=== PATIENT | female | born 1940 | race American Indian/Alaskan Native ===

== ENCOUNTER 2019-04-23 14:15 | Inpatient (IN) | payer MEDICARE, OTHER ==
[~2019-04-23] VITALS: Ht 160 cm; Wt 40.1 kg
--- OUTSIDE RECORDS SUMMARY | ~2019-04-23 | XMS | Clinical Summary ---
Demographics + + + | Address | [address] | | | [place] [address] | + + + | Home Phone | | + + + | Preferred Language | Unknown | + + + | Marital Status | | + + + | Muslim Affiliation | Unknown | + + + | Race | Unknown | + + + | Ethnic Group | Unknown | + + + Author + + + | Author | [facility] | | | and [place] | + + + | Organization | [facility] | | | and [place] | + + + | Address | Unknown | + + + | Phone | Unavailable | + + + Support + + +---------+ + | Name | Relationship | Address | Phone | + + +---------+ + | JoaquínDelmera | ECON | Unknown | | + + +---------+ + Care Team Providers + +------+ + | Care Deicer Inspector Pneumatic Name | Role | Phone | + +------+ + | Pcp, Prov Inactive | PP | | + +------+ + Allergies + + + + + + | Active Allergy | Reactions | Severity | Noted | Comments | | | | | Date | | + + + + + + | Bee Venom | | | | | + + + + + + | Codeine | | | 10/07/20 | | | | | | 13 | | + + + + + + | Morphine | | | 11/14/20 | | | | | | 13 | | + + + + + + | Penicillins | | | 11/14/20 | | | | | | 13 | | + + + + + + | Promethazine | | | 11/14/20 | | | | | | 13 | | + + + + + + | Hydrocodone | | | 111420 | | | | | | 13 | | + + + + + + Medications + + + +---------+------+------+-------+ | Medication | Sig | Dispensed | Refills | Star | End | Statu | | | | | | t | Date | s | | | | | | Date | | | + + + +---------+------+------+-------+ | simvastatin | Take 20 mg by mouth | | 0 | 02/1 | | Activ | | (ZOCOR) 20 mg tablet | nightly. | | | 06/12 | | e | | | | | | 12 | | | + + + +---------+------+------+-------+ | CALCIUM CARBONATE | TABS one by mouth | | 0 | 02/1 | | Activ | | | daily | | | 06/12 | | e | | | | | | 12 | | | + + + +---------+------+------+-------+ | multiple vitamins | one by mouth daily | | 0 | 02/1 | | Activ | | w/minerals (OCUVITE) | | | | 06/12 | | e | | TABS | | | | 12 | | | + + + +---------+------+------+-------+ | ferrous sulfate | One tablet by mouth | | 0 | 02/1 | | Activ | | 325 mg tablet | once daily | | | 720 | | e | | | | | | 12 | | | + + + +---------+------+------+-------+ | | Take 25 mg by mouth | | 0 | 02/1 | | Activ | | hydrochlorothiazide | Daily. | | | 06/12 | | e | | 25 mg tablet | | | | 12 | | | + + + +---------+------+------+-------+ | ibuprofen | Take 600 mg by mouth | | 0 | 02/1 | | Activ | | (ADVIL,MOTRIN) 600 | 3 times daily. | | | 720 | | e | | MG tablet | | | | 12 | | | + + + +---------+------+------+-------+ | levothyroxine | Take 125 mcg by | | 0 | 02/1 | | Activ | | (SYNTHROID, | mouth Daily. | | | 20 | | e | | LEVOTHROID) 125 mcg | | | | 12 | | | | tablet | | | | | | | + + + +---------+------+------+-------+ | metoprolol | Take 100 mg by mouth | | 0 | 02/1 | | Activ | | (TOPROL-XL) 100 MG | 2 times daily. | | | 7/20 | | e | | 24 hr tablet | | | | 12 | | | + + + +---------+------+------+-------+ | multivitamin | One tablet by mouth | | 0 | 02/1 | | Activ | | (THERAGRAN) per | once daily | | | 20 | | e | | tablet | | | | 12 | | | + + + +---------+------+------+-------+ | clopidogrel | Take 75 mg by mouth | | 0 | | | Activ | | (PLAVIX) 75 mg | Daily. | | | | | e | | tablet | | | | | | | + + + +---------+------+------+-------+ | Cholecalciferol | Take 50,000 Units by | | 0 | | | Activ | | (VITAMIN D3) 01613 | mouth Daily. | | | | | e | | UNITS CAPS | | | | | | | + + + +---------+------+------+-------+ | insulin glargine | Inject 15 Units | | 0 | | | Activ | | (LANTUS) 100 | under the skin | | | | | e | | units/mL injection | nightly. | | | | | | + + + +---------+------+------+-------+ | isosorbide | Take 30 mg by mouth | | 0 | | | Activ | | dinitrate (ISORDIL) | 2 times daily. | | | | | e | | 30 MG tablet | | | | | | | + + + +---------+------+------+-------+ | sitagliptan | Take 50 mg by mouth | | 0 | | | Activ | | (JANUVIA) 50 MG | Daily. | | | | | e | | tablet | | | | | | | + + + +---------+------+------+-------+ | nitroglycerin | Place 0.4 mg under | | 0 | | | Activ | | (NITROSTAT) 0.4 mg | the tongue every 5 | | | | | e | | SL tablet | minutes as needed. | | | | | | + + + +---------+------+------+-------+ | telmisartan | Take 40 mg by mouth | | 0 | 02/1 | | Activ | | (MICARDIS) 20 MG | Daily. | | | 7/20 | | e | | tablet | | | | 12 | | | + + + +---------+------+------+-------+ | aspirin 81 MG | Take 81 mg by mouth | | 0 | | | Activ | | tablet | Daily. Take 2 | | | | | e | | | tablets 2 times | | | | | | | | daily | | | | | | + + + +---------+------+------+-------+ | traMADol (ULTRAM) | Take 1-2 tablets by | 90 | 0 | 10/3 | | Activ | | 50 mg | mouth up to three | tablet | | 0/20 | | e | | tabletIndications: | times daily as | | | 14 | | | | Chronic back pain | needed. | | | | | | + + + +---------+------+------+-------+ Active Problems + + + | Problem | Noted Date | + + + | Thoracic back pain | 08/31/2014 | + + + | History of compression fracture of spine | 08/31/2014 | + + + | Carotid artery stenosis, symptomatic | 10/12/2013 | + + + | HEARING LOSS | 01/10/2012 | + + + | OSTEOPOROSIS | 01/10/2012 | + + + | FATIGUE | 01/10/2012 | + + + | DYSPNEA | 01/10/2012 | + + + | HYPOTHYROIDISM | 01/10/2012 | + + + | DIABETES MELLITUS, TYPE II | 01/10/2012 | + + + | HYPERTENSION | 01/10/2012 | + + + | CAD | 01/10/2012 | + + + | HYPERLIPIDEMIA | 01/10/2012 | + + + | CARDIAC MURMUR | 01/10/2012 | + + + Family History + + +------+ + | Medical History | Relation | Name | Comments | + + +------+ + | Colon cancer | Brother | | | + + +------+ + | Alcohol abuse | Father | | | + + +------+ + | Arthritis | Father | | | + + +------+ + | Cancer | Father | | | + + +------+ + | Clotting disorder | Father | | | + + +------+ + | Diabetes | Father | | | + + +------+ + | Heart disease | Father | | | + + +------+ + | Kidney disease | Father | | | + + +------+ + | Lung cancer | Father | | | + + +------+ + | Stroke | Father | | | + + +------+ + | Alcohol abuse | Mother | | | + + +------+ + | Arthritis | Mother | | | + + +------+ + | Cancer | Mother | | | + + +------+ + | Clotting disorder | Mother | | | + + +------+ + | Diabetes | Mother | | | + + +------+ + | Heart disease | Mother | | | + + +------+ + | Kidney disease | Mother | | | + + +------+ + | Lung cancer | Mother | | | + + +------+ + | Other (see comment) | Mother | | CVA | + + +------+ + | Stroke | Mother | | | + + +------+ + | Cervical cancer | Sister | | | + + +------+ + + +------+--------+ + | Relation | Name | Status | Comments | + +------+--------+ + | Brother | | | | + +------+--------+ + | Father | | | | + +------+--------+ + | Mother | | | | + +------+--------+ + | Sister | | | | + +------+--------+ + Social History + +-------+ +--------+------+ | Tobacco Use | Types | Packs/Day | Years | Date | | | | | Used | | + +-------+ +--------+------+ | Never Smoker | | | | | + +-------+ +--------+------+ + + +---------+ + | Alcohol Use | Drinks/We | oz/Week | Comments | | | ek | | | + + +---------+ + | Yes [...] recent travel history available. | + + Last Filed Vital Signs + + + + | Vital Sign | Reading | Time Taken | + + + + | Blood Pressure | 149/95 | 08/31/20141116 PDT | + + + + | Pulse | 97 | 08/31/20141116 PDT | + + + + | Temperature | 36.2 C (97.1 F) | 10/12/2013 1443 PST | + + + + | Respiratory Rate | 16 | 10/12/20131442 PST | + + + + | Oxygen Saturation | 94% | 10/12/20131442 PST | + + + + | Inhaled Oxygen | - | - | | Concentration | | | + + + + | Weight | 47.6 kg (105 lb) | 08/31/20141116 PDT | + + + + | Height | 154.9 cm (5' 1") | 08/31/20141116 PDT | + + + + | Body Mass Index | 19.84 | 08/31/20141116 PDT | + + + + Plan of Treatment + + + + + | Health Maintenance | Due Date | Last Done | Comments | + + + + + | Vaccine: | | | | | Dtap/Tdap/Td (1 - | 0 | | | | Tdap) | | | | + + + + + | Vaccine: Zoster (1 | | | | | of 2) | 1 | | | + + + + + | Vaccine: | | | | | Pneumococcal 65+ | 6 | | | | Low/Medium Risk (1 | | | | | of 2 - PCV13) | | | | + + + + + | Vaccine: Influenza | | | | | (Season Ended) | 9 | | | + + + + + Results Not on filefrom Last 3 Months Insurance + +--------+ +--------+ +---------+--------+ | Payer | Benefi | Subscriber | Effect | Phone | Address | Type | | | t Plan | ID | kt | | | | | | / | | Dates | | | | | | Group | | | | | | + +--------+ +--------+ +---------+--------+ | MEDICARE | [place] | [id number] | 03/24/20 | [phone] | | Medica | | | AD | | 06-Pre | 5 | | re | | | MEDICA | | sent | | | | | | RE | | | | | | + +--------+ +--------+ +---------+--------+ | [facility] | IHS | [id number] | | | | Indemn | | SERVICE | YELLOW | | 014-Pr | | | ity | | | [place] | | esent | | | | + +--------+ +--------+ +---------+--------+ + +--------+ +--------+ + + | Guarantor Name | Accoun | Relation to | Date | Phone | Billing Address | | | t Type | Patient | of | | | | | | | | | | + +--------+ +--------+ + + | Tammie Kearney | Person | Self [birth year] | [address] | | | al/Fam | | 1940 | [phone] | [place] | | | [place] | | | [address] (Home) | [address] | + +--------+ +--------+ + + Advance Directives Patient has advance care planning documents on file. For more information, please contact:[facility] [place] [address]
--- OUTSIDE RECORDS SUMMARY | ~2019-04-23 | XMS | Clinical Summary ---
Demographics + + + | Address | [address] | | | [place] [address] | + + + | Home Phone | | + + + | Preferred Language | Unknown | + + + | Marital Status | | + + + | Samaritan Affiliation | 1041 | + + + | Race | Unknown | + + + | Ethnic Group | Unknown | + + + Author + + + | Author | [facility] | + + + | Organization | [facility] | + + + | Address | Unknown | + + + | Phone | Unavailable | + + + Support + + +---------+ + | Name | Relationship | Address | Phone | + + +---------+ + | Sharif Courtney | Unknown | | + + +---------+ + | Tram Ruiz | ECON | Unknown | | + + +---------+ + Care Team Providers + +------+ + | Care Customer Security Clerk Name | Role | Phone | + +------+ + | Ani Yanes MD | PP | | + +------+ + Allergies + + + + + + | Active Allergy | Reactions | Severity | Noted | Comments | | | | | Date | | + + + + + + | Codeine | Nausea and Vomiting | Low | 10/15/20 | | | | | | 13 | | + + + + + + | Diazepam | Other (See Comments) | Medium | 05/27/20 | Unknown per pt | | | | | 14 | chart | + + + + + + | Lidocaine | Other (See Comments) | Medium | 05/27/20 | Unknown | | | | | 14 | | + + + + + + | Morphine | Itching | Medium | 09/07/20 | | | | | | 13 | | + + + + + + | Penicillins | Itching | Medium | 09/07/20 | | | | | | 13 | | + + + + + + | Promethazine | Hallucinations | Medium | 09/07/20 | | | | | | 13 | | + + + + + + | Propoxyphene | Other (See Comments) | Medium | 05/27/20 | Unknown per pt | | | | | 14 | history | + + + + + + | Hydrocodone-Acetamin | Nausea and Vomiting | Low | 09/07/20 | | | ophen | | | 13 | | + + + + + + Current Medications + + +---------+---------+------+------+-------+ | Prescription | Sig. | Disp. | Refills | Star | End | Statu | | | | | | t | Date | s | | | | | | Date | | | + + +---------+---------+------+------+-------+ | insulin glargine | Inject 10 Units into | 10 mL | 3 | 10/1 | | Activ | | (LANTUS) 100 UNIT/ML | the skin nightly. | | | 7/20 | | e | | injection | | | | 13 | | | + + +---------+---------+------+------+-------+ | | Take 25 mg by mouth | | | | | Activ | | hydrochlorothiazide | daily. | | | | | e | | (HYDRODIURIL) 25 MG | | | | | | | | tablet | | | | | | | + + +---------+---------+------+------+-------+ | metoprolol | Take 100 mg by mouth | | | | | Activ | | (LOPRESSOR) 100 MG | daily. | | | | | e | | tablet | | | | | | | + + +---------+---------+------+------+-------+ | levothyroxine | Take 125 mcg by | | | | | Activ | | (SYNTHROID, | mouth every morning | | | | | e | | LEVOTHROID) 125 MCG | before breakfast. | | | | | | | tablet | | | | | | | + + +---------+---------+------+------+-------+ | simvastatin | Take 20 mg by mouth | | | | | Activ | | (ZOCOR) 20 MG tablet | nightly. | | | | | e | + + +---------+---------+------+------+-------+ | sitaGLIPtin | Take 1 tablet by | 30 | 0 | 10/2 | | Activ | | (JANUVIA) 50 MG | mouth daily. | tablet | | 4/20 | | e | | tablet | | | | 13 | | | + + +---------+---------+------+------+-------+ | Cholecalciferol | Take 5,000 Units by | | | | | Activ | | 5000 UNITS TABS | mouth daily. | | | | | e | + + +---------+---------+------+------+-------+ | calcium carbonate | Take 600 mg by mouth | | | | | Activ | | (OS-SANTA) 600 MG TABS | daily. | | | | | e | + + +---------+---------+------+------+-------+ | aspirin 81 MG EC | Take 81 mg by mouth | | | | | Activ | | tablet | daily with | | | | | e | | | breakfast. | | | | | | + + +---------+---------+------+------+-------+ | amLODIPine | Take 10 mg by mouth | | | 10/2 | | Activ | | (NORVASC) 2.5 MG | daily. | | | 4/20 | | e | | tablet | | | | 13 | | | + + +---------+---------+------+------+-------+ | irbesartan | Take 1 tablet by | 30 | 0 | 07/0 | | Activ | | (AVAPRO) 300 MG | mouth nightly. | tablet | | 8/20 | | e | | tablet | | | | 14 | | | + + +---------+---------+------+------+-------+ | isosorbide | Take 1 tablet by | 30 | 0 | 07/0 | | Activ | | mononitrate (IMDUR) | mouth daily. | tablet | | 8/20 | | e | | 60 MG 24 hr tablet | | | | 14 | | | + + +---------+---------+------+------+-------+ Active Problems + + + | Problem | Noted Date | + + + | NSTEMI (non-ST elevated myocardial infarction) | 05/27/2014 | + + + | Chest pain at rest | 05/27/2014 | + + + | Accelerated hypertension | 05/27/2014 | + + + | Elevated d-dimer | 05/27/2014 | + + + | Chronic low back pain | 05/27/2014 | + + + | Head ache | 05/27/2014 | + + + | Nausea with vomiting | 05/27/2014 | + + + | At high risk for falls | 05/27/2014 | + + + | Gait disturbance, post-stroke | 09/09/2013 | + + + | Lacunar stroke, acute | 09/08/2013 | + + + | HTN (hypertension) | 09/08/2013 | + + + | DM type 2 (diabetes mellitus, type 2) | 09/08/2013 | + + + | Dehydration | 09/08/2013 | + + + | Other chest pain | 09/08/2013 | + + + Family History + + +------+ + | Medical History | Relation | Name | Comments | + + +------+ + | Alcoholism | Father | | | + + +------+ + | Diabetes | Mother | | | + + +------+ + | Heart failure | Mother | | | + + +------+ + + +------+ + + | Relation | Name | Status | Comments | + +------+ + + | Father | | | | + +------+ + + | Mother | | | | + +------+ + + Social History + +-------+ +--------+ + | Tobacco Use | Types | Packs/Day | Years | Date | | | | | Used | | + +-------+ +--------+ + | Former Smoker | | 0.25 | 4 | Quit: 09/07/1993 | + +-------+ +--------+ + + + +---------+ + | Alcohol Use | Drinks/We | oz/Week | Comments | | | ek | | | + + +---------+ + | No | | | | + + +---------+ + + + + | Sex Assigned at | Date Recorded | | | | + + + | Not on file | | + + + Last Filed Vital Signs + + + + | Vital Sign | Reading | Time Taken | + + + + | Blood Pressure | 131/60 | 05/31/2014 3:34 PM PDT | + + + + | Pulse | 68 | 05/31/2014 3:34 PM PDT | + + + + | Temperature | 37 C (98.6 F) | 05/31/2014 3:34 PM PDT | + + + + | Respiratory Rate | 16 | 05/31/2014 3:34 PM PDT | + + + + | Oxygen Saturation | 93% | 05/31/2014 3:34 PM PDT | + + + + | Inhaled Oxygen | - | - | | Concentration | | | + + + + | Weight | 51.3 kg (113 lb) | 05/31/2014 3:46 AM PDT | + + + + | Height | 160 cm (5' 3") | 05/27/2014 5:19 AM PDT | + + + + | Body Mass Index | 20.02 | 05/31/2014 3:46 AM PDT | + + + + Plan of Treatment Not on file Results Not on filefrom Last 3 Months Insurance + +--------+ +------+-------+ + | Payer | Benefi | Subscriber | Type | Phone | Address | | | t Plan | ID | | | | | | / | | | | | | | Group | | | | | + +--------+ +------+-------+ + | MEDICARE | MEDICA | [id number] | | | [address] | | | RE | | | | [place] [address] | | | [place] | | | | | | | AD | | | | | + +--------+ +------+-------+ + | /[facility] | YELLOW | [id number] | | | | | PLANS | [place] | | | | | + +--------+ +------+-------+ + + +--------+ +--------+ + + | Guarantor Name | Accoun | Relation to | Date | Phone | Billing Address | | | t Type | Patient | of | | | | | | | | | | + +--------+ +--------+ + + | HELEN COURTNEY | Person | Self | [birth year] | Home: | [address] | | | [place] | | 1940 | [phone] | [address] | | | [place] | | | [phone] | [phone] | + +--------+ +--------+ + +
--- OUTSIDE RECORDS SUMMARY | ~2019-04-23 | XMS | Clinical Summary ---
Demographics + + + | Address | [address] | | | [place] [address] | + + + | Home Phone | | + + + | Preferred Language | Unknown | + + + | Marital Status | | + + + | Adventism Affiliation | 1041 | + + + | Race | Unknown | + + + | Ethnic Group | Unknown | + + + Author + + + | Author | [facility] | + + + | Organization | [facility] | + + + | Address [...] Team Providers + +------+ + | Care Behavioral Health Assistant Name | Role | Phone | + [...] +------+-------+ + | MEDICARE | MEDICA | [id number] | | | [address] | | | RE | | | | [place] [address] | | | [place] | | | | | | | AD | | | | | + +--------+ +------+-------+ + | /[facility] | YELLOW | [id number] | | | | | PLANS | [...] | Self | [birth year] | Home: | [address] | | | [place] | | 1940 | [phone] | [address] | | | [place] | | | [phone] | [phone] | + +--------+ +--------+ + +
--- OUTSIDE RECORDS SUMMARY | ~2019-04-23 | XMS | Clinical Summary ---
Demographics + + + | Address | [address] | | | [place] [address] | + + + | Home Phone | | + + + | Preferred Language | Unknown | + + + | Marital Status | | + + + | Confucianism Affiliation | 1041 | + + + | Race | Unknown | + + + | Ethnic Group | Unknown | + + + Author + + + | Author | [facility] | + + + | Organization | [facility] | + + + | Address [...] Team Providers + +------+ + | Care Dye House Worker Name | Role | Phone | [...] +------+-------+ + | MEDICARE | MEDICA | [id number] | | | [address] | | | RE | | | | [place] [address] | | | [place] | | | | | | | AD | | | | | + +--------+ +------+-------+ + | /[facility] | YELLOW | [id number] | | | | | PLANS | [...] | Self | [birth year] | Home: | [address] | | | [place] | | 1940 | [phone] | [address] | | | [place] | | | [phone] | [phone] | + +--------+ +--------+ + +
--- OUTSIDE RECORDS SUMMARY | ~2019-04-23 | XMS | Clinical Summary ---
Demographics + + + | Address | [address] | | | [place] [address] | + + + | Home Phone | | + + + | Preferred Language | Unknown | + + + | Marital Status | | + + + | Catholic Affiliation | Unknown | + + + | Race | Unknown | + + + | Ethnic Group | Unknown | + + + Author + + + | Author | [facility] | | | and [place] | + + + | Organization | [facility] | | [...] Team Providers + +------+ + | Care Special Education Associate Name | Role | Phone | + [...] | | Activ | | (VITAMIN D3) 21449 | mouth Daily. | | | | [...] +--------+ +---------+--------+ | MEDICARE | [place] | [id number] | 03/24/20 | [phone] | | Medica | | | AD | | 06-Pre | 5 | | re | | | MEDICA | | sent | | | | | | RE | | | | | | + +--------+ +--------+ +---------+--------+ | [facility] | IHS | [id number] | | | | Indemn | | [...] Person | Self | [birth year] | | [address] | | | al/Fam | | 1940 | [phone] | [address] | | | [place] | | | [address] (Home) | [phone] | + +--------+ +--------+ + + Advance Directives Patient has advance care planning documents on file. For more information, please contact:[facility] [place] [address]
--- OUTSIDE RECORDS SUMMARY | ~2019-04-23 | XMS | Clinical Summary ---
Demographics + + + | Address | [address] | | | [place] [address] | + + + | Home Phone | | + + + | Preferred Language | Unknown | + + + | Marital Status | | + + + | Mosque Affiliation | Unknown | + + + | Race | Unknown | + + + | Ethnic Group | Unknown | + + + Author + + + | Author | [facility] | | | and [place] | + + + | Organization | [facility] | | | [...] Team Providers + +------+ + | Care Director Supply Name | Role | Phone | + [...] | | Activ | | (VITAMIN D3) 37816 | mouth Daily. | | | | [...] +--------+ +---------+--------+ | MEDICARE | [place] | [id number] | 03/24/20 | [phone] | | Medica | | | AD | | 06-Pre | 5 | | re | | | MEDICA | | sent | | | | | | RE | | | | | | + +--------+ +--------+ +---------+--------+ | [facility] | IHS | [id number] | | | | Indemn | | [...] Person | Self | [birth year] | | [address] | | | al/Fam | | 1940 | [phone] | [address] | | | [place] | | | [address] (Home) | [phone] | + +--------+ +--------+ + + Advance Directives Patient has advance care planning documents on file. For more information, please contact:[facility] [place] [address]
[~2019-04-23 14:15] MED LIST: AMLODIPINE BESY10 MG PO; ASPIRIN EC81 MG PO; ASPIRIN325 MG PO; AVAPRO300 MG PO; DIALYVITE V5000 UNIT PO; FAMOTIDINE20 MG PO; FOSAMAX70 MG PO; FUROSEMIDE20 MG PO; HYDROCHLOROTHIA25 MG PO; IRBESARTAN150 MG PO; ISOSORBIDE MONO30 MG PO; JANUVIA50 MG PO; LANTUS100 UNITS/ SUB-Q; LEVOTHYROXINE125 MCG PO; METOPROLOL TAR100 MG PO; METOPROLOL TART50 MG PO; NORVASC5 MG PO; OCUVITE TABLET1 EAC1; PLAVIX75 MG PO; RA CALCIUM PO; SIMVASTATIN20 MG; SIMVASTATIN20 MG PO; SUCRALFATE1 GM/10 ML PO; TELMISARTAN20 MG PO; ULTRA-LIGHT RO1 EACH MISC
[2019-04-23] MEDS ORDERED: ROSUVASTATIN CA10 MG PO (14:49)
[2019-04-23] MEDS ORDERED: CARVEDILOL3.125 MG PO (14:50)
--- NOTE | 2019-04-23 18:53 | NUR ---
pt ARRIVED ON FLOOR. KALEIGH MOSS IN ROOM. pt's DAUGHTER VINCENT AT BEDSIDE.
--- NOTE | 2019-04-23 20:07 | NUR ---
CHARGE NURSE ROUNDING NOTE:. PT ADMITTED TO ROOM 109 AT 1856. COOPERATIVE. FAMILY IN ROOM. CALL LIGHT AT BEDSIDE, PT ORIENTED TO ROOM 1920: DR THURMAN IN ROOM ASSESSING PT 1999: DR SPENCER IN ROOM ASSESSING PT. BOBBY RN IN ROOM
--- NOTE | 2019-04-23 20:18 | NUR ---
REPORT RECEIVED FROM KALEIGH MOSS. DAUGHTER VINCENT AT BEDSIDE, GRANDDAUGHTER RAMANA AT BEDSIDE. 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 pt UP TO TOILET, SOME INCONT AT BASELINE, PAD IN PLACE. SOME REDNESS NOTED ALONG SPINE AND BUTTOCKS, BLANCHABLE. SKIN INTACT. DR SPENCER IN TO DO ASSESSMENT. DIET ADVANCED TO ADA, SOUP PROVIDED. pt SITTING ON SIDE OF BED TO EAT. CALL LIGHT WITHIN REACH.
--- NOTE | 2019-04-23 22:16 | NUR ---
BLOOD PRESSURE TAKEN, MEDICATIONS GIVEN (SEE MAR). SCDS ON. pt RESTING. WARM BLANKETS AND WATER PROVIDED. CALL LIGHT WITHIN REACH.
--- NOTE | 2019-04-24 00:14 | NUR ---
CALL LIGHT ON pt UP TO TOILET AND BACK TO BED. VERY SMALL BM NOTED. SCDS ON. pt RESTING. CALL LIGHT WITHIN REACH.
--- NOTE | 2019-04-24 02:25 | NUR ---
CALL LIGHT ON. SBA, FWW TO TOILET. BM NOTED. pt SITTING IN CHAIR. VSS, I&O RECORDED. ASSESSMENT DONE. DENIES PAIN. BOWEL SOUNDS ACTIVE. REQUESTED SANDWICH, SENIOR PRODUCT DEVELOPMENT SCIENTIST NOTIFIED. CALL LIGHT WITHIN REACH.
--- NOTE | 2019-04-24 03:28 | NUR ---
CALL LIGHT ON. ASSISTED TO TOILET AND BACK TO BED. pt REPORTED "I'M HUNGRY BUT MY STOMACH IS UPSET". CARLTON GIVEN (SEE MAR). PROVIDED HALF A SANDWICH AND CRACKERS. CALL LIGHT WITHIN REACH.
--- NOTE | 2019-04-24 05:45 | NUR ---
CALL LIGHT ON. UP TO TOILET. BACK TO BED. pt DENIED PAIN AT THIS TIME. VSS. I&O RECORDED. CALL LIGHT WITHIN REACH.
--- NOTE | 2019-04-24 05:54 | NUR ---
pt RESTED ON AN OFF DURING NIGHT. UP TO TOILET MULTIPLE TIMES. VOIDING QS. BM LIQUID. SBA, FOUR WHEEL WALKER. pt DENIED PAIN DURING SHIFT. REPORTED STOMACH UPSET, PRN ZOFRAN X2. ACCU CHECKS. IVF INFUSING. TOLERATING ADA DIET. ATE SOUP AND A FEW BITES OF SANDWICH. VERY HARD OF HEARING, HEARING AIDS AT BEDSIDE. HYPERTENSIVE WHEN ADMITTED, MEDICATIONS GIVEN. SCDS. USES CALL LIGHT APPROPRIATELY.
--- NOTE | 2019-04-24 06:52 | NUR ---
UP TO TOILET. BRUSHED TEETH, COMBED HAIR. BACK TO BED. WARM BLANKET PROVIDED. DAUGHTER AT BEDSIDE. CALL LIGHT WITHIN REACH.
--- NOTE | 2019-04-24 07:10 | NUR ---
REPORT RECEIVED FROM KALEIGH ELENA. PT RESTING IN BED. PT COMPLAINS OF 6/10 PAIN IN HER ABDOMEN. PT POINTS TO BOTH LEFT AND RIGHT SIDE. KASSY STATES SHE IS PLANNING ON CALLING DR. SPENCER. PT DENIES ADDITIONAL REQUESTS OR COMPLAINTS AT THIS TIME. PT AND DAUGHTER ASSISTED WITH ORDERING BREAKFAST. NO ADDITIONAL REQUESTS OR COMPLAINTS AT THIS TIME. CALL LIGHT WITHIN REACH. BED RAILS UP.
--- NOTE | 2019-04-24 07:15 | NUR ---
PATIENT RESTING IN BED. DAUGHTER IN ROOM. CALL LIGHT WITHIN REACH. NO OTHER NEEDS AT THIS TIME
--- NOTE | 2019-04-24 07:24 | NUR ---
CALLED. OKAY TO GIVE TYLENOL FOR PAIN. ORDER UPDATED.
--- NOTE | 2019-04-24 08:12 | NUR ---
MORNING ASSESSMENT AND MEDICATIONS DUE. THIS RN TO BEDSIDE. FAMILY CONCERNED ABOUT PT STATING "WE JUST WANT THE PROBLEM FIXED." PT REPORTS 6/10 PAIN AT BEGING OF SHIFT AND BY THE END OF ASSESSMENT REPORTS PAIN IS NOT AT 1/10 AND SAYS "THE TYLENOL HELPS." WARM PACK IN PLACE. ASSESSMENT DONE. ABDOMEN MILDLY DISTENTED AND TENDER TO TOUCH. CBG = 124. PTS FAMILY STATS THEY "DO NOT KNOW WHY SHE IS GETTING CARVADIOL AND IRBASARTAN" AND WANT THIS MEDICATION HELD UNTIL MD CONFIRMS. MEDICATION HELD AT THIS TIME. MD CONSULTED. PT RESTING WITH EYES CLOSED. FAMILY AT BEDSIDE. BED RAILS UP. CALL LIGHT WITHIN REACH.
--- NOTE | 2019-04-24 08:22 | CONS ---
[facility] [address], [place] [address] Signed DATE OF CONSULTATION: 04/23/2019 CHIEF COMPLAINT: Right lower quadrant abdominal pain and nausea for two weeks. HISTORY OF PRESENT ILLNESS: Helen is a 79-year-old, debilitated, cachectic female, who happens to live with her granddaughter. She gets around with her four wheeled walker. On a good day, she eats very little. There is a young great grandson in the house as well. The last 2 weeks apparently she has had some abdominal pain and apparently now it seems to be more right lower quadrant. She has had nausea with food and therefore has not been eating well. Although, she did eat some this morning. Apparently, she had some diarrhea and it is now resolved. She had been to the [facility] earlier today. It was unclear the etiology of her symptoms. Consequently, she was asked to come to our local emergency room for evaluation. In emergency room, she does not appear systemically ill or toxic. Vital signs are fine except her blood pressure is running a little high consistent with her history of hypertension. Physical exam was not particularly concerning other than possibly some pain in the right lower quadrant. White count was normal. She is a little anemic and her other laboratory work seems to be fine. She ended up with a CT scan of abdomen and pelvis and there appears to be appendicolith and maybe some enhancement to the appendiceal wall. There seems to be some fluid in the small bowel as well as the right colon. Although, there is some question about hysterectomy, it appears the uterus is in place with quite a bit of calcification. She also has quite a bit of calcification in her arteries. Consequently, I was asked to admit her as a general surgeon on-call. In the meantime, she seems to be doing fine and our Internal Medicine Service has seen her as well. PAST MEDICAL HISTORY: Breast cancer, hypertension, diabetes, TIA, hypothyroidism, colonic volvulus, colon polyps, osteopenia, multiple chronic vertebral compression fractures, atherosclerotic disease, and she is hard of hearing. 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 SOCIAL HISTORY: Does not smoke or drink. She lives with her granddaughter at [phone]. She uses a four wheeled walker to get around. They prefer the [facility]. Her primary care provider is [facility]. FAMILY HISTORY: None. Electronically Signed By: TITA HERNANDEZ MD 04/24/19 0822 PATIENT NAME: HELEN COURTNEY [facility] CONSULTATION DATE OF : 42 REPORT #: [id number] PHYSICIAN: TITA HERNANDEZ MD PCP: RAMONA HAWKINS MD REPORT IS CONFIDENTIAL AND NOT TO BE RELEASED WITHOUT AUTHORIZATION [address] [address] Signed REVIEW OF SYSTEMS: We did our best to review 10 systems with Helen and her granddaughter and her other granddaughter with nothing new to add. ALLERGIES: Penicillin, lidocaine, diazepam, morphine, codeine, hydrocodone, promethazine, and propoxyphene. MEDICATIONS: 1. Levothyroxine. 2. Januvia. 3. Irbesartan. 4. Aspirin. 5. Rosuvastatin. 6. Carvedilol. PHYSICAL EXAMINATION: VITAL SIGNS: Blood pressure is 189/99, heart rate 79, respiratory rate 16, temperature 98.3, she is 99% on room air. She is 5 feet 3 inches, at 40 kg. GENERAL: Helen is a 79-year-old female, lying supine in her hospital bed. Her granddaughter is with her along with our nurse, Wilma. Helen is clearly hard of hearing. She answers usually correctly, but quite slowly. Her vision does not seem the best although her glasses are on the table. She is cachectic, but does not appear systemically ill or toxic. LUNGS: Clear to auscultation bilaterally. HEART: Regular rate and rhythm without murmurs. ABDOMEN: Soft, flat, and nontender. Although she points to the right side as her pain. Of course, the uterus is on that side right next to her appendix and this is also the area of the fluid in the small bowel and the right colon. LABORATORY DATA: Her white blood cell count 6.2, hemoglobin 11.6 with a mean cell volume 94, neutrophils are 68. BUN 21, creatinine 0.63, and glucose 192. Urinalysis unremarkable. Liver function tests are negative. Lipase is negative. Albumin is 3.8. RADIOGRAPHIC STUDIES: A CT scan of the abdomen and pelvis is reviewed myself along with the report. There is some fluid in the small bowel and the right colon and her uterus is slightly enlarged with some calcifications more in the right side and the appendix is just above that with a small stone in it, it is not particularly enhancing and not particularly concerning. ASSESSMENT AND PLAN: Helen is a 79-year-old female, who is quite elderly and debilitated. It is unclear the Electronically Signed By: TITA HERNANDEZ MD 04/24/19 0822 PATIENT NAME: HELEN COURTNEY MICHAEL CONSULTATION DATE OF : 42 REPORT #: [id number] PHYSICIAN: TITA HERNANDEZ MD PCP: RAMONA HAWKNIS MD REPORT IS CONFIDENTIAL AND NOT TO BE RELEASED WITHOUT AUTHORIZATION [facility] [address] [facility] [place], [place] [address] Signed source of her abdominal pain, although she seems to point to the right lower quadrant. It could be the appendix or that could be an incidental finding. She certainly has an enlarged uterus with some calcifications. There is some fluid in that small bowel and right colon. She has been sick for at least two weeks with nausea and now her diarrhea resolved. This could represent a viral illness considering the fact that she has a young great grandson in the house. She tells me she had a colectomy for the volvulus and she does have a long periumbilical midline incision and I suspect she had a sigmoid volvulus based on what we know. At this point, we are going to admit her and she says she is hungry and she would like to try to eat and I think we will just let her have some ADA diet and see how she does. We are going to withhold any antibiotics and we will repeat the labs in the morning. I have reviewed this with Helen and her daughter. They have expressed understanding and agreed to above plan. We did specifically ask about her DNR status and she and her granddaughter was not sure, so she is going to check with Helen and the family and will go from there. Tita Hernandez MD ALB/MODL /[id number] cc: Tita Hernandez MD [facility] Copies: TITA HERNANDEZ MD ~ Electronically Signed By: TITA HERNANDEZ MD 04/24/19 0822 PATIENT NAME: HELEN COURTNEY MICHAEL CONSULTATION DATE OF : 42 REPORT #: [id number] PHYSICIAN: TITA HERNANDEZ MD PCP: RAMONA HAWKINS MD REPORT IS CONFIDENTIAL AND NOT TO BE RELEASED WITHOUT AUTHORIZATION
--- NOTE | 2019-04-24 08:55 | NUR ---
THIS RN TO ROOM FOR ROUNDS WITH MD. MD AWARE OF HELD BLOOD PRESSURE MEDICATIONS. MEDICATIONS GIVEN PER MD ORDER AND FAMILY CONCENT. PT RESTING WITH EYES CLOSED. RR = 16BPM, EVEN AND UNLABORED. PT REMAINS NPO. FAMILY AND PT EXPECTING SURGERY. BED RAILS UP. CALL LIGHT WITHIN REACH.
--- NOTE | 2019-04-24 09:13 | NUR ---
PATIENT RESTING IN BED. DAUGHTER IN ROOM. VITAL SIGNS AND I&O DONE. CALL LIGHT WITHIN REACH. NO OTHER NEEDS AT THIS TIME
--- NOTE | 2019-04-24 12:10 | NUR ---
PT INTO SHOWER, SURGICAL WIPES USED, DAUGHTER IN ROOM, LINENS CHANGED.
--- NOTE | 2019-04-24 12:40 | NUR ---
PT SENT TO OR. DAUGHTER WALKING WITH PT.
--- NOTE | 2019-04-24 13:18 | NUR ---
04/24/19 1318 Annel Morrison 1309-PATIENT ARRIVED TO PACU ON 6L MASK SR. RR EVEN. PATIENT REACTIVE TO VOICE ONLY OPENING EYES AND CLOSES THEM NOT RESPONDING TO QUESTIONS. HEARING AID ONLY IN RIGHT EAR. PATIENT ORIENTED TO PACU. RLQ DRESSING CDI ICE APPLIED. GLUCOSE CHECKED 138 PATIENT TO BE COVERED ON THE FLOOR.
--- NOTE | 2019-04-24 13:45 | NUR ---
PT ARRIVED FROM PACU. 3P, SLIDE ASSIST TO BED. PT REPORTS NAUSEA, SEE MAR FOR MEDICATION GIVEN. PT REPORTS PAIN BUT IS UNABLE TO RATE PAIN AT THIS TIME. FLACC SCALE SHOWS 5/10 PAIN. ASSESSMENT DONE. DRESSING C/D/I AT THIS TIME. FAMILY AT BEDSIDE. CALL LIGHT WITHIN REACH.
--- NOTE | 2019-04-24 14:42 | NUR ---
VITALS AND ASSESSMENT DUE. PT RESTING WITH EYES CLOSED. PT CONTINUES TO APPEAR NASUEATED. FAMILY REQUESTS PAIN MEDICATION BE HELD UNTIL NAUSEA RESOLVES. PT DRIFTS QUICKLY OFF TO SLEEP AFTER OPENING EYES DURING ASSESSMENT. DRESSING CONTINUES TO BE C/D/I. NO ADDITIONAL REQUESTS OR COMPLAINTS AT THIS TIME. CALL LIGHT WITHIN REACH. BED ALARM ON.
--- NOTE | 2019-04-24 14:59 | EKG ---
[facility] [address] [facility] [place], [place] [address] Signed Normal sinus rhythm Voltage criteria for left ventricular hypertrophy ST \T\ T wave abnormality, consider lateral ischemia Abnormal ECG No previous ECGs available Confirmed by ROXANNE THURMAN DO ([id number]) on 04/24/2019 2:59:31 PM Electronically Signed By: ROXANNE THURMAN DO 04/24/19 1459 PATIENT NAME: EDEN COURTNEYGIORGI RODRIGUEZ Electrocardiogram DATE OF : 42 PHYSICIAN: ROXANNE THURMAN DO REPORT #: [id number] REPORT IS CONFIDENTIAL AND NOT TO BE RELEASED WITHOUT AUTHORIZATION
--- NOTE | 2019-04-24 15:45 | NUR ---
VITALS AND ASSESSMENT DUE. THIS RN TO BEDSIDE. PT RESTING WITH EYES CLOSED. RR = 14, EVEN AND UNLABORED. PT AWAKENS TO TOUCH AND VOICE. PT REPORTS 2/10 PAIN AND STATES SHE DOES NOT WANT PAIN MEDICATION AT THIS TIME. PT DENIES NASUEA. FAMILY STATES PT APPEARS COMFORTABLE AND IS "DOING SO WELL THIS TIME." NO ADDITIONAL REQUESTS OR COMPLAINTS. CALL LIGHT WITHIN REACH.
--- NOTE | 2019-04-24 16:29 | OR ---
[facility] [address] [place], [place] [address] Signed DATE OF OPERATION: 04/24/2019 SURGEON: Tita Spencer MD PREOPERATIVE DIAGNOSES: 1. Right lower quadrant abdominal pain. 2. Appendicolith. 3. Possible early appendicitis. POSTOPERATIVE DIAGNOSIS: Slightly inflamed and slightly thickened distal appendix. PROCEDURE PERFORMED: Open appendectomy. ESTIMATED BLOOD LOSS: None. FINDINGS: The distal 2 cm of the appendix was slightly thickened and inflamed. Otherwise, no inflammatory changes. She had adhesions to her previous periumbilical midline incision from a sigmoid colectomy for volvulus and later repair of her incisional hernia with Prolene mesh. Consequently, we really could not see across the midportion of the abdomen. I could feel the Mayes catheter balloon anteriorly. I made my way down in the pelvis and felt what was a small indurated uterus. Otherwise, no inflammatory changes. INDICATIONS: Helen is a 79-year-old female who happens to live with one of her daughters. They have a young grandson in a house who has been very helpful and stimulating for Helen. In the last couple weeks, she has had quite a bit of abdominal pain, seemingly in the right lower quadrant. She has had some nausea with food. It sounds like she was having diarrhea and it is slowly starting to improve. However, today in the operating room, when she was pharmacologically paralyzed, she had quite a bit of liquid brown stool. No recent antibiotics to her knowledge. She came to emergency room for evaluation. Still a little unclear about her pain, but she seems to point to the right lower quadrant. White count was normal along with a repeat white count the following morning. CT scan was not overly concerning other than possibly some enhancement to the appendix with an appendicolith present. Consequently, I have been asked to admit her as a general surgeon on-call. We gave her some IV fluids and withheld antibiotics. We gave her a little Tylenol and that seemed to actually help her pain. She was able to eat a little Electronically Signed By: TITA SPENCER MD 04/24/19 1629 PATIENT NAME: HELEN COURTNEY OPERATIVE REPORT DATE OF : 42 REPORT #: [id number] PHYSICIAN: TITA SPENCER MD PCP: RAMONA HAWKINS MD REPORT IS CONFIDENTIAL AND NOT TO BE RELEASED WITHOUT AUTHORIZATION [facility] [address] [place], [place] [address] Signed bit, but her family tells me she really does not eat much at all, not surprising with a body weight of 40 kg. I had been in to see Helen last night and I believe was a granddaughter who was present. This morning, I just missed her son and then her daughter was there along with her . We had a long discussion with them along with Helen. In the end, they had two family members apparently that presented with atypical appendicitis, who benefitted from their appendectomies. I explained to Helen the location of function of the appendix. We talked about the differential diagnosis including possible viral enteritis. We also reviewed the expected intraop and postop course. Because of her previous periumbilical midline incision, followed by an incisional hernia repair with Prolene mesh, and the fact that she is quite small, really pediatric in size, we decided to abandon the laparoscopic approach and to proceed with a standard right lower quadrant incision. We also reviewed the expected intraop and postop course. She understands there is risk of surgery including, but not limited to bleeding, infection, scarring, change in contour of the skin, damage to bowel, appendiceal stump leak, postoperative intraabdominal abscess, incisional hernias and other unforeseen comorbidities including the inability to relieve her pain. She and her family had expressed understanding and wished to proceed. We also had a very long discussion about her POLST form and her DNR status. Apparently, they discussed this quite a bit with the family, but no formal documentation. Initially, she wanted to remain completely DNR throughout the surgery and after the surgery. Later, she changed her mind and would accept CPR during surgery and/or up to 48 hours. Everyone had reviewed the form and signed it and were all quite clear on that headed into surgery. Given that, Helen and her family had expressed understanding and wished to proceed with her appendectomy. DESCRIPTION OF PROCEDURE: Helen was taken in the operating room and placed in a supine position under general endotracheal tube anesthesia. We gave her preoperative Levaquin and Flagyl. She was already on preoperative heparin with SCDs. When she was pharmacologically paralyzed, she did have quite a bit of liquid brown stool. That was all cleaned and discarded. A Mayes catheter was then inserted under sterile conditions with return of clear yellow urine. She actually had about 500 mL urine out during the procedure. She was then prepped and draped in the usual sterile fashion. We made a standard McBurney's incision in the right lower quadrant, used a muscle-splitting technique to enter the abdomen. We found no evidence of any inflammation. No inflammatory fluid whatsoever. The cecum was right in front of us and was easy matter to elevate the cecum along with the appendix. Again, the distal 2 cm of her appendix was a little bit thickened and a little bit dilated. The mesoappendix was taken down between Pean clamps and 0 Vicryl ties. Appendiceal stump was also secured with 0 Vicryl tie. The appendiceal stump was lightly cauterized. She had adhesions across the midline and we could not see over the left side of her pelvis or the abdomen. We felt down into the pelvis and I could feel the Mayes catheter balloon anteriorly. I could feel what was probably her small uterus down Electronically Signed By: TITA SPENCER MD 04/24/19 1629 PATIENT NAME: HELEN COURTNEY OPERATIVE REPORT DATE OF : 42 REPORT #: [id number] PHYSICIAN: TITA SPENCER MD PCP: RAMNOA HAWKINS MD REPORT IS CONFIDENTIAL AND NOT TO BE RELEASED WITHOUT AUTHORIZATION [facility] [address] [place], [place] [address] Signed in the pelvis. Otherwise, no evidence of any pathology or inflammatory changes that we could see. We could not really run the small bowel due to the adhesions. After this, then we closed her abdominal wall in layers with a running 2-0 PDS suture. She told us her allergy to lidocaine was hives. We had injected a small with lidocaine into her skin early in the procedure and it seemed to be fine. We went ahead and used bupivacaine in her abdominal wall and subcutaneous tissues to help with postoperative pain control. The wound was irrigated and suctioned out until clear. We closed the Galdino's fascia with a running 3-0 Monocryl suture. The dermis was reapproximated with interrupted 3-0 subcuticular Monocryl sutures. The skin edges were reapproximated with a running 6-0 fast absorbing plain gut suture. Dry gauze and tape were then applied. We then removed her Mayes catheter without difficulty. She was transferred to her hospital bed and taken into recovery room in stable condition. Tita Spencer MD ALB/MODL /[id number] cc: [facility] Tita Spencer MD Copies: TITA SPENCER MD ~ Electronically Signed By: TITA SPENCER MD 04/24/19 1629 PATIENT NAME: HELEN COURTNEY MICHAEL OPERATIVE REPORT DATE OF : 42 REPORT #: [id number] PHYSICIAN: TITA SPENCER MD PCP: RAMONA HAWKINS MD REPORT IS CONFIDENTIAL AND NOT TO BE RELEASED WITHOUT AUTHORIZATION
--- NOTE | 2019-04-24 17:15 | NUR ---
VITALS AND ASSESSMENT DUE. 1PA UP TO COMODE. PT VOIDS 50ML URINE BUT NO STOOL AT THIS TIME. HUMA CARE DONE. FRESH DEPENDS IN PLACE. ASSESSMENT DONE. DRESSING C/D/I. PT DEMONESTRATES USE OF I.S. RECHING 500ML. PT ENCORUAGED TO CONTINUE USING I.S. CBG TAKEN = 162. PT IS NOT YET TAKING PO FOOD OR FLUIDS. DR. THURMAN CONSULTED. INSULIN HELD AT THIS TIME. TO BE REASSESSED AT 2100. PT RESTING WITH EYES CLOSED. NO ADDITIONAL REQUESTS OR COMPLAINTS AT THIS TIME. CALL LIGHT WITHIN REACH. FAMILY AT BEDSIDE.
--- NOTE | 2019-04-24 18:09 | NUR ---
THIS RN TO ROOM TO CHECK ON PT. PT STATES SHE IS HAVING 1/10 PAIN AND DENIES NEED FOR PAIN MEDICATION. PT STATES SHE IS READY TO EAT SOMETHING. TOAST AND JELLO ORDERED PER PT REQUEST. NO ADDITIONAL REQUESTS OR COMPLAINTS AT THIS TIME. CALL LIGHT WITHIN REACH. BED RAILS UP.
--- NOTE | 2019-04-24 18:11 | NUR ---
PT HERE FOR RLQ PAIN. PT POST OP DAY ZERO AFTER APPENDECTOMY. 1-2PA. FREQUENT LOOSE BMS NOTED TODAY. STOOL SAMPLE DUE. PT TOLERATING 60G CARB DIET WITH CBG CHECKS. INSULIN HELD THIS EVENING UNTIL PT IS TOLERATING PO FOOD. PRN PAIN MEDICATION AVALIABLE, NONE GIVEN BY THIS RN SINCE RETURN FROM PACU. PT REPORTS 1-2/10 PAIN. DRESSING C/D/I THIS SHIFT. VS STABLE. UO QUANTITY SUFFICIENT THIS SHIFT. FAMILY CONSISTANTLY AT BEDSIDE. PT HAS YET TO USE CALL LIGHT.
--- NOTE | 2019-04-24 19:26 | NUR ---
REPORT RECEIVED, PT RESTING IN BED WATCHING TV, PT FINISHED WITH TOAST AND JAM, ATE 50%, IV FLUIDS INFUSING PER EMAR WNL, PT DENIES ANY NEEDS AT THIS TIME. FAMILY AT BEDSIDE. CALL LIGHT WITHIN REACH.
--- NOTE | 2019-04-24 21:45 | NUR ---
IN ROOM FOR ASSESSMENT, EVENING MEDS ADMINISTERED, PT AOX4, APPROPRIATE, PT DROWSY, STATES THAT SHE FEELS TIRED, PT'S LS DIMINISHED, IS USED, PT ABLE TO REACH 300 ON IS, CDB ENCOURAGED, PT'S LEFT LOWER QUADRANT ABD DRESSING C/D/I, NO DRG NOTED, PT'S CBG 287, INSULIN COVERAGE PROVIDED PER EMAR. PT UP TO BSC WITH 1 PERSON ASSIST. PT INCONTINENT OF SMALL LOOSE STOOL IN ATTENDS AND SMALL VOID. GUIAC TEST WAS NEGATIVE, 2 RN VERIFICATION. PT BACK TO BED, C/O NAUSEA AND SLIGHT PAIN OF 2/10 RELATED TO ABD, PT REQUESTING PRN TYLENOL, PRN TYLENOL GIVEN PER EMAR, WELL PRN ZOFRAN PER EMAR. NO FURTHER REQUESTS AT THIS TIME. IV FLUIDS INFUSING PER EMAR WNL. CALL LIGHT WITHIN REACH. FALL PRECAUTIONS IN PLACE.
--- NOTE | 2019-04-24 21:55 | NUR ---
WITH THE HELP OF KALEIGH FINNEGAN WE HELPED HER TO THE BED FROM THE BSC. NEW ATTENDS PUT ON. VITALS AND I&OS DONE AND CHARTED. PT NEEDS NOTHING MORE AT THIS TIME.
--- NOTE | 2019-04-24 22:26 | NUR ---
PT'S EYES CLOSED, BREATHS EVEN, UNLABORED, NO REQUESTS AT THIS TIME, CALL LIGHT WITHIN REACH. IV FLUIDS INFUSING PER EMAR WNL.
--- NOTE | 2019-04-24 23:46 | NUR ---
PER PT REQUEST I GAVE HER TWO WARM BLANKETS. PT NEEDS NOTHING MORE AT THIS TIME.
--- NOTE | 2019-04-24 23:58 | NUR ---
PT RESTING IN BED, EYES CLOSED, BREATHS EVEN, UNLABORED, NO REQUESTS AT THIS TIME, CALL LIGHT WITHIN REACH. FALL PRECAUTIONS IN PLACE. IV FLUIDS INFUSING PER EMAR WNL.
--- NOTE | 2019-04-25 00:25 | NUR ---
PT UP TO BSC, PT VOIDED 100 MLS OF CLEAR YELLOW URINE, PT BACK TO BED, NO FURTHER NEEDS AT THIS TIME, PT DENIES PAIN, CALL LIGHT WITHIN REACH. IV FLUIDS INFUSING PER EMAR WNL.
--- NOTE | 2019-04-25 02:13 | NUR ---
VITALS AND I&OS DONE AND CHARTED. HELPED PT GET REPOSITIONED ON HER BACK PER HER REQUEST. PT NEEDS NOTHING MORE AT THIS TIME. BED ALARM SET.
--- NOTE | 2019-04-25 04:18 | NUR ---
PT RESTING IN BED, EYES CLOSED, BREATHS EVEN, UNLABORED, IV FLUIDS INFUSING PER EMAR WNL. CALL LIGHT WITHIN REACH.
--- NOTE | 2019-04-25 05:08 | NUR ---
PT AOX4, APPROPRIATE, SLIGHTLY DROWSY BUT EASY TO AROUSE, PT LAC COURTE OREILLES, IV FLUIDS INFUSING PER EMAR WNL, 1 PERSON ASSIST/FWW, PIVOT TO BSC, PT DID HAVE ONE SMALL SMEAR AND WAS GUIAC NEGATIVE, STOOL WAS NOT BIG ENOUGH FOR STOOL SAMPLE AND SAMPLE IS STILL NEEDED. PT'S VSS, AFEBRILE, PT RECIEVED PRN TYLENOL X1 THIS SHIFT RELATED TO 2/10 PAIN, NO OTHER C/O PAIN THIS SHIFT, PT ALSO RECEIVED PRN NAUSEA MED X1 THIS SHIFT RELATED TO NAUSEA, NO EMESIS, PT'S INCISION/DRESSING C/D/I. PT INCONTINENT AT TIMES, ATTENDS IN PLACE.
--- NOTE | 2019-04-25 05:38 | NUR ---
PT UP TO BSC WITH 1 PERSON ASSIST, PT C/O LEFT SIDED PAIN WITH AMBULATION, PT GIVEN PRN PAIN MEDICATION PER EMAR, PT TOLERATED WELL. PT VOIDED 200 MLS OF CLEAR YELLOW URINE, PT BACK TO BED, NO FURTHER NEEDS AT THIS TIME, CALL LIGHT WITHIN REACH. IV FLUIDS INFUSING PER EMAR.
--- NOTE | 2019-04-25 06:50 | NUR ---
PT GIVEN SCHEDULED MEDS, PT DENIES ANY NEEDS AT THIS TIME. IV FLUIDS INFUSING PER EMAR WNL. CALL LIGHT WITHIN REACH.
--- NOTE | 2019-04-25 07:20 | NUR ---
PT RESTING SUPINE IN BED EYES CLOSED AND RESPIRATIONS EVEN AND UNLABORED AT 16. PT APPEARS TO BE SLEEPING COMFORTABLY. CALL LIGHT AND H2O IN REACH.
--- NOTE | 2019-04-25 08:44 | NUR ---
PT SITTING UP IN HIGH FOWLERS POSITION IN BED, ALERT AND ORIENTED AND EATING BREAKFAST. VSS, AM MEDS ADMINISTERED -SEE EMAR. CALL LIGHT AND H20 IN REACH. ASSESSMENT COMPLETED. PT STATES SHE FEELS COMFORTABLE. DR SPENCER IN TO SEE PATIENT.
--- NOTE | 2019-04-25 10:21 | NUR ---
PT UP TO RESTROOM WITH ASSSITANCE FROM FELICE DELCID. PT REPORTS NASUEA SO PRN IV ZOFRAN ADMINSTERED, SEE EMAR. PT AGREES TO USE CALL STRING WHEN FINISHED IN RESTROOM AND DENIES FURTHER NEEDS/CONCERNS.
--- NOTE | 2019-04-25 12:06 | NUR ---
PATIENTS GLUCOSE TEST WAS DONE AND REPORTED TO NURSE
--- NOTE | 2019-04-25 14:15 | NUR ---
PT RESTING SUPINE IN BED, ALERT TO VOICE. ASSESSMENT COMPLETED. PT ASSISTED UP TO BATHROOM WITH SBA AND FWW AND AGREES TO USE CALL STRING WHEN FINISHED.
--- NOTE | 2019-04-25 14:45 | NUR ---
PT HAD LARGE LOOSE MUCOUSY STOOL THAT WAS GREENISH/CLEARISH/BROWNISH. GUAIAC TEST COMPLETED AND WAS NEGATIVE. SAMPLE SENT TO LAB.
--- NOTE | 2019-04-25 19:30 | NUR ---
BEDSIDE REPORT RECEIVED FROM KALEIGH SEALS. PT RESTING IN BED AWAKE. PO FLUIDS IN REACH. IVF INFUSING WNL ORDERED. PT REQUESTING TO GO TO RESTROOM. BED SETTER FEBRUARY IN ROOM FOR SBA.
--- NOTE | 2019-04-25 22:10 | NUR ---
ROUNDED CHARGE. PATIENT ASSISTED TO THE RESTROOM. PATIENT DENIES ANY COMMENTS, QUESTIONS, OR CONCERNS. PATIENT EDUCATED TO CALL STAFF WHEN SHE WAS DONE USING THE RESTROOM. PATIENT VERBALIZED UNDERSTANDING.
--- NOTE | 2019-04-25 22:20 | NUR ---
PT ASSESSMENT COMPLETE. SBA FROM RESTROOM BACK TO BED W HOME WALKER. LUNGS CLEAR, DIMINISHED THROUGHOUT. ABDOMEN SOFT, BOWEL TONES ACTIVE, DRESSING CDI. PT DENIES PAIN. LIGHTS OFF IN ROOM. CALL LIGHT IN REACH.
--- NOTE | 2019-04-25 23:14 | NUR ---
BLOOD PRESSURE DONE AGAIN PER REQUEST OF KALEIGH BEVERLY. HELPED PT INTO THE BATHROOM WITH HER FWW. PT WILL CALL WHEN SHE IS READY TO GO BACK TO BED.
--- NOTE | 2019-04-26 00:03 | NUR ---
CHECKED ON PT. HOB ELEVATED, EYES CLOSED, RR 20. BREATHING EQUAL AND NON-LABORED. LIGHTS OFF IN ROOM.
--- NOTE | 2019-04-26 00:36 | NUR ---
HELPED PT TO THE BATHROOM WITH HER FWW. SHE WILL CALL WHEN SHE IS DONE.
--- NOTE | 2019-04-26 01:20 | NUR ---
CALL LIGHT ANSWERED, SBA FROM RESTROOM WITH FWW BACK TO BED. PT HAD LIQUID BM AND VOID. THIRD OCCULT STOOL SAMPLE NEGATIVE. SAMPLE SENT TO LAB. PT RESTING IN BED WITH EYES CLOSED. CALL LIGHT IN REACH. IVF INFUSING WNL.
--- NOTE | 2019-04-26 02:11 | NUR ---
HELPED PT TO THE BATHROOM WITH HER FWW. SHE WILL CALL WHEN SHE IS DONE.
--- NOTE | 2019-04-26 02:59 | NUR ---
CALL LIGHT ANSWERED, SBA WITH FWW BACK TO BED FROM RESTROOM AFTER VOID AND SMALL LOOSE BM. MORNING ASSESSMENT COMPLETE. DRESSING CDI. PT RATES PAIN 2/10 IN ABDOMEN, PRN TYLENOL ADMINISTERED. BOWEL TONES HYPOACTIVE. NEW BAG IVF INFUSING WNL. CALL LIGHT IN REACH. PERSONAL SUPPLIES IN REACH. NO ADDITIONAL REQUESTS AT THIS TIME.
--- NOTE | 2019-04-26 05:22 | NUR ---
PT CONTINUES TO HAVE LIQUID BMS THROUGHOUT SHIFT. INCONTINENT OF URINE IN ATTENDS. HARD OF HEARING, ALERT AND ORIENTED X 4. THIRD OCCULT STOOL SAMPLE NEGATIVE. STOOL SAMPLE SENT TO LAB. SBA FWW. VOIDING QS. BOWEL TONES ACTIVE. DRESSING CDI. PAIN CONTROLLED WITH PO TYLENOL. USING CALL LIGHT APPROPRIATELY.
--- NOTE | 2019-04-26 07:31 | NUR ---
HELPED PT TO THE BATHROOM AND BACK TO BED WITH HER FWW. BEDSIDE TABLE AND CALL LIGHT IN REACH.
--- NOTE | 2019-04-26 08:07 | NUR ---
PT AWAKE, ALERT AND ORIENTED TO ALL. SITTING UP IN BED. DENIES PAIN, NAUSEA, OR OTHER CONCERNS. RIGHT LOWER QUADRANT INCISION OPEN TO AIR, WELL APPROXIMATED, NO DRAINAGE, REDNESS OR INFLAMMATION. IV INFUSING WNL, RATE TURNED DOWN TO 50ML/HR PER DR. SPENCER. DAUGHTER VINCENT AT BEDSIDE. CALL LIGHT WITHIN REACH.
--- NOTE | 2019-04-26 08:33 | NUR ---
PATIENT UP TO CHAIR. 1PA FWW. CALL LIGHT IN REACH. NO FURTHER NEEDS AT THIS TIME.
--- NOTE | 2019-04-26 10:05 | NUR ---
PATIENT SITTING IN CHAIR WATCHING TV. FRESH WATER GIVEN. CALL LIGHT IN REACH. NO FURTHER NEEDS AT THIS TIME.
--- NOTE | 2019-04-26 10:45 | NUR ---
PT SBA WITH WALKER BACK TO BED. CALL LIGHT WITHIN REACH. DAUGHTER AT BEDSIDE. PT DENIES NEEDS OR CONCERNS AT THIS TIME.
--- NOTE | 2019-04-26 12:50 | NUR ---
PT RESTING IN BED, EYES CLOSED, RESP EVEN AND UNLABORED.
--- NOTE | 2019-04-26 14:05 | NUR ---
PT SITTING UP IN RECLINER. ATE MOST OF LUNCH, REHAN WELL. DENIES NEEDS OR CONCERNS AT THIS TIME. CALL LIGHT WITHIN REACH.
--- NOTE | 2019-04-26 14:26 | NUR ---
PT SITTING UP IN CHAIR. PT HAS NO NEEDS AT THIS TIME.
--- NOTE | 2019-04-26 17:04 | NUR ---
PT SITTING UP EATING DINNER. DENIES PAIN OR OTHER NEEDS OR CONCERNS AT THIS TIME. CALL LIGHT WITHIN REACH.
--- NOTE | 2019-04-26 17:39 | NUR ---
PATIENT IN BED WATCHING TV. CALL LIGHT IN REACH. NO FURTHER NEEDS AT THIS TIME.
--- NOTE | 2019-04-26 19:30 | NUR ---
BEDSIDE REPORT RECEIVED FROM KALEIGH ELMORE. PT RESTING IN BED WITH EYES CLOSED. BREATHING EQUAL AND NON-LABORED. VISIBLE CHEST RISE. IVF INFUSING ORDERED.
--- NOTE | 2019-04-26 20:12 | NUR ---
PHONE CALL TO MD TO VERIFY STATUS OF PT NOTE STATES "I'M SIGNED OFF". MD ORDER TO KEEP PATIENT OVER NIGHT, PT NOT DISCHARGED FROM HOSPITAL STAY.
--- NOTE | 2019-04-26 20:45 | NUR ---
NEW BAG IVF INFUSING WNL. SBA WITH HOME WALKER TO RESTROOM. PT INSTRUCTED TO USE CALL LIGHT WHEN FINISHED, VERBALIZES UNDERSTANDING.
--- NOTE | 2019-04-26 21:26 | NUR ---
PT RESTING IN BED AWAKE, ASSESSMENT COMPLETE. FINE CRACKLES NOTED BILATERALLY BASES. PT INSTRUCTED TO USE IS X 10, 500 ML BEST EFFORT. INCISION OPEN TO AIR, WELL APPROXIMATED, NO REDNESS AND DRAINAGE NOTED. BOWEL TONES ACTIVE X 4, ABD SOFT, DISTENDED. PT DENIES ANY PAIN. CALL LIGHT IN REACH. IVF INFUSING WNL ORDERED, FLUSHED WNL.
--- NOTE | 2019-04-27 00:30 | NUR ---
CHECKED ON PT. RESTING IN BED WITH EYES CLOSED. BREATHING EQUAL AND NON-LABORED. LIGHTS OFF IN ROOM. HOB ELEVATED. IVF INFUSING ORDERED.
--- NOTE | 2019-04-27 02:09 | NUR ---
CHECKED ON PT. RESTING IN BED WITH EYES CLOSED. RR 18, VISIBLE CHEST RISE NON-LABORED BREATHING. LIGHTS OFF IN ROOM. IVF INFUSING.
--- NOTE | 2019-04-27 03:00 | NUR ---
1PA USING WALKER TO THE BATHROOM AND BACK TO BED. PRIMARY RN WAS WITH PATIENT IN THE ROOM.
--- NOTE | 2019-04-27 03:04 | NUR ---
PT SBA BACK TO BED FROM RESTROOM WITH FWW AFTER VOID. ASSESSMENT COMPLETE. PT DENIES PAIN. INCISION OPEN TO AIR CDI, WELL APPROXIMATED WITH SUTURES. NO REDNESS OR DRAINAGE NOTED. ABD SOFT, DISTENDED. NON-TENDER W PALPATION. BOWEL TONES ACTIVE X 4. IVF INFUSING WNL ORDERED. PT GIVEN DRINK OF WATER. CALL LIGHT IN REACH. NO ADDITIONAL REQUESTS AT THIS TIME.
--- NOTE | 2019-04-27 05:10 | NUR ---
ASSISTED TO THE BATHROOM USING OWN WALKER. CHANGED ATTENDS. PATIENT IS BACK IN BED.
--- NOTE | 2019-04-27 05:23 | NUR ---
BHAVIN QUINTANA IN ROOM ASSISTING PT BACK TO BED AFTER VOID AND BM. VSS. IVF INFUSING WNL. PT DENIES PAIN. SCHEDULED MEDICATION ADMINISTERED. BREAKFAST ORDER OBTAINED. CALL LIGHT AND ICE WATER IN REACH. NO ADDITIONAL REQUESTS.
--- NOTE | 2019-04-27 05:27 | NUR ---
PT RESTED WELL THROUGHOUT SHIFT. IVF INFUSING WNL ORDERED. QS URINE OUTPUT, SOME INCONTINENCE IN ATTENDS. INCISION CDI, WELL APPROXIMATED WITH SUTURES. BOWEL TONES ACTIVE, NON-TENDER. PT HAS NO C/O PAIN THIS SHIFT, NO PRN MEDICATIONS ADMINISTERED. VSS. 1PA WITH HOME WALKER. HARD OF HEARING.
--- NOTE | 2019-04-27 07:36 | NUR ---
PATIENT AMBULATED TO BATHROOM, VOIDED, AND AMBULATED TO BEDSIDE RECLINER. PATIENT PERFORMED PERICARE, ORAL CARE, AND AM CARE IN BATHROOM. PATIENT CALL LIGHT IN REACH, NO OTHER NEEDS AT THIS TIME.
--- NOTE | 2019-04-27 09:20 | NUR ---
PT SITTING UP IN RECLINER. ATE MOST OF BREAKFAST, REHAN WELL. DENIES NAUSEA OR PAIN. [place] BUT ALERT AND ORIENTED. IV INFUSING WNL. DENIES NEEDS OR CONCERNS AT THIS TIME. CALL LIGHT WITHIN REACH.
--- NOTE | 2019-04-27 12:15 | NUR ---
PT SITTING UP IN RECLINER, ATE 100% OF LUNCH, REHAN WELL. DENIES NEEDS OR CONCERNS AT THIS TIME. CALL LIGHT WITHIN REACH.
== END 2019-04-27 13:00 | disposition home or self-care (01) | DRG 342 ==
LOC: ED 14:15 → MS 14:16
PROVIDERS: ADMIT Colon & Rectal Surgery
PROC: 0DTJ0ZZ Resection of Appendix, Open Approach (ICD-10-PCS; principal; 2019-04-24 12:00)
DX: K37 Unspecified appendicitis (principal); R64 Cachexia; Z68.1 Body mass index [BMI] 19.9 or less, adult; K38.1 Appendicular concretions; E11.9 Type 2 diabetes mellitus without complications; E03.9 Hypothyroidism, unspecified; D64.9 Anemia, unspecified; H91.90 Unspecified hearing loss, unspecified ear; I10 Essential (primary) hypertension; I25.10 Atherosclerotic heart disease of native coronary artery without angina pectoris; E78.5 Hyperlipidemia, unspecified; M48.50XS Collapsed vertebra, not elsewhere classified, site unspecified, sequela of fracture; Z86.73 Personal history of transient ischemic attack (TIA), and cerebral infarction without residual deficits; Z85.3 Personal history of malignant neoplasm of breast; Z79.84 Long term (current) use of oral hypoglycemic drugs; Z79.82 Long term (current) use of aspirin; Z79.899 Other long term (current) drug therapy; Z88.5 Allergy status to narcotic agent; Z88.0 Allergy status to penicillin; Z88.8 Allergy status to other drugs, medicaments and biological substances
CPT/HCPCS: 00840; 36415; 51798; 74177; 80048; 80053; 81001; 83690; 83735; 83880; 84100; 84134; 85025; 87046; 87177; 87205; 87209; 87329; 87493; 93005; 93010; 94762; 96372; 96374; 96376; 99285-25; G0378; J1100; J1644; J1815; J1956; J2405; J2704; J3475; J7040; J7120; Q9967

== ENCOUNTER 2020-02-24 20:27 | Inpatient (IN) | payer MEDICARE, OTHER ==
[~2020-02-24] VITALS: Ht 152.4 cm; Wt 41.3 kg
--- OUTSIDE RECORDS SUMMARY | ~2020-02-24 | XMS | Encounter Summary ---
Demographics + + + | Address | [address] | | | [place] [address] | + + + | Home Phone | | + + + | Preferred Language | Unknown | + + + | Marital Status | | + + + | Lutheran Affiliation | Unknown | + + + | Race | Unknown | + + + | Ethnic Group | Unknown | + + + Author + + + | Author | [facility] | | | and [place] | + + + | Organization | [facility] | | | and [place] | + + + | Address | Unknown | + + + | Phone | Unavailable | + + + Support + + +---------+ + | Name | Relationship | Address | Phone | + + +---------+ + | Tram Yanes | ECON | Unknown | | + + +---------+ + Care Team Providers + +------+ + | Care Dowel Inspector Name | Role | Phone | + +------+ + PCP | Unavailable | + +------+ + Encounter Details +--------+ + + + + | Date | Type | Department | Care Team | Description | +--------+ + + + + | 02/01/ | Hospital | [facility] | | | | 2008 - | Encounter | [facility] | | | | | | [place] [facility] | | | | 02/21/ | | [place] | | | | 2008 | | [id number] | | | | | | [phone] | | | +--------+ + + + + Social History + +-------+ +--------+------+ | Tobacco Use | Types | Packs/Day | Years | Date | | | | | Used | | + +-------+ +--------+------+ | Never Assessed | | | | | + +-------+ +--------+------+ + + + | Sex Assigned at | Date Recorded | | | | + + + | Not on file | | + + + + + + + | Job Start Date | Occupation | Industry | + + + + | Not on file | Not on file | Not on file | + + + + + + + + | Travel History | Travel Start | Travel End | + + + + + + | No recent travel history available. | + + documented as of this encounter Plan of Treatment Not on filedocumented as of this encounter Visit Diagnoses Not on filedocumented in this encounter"
--- OUTSIDE RECORDS SUMMARY | ~2020-02-24 | XMS | Encounter Summary ---
Demographics + + + | Address | [address] | | | [place] [address] | + + + | Home Phone | | + + + | Preferred Language | Unknown | + + + | Marital Status | | + + + | Scientologist Affiliation | Unknown | + + + | Race | Unknown | + + + | Ethnic Group | Unknown | + + + Author + + + | Author | [facility] | | | and [place] | + + + | Organization | [facility] | | | and [...] Team Providers + +------+ + | Care Hearing Dog Trainer Name | Role | Phone | + +------+ + | Caron Junior | PCP | | + +------+ + Reason for Visit + + + | Reason | Comments | + + + | Fall | Per report pt fell backwards in a parking lot and struck her | | | head. Takes coumadin and ASA. | + + + | Head Injury | | + + + Encounter Details +--------+ + + + + | Date | Type | Department | Care Team | Description | +--------+ + + + + | 10/16/ | Emergency | [facility] | Kumar Flores MD | Closed head injury, | | 2019 | | MEDICAL CENTER | [address] | initial encounter | | | | EMERGENCY CENTER | [place] [address] | (Primary Dx); | | | | [address] | [phone] | Compression fracture | | | | [place], [place] | | of T3 vertebra, | | | | [id number] | | initial encounter | | | | [phone] | | ([facility]); Fall, initial | | | | | | encounter | +--------+ + + + + Social History + +-------+ +--------+------+ | Tobacco Use | Types | Packs/Day | Years | Date | | | | | Used | | + +-------+ +--------+------+ | Never Smoker | | | | | + +-------+ +--------+------+ + + +---------+ + | Alcohol Use | Drinks/Week | oz/Week | Comments | + + +---------+ + | Yes | | | Rare | + + +---------+ + + + + | Sex Assigned at [...] + + documented as of this encounter Last Filed Vital Signs + + + + + | Vital Sign | Reading | Time Taken | Comments | + + + + + | Blood Pressure | 190/88 | 10/16/2019 2:37 PM | | | | | PST | | + + + + + | Pulse | 82 | 10/16/2019 2:37 PM | | | | | PST | | + + + + + | Temperature | 36.5 C (97.7 F) | 10/16/2019 2:37 PM | | | | | PST | | + + + + + | Respiratory Rate | 18 | 10/16/2019 2:37 PM | | | | | PST | | + + + + + | Oxygen Saturation | 97% | 10/16/2019 2:37 PM | | | | | PST | | + + + + + | Inhaled Oxygen | - | - | | | Concentration | | | | + + + + + | Weight | - | - | | + + + + + | Height | - | - | | + + + + + | Body Mass Index | - | - | | + + + + + documented in this encounter Discharge Instructions Instructions Kumar Flores MD - 10/16/2019-Please follow-up with your doctor. Return to ED sooner if worsening symptoms, persistent vomiting, weakness in arms/legs or other concern -It is recommended that your doctor repeat x-rays of your back in about 4 to 6 weeks to ens ure no change. AttachmentsThe following attachments cannot be sent through Care Everywhere.Back Fracture ( Compression Fracture) (Ukrainian)documented in this encounter Medications at Time of Discharge + + + +---------+ + + | Medication | Sig | Dispensed | Refills | Start | End Date | | | | | | Date | | + + + +---------+ + + | aspirin 81 MG | Take 81 mg by mouth | | 0 | | | | tablet | Daily. Take 2 | | | | | | | tablets 2 times | | | | | | | daily | | | | | + + + +---------+ + + | CALCIUM CARBONATE | TABS one by mouth | | 0 | 01/10/20 | | | | daily | | | 12 | | + + + +---------+ + + | Cholecalciferol | Take 50,000 Units by | | 0 | | | | (VITAMIN D3) [address]452 | mouth Daily. | | | | | | UNITS CAPS | | | | | | + + + +---------+ + + | clopidogrel | Take 75 mg by mouth | | 0 | | | | (PLAVIX) 75 mg | Daily. | | | | | | tablet | | | | | | + + + +---------+ + + | ferrous sulfate | One tablet by mouth | | 0 | 01/10/20 | | | 325 mg tablet | once daily | | | 12 | | + + + +---------+ + + | | Take 25 mg by mouth | | 0 | 01/10/20 | | | hydrochlorothiazide | Daily. | | | 12 | | | 25 mg tablet | | | | | | + + + +---------+ + + | ibuprofen | Take 600 mg by mouth | | 0 | 01/10/20 | | | (ADVIL,MOTRIN) 600 | 3 times daily. | | | 12 | | | MG tablet | | | | | | + + + +---------+ + + | insulin glargine | Inject 15 Units | | 0 | | | | (LANTUS) 100 | under the skin | | | | | | units/mL injection | nightly. | | | | | + + + +---------+ + + | isosorbide | Take 30 mg by mouth | | 0 | | | | dinitrate (ISORDIL) | 2 times daily. | | | | | | 30 MG tablet | | | | | | + + + +---------+ + + | levothyroxine | Take 125 mcg by | | 0 | 01/10/20 | | | (SYNTHROID, | mouth Daily. | | | 12 | | | LEVOTHROID) 125 mcg | | | | | | | tablet | | | | | | + + + +---------+ + + | metoprolol | Take 100 mg by mouth | | 0 | 01/10/20 | | | (TOPROL-XL) 100 MG | 2 times daily. | | | 12 | | | 24 hr tablet | | | | | | + + + +---------+ + + | multiple vitamins | one by mouth daily | | 0 | 01/10/20 | | | w/minerals (OCUVITE) | | | | 12 | | | TABS | | | | | | + + + +---------+ + + | multivitamin | One tablet by mouth | | 0 | 01/10/20 | | | (THERAGRAN) per | once daily | | | 12 | | | tablet | | | | | | + + + +---------+ + + | nitroglycerin | Place 0.4 mg under | | 0 | | | | (NITROSTAT) 0.4 mg | the tongue every 5 | | | | | | SL tablet | minutes as needed. | | | | | + + + +---------+ + + | simvastatin | Take 20 mg by mouth | | 0 | 01/10/20 | | | (ZOCOR) 20 mg tablet | nightly. | | | 12 | | + + + +---------+ + + | sitagliptan | Take 50 mg by mouth | | 0 | | | | (JANUVIA) 50 MG | Daily. | | | | | | tablet | | | | | | + + + +---------+ + + | telmisartan | Take 40 mg by mouth | | 0 | 01/10/20 | | | (MICARDIS) 20 MG | Daily. | | | 12 | | | tablet | | | | | | + + + +---------+ + + | traMADol (ULTRAM) | Take 1-2 tablets by | 90 | 0 | 10/30/20 | | | 50 mg | mouth up to three | tablet | | 14 | | | tabletIndications: | times daily as | | | | | | Chronic back pain | needed. | | | | | + + + +---------+ + + documented as of this encounter Plan of Treatment Not on filedocumented as of this encounter Procedures + +--------+ + + + | Procedure Name | Priori | Date/Time | Associated Diagnosis | Comments | | | ty | | | | + +--------+ + + + | XR CHEST PA AND | STAT | 10/16/2019 | | Results for this | | LATERAL | | 3:17 PM | | procedure are in the | | | | PST | | results section. | + +--------+ + + + | CT HEAD CERVICAL | STAT | 10/16/2019 | | Results for this | | SPINE WO CONTRAST | | 3:16 PM | | procedure are in the | | | | PST | | results section. | + +--------+ + + + | CT THORACIC SPINE WO | STAT | 10/16/2019 | | Results for this | | CONTRAST | | 3:14 PM | | procedure are in the | | | | PST | | results section. | + +--------+ + + + | PROTIME INR | STAT | 10/16/2019 | | Results for this | | | | 2:39 PM | | procedure are in the | | | | PST | | results section. | + +--------+ + + + | CBC WITH | STAT | 10/16/2019 | | Results for this | | DIFFERENTIAL | | 2:39 PM | | procedure are in the | | | | PST | | results section. | + +--------+ + + + | COMPREHENSIVE | STAT | 10/16/2019 | | Results for this | | METABOLIC PANEL | | 2:39 PM | | procedure are in the | | | | PST | | results section. | + +--------+ + + + documented in this encounter Results XR Chest PA and Lateral (10/16/2019 3:17 PM PST) + + | Specimen | + + | | + + + + + | Impressions | Performed At | + + + | Negative chest. Signed by: Ge Aj, Gerhard Almanza | [facility] | | Date/Time: 10/16/2019 3:18 PM | | + + + + + + | Narrative | Performed At | + + + | CHEST PA AND LATERAL CLINICAL INFORMATION: chest pain, | [facility] | | shortness of breath COMPARISON: XR CHEST 1 VIEW (05/29/2014); XR | | | ABDOMEN ACUTE SERIES (05/28/2014); XR CHEST 2 VIEWS (09/08/2013); | | | FINDINGS: Heart, lungs and vessels normal. No pneumothorax, pleural | | | effusion or adenopathy. No significant bone abnormality. | | + + + + + | Procedure Note | + + | Lon, Rad Results In - 10/16/2019 3:22 PM PST | | CHEST PA AND LATERAL | | | | CLINICAL INFORMATION: | | chest pain, shortness of breath | | | | COMPARISON: | | XR CHEST 1 VIEW (05/29/2014); XR ABDOMEN ACUTE SERIES (05/28/2014); XR | | CHEST 2 VIEWS (09/08/2013); | | | | FINDINGS: | | Heart, lungs and vessels normal. No pneumothorax, pleural effusion or | | adenopathy. No significant bone abnormality. | | | | IMPRESSION: | | Negative chest. | | | | | | | | | | Signed by: Ge Aj Jeffrey | | Sign Date/Time: 10/16/2019 3:18 PM | + + + +---------+ + + | Performing | Address | City/State/Zipcode | Phone Number | | Organization | | | | + +---------+ + + | [facility] | | | | + +---------+ + + CT Head Cervical Spine wo Contrast (10/16/2019 3:16 PM PST) + + | Specimen | + + | | + + + + + | Impressions | Performed At | + + + | Head CT: 1. No evidence of acute intracranial abnormality. 2. 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 3. Moderate chronic small vessel | | | ischemic disease changes with moderate diffuse cerebral volume loss. | | | 4. Small parietal scalp hematoma. Cervical spine CT: 1. No acute | | | cervical spine fracture. 2. See concurrent thoracic spine CT for | | | findings related to T3 and T5 vertebral body fractures. 3. | | | Accentuated thoracic kyphosis and cervical lordosis with mild | | | multilevel cervical spine degenerative changes. Signed | | | by: Ge Aj, Carlito Sign Date/Time: 10/16/2019 3:38 PM | | + + + + + + | Narrative | Performed At | + + + | CT HEAD WITHOUT CONTRAST; CT CERVICAL SPINE WITHOUT CONTRAST | [facility] | | CLINICAL INFORMATION: Trauma. Headache and dizziness. | | | COMPARISON: CT HEAD FACIAL BONES CERVICAL SPINE WO CONTRAST | | | (05/27/2014); MRI BRAIN WO AND MRA HEAD (09/07/2013); CT HEAD WO | | | CONTRAST (09/07/2013); MRI THORACIC SPINE WO CONTRAST (09/16/2014); | | | CT THORACIC SPINE WO CONTRAST (10/16/2019); PROCEDURE: CT Head: | | | Axial non-contrast images were obtained through the head. CT | | | Cervical Spine: Thin section noncontrast axial images were obtained | | | through the cervical spine. Multiplanar reformations were obtained | | | from the acquisition data. At least one of the following CT dose | | | optimization techniques were used: Automated exposure control; | | | Adjustment of mA and/or kV according to patient size; Use of | | | iterative reconstruction technique. FINDINGS: CT Head: No | | | evidence of acute infarction, intracranial hemorrhage, mass, mass | | | effect, extra-axial fluid collection, hydrocephalus, or midline shift. | | | Small area of encephalomalacia redemonstrated in the left basal | | | ganglia, compatible with remote infarction. Moderate periventricular | | | white matter hypoattenuation is nonspecific but compatible with | | | moderate chronic small vessel ischemic disease changes. Moderate | | | diffuse cerebral volume loss noted. Basal cisterns are maintained. | | | Atherosclerotic calcifications of the carotid siphons and V4 segments | | | noted. Bilateral cataract surgery noted. The orbits are | | | otherwise unremarkable. Paranasal sinuses and mastoid air cells are | | | clear. Cranium is intact. Small parietal scalp hematoma noted. | | | CT Cervical Spine: Accentuated thoracic kyphosis and cervical | | | lordosis. Mild retrolisthesis of C4 on C5. Cervical spine | | | alignment is otherwise maintained. Craniocervical junction is | | | maintained. No acute cervical spine fracture identified. See | | | concurrent thoracic spine CT for findings related to T3 and T5 | | | vertebral body fractures. Mild multilevel cervical spine | | | degenerative changes are noted. Prevertebral soft tissues are | | | unremarkable. Atherosclerotic vascular calcifications are noted. | | | Visualized upper lungs and mediastinum are unremarkable. | | + + + + + | Procedure Note | + + | Lon, Rad Results In - 10/16/2019 3:41 PM PST | | CT HEAD WITHOUT CONTRAST; CT CERVICAL SPINE WITHOUT CONTRAST | | | | CLINICAL INFORMATION: | | Trauma. Headache and dizziness. | | | | COMPARISON: | | CT HEAD FACIAL BONES CERVICAL SPINE WO CONTRAST (05/27/2014); MRI BRAIN | | WO AND MRA HEAD (09/07/2013); CT HEAD WO CONTRAST (09/07/2013); MRI | | THORACIC SPINE WO CONTRAST (09/16/2014); CT THORACIC SPINE WO CONTRAST | | (10/16/2019); | | | | PROCEDURE: | | CT Head: Axial non-contrast images were obtained through the head. | | | | CT Cervical Spine: Thin section noncontrast axial images were obtained | | through the cervical spine. | | | | Multiplanar reformations were obtained from the acquisition data. | | | | At least one of the following CT dose optimization techniques were | | used: Automated exposure control; Adjustment of mA and/or kV according | | to patient size; Use of iterative reconstruction technique. | | | | FINDINGS: | | CT Head: | | No evidence of acute infarction, intracranial hemorrhage, mass, mass | | effect, extra-axial fluid collection, hydrocephalus, or midline shift. | | Small area of encephalomalacia redemonstrated in the left basal | | ganglia, compatible with remote infarction. Moderate periventricular | | white matter hypoattenuation is nonspecific but compatible with | | moderate chronic small vessel ischemic disease changes. Moderate | | diffuse cerebral volume loss noted. Basal cisterns are maintained. | | Atherosclerotic calcifications of the carotid siphons and V4 segments | | noted. | | | | Bilateral cataract surgery noted. The orbits are otherwise | | unremarkable. Paranasal sinuses and mastoid air cells are clear. | | Cranium is intact. Small parietal scalp hematoma noted. | | | | CT Cervical Spine: | | Accentuated thoracic kyphosis and cervical lordosis. Mild | | retrolisthesis of C4 on C5. Cervical spine alignment is otherwise | | maintained. Craniocervical junction is maintained. No acute cervical | | spine fracture identified. See concurrent thoracic spine CT for | | findings related to T3 and T5 vertebral body fractures. Mild | | multilevel cervical spine degenerative changes are noted. | | | | Prevertebral soft tissues are unremarkable. Atherosclerotic vascular | | calcifications are noted. Visualized upper lungs and mediastinum are | | unremarkable. | | | | IMPRESSION: | | Head CT: | | 1. No evidence of acute intracranial abnormality. | | 2. Small area of encephalomalacia within the left basal ganglia, | | compatible with remote infarction. | | 3. Moderate chronic small vessel ischemic disease changes with moderate | | diffuse cerebral volume loss. | | 4. Small parietal scalp hematoma. | | | | Cervical spine CT: | | 1. No acute cervical spine fracture. | | 2. See concurrent thoracic spine CT for findings related to T3 and T5 | | vertebral body fractures. | | 3. Accentuated thoracic kyphosis and cervical lordosis with mild | | multilevel cervical spine degenerative changes. | | | | | | | | | | Signed by: Ge Aj Casey | | Sign Date/Time: 10/16/2019 3:38 PM | + + + +---------+ + + | Performing | Address | City/State[facility] | Phone Number | | Organization | | | | + +---------+ + + | [facility] | | | | + +---------+ + + CT Thoracic Spine wo Contrast (10/16/2019 3:14 PM PST) + + | Specimen | + + | | + + + + + | Impressions | Performed At | + + + | 1. There is newly developed vertebral body height loss at the level | [facility] | | of T3 concerning for acute fracture with approximately 50% vertebral | | | body height loss. 2. Numerous chronic compression fractures are seen | | | throughout the mid to lower thoracic spine, unchanged from previous | | | examination. Signed by: Ge Valenzuela, Wilber Sign | | | Date/Time: 10/16/2019 3:23 PM | | + + + + + + | Narrative | Performed At | + + + | CT THORACIC SPINE WITHOUT CONTRAST CLINICAL INFORMATION: | [facility] | | Mid-back pain. FALL. HEAD INJURY, back pain COMPARISON: MRI | | | THORACIC SPINE WO CONTRAST (09/16/2014); PROCEDURE: Thin section | | | non-contrast axial images were obtained through the thoracic spine. | | | Sagittal and coronal reformations were obtained from the axial | | | acquisition data. At least one of the following CT dose | | | optimization techniques were used: Automated exposure control; | | | Adjustment of mA and/or kV according to patient size; Use of | | | iterative reconstruction technique. FINDINGS: Alignment: There | | | are 12 thoracic rib-bearing vertebral type bodies for the purposes of | | | this dictation. Severe generalized osteopenia is present. | | | Exaggeration of the thoracic kyphosis is noted. Vertebrae: There | | | is progressive vertebral body height loss at the level of T3 with | | | approximately 50% vertebral body height loss which is a new finding | | | from the comparison examination. Severe compression deformity at | | | the level of T5 is chronic from prior study with approximately 75% | | | vertebral body height loss. Mild anterior wedging at the level of | | | T6, T7, T8 and T10 are similar to prior study. Scattered Schmorl's | | | nodes are seen at T11, similar to prior study. Superior and | | | inferior endplate concave depressions at L1 and L2 are unchanged. | | | Thoracic Disc Levels: There is no high-grade spinal canal stenosis. | | | Facets and Posterior Spinal Elements: Normal. Paravertebral | | | Soft Tissues: Severe calcification of the abdominal aorta is noted. | | | The heart is normal in size. There is moderate calcification of | | | the aortic arch. | | + + + + + | Procedure Note | + + | Lon, Rad Results In - 10/16/2019 3:27 PM PST | | CT THORACIC SPINE WITHOUT CONTRAST | | | | CLINICAL INFORMATION: | | Mid-back pain. FALL. HEAD INJURY, back pain | | | | COMPARISON: | | MRI THORACIC SPINE WO CONTRAST (09/16/2014); | | | | PROCEDURE: | | Thin section non-contrast axial images were obtained through the | | thoracic spine. Sagittal and coronal reformations were obtained from | | the axial acquisition data. | | | | At least one of the following CT dose optimization techniques were | | used: Automated exposure control; Adjustment of mA and/or kV according | | to patient size; Use of iterative reconstruction technique. | | | | FINDINGS: | | Alignment: There are 12 thoracic rib-bearing vertebral type bodies for | | the purposes of this dictation. Severe generalized osteopenia is | | present. Exaggeration of the thoracic kyphosis is noted. | | | | Vertebrae: There is progressive vertebral body height loss at the level | | of T3 with approximately 50% vertebral body height loss which is a new | | finding from the comparison examination. Severe compression deformity | | at the level of T5 is chronic from prior study with approximately 75% | | vertebral body height loss. Mild anterior wedging at the level of T6, | | T7, T8 and T10 are similar to prior study. Scattered Schmorl's nodes | | are seen at T11, similar to prior study. Superior and inferior | | endplate concave depressions at L1 and L2 are unchanged. | | | | Thoracic Disc Levels: There is no high-grade spinal canal stenosis. | | | | Facets and Posterior Spinal Elements: Normal. | | | | Paravertebral Soft Tissues: Severe calcification of the abdominal aorta | | is noted. The heart is normal in size. There is moderate | | calcification of the aortic arch. | | | | IMPRESSION: | | 1. There is newly developed vertebral body height loss at the level of | | T3 concerning for acute fracture with approximately 50% vertebral body | | height loss. | | 2. Numerous chronic compression fractures are seen throughout the mid | | to lower thoracic spine, unchanged from previous examination. | | | | | | | | | | Signed by: Ge Valenzuela Richard | | Sign Date/Time: 10/16/2019 3:23 PM | + + + +---------+ + + | Performing | Address | City/State/Zipcode | Phone Number | | Organization | | | | + +---------+ + + | [facility] | | | | + +---------+ + + Protime INR (10/16/2019 2:39 PM PST) + + + + + + | Component | Value | Ref Range | Performed | Pathologist | | | | | At | Signature | + + + + + + | INR | 1.0Comment: REFERENCE | | [facility] | | | | RANGE:0.9 - 1.2 | | [facility]AT[facility] | | | | NON-ANTICOAGULATED2.0 | | | | | | - 3.0 ALL OTHER | | | | | | THERAPEUTIC | | | | | | INDICATIONS2.5 - 3.5 | | | | | | MECHANICAL HEART VALVES, | | | | | | RECURRENT OR SYSTEMIC | | | | | | EMBOLISMTesting | | | | | | performed at [facility] | | | | | | [facility];[place], [place] | | | | | | [address] | | | | + + + + + + + + | Specimen | + + | Blood | + + + + + + + | Performing | Address | City/State/Zipcode | Phone Number | | Organization | | | | + + + + + | [facility] | [address] | [place] [address] | [phone] | + + + + + Comprehensive Metabolic Panel (10/16/2019 2:39 PM PST) + + + + + + | Component | Value | Ref Range | Performed | Pathologist | | | | | At | Signature | + + + + + + | Na | 140 | 135 - 145 | [facility] | | | | | mmol/L | LABORATORY | | + + + + + + | K | 4.5 | 3.5 - 4.9 | [facility] | | | | | mmol/L | LABORATORY | | + + + + + + | Cl | 107 | 99 - 109 mmol/L | [facility] | | | | | | LABORATORY | | + + + + + + | CO2 | 26 | 23 - 32 mmol/L | [facility] | | | | | | LABORATORY | | + + + + + + | Anion Gap | 12 | 5 - 20 mmol/L | [facility] | | | | | | LABORATORY | | + + + + + + | Glucose | 113 (H) | 65 - 99 mg/dL | [facility] | | | | | | LABORATORY | | + + + + + + | BUN | 24 | 8 - 25 mg/dL | [facility] | | | | | | LABORATORY | | + + + + + + | Creatinine | 0.91 | 0.50 - 1.00 | [facility] | | | | | mg/dL | LABORATORY | | + + + + + + | BUN/Creatin | 26 | | [facility] | | | ine Ratio | | | LABORATORY | | + + + + + + | Calcium | 9.0 | 8.5 - 10.5 | [facility] | | | | | mg/dL | LABORATORY | | + + + + + + | Protein, | 6.8 | 6.3 - 8.2 g/dL | [facility] | | | Total | | | LABORATORY | | + + + + + + | Albumin | 4.1 | 3.3 - 4.8 g/dL | [facility] | | | | | | LABORATORY | | + + + + + + | Globulin | 2.7 | 1.3 - 4.9 g/dL | [facility] | | | | | | LABORATORY | | + + + + + + | A/G Ratio | 1.5 | 1.0 - 2.4 | [facility] | | | | | | LABORATORY | | + + + + + + | BILIRUBIN, | 0.7 | 0.1 - 1.5 mg/dL | [facility] | | | TOTAL | | | LABORATORY | | + + + + + + | ALK PHOS | 60 | 35 - 115 U/L | [facility] | | | | | | LABORATORY | | + + + + + + | AST | 29 | 10 - 45 U/L | [facility] | | | | | | LABORATORY | | + + + + + + | ALT | 39 | 10 - 65 U/L | [facility] | | | | | | LABORATORY | | + + + + + + | Estimated | 60 (L)Comment: GFR <60: | >60 | [facility] | | | GFR | CHRONIC KIDNEY DISEASE, | mL/min/1.73m2 | LABORATORY | | | | IF FOUND OVER A 3 MONTH | | | | | | PERIOD.GFR <15: KIDNEY | | | | | | FAILURE.FOR | | | | | | AMERICANS, MULTIPLY THE | | | | | | CALCULATED GFR BY | | | | | | 1.210.This eGFR is | | | | | | calculated using the | | | | | | [facility] traceable | | | | | | equation.Testing | | | | | | performed at [facility];[address] | | | | | | [facility];[place], [place] | | | | | | [address] | | | | + + + + + + + + | Specimen | + + | Blood | + + + + + + + | Performing | Address | City/State/Zipcode | Phone Number | | Organization | | | | + + + + + | [facility] | [address] | [place] [address] | [phone] | + + + + + CBC with Differential (10/16/2019 2:39 PM PST) + + + + + + | Component | Value | Ref Range | Performed | Pathologist | | | | | At | Signature | + + + + + + | WBC | 7.81 | 3.80 - 11.00 | [facility] | | | | | K/uL | LABORATORY | | + + + + + + | RBC | 3.41 (L) | 3.70 - 5.10 | [facility] | | | | | M/uL | LABORATORY | | + + + + + + | Hemoglobin | 11.4 | 11.3 - 15.5 | [facility] | | | | | g/dL | LABORATORY | | + + + + + + | Hematocrit | 33.6 (L) | 34.0 - 46.0 % | [facility] | | | | | | LABORATORY | | + + + + + + | MCV | 98.4 | 80.0 - 100.0 fl | [facility] | | | | | | LABORATORY | | + + + + + + | MCH | 33.5 | 27.0 - 34.0 pg | [facility] | | | | | | LABORATORY | | + + + + + + | MCHC | 34.0 | 32.0 - 35.5 | [facility] | | | | | g/dL | LABORATORY | | + + + + + + | RDW-SD | 45.1 | 37 - 53 fl | [facility] | | | | | | LABORATORY | | + + + + + + | Platelet | 138 (L) | 150 - 400 K/uL | [facility] | | | Count | | | LABORATORY | | + + + + + + | MPV | 9.6 | fl | [facility] | | | | | | LABORATORY | | + + + + + + | Diff Type | AUTOMATED | | [facility] | | | | | | LABORATORY | | + + + + + + | % | 71.72 | % | [facility] | | | Neutrophils | | | LABORATORY | | + + + + + + | % | 18.25 | % | [facility] | | | Lymphocytes | | | LABORATORY | | + + + + + + | Monocyte % | 7.97 | % | [facility] | | | | | | LABORATORY | | + + + + + + | Eosinophils | 1.62 | % | [facility] | | | % | | | LABORATORY | | + + + + + + | Basophils % | 0.44 | % | [facility] | | | | | | LABORATORY | | + + + + + + | Neutrophils | 5.60 | 1.90 - 7.40 | [facility] | | | , Absolute | | K/uL | LABORATORY | | + + + + + + | Absolute | 1.43 | 1.00 - 3.90 | [facility] | | | Lymphocytes | | K/uL | LABORATORY | | + + + + + + | Absolute | 0.62 | 0.00 - 0.80 | [facility] | | | Monocytes | | K/uL | LABORATORY | | + + + + + + | Eosinophils | 0.13 | 0.00 - 0.50 | [facility] | | | , Absolute | | K/uL | LABORATORY | | + + + + + + | Basophils, | 0.04Comment: Testing | 0.00 - 0.10 | [facility] | | | Absolute | performed at [facility];888 | K/uL | LABORATORY | | | | Mirtha Roger;[place] | | | | | | [address] | | | | + + + + + + + + | Specimen | + + | Blood | + + + + + + + | Performing | Address | City/State/Zipcode | Phone Number | | Organization | | | | + + + + + | [facility] | [address] | [place] [address] | [phone] | + + + + + documented in this encounter Visit Diagnoses + + | Diagnosis | + + | Closed head injury, initial encounter - Primary | + + | Compression fracture of T3 vertebra, initial encounter (HCC) | + + | Fall, initial encounter | + + documented in this encounter"
--- OUTSIDE RECORDS SUMMARY | ~2020-02-24 | XMS | Encounter Summary ---
Demographics + + + | Address | [address] | | | [place] [address] | + + + | Home Phone | | + + + | Preferred Language | Unknown | + + + | Marital Status | | + + + | Restorationism Affiliation | Unknown | + + + | Race | Unknown | + + + | Ethnic Group | Unknown | + + + Author + + + | Author | [facility] | | | and [place] | + + + | Organization | [facility] | | | and [place] | + + + | Address | Unknown | + + + | Phone | Unavailable | + + + Support + + +---------+ + | Name | Relationship | Address | Phone | + + +---------+ + | Tram Martinace | ECON | Unknown | | + + +---------+ + Care Team Providers + +------+ + | Care Gate Services Supervisor Name | Role | Phone | + +------+ + PCP | Unavailable | + +------+ + Encounter Details +--------+ + + + + | Date | Type | Department | Care Team | Description | +--------+ + + + + | 05/02/ | [facility] | [facility] | Krishna Sanders | | | 2007 | Encounter | MED CTR EMERGENCY | MD William [address] | | | | | CENTER [address] | [address] [place] | | | | | [place] | [place] [address] | | | | | [address] | [phone] | | | | | [phone] | | | +--------+ + + + [...]
--- OUTSIDE RECORDS SUMMARY | ~2020-02-24 | XMS | Encounter Summary ---
Demographics + + + | Address | [address] | | | [place] [address] | + + + | Home Phone | | + + + | Preferred Language | Unknown | + + + | Marital Status | | + + + | Adventist Affiliation | Unknown | + + + | Race | Unknown | + + + | Ethnic Group | Unknown | + + + Author + + + | Author | [facility] | | | and [place] | + + + | Organization | [facility] | | [...] Team Providers + +------+ + | Care Supervisor Veneer Name | Role | Phone | + +------+ + | Ani Yanes MD | PCP | | + +------+ + Reason for Referral Diagnostic/Screening (Routine) +--------+--------+ + + + + | Status | Reason | Specialty | Diagnoses / | Referred By | Referred To | | | | | Procedures | Contact | Contact | +--------+--------+ + + + + | Closed | | Radiology | Diagnoses | | [facility] | | | | | Thoracic | [place], | [address] | | | | | back pain | Juan C Calvo MD | [place], | | | | | History of | [address] | [place] | | | | | compression | [place] | [address] | | | | | fracture of | [place], [place] | Phone: | | | | | spine | [address] | [phone] | | | | | Osteoporosis | Phone: | Fax: | | | | | Procedures | [phone] | [phone] | | | | | MRI | Fax: | | | | | | Thoracic | [phone] | | | | | | Spine wo | | | | | | | Contrast | | | | | | | MRI | | | +--------+--------+ + + + + Reason for Visit Diagnostic/Screening (Routine) +--------+--------+ + + + + | Status | Reason | Specialty | Diagnoses / | Referred By | Referred To | | | | | Procedures | Contact | Contact | +--------+--------+ + + + + | Closed | | Radiology | Diagnoses | | [facility] | | | | | Thoracic | [place], | [address] | | | | | back pain | Juan C Calvo MD | [place], | | | | | History of | [address] | [place] | | | | | compression | [place] | [address] | | | | | fracture of | [place], [place] | Phone: | | | | | spine | [address] | [phone] | | | | | Osteoporosis | Phone: | Fax: | | | | | Procedures | [phone] | [phone] | | | | | MRI | Fax: | | | | | | Thoracic | [phone] | | | | | | Spine wo | | | | | | | Contrast | | | | | | | MRI | | | +--------+--------+ + + + + Encounter Details +--------+ + + + + | Date | Type | Department | Care Team | Description | +--------+ + + + + | 09/16/ | Hospital | [facility] | Juan C Young | Thoracic back pain; | | 2013 | Encounter | MED CTR MRI [address] | History of | | | | [address] [place], | [place] | compression fracture | | | | [place] [address] | [address] | of spine; | | | | [phone] | | Osteoporosis | +--------+ + + + + Social [...] + + documented as of this encounter Medications at Time of Discharge [...] 0 | | | | (VITAMIN D3) 98833 | mouth Daily. | | | | [...] | + +--------+ + + + | MRI THORACIC SPINE | Routin | 09/16/2014 | Thoracic back pain | Results for this | | WO CONTRAST | e | 1:49 PM | History of | procedure are in the | | | | PDT | compression fracture | results section. | | | | | of spine | | | | | | Osteoporosis | | + +--------+ + + + documented in this encounter Results MRI Thoracic Spine wo Contrast (09/16/2014 1:49 PM PDT) + + | Specimen | + + | | + + + + + | Narrative | Performed At | + + + | MRI THORACIC SPINE WO CONTRAST 09/16/2014 1:49 PM HISTORY: | [facility] | | Severe thoracic pain, history of compression fractures. | LAB | | COMPARISON: None. PROTOCOL: Sagittal T2, sagittal T1, sagittal | | | STIR, axial T2. FINDINGS: Sagittal images demonstrate small | | | posterior disc bulges from C4-5 through C5-6 with mild central | | | stenosis. There is a moderate compression fracture of T7 with | | | about 40% height loss but no significant retropulsion of osseous | | | fragments. This shows a small amount of osseous edema and is likely | | | to be acute. Other compression fractures are visualized at | | | multiple levels with no osseous edema and are likely to be chronic: | | | Severe at T5, mild at T6, mild from T8 through T9, moderate from T10 | | | through L2, and mild at L3. There is disc desiccation throughout | | | the entire thoracic spine. Disc height are maintained. Imaged | | | spinal cord shows normal signal with no evidence for myelomalacia or | | | mass lesions. Imaged chest and upper abdomen demonstrate no acute | | | findings. There is a posterior spur along the midportion of T7 | | | with no significant stenosis. Small posterior disc bulges are | | | observed at T9-10, T10-11, and T11-12 with no significant stenosis. | | | There is a moderate posterior disc bulge at T12-L1 with no | | | significant stenosis. IMPRESSION - Acute moderate compression | | | fracture of T7 with about 40% height loss but no significant | | | retropulsion of osseous fragments. Other multiple compression | | | fractures of the thoracic spine that have a chronic appearance. | | | Multilevel degenerative changes as described above. Dictated and | | | Signed by: Marcelo Kirk MD Electronically signed: 09/16/2014 2:52 | | | PM | | + + + + + | Procedure Note | + + | Lon, Rad Results In - 09/16/2014 2:55 PM PDT MRI THORACIC SPINE WO CONTRAST | | 09/16/2014 1:49 PM HISTORY: Severe thoracic pain, history of compression | | fractures.COMPARISON: None.PROTOCOL: Sagittal T2, sagittal T1, sagittal STIR, axial | | T2.FINDINGS:Sagittal images demonstrate small posterior disc bulges from C4-5 through | | C5-6with mild central stenosis.There is a moderate compression fracture of T7 with about | | 40% height loss but nosignificant retropulsion of osseous fragments. This shows a small | | amount ofosseous edema and is likely to be acute.Other compression fractures are | | visualized at multiple levels with no osseousedema and are likely to be chronic: Severe | | at T5, mild at T6, mild from I5wdjzmaf T9, moderate from T10 through L2, and mild at L3. | | There is disc desiccation throughout the entire thoracic spine. Disc height | | aremaintained. Imaged spinal cord shows normal signal with no evidence for myelomalacia | | or masslesions.Imaged chest and upper abdomen demonstrate no acute findings.There is a | | posterior spur along the midportion of T7 with no significantstenosis.Small posterior | | disc bulges are observed at T9-10, T10-11, and T11-12 with nosignificant stenosis.There | | is a moderate posterior disc bulge at T12-L1 with no significant stenosis.IMPRESSION | | -Acute moderate compression fracture of T7 with about 40% height loss but nosignificant | | retropulsion of osseous fragments.Other multiple compression fractures of the thoracic | | spine that have a chronicappearance.Multilevel degenerative changes as described | | above.Dictated and Signed by: Marcelo Kirk MD Electronically signed: 09/16/2014 2:52 PM | | | |There is disc desiccation throughout the entire thoracic spine. Disc height are | |maintained. | | | |Imaged spinal cord shows normal signal with no evidence for myelomalacia or mass | |lesions. | | | |Imaged chest and upper abdomen demonstrate no acute findings. | | | |There is a posterior spur along the midportion of T7 with no significant | |stenosis. | | | |Small posterior disc bulges are observed at T9-10, T10-11, and T11-12 with no | |significant stenosis. | | | |There is a moderate posterior disc bulge at T12-L1 with no significant stenosis. | | | |IMPRESSION - | |Acute moderate compression fracture of T7 with about 40% height loss but no | |significant retropulsion of osseous fragments. | | | |Other multiple compression fractures of the thoracic spine that have a chronic | |appearance. | | | |Multilevel degenerative changes as described above. | | | |Dictated and Signed by: Marcelo Kirk MD | | Electronically signed: 09/16/2014 2:52 PM | + + + +---------+ + + | Performing | Address | City/State/Zipcode | Phone Number | | Organization | | | | + +---------+ + + | [facility] | | | [phone] | + +---------+ + + | [facility] | | | [phone] | + +---------+ + + documented in this encounter Visit Diagnoses + + | Diagnosis | + + | Thoracic back pain Pain in thoracic spine | + + | History of compression fracture of spine Personal history of traumatic fracture | + + | Osteoporosis Osteoporosis, unspecified | + + documented in this encounter"
--- OUTSIDE RECORDS SUMMARY | ~2020-02-24 | XMS | Encounter Summary ---
Demographics + + + | Address | [address] | | | [place] [address] | + + + | Home Phone | | + + + | Preferred Language | Unknown | + + + | Marital Status | | + + + | Mormon Affiliation | Unknown | + + + | Race | Unknown | + + + | Ethnic Group | Unknown | + + + Author + + + | Author | [facility] | | | and [place] | + + + | Organization | [facility] | | | [...] Team Providers + +------+ + | Care Body Stylist Name | Role | Phone | + +------+ + PCP | Unavailable | + +------+ + Encounter Details +--------+ + + + + | Date | Type | Department | Care Team | Description | +--------+ + + + + | 07/29/ | Hospital | [facility] | | | | 2006 - | Encounter | MED CTR CANCER | | | | | | [place] Megan [place]oya | | | | 08/23/ | | [place] | | | | 2006 | | [address] | | | | | | [phone] | | | +--------+ + + + [...]
--- OUTSIDE RECORDS SUMMARY | ~2020-02-24 | XMS | Encounter Summary ---
Demographics + + + | Address | [address] | | | [place] [address] | + + + | Home Phone | | + + + | Preferred Language | Unknown | + + + | Marital Status | | + + + | Mosque Affiliation | Unknown | + + + | Race | Unknown | + + + | Ethnic Group | Unknown | + + + Author + + + | Author | [facility] | | | and [place] | + + + | Organization | [facility] | | | [...] Team Providers + +------+ + | Care Behavior Specialist Name | Role | Phone | + +------+ + PCP | Unavailable | + +------+ + Encounter Details +--------+ + + + + | Date | Type | Department | Care Team | Description | +--------+ + + + + | 02/08/ | [facility] | [facility] | [place], | | | 2010 | Encounter | MED CTR EMERGENCY | Yash Aldridge MD [address] | | | | | CENTER [address] | [place] | | | | | [place] | [place] [address] | | | | | [address] | [phone] | | | | | [phone] | | | +--------+ + + + [...]
--- OUTSIDE RECORDS SUMMARY | ~2020-02-24 | XMS | Encounter Summary ---
Demographics + + + | Address | [address] | | | [place] [address] | + + + | Home Phone | | + + + | Preferred Language | Unknown | + + + | Marital Status | | + + + | Voodoo Affiliation | Unknown | + + + | Race | Unknown | + + + | Ethnic Group | Unknown | + + + Author + + + | Author | [facility] | | | and [place] | + + + | Organization | [facility] | | | and [...] Team Providers + +------+ + | Care Non Destructive Tester Name | Role | Phone | + +------+ + PCP | Unavailable | + +------+ + Encounter Details +--------+ + + + + | Date | Type | Department | Care Team | Description | +--------+ + + + + | 08/26/ | Hospital | [facility] | | | | 2010 | Encounter | MED CTR XRAY [address] | | | | | | [address] [place] | | | | | | [place] [address] | | | | | | [phone] | | | +--------+ + + + [...] | + +--------+ + + + | ECHO COMPLETE | | 08/26/2011 | | Results for this | | | | 2:36 PM | | procedure are in the | | | | PDT | | results section. | + +--------+ + + + documented in this encounter Results ECHO Complete (08/26/2011 2:36 PM PDT) + + | Specimen | + + | | + + + + + | Narrative | Performed At | + + + | [facility] Diagnostic Imaging Department | [facility] | | [address] | [facility] | | E C H O C A R D | DIAG IMG | | I O G R A P H Y R E P O R T HEIGHT: 5'0" | | | WEIGHT: 160# BUTT MAKER: TD REFERRING DR: | | | SHITAL HYATT DR: AIRAM DIAGNOSIS: NEW MURMUR | | | | | | M E A S U R E M E N T S | | | Aortic Root: 28 mm LV Diameter-diastole: | | | 40 mm Aortic Cusp Sep: 11 mm LV | | | Diameter--systole: 23 mm LA: 36 mm | | | Fractional Shortenin % IVS--diastole: | | | 21 mm PFV Aortic Valve: IVS--systole: | | | 26 mm MPG Mitral Valve: mmHg | | | LVPW--diastole: 13 mm PFV TR Jet: | | | 2.6 m/s LVPW--systole: 17 mm RA/RV PPG: | | | 28.4 mmHg | | | | | | ECHOCARDIOGRAM REPORT, 08/26/2011 CLINICAL HISTORY: NEW | | | HEART MURMUR. REFERRING PHYSICIAN: Stephanie Lopez MD | | | TECHNICAL DATA: The quality of the study is good. HEMODYNAMICS: | | | The patient was in underlying sinus rhythm with a ventricular | | | rate in the 70s. RESULTS: CHAMBERS: The left ventricle was of | | | normal end diastolic and end systolic dimensions. There is severe | | | concentric left ventricular hypertrophy noted most prominently | | | involving the basal intraventricular septum. Ejection fraction is | | | calculated at 76% by the biplane method. There is no clear evidence | | | of intracavitary gradient noted. Bilateral atria are of normal | | | size. Right ventricle is of normal size and systolic function with | | | normal wall thickness. VALVES: Aortic valve cannot be | | | defined as trileaflet. It appears to have mild to moderate degree | | | of sclerosis however with adequate opening without any significant | | | stenosis or insufficiency noted. Mitral valve demonstrate a | | | moderate degree of annular calcification with adequate leaflet motion | | | and mild regurgitation seen. Tricuspid valve also shows mild | | | regurgitation with a peak velocity of 3.6 meters per second | | | consistent with RV systolic pressures of 34- 39 mmHg which is mildly | | | elevated. Pulmonic valve is not well seen. MISCELLANEOUS: | | | Pericardium is normal without an epicardial effusion. Aortic | | | root is within normal limits in dimension at 28 mm, however, the | | | ascending aorta is dilated at 32 mm. DIASTOLOGY: Mitral | | | inflow diastolic parameters are consistent with grade 1 left | | | ventricular diastolic dysfunction. IMPRESSION: 1. SEVERE | | | CONCENTRIC LEFT VENTRICULAR HYPERTROPHY WITH AN LVEF OF 76%. 2. | | | AORTIC VALVULAR SCLEROSIS WITHOUT ANY STENOSIS OR INSUFFICIENCY. | | | 3. MILD MITRAL AND TRICUSPID REGURGITATION. 4. MILDLY | | | ELEVATED RIGHT-SIDED PRESSURES. 5. GRADE 1 LEFT VENTRICULAR | | | DIASTOLIC DYSFUNCTION. 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 7. GRADE 1 LEFT VENTRICULAR DIASTOLIC DYSFUNCTION. | | | 8. THE PATIENT MAY BENEFIT FROM FURTHER CARDIOLOGY CONSULTATION. | | | Dictated Date/Time: 08/26/2011 17:33 Transcribed Date/Time: | | | 08/26/2011 17:43 Mine Production Engineer: <Electronically Signed | | | by Kyle Puga MD> 08/28/11 1534 | | + + + + + | Procedure Note | + + | Jonnathan Forrest - 12/31/2013 3:57 PM [facility] | | Diagnostic Imaging Department | | [address] , [place] | | | | | | | | E C H O C A R D I O G R A P H Y R E P O R T | | | | | | HEIGHT: 5'0" WEIGHT: 160# BUTT MAKER: TD | | REFERRING DR: SHITAL HYATT DR: AIRAM | | | | DIAGNOSIS: NEW MURMUR | | | | | | M E A S U R E M E N T S | | | | Aortic Root: 28 mm LV Diameter-diastole: 40 mm | | Aortic Cusp Sep: 11 mm LV Diameter--systole: 23 mm | | LA: 36 mm Fractional Shortenin % | | IVS--diastole: 21 mm PFV Aortic Valve: | | IVS--systole: 26 mm MPG Mitral Valve: mmHg | | LVPW--diastole: 13 mm PFV TR Jet: 2.6 m/s | | LVPW--systole: 17 mm RA/RV PP.4 mmHg | | | | | | | | ECHOCARDIOGRAM REPORT, 08/26/2011 | | | | CLINICAL HISTORY: NEW HEART MURMUR. | | | | REFERRING PHYSICIAN: Stephanie Lopez MD | | | | TECHNICAL DATA: The quality of the study is good. | | | | HEMODYNAMICS: The patient was in underlying sinus rhythm with a ventricular | | rate in the 70s. | | | | RESULTS: | | CHAMBERS: The left ventricle was of normal end diastolic and end systolic | | dimensions. There is severe concentric left ventricular hypertrophy noted most | | prominently involving the basal intraventricular septum. Ejection fraction is | | calculated at 76% by the biplane method. There is no clear evidence of | | intracavitary gradient noted. Bilateral atria are of normal size. Right | | ventricle is of normal size and systolic function with normal wall thickness. | | | | VALVES: | | Aortic valve cannot be defined as trileaflet. It appears to have mild to | | moderate degree of sclerosis however with adequate opening without any | | significant stenosis or insufficiency noted. Mitral valve demonstrate a | | moderate degree of annular calcification with adequate leaflet motion and mild | | regurgitation seen. Tricuspid valve also shows mild regurgitation with a peak | | velocity of 3.6 meters per second consistent with RV systolic pressures of 34- | | 39 mmHg which is mildly elevated. Pulmonic valve is not well seen. | | | | MISCELLANEOUS: Pericardium is normal without an epicardial effusion. Aortic | | root is within normal limits in dimension at 28 mm, however, the ascending | | aorta is dilated at 32 mm. | | | | DIASTOLOGY: Mitral inflow diastolic parameters are consistent with grade 1 | | left ventricular diastolic dysfunction. | | | | IMPRESSION: | | 1. SEVERE CONCENTRIC LEFT VENTRICULAR HYPERTROPHY WITH AN LVEF OF 76%. | | | | 2. AORTIC VALVULAR SCLEROSIS WITHOUT ANY STENOSIS OR INSUFFICIENCY. | | | | 3. MILD MITRAL AND TRICUSPID REGURGITATION. | | | | 4. MILDLY ELEVATED RIGHT-SIDED PRESSURES. | | | | 5. GRADE 1 LEFT VENTRICULAR DIASTOLIC DYSFUNCTION. | | | | 6. DILATED ASCENDING AORTA AND AORTIC ARCH. | | | | 7. GRADE 1 LEFT VENTRICULAR DIASTOLIC DYSFUNCTION. | | | | 8. THE PATIENT MAY BENEFIT FROM FURTHER CARDIOLOGY CONSULTATION. | | | | Dictated Date/Time: 08/26/2011 17:33 | | Transcribed Date/Time: 08/26/2011 17:43 | | Mine Production Engineer: | | <Electronically Signed by Kyle Puga MD> 08/28/11 1534 | + + + +---------+ + + | Performing | Address | City/State/Zipcode | Phone Number | | Organization | | | | + +---------+ + + | [place] | | | | | [facility] | | | | + +---------+ + + documented in this encounter Visit Diagnoses Not on filedocumented in this encounter
--- OUTSIDE RECORDS SUMMARY | ~2020-02-24 | XMS | Encounter Summary ---
Demographics + + + | Address | [address] | | | [place] [address] | + + + | Home Phone | | + + + | Preferred Language | Unknown | + + + | Marital Status | | + + + | Christianity Affiliation | Unknown | + + + | Race | Unknown | + + + | Ethnic Group | Unknown | + + + Author + + + | Author | [facility] | | | and [place] | + + + | Organization | [facility] | | | and [...] Team Providers + +------+ + | Care Marketing Clerk Name | Role | Phone | + +------+ + PCP | Unavailable | + +------+ + Encounter Details +--------+ + + + + | Date | Type | Department | Care Team | Description | +--------+ + + + + | 07/02/ | Hospital | [facility] | | | | 2006 - | Encounter | MED CTR CANCER | | | | | | [place] Megan Moya | | | | 07/24/ | | [place] | | | | 2006 | | [address] | | | | | | [phone] | | | +--------+ + + + [...]
--- OUTSIDE RECORDS SUMMARY | ~2020-02-24 | XMS | Encounter Summary ---
Demographics + + + | Address | [address] | | | [place] [address] | + + + | Home Phone | | + + + | Preferred Language | Unknown | + + + | Marital Status | | + + + | Zoroastrianism Affiliation | Unknown | + + + | Race | Unknown | + + + | Ethnic Group | Unknown | + + + Author + + + | Author | [facility] | | | and [place] | + + + | Organization | [facility] | | | and [place] | + + + | Address | Unknown | + + + | Phone | Unavailable | + + + Support + + +---------+ + | Name | Relationship | Address | Phone | + + +---------+ + | Tram Joaquín | ECON | Unknown | | + + +---------+ + Care Team Providers + +------+ + | Care Community Life Director Name | Role | Phone | + +------+ + | Ani Yanes MD | PCP | | + +------+ + Encounter Details +--------+ + + + + | Date | Type | Department | Care Team | Description | +--------+ + + + + | 10/07/ | Abstract | [facility] | Bradley Reeys | | | 2012 | | SURGERY [address] | MD Jacki, FACS [address] | | [address] [place] | [place] | | | | | [address] | [place] [address] | | | | | [phone] | [phone] | | | | | | | | +--------+ + + + [...]
--- OUTSIDE RECORDS SUMMARY | ~2020-02-24 | XMS | Encounter Summary ---
Demographics + + + | Address | [address] | | | [place] [address] | + + + | Home Phone [...] Team Providers + +------+ + | Care Port Crane Operator Name | Role | Phone | + +------+ + PCP | Unavailable | + +------+ + Encounter Details +--------+ + + + + | Date | Type | Department | Care Team | Description | +--------+ + + + + | 08/06/ | Abstract | [facility] | [facility] | | | 2011 | | Conversion Location | SR | | | | | [address] | | | | | | [place], [place] | | | | | | [address] | | | | | | [phone] | | | +--------+ + + + [...] + + + | Blood Pressure | 138/62 | 01/13/2012 12:00 AM | | | | | PST | | + + + + + | Pulse | - | - | | + + + + + | Temperature | - | - | | + + + + + | Respiratory Rate | - | - | | + + + + + | Oxygen Saturation | - | - | | + + + + + | Inhaled Oxygen | - | - | | | Concentration | | | | + + + + + | Weight | 50.8 kg (112 lb) | 01/13/2012 12:00 AM | | | | | PST | | + + + + + | Height | 152.4 cm (5') | 01/13/2012 12:00 AM | | | | | PST | | + + + + + | Body Mass Index | 21.87 | 01/13/2012 12:00 AM | | | | | PST | | + + + + + documented in this encounter Plan of Treatment Not on filedocumented as of this encounter Visit Diagnoses Not on filedocumented in this encounter"
--- OUTSIDE RECORDS SUMMARY | ~2020-02-24 | XMS | Encounter Summary ---
Demographics + + + | Address | [address] | | | [place] [address] | + + + | Home Phone | | + + + | Preferred Language | Unknown | + + + | Marital Status | | + + + | Christianity Affiliation | Unknown | + + + | Race | Unknown | + + + | Ethnic Group | Unknown | + + + Author + + + | Author | [facility] | | | and [place] | + + + | Organization | [facility] | | | [...] Team Providers + +------+ + | Care Cylindrical Mixer Name | Role | Phone | + +------+ + PCP | Unavailable | + +------+ + Encounter Details +--------+ + + + + | Date | Type | Department | Care Team | Description | +--------+ + + + + | 07/18/ | [facility] | [facility] | Wilber Giron | | | 2007 | Encounter | MED CTR XRAY [address] | [address] [facility] | | | | | [place] | [place] | | | | | [place] [address] | [id number] | | | | | [phone] | | | +--------+ + + + [...]
--- OUTSIDE RECORDS SUMMARY | ~2020-02-24 | XMS | Encounter Summary ---
Demographics + + + | Address | [address] | | | [place] [address] | + + + | Home Phone | | + + + | Preferred Language | Unknown | + + + | Marital Status | | + + + | Anabaptist Affiliation | Unknown | + + + | Race | Unknown | + + + | Ethnic Group | Unknown | + + + Author + + + | Author | [facility] | | | and [place] | + + + | Organization | [facility] | | | [...] Team Providers + +------+ + | Care Back Wedger Name | Role | Phone | + +------+ + PCP | Unavailable | + +------+ + Encounter Details +--------+ + + + + | Date | Type | Department | Care Team | Description | +--------+ + + + + | 04/29/ | Hospital | [facility] | | | | 2006 - | Encounter | MED CTR CANCER | | | | | | [place] | | | | 05/23/ | | [place] | | | | 2006 | | [address] | | | | | | [phone] | | | +--------+ + + + [...]
--- OUTSIDE RECORDS SUMMARY | ~2020-02-24 | XMS | Encounter Summary ---
Demographics + + + | Address | [address] | | | [place] [address] | + + + | Home Phone | | + + + | Preferred Language | Unknown | + + + | Marital Status | | + + + | Gnosticism Affiliation | Unknown | + + + [...] Team Providers + +------+ + | Care Mutuel Teller Name | Role | Phone | + +------+ + PCP | Unavailable | + +------+ + Encounter Details +--------+ + + + + | Date | Type | Department | Care Team | Description | +--------+ + + + + | 10/30/ | Hospital | [facility] | | | | 2005 - | Encounter | MED CTR CANCER | | | | | | [place] | | | | 11/23/ | | [place] | | | | 2005 | | [address] | | | | | | [phone] | | | +--------+ + + + [...]
--- OUTSIDE RECORDS SUMMARY | ~2020-02-24 | XMS | Encounter Summary ---
Demographics + + + | Address | [address] | | | [place] [address] | + + + | Home Phone | | + + + | Preferred Language | Unknown | + + + | Marital Status | | + + + | Presybeterian Affiliation | Unknown | + + + | Race | Unknown | + + + | Ethnic Group | Unknown | + + + Author + + + | Author | [facility] | | | and [place] | + + + | Organization | [facility] | | | and [...] Providers + +------+ + | Care Supervisor Modern Languages Name | Role | Phone | + +------+ + PCP | Unavailable | + +------+ + Encounter Details +--------+ + + + + | Date | Type | Department | Care Team | Description | +--------+ + + + + | 03/06/ | Hospital | [facility] | | | | 2006 - | Encounter | MED CTR CANCER | | | | | | [place] Megan Moya | | | | 03/23/ | | [place] | | | | 2006 | | [address] | | | | | | [phone] | | | +--------+ + + + [...]
--- OUTSIDE RECORDS SUMMARY | ~2020-02-24 | XMS | Encounter Summary ---
Demographics + + + | Address | [address] | | | [place] [address] | + + + | Home Phone | | + + + | Preferred Language | Unknown | + + + | Marital Status | | + + + | Uatsdin Affiliation | Unknown | + + + | Race | Unknown | + + + | Ethnic Group | Unknown | + + + Author + + + | Author | [facility] | | | and [place] | + + + | Organization | [facility] | | | [...] Team Providers + +------+ + | Care Qc Lab Technician Name | Role | Phone | + +------+ + | Ani Yanes MD | PCP | | + +------+ + Encounter Details +--------+ + + + + | Date | Type | Department | Care Team | Description | +--------+ + + + + | 07/19/ | Abstract | [facility] | [facility] | | | 2013 | | [address] | [address] | | | | | [address] | [place] | | | | | [place] | [address] | | | | | [address] | | | | | | [phone] | | | +--------+ + + + + Social History + +-------+ +--------+------+ | Tobacco Use | Types | Packs/Day | Years | Date | | | | | Used | | + +-------+ +--------+------+ | Former Smoker | | | | | + [...]
--- OUTSIDE RECORDS SUMMARY | ~2020-02-24 | XMS | Encounter Summary ---
Demographics + + + | Address | [address] | | | [place] [address] | + + + | Home Phone [...] Team Providers + +------+ + | Care Fiber Technician Name | Role | Phone | + +------+ + | Ani Yanes MD | PCP | | + +------+ + Reason for Visit +--------+ + | Reason | Comments | +--------+ + | Other | discuss MRI results | +--------+ + Encounter Details +--------+ + + + + | Date | Type | Department | Care Team | Description | +--------+ + + + + | 09/22/ | Telephone | [facility] | Amelia Winkler, | Other (discuss MRI | | 2013 | | [address] | [employer]ATE | results) | | | | [address] | | | | | | [place] | | | | | | [address] | | | | | | [phone] | | | +--------+ + + + [...] filedocumented as of this encounter Visit Diagnoses + + | Diagnosis | + + | Chronic back pain - Primary Backache, unspecified | + + documented in this encounter"
--- OUTSIDE RECORDS SUMMARY | ~2020-02-24 | XMS | Encounter Summary ---
Demographics + + + | Address | [address] | | | [place] [address] | + + + | Home Phone | | + + + | Preferred Language | Unknown | + + + | Marital Status | | + + + | Christianity Affiliation | Unknown | + + + | Race | Unknown | + + + | Ethnic Group | Unknown | + + + Author + + + | Author | [facility] | | | and [place] | + + + | Organization | [facility] | | | and [place] | + + + | Address | Unknown | + + + | Phone | Unavailable | + + + Support + + +---------+ + | Name | Relationship | Address | Phone | + + +---------+ + | Rivera Martinace | ECON | Unknown | | + + +---------+ + Care Team Providers + +------+ + | Care Field Radio Operator Name | Role | Phone | + +------+ + | Ani Yanes MD | PCP | | + +------+ + Encounter Details +--------+ + + + + | Date | Type | Department | Care Team | Description | +--------+ + + + + | 05/27/ | Hospital | [facility] | Jaci Mauricio, | Acute chest pain; | | 2014 - | Encounter | [facility] | [address] | Head ache; Nausea | | | | CLINICAL DECISION | [place] [address] | with vomiting; | | 05/31/ | | [address] | [phone] | NSTEMI (non-ST | | 2014 | | [place], [place] | | elevated myocardial | | | | [address] | | infarction) ([facility]); | | | | [phone] | | CAD (coronary artery | | | | | | disease); HTN | | | | | | (hypertension); DM | | | | | | type 2 (diabetes | | | | | | mellitus, type 2) | | | | | | (HCC); Elevated | | | | | | d-dimer; Accelerated | | | | | | hypertension; At | | | | | | high risk for falls; | | | | | | Chronic low back | | | | | | pain; Gait | | | | | | disturbance, | | | | | | post-stroke | +--------+ + + + + Social History + +-------+ +--------+------+ | Tobacco Use | Types | Packs/Day | Years | Date | | | | | Used | | + +-------+ +--------+------+ | Former Smoker | | | | | + +-------+ +--------+------+ + + +---------+ + | Alcohol Use | Drinks/Week | oz/Week | Comments | + + +---------+ + | No [...] + + documented as of this encounter Discharge Summaries Gem Valadez MD - 05/31/2014 10:15 PM PDTFormatting of this note might be different f rom the original. Discharge Summaries by Gem Valadez MD at 05/31/142214 Author: Gem Valadez MD Service: (none) Author Type: Physician Filed: 05/31/142222 Date of Service: 05/31/142214 Status: Signed Psychology Lecturer: Gem Valadez MD (Physician) [facility]: Hospitalist Physician Discharge Summary Pt: Helen Kearney AGE/SEX: 74 y.o. female ROOM: [address] [place] [address] PCP: ANI YANES : 1940 Admit date: 05/27/2014 Discharge date and time: 05/31/2014 9:00 PM Admitting Physician: Jaci Mauricio MD Discharge Physician: Gem Valadez MD Consults: Dr Ramos - Cardiology Primary Discharge Diagnoses: Nausea with vomiting [787.01] Head ache [784.0] HTN (hypertension) [401.9] DM type 2 (diabetes mellitus, type 2) [250.00] CAD (coronary artery disease) [414.00] Chronic low back pain [724.2, 338.29] Accelerated hypertension [401.0] Acute chest pain [786.50] NSTEMI (non-ST elevated myocardial infarction) [410.70] Gait disturbance, post-stroke [438.84] At high risk for falls [V15.88] Elevated d-dimer [790.92] Secondary Discharge Diagnoses: Discharged Condition: stable Significant Diagnostic Studies: NM stress and rest test Impression: 1. Negative for ischemia or infarct. 2. Left ventricular ejection fraction is calculated at 50%. CXR Impression: 1. Possible right lower lobe mild bronchopneumonia. 2. Probable chronic bronchitis. 3. Chronic mild cardiomegaly with grade 1 pulmonary venous hypertension. 4. Healed deforming fracture of the right proximal humerus. 5. Osteoporosis. Lumbar spine xra y Impression: 1. Multiple avqd-px-mahsgmpm compression fractures throughout the lower thoraci c and lumbar spine, most severe at L1. Without comparison, these are of unclear age. MRI may be helpful. and Hospital Course: 74 y/o F with diabetes mellitus type 2, hypertension, hyperlipidemia, and ischemic stroke i n August 2013. Patient had chest pain last year, underwent coronary angiogram and was noted to have a mild multivessel coronary artery disease including 20% to 30% mid LAD stenosis, 4 0% to 50% distal second diagonal branch with wvexjxxa-jq-pktowj concentric left ventricular hypertrophy, hyperdynamic left ventricular systolic function, ejection fraction approximatel y 80% to 85%. Medical treatment was recommended. Patient was transferred to [facility] from [facility] for cgb-NL-oszknujze myocardial infarction and chest pain. Dr Ramos was involved in ca re. Management in hospital as follows Ygg-EZ-ozuryqcsq myocardial infarction - Dr Ramos consulting - cont with ASA, statin, B wendy - Lovenox discontinued as treatment dose, troponin negative - coronary angiography will not be pursued. Per Dr ramos From his notes: I did review the report of her coronary angiography done by Dr. Zana Mccord at [facility] in March 2013. Documentations of mild coronary artery disease involving mid LAD with 20% to 30% stenosis and 40% to 50% stenosis of the distal second diagonal branch w hich was thought to be very small in diameter. Padtzxzd-bw-hhurly left ventricular hypertrop hy was also documented. Recommendation at the time was medical therapy. Stress test is negative Pt did not have any further chest pain PNA - pt fount to have R sided PNA, which was possibly y a cause of the chest pain. Did well wi th IV levaquin. Transitioned to oral while inaptient, tolerated this well Accelerated hypertension. Elevated -better controlled on discharge -Cont amlodipine, HCTZ , Metoprolol, avapro Elevated D-dimer with a normal CT chest without pulmonary embolism. No further therapy Headache and neck pain status post fall a week ago. Reviewed CT of the head and neck to rule out any acute bleed or fracture. Negative for acut e pathology . Neurologically intact at this time. High fall risk, - PT eval appreciated , daughter rivera declined SNF.Patient declined SNF. See discussion wi th CM - 24 h care recommended . Diabetes mellitus type 2. Resume home medications Back pain chronic Due to chronic hx of compression fx , f/u with PCP Stable at discharge Plan discussedwith Daughter who was very appreciative of care All questions answered Recommended to follow up with PCP on rest of chronic medical conditions as well as post hos pitalization follow up Discharge Vitals: Filed Vitals: 05/31/14 0746 05/31/14 1036 05/31/14 1200 05/31/14 1534 BP: 158/70 147/73 103/56 131/60 Pulse: 86 58 68 Temp: 98.6 F (37 C) 98.6 F (37 C) 98.6 F (37 C) TempSrc: Oral Oral Oral Resp: 16 16 16 Height: Weight: SpO2: 93% 92% 93% Discharge Exam: Constitutional: Alert and oriented to person, place and time. Appears well developed and f rail but in no distress HEENT: PERRL, moist mucous membranes, pink conjunctivae and anicteric sclerae. No JVD Cardiovascular: Normal rate and rhythm. Normal heart sounds with S1 and S2. + murmur Pulmonary: Nonlabored . Breath sounds are clear bilaterally. No wheezing or rales. Abdominal: Soft and nontender . Bowel sounds are present. No rebound or guarding. Extremities: No edema or cyanosis. Neurological: Grossly non focal, no cranial nerve deficit, moves all extremities Spine non TTP Skin: Warm and dry. Psychiatric: No delirium LABS: Lab 05/31/14 0544 05/30/14 0503 05/29/14 0534 WBC 10.8 10.3 13.1* HGB 12.3 10.1* 11.2* HCT 35.9 29.7* 33.0* PLT 223 177 213 NEUTOPHILPCT 74.5 70.1 81.0 MONOPCT 7.7 8.3 6.5 Lab 05/31/14 0544 05/30/14 0503 05/29/14 0534 NA 132* 134* 134* K 3.9 3.3* 3.7 CL 97* 104 105 CO2 26 27 25 BUN 10 11 12 CREATININE 0.57 0.63 0.51 CALCIUM -- -- -- PROT 6.7 5.6* 6.6 BILITOT 0.6 0.6 0.6 ALKPHOS -- -- -- ALT 17 11 10 AST 40 25 23 GLUCOSE -- -- -- No components found with this basename: LABALBU:3 Lab 05/31/14 0544 05/30/14 0503 05/29/14 0534 MG 1.8 1.7 2.1 No results found for this basename: AMYLASE:3 in the last 168 hours No results found for this basename: PHART:3,PO2ART:3,KOW0KYJ:3,B3GDFMJK:3,BEART:[address] 168 hours No results found for this basename: APTT:3,INR:3,PTT:3 in the last 168 hours Lab 05/27/14 1752 05/27/14 1200 05/27/14 0850 CKTOTAL -- 66 64 TROPONINI 0.115* 0.093 -- TROPONINT -- -- -- CKMBINDEX -- 4.4 4.7 Disposition: Home or Self Care Patient Instructions: Medication List As of 05/31/2014 10:15 PM START taking these medications levofloxacin 500 MG tablet QTY: 8 tablet Refills: 0 Commonly known as: LEVAQUIN Take 1 tablet by mouth Once a Day-Quinalones. CHANGE how you take these medications irbesartan 300 MG tablet QTY: 30 tablet Refills: 0 Commonly known as: AVAPRO Take 1 tablet by mouth nightly. What changed: - medication strength - dose isosorbide mononitrate 60 MG 24 hr tablet QTY: 30 tablet Refills: 0 Doctor's comments: Hold for SBP <120 mmHg. Commonly known as: IMDUR Take 1 tablet by mouth daily. What changed: - medication strength - dose CONTINUE taking these medications amLODIPine 2.5 MG tablet Refills: 0 Commonly known as: NORVASC aspirin 81 MG EC tablet Refills: 0 calcium carbonate 600 MG Tabs Refills: 0 Commonly known as: OS-SANTA Cholecalciferol 5000 UNITS Tabs Refills: 0 hydrochlorothiazide 25 MG tablet Refills: 0 Commonly known as: HYDRODIURIL insulin glargine 100 UNIT/ML injection QTY: 10 mL Refills: 3 Commonly known as: LANTUS Inject 10 Units into the skin nightly. levothyroxine 125 MCG tablet Refills: 0 Commonly known as: SYNTHROID metoprolol 100 MG tablet Refills: 0 Commonly known as: LOPRESSOR nitroGLYCERIN 0.4 MG SL tablet QTY: 90 tablet Refills: 0 Commonly known as: NITROSTAT Place 1 tablet under the tongue every 5 (five) minutes as needed for Chest pain. simvastatin 20 MG tablet Refills: 0 Commonly known as: ZOCOR sitaGLIPtin 50 MG tablet QTY: 30 tablet Refills: 0 Commonly known as: JANUVIA Take 1 tablet by mouth daily. STOP taking these medications telmisartan 40 MG tablet Commonly known as: MICARDIS Where to get your medications These are the prescriptions that you need to hop picker. You may get these medications from any pharmacy. irbesartan 300 MG tablet isosorbide mononitrate 60 MG 24 hr tablet levofloxacin 500 MG tablet Activity: activity as tolerated Diet: regular diet Wound Care: not applicable Follow-up with PCP Signed: GEM VALADEZ MD 05/31/2014 10:15 PM Discharge took >35 minutes, to include final examination, discussion of admission, and prep aration of prescriptions, instructions for on-going care, follow-up and documentation of dis charge summary. documented in this encounter Medications at Time of [...] 0 | | | | (VITAMIN D3) 59356 | mouth Daily. | | | | [...] + + + +---------+ + + | Alcohol Swabs 70 % | by Does not apply | | 0 | | | | PADS | route. | | | | 4 | + + + +---------+ + + | amLODIPine | Take 2.5 mg by mouth | | 0 | | | | (NORVASC) 2.5 mg | Daily. | | | | 4 | | tablet | | | | | | + + + +---------+ + + documented as of this encounter Progress Notes Conversion Transaction, Provider Unknown - 05/31/2014 9:03 PM PDTFormatting of this note m ight be different from the original. Nurse Progress Note by Aide Fabian RN at 05/31/142102 Author: Aide Fabian RN Service: (none) Author Type: Registered Nurse Filed: 05/31/142104 Date of Service: 05/31/142102 Status: Signed Psychology Lecturer: Aide Fabian RN (Registered Nurse) Abdulkadirtent discharged to daughter who is taking her home to [facility]. IV was removed on previ ous shift. Night time medications were given d/t them not being available at home tonight pe r daughter. Lantus pen sent home with Patient and instructions were given to daughter on how to use and education done on taking her blood sugars at home. Aide Fabian RN onver ramsey Transaction, Provider Unknown - 05/31/2014 7:48 PM PDT Nurse Progress Note by Conchita Paulson RN at 05/31/141947 Author: Conchita Paulson RN Service: (none) Author Type: Registered Nurse Filed: 05/31/14 1950 Date of Service: 05/31/14 1948 Status: Signed Psychology Lecturer: Conchita Paulson RN (Registered Nurse) Pt awaiting daughter for discharge. MD Valadez is to talk to daughter Rivera regarding XRay r esults. Conchita Paulson RN onver ramsey Transaction, Provider Unknown - 05/31/2014 2:11 PM PDT Therapy Progress Note by Saud Huerta PTA at 05/31/14 1411 Author: Saud Huerta PTA Service: (none) Author Type: Roll Tender Filed: 05/31/14 1412 Date of Service: 05/31/14 1411 Status: Signed Psychology Lecturer: Saud Huerta PTA (Roll Tender) 05/31/14 1411 PT Last Visit PT Received On 05/31/14 Reason for Treatment Deconditioning Requires PT Follow Up Yes Assistance Required 1 person Other Comments Comments pt sitting in chair stating she is feeling better and willing to participate Cognition Overall Cognitive Status WFL Orientation Level Oriented Transfers Sit to/from Stand Moderate assist (to arise OR lower) Mobility Ambulation Assistance Minimal assist Maximal Ambulation Distance (feet) 80 Total Ambulation Distance (feet) 80 Distance limited by? Patient's ability Pattern Alternating;Decreased janeth Assistive Device Walker front wheeled Activity Tolerance Activity Tolerance Patient limited by fatigue Plan Treatment/Interventions Continue per Primary PT POC Progress Progressing toward goals Recommendation Recommendations Home with 24 hr supervision/assist onver ramsey Transaction, Provider Unknown - 05/31/2014 10:38 AM PDT Case Management by Sean Grant RN at 05/31/14 1038 Author: Sean Grant RN Service: (none) Author Type: Registered Nurse Filed: 05/31/14 1529 Date of Service: 05/31/14 1038 Status: Addendum Psychology Lecturer: Sean Grant RN (Registered Nurse) Related Notes: Original Note by Sean Grant RN (Registered Nurse) filed at 05/31/14 104 3 DCP- Met w pt in her room, staff nurse present as well. Disposition: home w dtr-Rivera. Reviewed w pt- she reports her daughter will be home w her-r einforced 16/06. Pt states she does not want to go to a SNF. Per pt- she will stay w her daug hter and her daughter does not work outside the home. There are other family members who can offer support as well. A call was placed to [facility] I spoke w Nichelle at [phone]-she reports the y rec the ref, can accept the pt to service and have already called and left a message with the dtr. I let her know, the pt will dc today. Transportation:dtr to transport. Dtr Rivera reported to this worker yesterday her plan is to be here this evening after she takes her father to an appointment. Patient in agreement with discharge. Medicare important message signed and copy in chart SEAN GARNT onver ramsey Transaction, Provider Unknown - 05/31/2014 4:31 AM PDT Nurse Progress Note by Ny Henry RN at 05/31/14430 Author: Ny Henry RN Service: (none) Author Type: Registered Nurse Filed: 05/31/14 043 Date of Service: 05/31/14430 Status: Signed Psychology Lecturer: Ny Henry RN (Registered Nurse) Pt resting in bed. Vital signs stable. Pt continues to complain of back pain. Heat packs ap plied to back when awake. Pt had one loose stool noted for slot shift supervisor. C-Diff sample sent, result negative. Otherwise no acute changes from previous assessment. Pt visualized hourly. Will continue to monitor. Ny Jules RN 05/31/2014 4:31 AM Gem Sandhu MD - 05/30/2014 6:19 PM PDT Progress Notes by Gem Valadez MD at 05/30/141818 Author: Gem Valadez MD Service: (none) Author Type: Physician Filed: 05/30/141821 Date of Service: 05/30/141818 Status: Addendum Psychology Lecturer: Gem Valadez MD (Physician) Related Notes: Original Note by Gem Valadez MD (Physician) filed at 05/30/141819 [facility]: Hospitalist Progress Note Pt: Helen Kearney AGE/SEX: 74 y.o. female ROOM: [address] [place] [address] : 1940 PCP: ANI YANES ADMIT DATE: 05/27/2014 TODAY'S DATE: 05/30/2014 Hospital Day/Hospital Course: LOS: 3 days 74 y/o F with diabetes mellitus type 2, hypertension, hyperlipidemia, and ischemic stroke i n August 2013. Patient had chest pain last year, underwent coronary angiogram and was noted to have a mild multivessel coronary artery disease including 20% to 30% mid LAD stenosis, 4 0% to 50% distal second diagonal branch with ifiliwkj-vg-tsgmco concentric left ventricular hypertrophy, hyperdynamic left ventricular systolic function, ejection fraction approximatel y 80% to 85%. Medical treatment was recommended. Patient is transferred to [facility] from [facility] on, for dzr-IN-ooojwziyd myocardial infarction and chest pain SUBJECTIVE: Patient seen and examined. Mildly SOB In am . Nausea and vomiting resolved. Reports back p ain is resolved now. Not associated with movement Scheduled Medications: amLODIPine 10 mg Oral Daily aspirin 162 mg Oral Daily with breakfast docusate sodium 100 mg Oral BID enoxaparin 40 mg Subcutaneous Q24H hydrochlorothiazide 25 mg Oral Daily insulin aspart 0-3 Units Subcutaneous Nightly insulin aspart 0-6 Units Subcutaneous TID AC insulin glargine 10 Units Subcutaneous Nightly irbesartan 300 mg Oral Nightly isosorbide mononitrate 60 mg Oral Daily levofloxacin 500 mg Intravenous Q24H levothyroxine 125 mcg Oral QAM AC metoprolol 100 mg Oral Daily polyethylene glycol 17 g Oral Daily potassium chloride 10 mEq Oral BID WC simvastatin 20 mg Oral Nightly sitaGLIPtin 50 mg Oral Daily Continuous Infusions dextrose PRN Medications acetaminophen, acetaminophen, dextrose, dextrose, dextrose, glucagon, glucagon, nitroGLYCER IN, ondansetron, ondansetron, polyethylene glycol Allergy: Allergies Allergen Reactions Diazepam Other (See Comments) Unknown per pt chart Lidocaine Other (See Comments) Unknown Morphine Itching Penicillins Itching Promethazine Hallucinations Propoxyphene Other (See Comments) Unknown per pt history Codeine Nausea and Vomiting Vicodin (Hydrocodone-Acetaminophen) Nausea and Vomiting OBJECTIVE: Vitals: Patient Vitals for the past 24 hrs: BP Temp Temp src Pulse Resp SpO2 Weight 05/30/14 1559 135/65 mmHg 98.1 F (36.7 C) Oral 67 20 - - 05/30/14 1140 132/69 mmHg 98.2 F (36.8 C) - 66 16 95 % - 05/30/14 1044 172/80 mmHg - - - - - - 05/30/14 0710 133/63 mmHg 98.6 F (37 C) - 72 16 94 % - 05/30/14 0331 122/59 mmHg 97.9 F (36.6 C) Oral 74 16 94 % 50.44 kg (111 lb 3.2 oz) 05/29/14 2320 118/58 mmHg 98.6 F (37 C) Oral 73 16 93 % - 05/29/14 1927 134/63 mmHg 98 F (36.7 C) Oral 75 16 92 % - I&O Detailed Table: Intake/Output Summary (Last 24 hours) at 05/30/14 1819 Last data filed at 05/30/14 1600 Gross per 24 hour Intake 2273.21 ml Output 900 ml Net 1373.21 ml Patient Vitals for the past 96 hrs: Weight 05/30/14 0331 50.44 kg (111 lb 3.2 oz) 05/29/14 0323 48.081 kg (106 lb) 05/28/14 0258 50.939 kg (112 lb 4.8 oz) 05/27/14 0519 49.896 kg (110 lb) Hemodynamics Last 24hrs: Physical Examination: Constitutional: Alert and oriented to person, place and time. Appears well developed and f mireles but in no distress HEENT: PERRL, moist mucous membranes, pink conjunctivae and anicteric sclerae. No JVD Cardiovascular: Normal rate and rhythm. Normal heart sounds with S1 and S2. + murmur Pulmonary: a bit tachypneic althou not labored . Breath sounds are clear bilaterally. No wh eezing or rales. Abdominal: Soft and tender diffusely, most prominent hypogastric and LLQ . Bowel sounds are present. No rebound or guarding. Extremities: No edema or cyanosis. Neurological: Grossly non focal, no cranial nerve deficit, moves all extremities Skin: Warm and dry. Psychiatric: No delirium LABS: Lab 05/30/14 0503 05/29/14 0534 05/28/14 0451 WBC 10.3 13.1* 10.5 HGB 10.1* 11.2* 11.1* HCT 29.7* 33.0* 32.2* PLT 177 213 196 NEUTOPHILPCT 70.1 81.0 66.6 MONOPCT 8.3 6.5 10.0 Lab 05/30/14 0503 05/29/14 0534 05/28/14 0451 NA 134* 134* 136 K 3.3* 3.7 3.3* CL 104 105 106 CO2 27 25 26 BUN 11 12 17 CREATININE 0.63 0.51 0.71 CALCIUM -- -- -- PROT 5.6* 6.6 6.3 BILITOT 0.6 0.6 0.6 ALKPHOS -- -- -- ALT 11 10 7* AST 25 23 15 GLUCOSE -- -- -- Phosphorus: Lab Results Component Value Date PHOS 1.9* 05/28/2014 No components found with this basename: LABALBU:3 Lab 05/30/14 0503 05/29/14 0534 05/28/14 0451 MG 1.7 2.1 1.7|1.6* No results found for this basename: AMYLASE:3 in the last 168 hours No results found for this basename: PHART:3,PO2ART:3,WWX4CLV:3,N0DLIZDQ:3,BEART:[address] 168 hours No results found for this basename: APTT:3,INR:3,PTT:3 in the last 168 hours No results found for this basename: TSH:3,T3FREE:3,FREET4:3 in the last 168 hours Lab 05/27/14 1752 05/27/14 1200 05/27/14 0850 CKTOTAL -- 66 64 TROPONINI 0.115* 0.093 -- TROPONINT -- -- -- CKMBINDEX -- 4.4 4.7 PROBLEM LIST Principal Problem: *NSTEMI (non-ST elevated myocardial infarction) Active Problems: DM type 2 (diabetes mellitus, type 2) Gait disturbance, post-stroke Chest pain at rest Accelerated hypertension Elevated d-dimer Chronic low back pain Head ache Nausea with vomiting At high risk for falls ASSESSMENT & PLAN Xon-DU-mruyjqyry myocardial infarction - Dr Ramos consulting - cont with ASA, statin, B wendy - Lovenox discontinued as treatment dose, troponin negative - coronary angiography will not be pursued. Per Dr ramos I did review the report of her coronary angiography done by Dr. Zana Mccord at [facility] in March 2013. Documentations of mild coronary artery disease involving mid LAD with 20% to 30% stenosis and 40% to 50% stenosis of the distal second diagonal branch w hich was thought to be very small in diameter. Snjonvir-pc-jutnwq left ventricular hypertrop hy was also documented. Recommendation at the time was medical therapy. Stress test is negative PT eval for d'c planning - decline SNF,Home with 24 h supervision PNA - cont on IV levaquin and transition to oral in AM if improved Accelerated hypertension. Elevated -Resume home medications. p.r.n. hydralazine, adjust as needed. - -Cont amlodipine, HCTZ , Metoprolol, avapro Elevated D-dimer with a normal CT chest without pulmonary embolism. Will obtain official r eport from [facility]. Headache and neck pain status post fall a week ago. Reviewed CT of the head and neck to rule out any acute bleed or fracture. Negative for acu te pathology . Neurologically intact at this time. High fall risk, - fall precautions to be maintained. - PT eval appreciated . Diabetes mellitus type 2. Resume home medications and low-dose insulin sliding scale. Adjust as needed. Previous history of stroke with gait disturbances. - fall precautions Abd distention/pain not an acute abdomen, xray reviewed negative for acute pathology - nausea/back pain may be due to PNA, treat with antiemetics prn Hypokalemia - replete Anticipate d'c in 24 h GEM VALADEZ MD 05/30/2014 6:19 PM onversion Transac tion, Provider Unknown - 05/30/2014 4:15 PM PDTFormatting of this note might be different f rom the original. Nurse Progress Note by Bernice Garcia RN at 05/30/14 1615 Author: Bernice Garcia RN Service: (none) Author Type: Registered Nurse Filed: 05/30/14 1615 Date of Service: 05/30/14 1615 Status: Signed Psychology Lecturer: Bernice Garcia RN (Registered Nurse) Patient complains of nausea and not feeling well. Vital signs stable at this time, Zofran g iven and heat pack applied. onver ramsey Transaction, Provider Unknown - 05/30/2014 11:20 AM PDT Case Management by Sean Grant RN at 05/30/14 1120 Author: Sean Grant RN Service: (none) Author Type: Registered Nurse Filed: 05/30/14 6364 Date of Service: 05/30/14 1120 Status: Addendum Psychology Lecturer: Sean Grant RN (Registered Nurse) Related Notes: Original Note by Sean Grant RN (Registered Nurse) filed at 05/30/14 164 9 DCP- Met w pt to review dc planning- she reports she is very hard of hearing and would prefer me to speak w her dtr- Call to Rivera at and left a voice mail message. [phone]- Met w dtr Ze, realyed the recommendation about SNF from PT. She confirms, the pt wi ll be discharging home with her - her address is [address] [place] [address] in [facility], phon e number is [phone].[facility] as a resource as recommended by PT-dtr recepti boyd, reports she has had [facility] before. Call to Donita- at [phone], this worker will fax to her a med list, H/P,signed face to face, face sheet, and an order for HH To [phone]. 1547- Contact w Dr Valadez- her plan is to continue w IV abx for an additional day and plan for dc 05/31.Secured her signature on the face to face. 2025- Reviewed w dtr- physician anticipates dc tomorrow, this will be based on the physicia ns assessment of her readiness/medical stability for dc. Dtr reports she has access to DME t hru a local community agency and that she will be to the hospital tomorrow evening after she assists her father- the pt spouse w an outpt appointment. CM will cont to follow. onver ramsey Transaction, Provider Unknown - 05/30/2014 4:09 AM PDT Nurse Progress Note by Ny Henry RN at 05/30/14408 Author: Ny Henry RN Service: (none) Author Type: Registered Nurse Filed: 05/30/141 Date of Service: 05/30/14408 Status: Signed Psychology Lecturer: Ny Henry RN (Registered Nurse) Pt resting in bed. Vital signs stable. Pt continues to complain of back pain. Tylenol given x1. Heat packs applied to back when awake. Otherwise no acute changes from previous assessm ent. Pt visualized hourly. Will continue to monitor. Ny Jules RN 05/30/2014 4:11 AM onver ramsey Transaction, Provider Unknown - 05/29/2014 6:49 PM PDT Progress Notes by Merly Huynh RN at 05/29/141848 Author: Merly Huynh RN Service: (none) Author Type: Registered Nurse Filed: 05/29/14 393 Date of Service: 05/29/141848 Status: Signed Psychology Lecturer: Merly Huynh RN (Registered Nurse) Pt resting in bed this shift, OOB for meal and to use commode. Pt continue to have poor dash etitre and c/o back pain that improves with warmth and leaning forward. Pt given docusate an d Miralax, no BM again this shift. No other acute changes noted from previous assessment.CHELO HUYNH RN onver ramsey Ramirez, Provider Unknown - 05/29/2014 4:01 PM PDT Therapy Progress Note by Azucena Og PT at 05/29/14 1601 Author: Azucena Og PT Service: (none) Author Type: Physical Therapist Filed: 05/29/14 5674 Date of Service: 05/29/14 1601 Status: Signed Psychology Lecturer: Azucena Og PT (Physical Therapist) 05/29/14 1601 PT Last Visit PT Received On 05/29/14 Reason for Treatment Deconditioning Requires PT Follow Up Awaiting tx order Follow up PT Only? No PT Eval/Reassessment Date 05/29/14 Assistance Required 1 person Accounting Systems Manager Needed No Precautions Other Precautions fall risk Plan Treatment/Interventions Balance training;Gait training;Stair training;Therapeutic exercise; Transfer training PT Frequency 5-7x/wk;Once per day Care Duration (# of days) 7 # of days Home Environment Bathroom Equipment Raised toilet seat (not available at her daughter's home) Home Equipment Walker front wheeled;Walker 4 wheeled Additional Comments Pt reports that she lives in a [place] assistance. Pt's granddaught er works and is unable to be present during day for assist. Pt reports that she would like to live with her daughter for a time until she is more independent. Her daughter's home has 2 large steps to enter, which pt reports that she has difficulty with at baseline. Pt repo rts that her daughter is currently babysitting and is unaware if she could provide assist 24 hrs. Pt reports that her is currently at [facility] and she states that she refus es to go there due to poor treatment. Recommendation Recommendations Home PT;Home with 24 hr supervision/assist;SNF Recommendation Comments Pt currently requires assist to arise and demonstrates safety rosie rns with assistive device negotiation that warrant 24 hr supervision at this time. Discharg e options sound limited at this time, but pt is very adament that she will not go to [facility] with her . Recommend HHPT or PT in SNF for further strengthening/endurance reza myers after d/c. Prior Function Level of Loíza Modified independent with functional mobility;Modified independent wi th ADLs;Modified independent with IADLs Comments Pt was using 4WW for household ambulation, FWW for community ambulation, as she wa s better able to get FWW out of car independently. Pt was driving in community to visit her , but feels that she is unsafe to drive at this time due to decrease in vision Cognition Comments Pt answered questions appropriately. Accuracy of information may be questionable due to reported history of memory deficits. Assessment of Patient Status Assessment of Patient Status Decreased functional mobility;Decreased endurance;Pain Prognosis Should progress with skilled therapy intervention 05/29/14 1601 PT Last Visit PT Received On 05/29/14 Reason for Treatment Deconditioning Requires PT Follow Up Awaiting tx order Follow up PT Only? No PT Eval/Reassessment Date 05/29/14 Assistance Required 1 person Accounting Systems Manager Needed No Precautions Other Precautions fall risk Other Comments Comments Pt is a 74 y.o. female admitted for NSTEMI, nausea/vomiting. Pt demonstrates decr eased mobility and is most greatly limited by chronic low back pain. During therapy evaluat ion, pt required Mod A to assume sitting position and Max A to scoot in sitting as a result of back pain. Mild unsteadiness with ambulation and difficulty navigating with assistive de vice warranted Min A with ambulation. At this time it appears pt is unsafe to return home w ithout constant supervision/assist. Different discharge options were discussed with pt, inc luding a short stay in a SNF with rehab to increase independence and safety with mobility. Pt refuses to go to [facility] where her is currently residing as a result of poor care. Pt would like to d/c home with her daughter. If this is able to be arranged with con stant supervision, therapist recommends HHPT to increase strength/endurance in the home. Cognition Comments Pt answered questions appropriately. Accuracy of information may be questionable due to reported history of memory deficits. Bed Mobility Supine to Sit Mod assist (BLEs OOB or trunk to upright) Sit to Supine Mod assist (BLEs into bed or trunk to lower) Scooting Maximal assist Transfers Sit to/from Stand Moderate assist (to arise OR lower) Mobility Weight Bearing Status WBAT RLE;WBAT LLE Ambulation Assistance Minimal assist Maximal Ambulation Distance (feet) 60 ft Total Ambulation Distance (feet) 60 ft Distance limited by? Therapist/staff discretion Pattern Alternating;Decreased janeth;Right swing foot doesn't pass stance foot;Left swing foot doesn't pass stance foot;Forward flexed Assistive Device Walker front wheeled Activity Tolerance Activity Tolerance Patient limited by pain Nurse Made Aware KALEIGH Moreland aware of mobility status, d/c recommendations Plan Treatment/Interventions Balance training;Gait training;Stair training;Therapeutic exercise; Transfer training PT Frequency 5-7x/wk;Once per day Care Duration (# of days) 7 # of days Recommendation Recommendations Home PT;Home with 24 hr supervision/assist;SNF Recommendation Comments Pt currently requires assist to arise and demonstrates safety rosie rns with assistive device negotiation that warrant 24 hr supervision at this time. Discharg e options sound limited at this time, but pt is very adament that she will not go to [facility] with her . Recommend HHPT or PT in SNF for further strengthening/endurance reza lucia after d/c. onver ramsey Transaction, Provider Unknown - 05/29/2014 2:38 PM PDT Case Management by NIURKA Perez at 05/29/14 6430 Author: NIURKA Perez Service: (none) Author Type: Anode Crew Supervisor Filed: 05/29/14 0267 Date of Service: 05/29/14 1439 Status: Signed Psychology Lecturer: NIURKA Perez (Anode Crew Supervisor) Discharge Planning: DARY spoke with KALEIGH York. Sean is unsure when pt will d/c and is not lulu re of any needs at this point. Patient is a transfer from [facility]. CM spoke with pt. She lives with her grandaughter, but her grandaughter works. Pt stated she may be able to stay with her daughter, Rivera upon d/c. Pt stated Rivera would not be ching k today - she's attending a [employer]. CM told pt that a CM would check in with her tomorrow. NIURKA Perez Gem Sandhu MD - 05/29/2014 9:29 AM PDT Progress Notes by Gem Valadez MD at 05/29/14928 Author: Gem Valadez MD Service: (none) Author Type: Physician Filed: 05/29/141641 Date of Service: 05/29/14928 Status: Addendum Psychology Lecturer: Gem Valadez MD (Physician) Related Notes: Original Note by Gem Valadez MD (Physician) filed at 05/29/141641 [facility] Service: Hospitalist Progress Note Pt: Helen Kearney AGE/SEX: 74 y.o. female ROOM: [address] [place] [address] : 1940 PCP: ANI YANES ADMIT DATE: 05/27/2014 TODAY'S DATE: 05/29/2014 Hospital Day/Hospital Course: LOS: 2 days 74 y/o F with diabetes mellitus type 2, hypertension, hyperlipidemia, and ischemic stroke i n August 2013. Patient had chest pain last year, underwent coronary angiogram and was noted to have a mild multivessel coronary artery disease including 20% to 30% mid LAD stenosis, 4 0% to 50% distal second diagonal branch with alpyjjxs-bv-wyfaja concentric left ventricular hypertrophy, hyperdynamic left ventricular systolic function, ejection fraction approximatel y 80% to 85%. Medical treatment was recommended. Patient is transferred to [facility] from [facility] on, for tau-XA-niwszrzwy myocardial infarction and chest pain SUBJECTIVE: Patient seen and examined. Mildly SOB In am with nausea and mild vomiting. Scheduled Medications: amLODIPine 10 mg Oral Daily aspirin 162 mg Oral Daily with breakfast docusate sodium 100 mg Oral BID enoxaparin 40 mg Subcutaneous Q24H hydrochlorothiazide 25 mg Oral Daily [COMPLETED] HYDROmorphone 0.5 mg Intravenous Once [COMPLETED] HYDROmorphone 0.5 mg Intravenous Once insulin aspart 0-3 Units Subcutaneous Nightly insulin aspart 0-6 Units Subcutaneous TID AC insulin glargine 10 Units Subcutaneous Nightly irbesartan 150 mg Oral Nightly isosorbide mononitrate 60 mg Oral Daily levothyroxine 125 mcg Oral QAM AC [COMPLETED] magnesium sulfate 2 g Intravenous Once metoprolol 100 mg Oral Daily polyethylene glycol 17 g Oral Daily [COMPLETED] potassium chloride 40 mEq Intravenous Once simvastatin 20 mg Oral Nightly sitaGLIPtin 50 mg Oral Daily Continuous Infusions dextrose [DISCONTINUED] sodium chloride 75 mL/hr at 05/27/14 2145 PRN Medications acetaminophen, acetaminophen, dextrose, dextrose, dextrose, glucagon, glucagon, nitroGLYCER IN, ondansetron, ondansetron, polyethylene glycol, [COMPLETED] regadenoson Allergy: Allergies Allergen Reactions Diazepam Other (See Comments) Unknown per pt chart Lidocaine Other (See Comments) Unknown Morphine Itching Penicillins Itching Promethazine Hallucinations Propoxyphene Other (See Comments) Unknown per pt history Codeine Nausea and Vomiting Vicodin (Hydrocodone-Acetaminophen) Nausea and Vomiting OBJECTIVE: Vitals: Patient Vitals for the past 24 hrs: BP Temp Temp src Pulse Resp SpO2 Weight 05/29/14 0725 159/74 mmHg 97.3 F (36.3 C) Oral 76 16 92 % - 05/29/14 0323 145/70 mmHg 98 F (36.7 C) Oral 75 16 94 % 48.081 kg (106 lb) 05/28/14 2250 155/70 mmHg 98.1 F (36.7 C) Oral 68 16 95 % - 05/28/14 2019 129/60 mmHg 97.9 F (36.6 C) Oral 70 16 93 % - 05/28/14 1555 - 98 F (36.7 C) Axillary 85 16 94 % - 05/28/14 1535 161/74 mmHg - - 85 - - - 05/28/14 1402 138/67 mmHg 97.9 F (36.6 C) Axillary 87 16 92 % - I&O Detailed Table: Intake/Output Summary (Last 24 hours) at 05/29/14 09 Last data filed at 05/29/14 0324 Gross per 24 hour Intake 1916 ml Output 1000 ml Net 916 ml Patient Vitals for the past 96 hrs: Weight 05/29/14 0323 48.081 kg (106 lb) 05/28/14 0258 50.939 kg (112 lb 4.8 oz) 05/27/14 0519 49.896 kg (110 lb) Hemodynamics Last 24hrs: Physical Examination: Constitutional: Alert and oriented to person, place and time. Appears well developed and f mireles but in no distress HEENT: PERRL, moist mucous membranes, pink conjunctivae and anicteric sclerae. No JVD Cardiovascular: Normal rate and rhythm. Normal heart sounds with S1 and S2. + murmur Pulmonary: a bit tachypneic althou not labored . Breath sounds are clear bilaterally. No wh eezing or rales. Abdominal: Soft and tender diffusely, most prominent hypogastric and LLQ . Bowel sounds are present. No rebound or guarding. Extremities: No edema or cyanosis. Neurological: Grossly non focal, no cranial nerve deficit, moves all extremities Skin: Warm and dry. Psychiatric: No delirium LABS: Lab 05/29/14 0534 05/28/14 0451 05/27/14 0850 WBC 13.1* 10.5 10.8 HGB 11.2* 11.1* 12.3 HCT 33.0* 32.2* 35.5 PLT 213 196 212 NEUTOPHILPCT 81.0 66.6 79.6 MONOPCT 6.5 10.0 6.2 Lab 05/29/14 0534 05/28/14 0451 05/27/14 0850 NA 134* 136 132* K 3.7 3.3* 2.9* CL 105 106 97* CO2 25 26 25 BUN 12 17 20 CREATININE 0.51 0.71 0.70 CALCIUM -- -- -- PROT 6.6 6.3 7.6 BILITOT 0.6 0.6 0.7 ALKPHOS -- -- -- ALT 10 7* 9* AST 23 15 17 GLUCOSE -- -- -- Phosphorus: Lab Results Component Value Date PHOS 1.9* 05/28/2014 No components found with this basename: LABALBU:3 Lab 05/29/14 0534 05/28/14 045 MG 2.1 1.7|1.6* No results found for this basename: AMYLASE:3 in the last 168 hours No results found for this basename: PHART:3,PO2ART:3,RJU1VUW:3,T1TYBJWZ:3,BEART:[address] 168 hours No results found for this basename: APTT:3,INR:3,PTT:3 in the last 168 hours No results found for this basename: TSH:3,T3FREE:3,FREET4:3 in the last 168 hours Lab 05/27/14 1752 05/27/14 1200 05/27/14 0850 CKTOTAL -- 66 64 TROPONINI 0.115* 0.093 -- TROPONINT -- -- -- CKMBINDEX -- 4.4 4.7 PROBLEM LIST Principal Problem: *NSTEMI (non-ST elevated myocardial infarction) Active Problems: DM type 2 (diabetes mellitus, type 2) Gait disturbance, post-stroke Chest pain at rest Accelerated hypertension Elevated d-dimer Chronic low back pain Head ache Nausea with vomiting At high risk for falls ASSESSMENT & PLAN Zfe-CD-mgiqprhie myocardial infarction - Dr Ramos consulting - cont with ASA, statin, B wendy - Lovenox discontinued as treatment dose, troponin negative - coronary angiography will not be pursued. Per Dr ramos I did review the report of her coronary angiography done by Dr. Zana Mccord at [facility] in March 2013. Documentations of mild coronary artery disease involving mid LAD with 20% to 30% stenosis and 40% to 50% stenosis of the distal second diagonal branch w hich was thought to be very small in diameter. Uqlvxbda-ep-icldmw left ventricular hypertrop hy was also documented. Recommendation at the time was medical therapy. Stress test is negative PT eval for d'c planning PNA - start levaquin Also check UA Accelerated hypertension. Elevated -Resume home medications. Ordered nitroglycerin paste and p.r.n. hydralazine, adjust as ne eded. - -Cont amlodipine, HCTZ , metoprolol, increase avapro Elevated D-dimer with a normal CT chest without pulmonary embolism. Will obtain official r eport from [facility]. Headache and neck pain status post fall a week ago. Reviewed CT of the head and neck to rule out any acute bleed or fracture. Negative for acu te pathology . Neurologically intact at this time. High fall risk, - fall precautions to be maintained. - PT eval when stable . Diabetes mellitus type 2. Resume home medications and low-dose insulin sliding scale. Adjust as needed. Previous history of stroke with gait disturbances. - fall precautions Abd distention/pain not an acute abdomen, xray reviewed negative for acute pathology - nausea may be due to PNA, treat with antiemetics prn Anticipate d'c in 24- 48 h GEM VALADEZ MD 05/29/2014 9:29 AM onversion Transac tion, Provider Unknown - 05/29/2014 5:40 AM PDTFormatting of this note might be different f rom the original. Nurse Progress Note by Adrienne Meza RN at 05/29/14 0540 Author: Adrienne Meza RN Service: (none) Author Type: Registered Nurse Filed: 05/29/1443 Date of Service: 05/29/14 0540 Status: Signed Psychology Lecturer: Adrienne Meza RN (Registered Nurse) Patient denied chest pain all shift. Complaining of severe back pain in the middle of the n ight. MD notified; dilaudid given (see MAR). Medicated for nausea X1. VSS. No acute changes from previous assessment. Adrienne Meza RN Gem Sandhu MD - 05/28/2014 10:03 AM PDT Progress Notes by Gem Valadez MD at 05/28/14 1003 Author: Gem Valadez MD Service: (none) Author Type: Physician Filed: 05/28/14 1209 Date of Service: 05/28/14 1003 Status: Signed Psychology Lecturer: Gem Valadez MD (Physician) [facility] Service: Hospitalist Progress Note Pt: Helen Kearney AGE/SEX: 74 y.o. female ROOM: [address] [place] [address]1 : 1940 PCP: ANI YANES ADMIT DATE: 05/27/2014 TODAY'S DATE: 05/28/2014 Hospital Day/Hospital Course: LOS: 1 day 74 y/o F with diabetes mellitus type 2, hypertension, hyperlipidemia, and ischemic stroke i n August 2013. Patient had chest pain last year, underwent coronary angiogram and was noted to have a mild multivessel coronary artery disease including 20% to 30% mid LAD stenosis, 4 0% to 50% distal second diagonal branch with tmlxtxqi-jd-oorgta concentric left ventricular hypertrophy, hyperdynamic left ventricular systolic function, ejection fraction approximatel y 80% to 85%. Medical treatment was recommended. Patient is transferred to [facility] from [facility], [facility] on, for mib-HP-hqmdnxcid myocardial infarction and chest pain SUBJECTIVE: Patient seen and examined. Appearing comfortable. Denied CP or SOB. repleted electrolytes. Noted abdominal distension maybe a little bit worse than yesterday , overall pain but there is some prominence in LLQ . No guarding. She has dementia and history from her is not very accurate Scheduled Medications: amLODIPine 10 mg Oral Daily aspirin 162 mg Oral Daily with breakfast docusate sodium 100 mg Oral BID enoxaparin 40 mg Subcutaneous Q24H hydrochlorothiazide 25 mg Oral Daily [COMPLETED] ibuprofen 200 mg Oral Once insulin aspart 0-3 Units Subcutaneous Nightly insulin aspart 0-6 Units Subcutaneous TID AC insulin glargine 10 Units Subcutaneous Nightly irbesartan 150 mg Oral Nightly isosorbide mononitrate 60 mg Oral Daily levothyroxine 125 mcg Oral QAM AC magnesium sulfate 2 g Intravenous Once metoprolol 100 mg Oral Daily polyethylene glycol 17 g Oral Daily potassium chloride 40 mEq Intravenous Once [COMPLETED] potassium chloride 60 mEq Intravenous Once simvastatin 20 mg Oral Nightly sitaGLIPtin 50 mg Oral Daily [DISCONTINUED] enoxaparin 1 mg/kg Subcutaneous Q12H [DISCONTINUED] nitroGLYCERIN 0.5 inch Topical Q6H WA Continuous Infusions dextrose sodium chloride 75 mL/hr at 05/27/14 2145 PRN Medications acetaminophen, acetaminophen, dextrose, dextrose, dextrose, glucagon, glucagon, nitroGLYCER IN, ondansetron, ondansetron, polyethylene glycol Allergy: Allergies Allergen Reactions Diazepam Other (See Comments) Unknown per pt chart Lidocaine Other (See Comments) Unknown Morphine Itching Penicillins Itching Promethazine Hallucinations Propoxyphene Other (See Comments) Unknown per pt history Codeine Nausea and Vomiting Vicodin (Hydrocodone-Acetaminophen) Nausea and Vomiting OBJECTIVE: Vitals: Patient Vitals for the past 24 hrs: BP Temp Temp src Pulse Resp SpO2 Weight 05/28/14 0719 174/81 mmHg 98.2 F (36.8 C) Oral 77 16 97 % - 07/05/14 0258 170/74 mmHg 98.1 F (36.7 C) Oral 69 16 95 % 50.939 kg (112 lb 4.8 oz) 05/27/14 2330 146/77 mmHg - - 72 - - - 05/27/14 2327 164/80 mmHg - - 72 - - - 05/27/14 1906 144/67 mmHg 98.4 F (36.9 C) Oral 76 18 95 % - 05/27/14 1609 124/62 mmHg 98.8 F (37.1 C) Oral 67 16 96 % - 05/27/14 1156 176/85 mmHg 98.5 F (36.9 C) Oral 74 16 - - I&O Detailed Table: Intake/Output Summary (Last 24 hours) at 05/28/14 1003 Last data filed at 05/28/14 0456 Gross per 24 hour Intake 2288 ml Output 1475 ml Net 813 ml Patient Vitals for the past 96 hrs: Weight 05/28/14 0258 50.939 kg (112 lb 4.8 oz) 05/27/14 0519 49.896 kg (110 lb) Hemodynamics Last 24hrs: Physical Examination: Constitutional: Alert and oriented to person, place and time. Appears well developed and f mireles but in no distress HEENT: PERRL, moist mucous membranes, pink conjunctivae and anicteric sclerae. No JVD Cardiovascular: Normal rate and rhythm. Normal heart sounds with S1 and S2. + murmur Pulmonary: Patient is able to speak in full sentences. Breath sounds are clear bilaterally. No wheezing or rales. Abdominal: Soft and tender diffusely, most prominent hypogastric and LLQ . Bowel sounds are present. No rebound or guarding. Extremities: No edema or cyanosis. Neurological: Grossly non focal, no cranial nerve deficit, moves all extremities Skin: Warm and dry. Psychiatric: No delirium LABS: Lab 05/28/14 0451 05/27/14 0850 WBC 10.5 10.8 HGB 11.1* 12.3 HCT 32.2* 35.5 PLT 196 212 NEUTOPHILPCT 66.6 79.6 MONOPCT 10.0 6.2 Lab 05/28/14 0451 05/27/14 0850 NA 136 132* K 3.3* 2.9* CL 106 97* CO2 26 25 BUN 17 20 CREATININE 0.71 0.70 CALCIUM -- -- PROT 6.3 7.6 BILITOT 0.6 0.7 ALKPHOS -- -- ALT 7* 9* AST 15 17 GLUCOSE -- -- Phosphorus: Lab Results Component Value Date PHOS 1.9* 05/28/2014 No components found with this basename: LABALBU:3 Lab 05/28/14 0451 MG 1.7|1.6* No results found for this basename: AMYLASE:3 in the last 168 hours No results found for this basename: PHART:3,PO2ART:3,JWQ5NQS:3,N6XHWSHQ:3,BEART:[address] 168 hours No results found for this basename: APTT:3,INR:3,PTT:3 in the last 168 hours No results found for this basename: TSH:3,T3FREE:3,FREET4:3 in the last 168 hours Lab 05/27/14 1752 05/27/14 1200 05/27/14 0850 CKTOTAL -- 66 64 TROPONINI 0.115* 0.093 -- TROPONINT -- -- -- CKMBINDEX -- 4.4 4.7 PROBLEM LIST Principal Problem: *NSTEMI (non-ST elevated myocardial infarction) Active Problems: DM type 2 (diabetes mellitus, type 2) Gait disturbance, post-stroke Chest pain at rest Accelerated hypertension Elevated d-dimer Chronic low back pain Head ache Nausea with vomiting At high risk for falls ASSESSMENT & PLAN Xwd-XD-tbmftkfma myocardial infarction - Dr Ramos consulting - cont with ASA, statin, B wendy - Lovenox discontinued as treatment dose, troponin negative - coronary angiography will not be pursued. Per Dr ramos I did review the report of her coronary angiography done by Dr. Zana Mccord at [facility] in March 2013. Documentations of mild coronary artery disease involving mid LAD with 20% to 30% stenosis and 40% to 50% stenosis of the distal second diagonal branch w hich was thought to be very small in diameter. Glhqmvzi-hn-jukgqn left ventricular hypertrop hy was also documented. Recommendation at the time was medical therapy. Awaiting Stress test Replete K , Mg Accelerated hypertension. Controlled currently -Resume home medications. Ordered nitroglycerin paste and p.r.n. hydralazine, adjust as ne eded. - high thsi am but has been nPO for stress test, will see how she does Elevated D-dimer with a normal CT chest without pulmonary embolism. Will obtain official r eport from [facility]. Headache and neck pain status post fall a week ago. Reviewed CT of the head and neck to rule out any acute bleed or fracture. Negative for acu te pathology . Neurologically intact at this time. High fall risk, - fall precautions to be maintained. - PT eval when stable . Diabetes mellitus type 2. Resume home medications and low-dose insulin sliding scale. Adjust as needed. Previous history of stroke with gait disturbances. - fall precautions Abd distention/pain not an acute abdomen, xray ordered GEM VALADEZ MD 05/28/2014 10:03 AM onversion Transac tion, Provider Unknown - 05/28/2014 4:56 AM PDTFormatting of this note might be different f rom the original. Nurse Progress Note by Adrienne Meza RN at 05/28/14455 Author: Adrienne Meza RN Service: (none) Author Type: Registered Nurse Filed: 05/28/14456 Date of Service: 05/28/14455 Status: Signed Psychology Lecturer: Adrienne Meza RN (Registered Nurse) Patient denies any pain after 2330 dose of Nitro given. Denies nausea. Has been NPO since m idnight for stress test this am. No changes from previous assessment. Adrienne Meza RN onver ramsey Transaction, Provider Unknown - 05/27/2014 11:35 PM PDT Nurse Progress Note by Adrienne Meza RN at 05/27/14 300 Author: Adrienne Meza RN Service: (none) Author Type: Registered Nurse Filed: 05/27/14 2339 Date of Service: 05/27/142334 Status: Signed Psychology Lecturer: Adrienne E Leinback, RN (Registered Nurse) RN called to room; patient complaining of 8/10 chest pain. MD notified. EKG ordered, 2L o2 applied, and one oral dose of nitro given. Pt. denied any chest pain 5 minutes after first n itro was given and stated all the pain was in her head. BPs 164/80 & 146/77. Will continue to monitor. Adrienne Meza RN Gem Sandhu MD - 05/27/2014 1:07 PM PDT Progress Notes by Gem Valadez MD at 05/27/14 1020 Author: Gem Valadez MD Service: (none) Author Type: Physician Filed: 05/27/14 5358 Date of Service: 05/27/14 1308 Status: Signed Psychology Lecturer: Gem Valadez MD (Physician) [facility] Service: Hospitalist Progress Note Pt: Helen Kearney AGE/SEX: 74 y.o. female ROOM: [facility] [place]/321-1 : 1940 PCP: ANI YANES ADMIT DATE: 05/27/2014 TODAY'S DATE: 05/27/2014 Hospital Day/Hospital Course: LOS: 0 days 74 y/o F with diabetes mellitus type 2, hypertension, hyperlipidemia, and ischemic stroke i n August 2013. Patient had chest pain last year, underwent coronary angiogram and was noted to have a mild multivessel coronary artery disease including 20% to 30% mid LAD stenosis, 4 0% to 50% distal second diagonal branch with xrihtzpr-mw-fjlgoz concentric left ventricular hypertrophy, hyperdynamic left ventricular systolic function, ejection fraction approximatel y 80% to 85%. Medical treatment was recommended. Patient is transferred to [facility] from [facility] on, for cif-SL-zpkqxopuh myocardial infarction and chest pain SUBJECTIVE: Patient seen and examined. Appearing comfortable. Denied CP or SOB. Scheduled Medications: amLODIPine 10 mg Oral Daily aspirin 162 mg Oral Daily with breakfast docusate sodium 100 mg Oral BID enoxaparin 1 mg/kg Subcutaneous Q12H hydrochlorothiazide 25 mg Oral Daily ibuprofen 200 mg Oral Once insulin aspart 0-3 Units Subcutaneous Nightly insulin aspart 0-6 Units Subcutaneous TID AC insulin glargine 10 Units Subcutaneous Nightly irbesartan 150 mg Oral Nightly isosorbide mononitrate 60 mg Oral Daily [START ON 05/28/2014] levothyroxine 125 mcg Oral QAM AC metoprolol 100 mg Oral Daily polyethylene glycol 17 g Oral Daily simvastatin 20 mg Oral Nightly sitaGLIPtin 50 mg Oral Daily [DISCONTINUED] nitroGLYCERIN 0.5 inch Topical Q6H WA Continuous Infusions dextrose sodium chloride 75 mL/hr at 05/27/14 0847 PRN Medications acetaminophen, acetaminophen, dextrose, dextrose, dextrose, glucagon, glucagon, nitroGLYCER IN, ondansetron, ondansetron, polyethylene glycol Allergy: Allergies Allergen Reactions Diazepam Other (See Comments) Unknown per pt chart Lidocaine Other (See Comments) Unknown Morphine Itching Penicillins Itching Promethazine Hallucinations Propoxyphene Other (See Comments) Unknown per pt history Codeine Nausea and Vomiting Vicodin (Hydrocodone-Acetaminophen) Nausea and Vomiting OBJECTIVE: Vitals: Patient Vitals for the past 24 hrs: BP Temp Temp src Pulse Resp SpO2 Height Weight 05/27/14 1156 176/85 mmHg 98.5 F (36.9 C) Oral 74 16 - - - 05/27/14 0838 172/89 mmHg 98.3 F (36.8 C) Oral 77 16 97 % - - 05/27/14 0759 170/83 mmHg - - 78 - 95 % - - 05/27/14 0744 171/84 mmHg - - 80 - 94 % - - 05/27/14 0714 171/86 mmHg - - 80 - 95 % - - 05/27/14 0652 189/90 mmHg - - 78 18 97 % - - 05/27/14 0519 176/79 mmHg 98.1 F (36.7 C) Oral 76 16 97 % 1.6 m (5' 3") 49.896 kg (11 0 lb) I&O Detailed Table: Intake/Output Summary (Last 24 hours) at 05/27/14 1307 Last data filed at 05/27/14 1037 Gross per 24 hour Intake 0 ml Output 275 ml Net -275 ml Patient Vitals for the past 96 hrs: Weight 05/27/14 0519 49.896 kg (110 lb) Hemodynamics Last 24hrs: Physical Examination: Constitutional: Alert and oriented to person, place and time. Appears well developed and f rain but in no distress HEENT: PERRL, moist mucous membranes, pink conjunctivae and anicteric sclerae. No JVD Cardiovascular: Normal rate and rhythm. Normal heart sounds with S1 and S2. + murmur Pulmonary: Patient is able to speak in full sentences. Breath sounds are clear bilaterally. No wheezing or rales. Abdominal: Soft and non-tender. Bowel sounds are present. No rebound or guarding. Extremities: No edema or cyanosis. Neurological: Grossly non focal, no cranial nerve deficit, moves all extremities Skin: Warm and dry. Psychiatric: No delirium LABS: Lab 05/27/14 0850 WBC 10.8 HGB 12.3 HCT 35.5 PLT 212 NEUTOPHILPCT 79.6 MONOPCT 6.2 Lab 05/27/14 0850 NA 132* K 2.9* CL 97* CO2 25 BUN 20 CREATININE 0.70 CALCIUM -- PROT 7.6 BILITOT 0.7 ALKPHOS -- ALT 9* AST 17 GLUCOSE -- Phosphorus: Lab Results Component Value Date PHOS 3.8 09/09/2013 No components found with this basename: LABALBU:3 No results found for this basename: M in the last 168 hours No results found for this basename: AMYLASE:3 in the last 168 hours No results found for this basename: PHART:3,PO2ART:3,CRG4PTQ:3,X0NNGHIB:3,BEART:[address] 168 hours No results found for this basename: APTT:3,INR:3,PTT:3 in the last 168 hours No results found for this basename: TSH:3,T3FREE:3,FREET4:3 in the last 168 hours Lab 05/27/14 1200 05/27/14 0850 CKTOTAL 66 64 TROPONINI 0.093 -- TROPONINT -- -- CKMBINDEX 4.4 4.7 PROBLEM LIST Principal Problem: *NSTEMI (non-ST elevated myocardial infarction) Active Problems: DM type 2 (diabetes mellitus, type 2) Gait disturbance, post-stroke Chest pain at rest Accelerated hypertension Elevated d-dimer Chronic low back pain Head ache Nausea with vomiting At high risk for falls ASSESSMENT & PLAN Uku-ZI-uozwcerbv myocardial infarction - Dr Ramos consulting - cont with ASA, statin, B wendy - Lovenox discontinued as treatment dose, troponin negative - coronary angiography will not be pursued. Per Dr ramos I did review the report of her coronary angiography done by Dr. Zana Mccord at [facility] in March 2013. Documentations of mild coronary artery disease involving mid LAD with 20% to 30% stenosis and 40% to 50% stenosis of the distal second diagonal branch w hich was thought to be very small in diameter. Bkytkkiv-qs-ykjcei left ventricular hypertrop hy was also documented. Recommendation at the time was medical therapy. Stress test in AM Replete K , check Mg Accelerated hypertension. Controlled currently -Resume home medications. Ordered nitroglycerin paste and p.r.n. hydralazine, adjust as ne eded. Elevated D-dimer with a normal CT chest without pulmonary embolism. Will obtain official r eport from [facility]. Headache and neck pain status post fall a week ago. Reviewed CT of the head and neck to rule out any acute bleed or fracture. Negative for acu te pathology . Neurologically intact at this time. High fall risk, - fall precautions to be maintained. - PT eval when stable . Diabetes mellitus type 2. Resume home medications and low-dose insulin sliding scale. Adjust as needed. Previous history of stroke with gait disturbances. - fall precautions More than 35 mins were spent on the review of H/P, imaging and labs, formulation of assessm ent and plan, discussion with the patient/family, staff and providers. GEM VALADEZ MD 05/27/2014 1:07 PM onversion Transac tion, Provider Unknown - 05/27/2014 9:06 AM PDTFormatting of this note might be different f rom the original. Progress Notes by Jenniffer Reilly RPH at 05/27/14905 Author: Jenniffer Reilly RPH Service: (none) Author Type: Pharmacist Filed: 05/27/14905 Date of Service: 05/27/14905 Status: Signed Psychology Lecturer: Jenniffer Reilly RPH (Pharmacist) Renal Dosing Monitoring: Helen Kearney 74 y.o. female Pharmacy dosing for renal function per Dr. Mauricio Medication(s): no current labs reported at this time Plan per protocol: Medication / Dose: will re-assess when labs available. Pharmacy will continue monitoring patient for appropriate dosing per renal function. 05/27/2014 9:05 AM Pharmacist: JENNIFFER REILLY docume nted in this encounter Plan of Treatment Not on filedocumented as of this encounter Procedures + +--------+ + + + | Procedure Name | Priori | Date/Time | Associated Diagnosis | Comments | | | ty | | | | + +--------+ + + + | XR LUMBAR SPINE 2 OR | Routin | 05/31/2014 | | Results for this | | 3 VW | e | 5:26 PM | | procedure are in the | | | | PDT | | results section. | + +--------+ + + + | POC GLUCOSE | Routin | 05/31/2014 | | Results for this | | | e | 3:36 PM | | procedure are in the | | | | PDT | | results section. | + +--------+ + + + | POC GLUCOSE | Routin | 05/31/2014 | | Results for this | | | e | 12:00 PM | | procedure are in the | | | | PDT | | results section. | + +--------+ + + + | EXTERNAL LAB: CBC | Routin | 05/31/2014 | | Results for this | | | e | 5:44 AM | | procedure are in the | | | | PDT | | results section. | + +--------+ + + + | MAGNESIUM | Routin | 05/31/2014 | | Results for this | | | e | 5:44 AM | | procedure are in the | | | | PDT | | results section. | + +--------+ + + + | COMPREHENSIVE | Routin | 05/31/2014 | | Results for this | | METABOLIC PANEL | e | 5:44 AM | | procedure are in the | | | | PDT | | results section. | + +--------+ + + + | POC GLUCOSE | Routin | 05/31/2014 | | Results for this | | | e | 5:00 AM | | procedure are in the | | | | PDT | | results section. | + +--------+ + + + | HISTORICAL | Routin | 05/31/2014 | | Results for this | | MICROBIOLOGY RESULT | e | 3:18 AM | | procedure are in the | | | | PDT | | results section. | + +--------+ + + + | POC GLUCOSE | Routin | 05/30/2014 | | Results for this | | | e | 9:20 PM | | procedure are in the | | | | PDT | | results section. | + +--------+ + + + | POC GLUCOSE | Routin | 05/30/2014 | | Results for this | | | e | 4:14 PM | | procedure are in the | | | | PDT | | results section. | + +--------+ + + + | POC GLUCOSE | Routin | 05/30/2014 | | Results for this | | | e | 1:56 PM | | procedure are in the | | | | PDT | | results section. | + +--------+ + + + | POC GLUCOSE | Routin | 05/30/2014 | | Results for this | | | e | 5:06 AM | | procedure are in the | | | | PDT | | results section. | + +--------+ + + + | EXTERNAL LAB: CBC | Routin | 05/30/2014 | | Results for this | | | e | 5:03 AM | | procedure are in the | | | | PDT | | results section. | + +--------+ + + + | MAGNESIUM | Routin | 05/30/2014 | | Results for this | | | e | 5:03 AM | | procedure are in the | | | | PDT | | results section. | + +--------+ + + + | COMPREHENSIVE | Routin | 05/30/2014 | | Results for this | | METABOLIC PANEL | e | 5:03 AM | | procedure are in the | | | | PDT | | results section. | + +--------+ + + + | POC GLUCOSE | Routin | 05/29/2014 | | Results for this | | | e | 9:24 PM | | procedure are in the | | | | PDT | | results section. | + +--------+ + + + | POC GLUCOSE | Routin | 05/29/2014 | | Results for this | | | e | 4:44 PM | | procedure are in the | | | | PDT | | results section. | + +--------+ + + + | URINALYSIS, REFLEX | Routin | 05/29/2014 | | Results for this | | MICROSCOPIC AND/OR | e | 1:56 PM | | procedure are in the | | CULTURE | | PDT | | results section. | + +--------+ + + + | URINALYSIS, | Routin | 05/29/2014 | | Results for this | | MICROSCOPIC ONLY | e | 1:56 PM | | procedure are in the | | | | PDT | | results section. | + +--------+ + + + | CULTURE, URINE | Routin | 05/29/2014 | | Results for this | | | e | 1:56 PM | | procedure are in the | | | | PDT | | results section. | + +--------+ + + + | POC GLUCOSE | Routin | 05/29/2014 | | Results for this | | | e | 11:23 AM | | procedure are in the | | | | PDT | | results section. | + +--------+ + + + | XR CHEST 1 VIEW | Routin | 05/29/2014 | | Results for this | | | e | 9:53 AM | | procedure are in the | | | | PDT | | results section. | + +--------+ + + + | EXTERNAL LAB: CBC | Routin | 05/29/2014 | | Results for this | | | e | 5:34 AM | | procedure are in the | | | | PDT | | results section. | + +--------+ + + + | MAGNESIUM | Routin | 05/29/2014 | | Results for this | | | e | 5:34 AM | | procedure are in the | | | | PDT | | results section. | + +--------+ + + + | COMPREHENSIVE | Routin | 05/29/2014 | | Results for this | | METABOLIC PANEL | e | 5:34 AM | | procedure are in the | | | | PDT | | results section. | + +--------+ + + + | POC GLUCOSE | Routin | 05/29/2014 | | Results for this | | | e | 5:29 AM | | procedure are in the | | | | PDT | | results section. | + +--------+ + + + | POC GLUCOSE | Routin | 05/28/2014 | | Results for this | | | e | 9:03 PM | | procedure are in the | | | | PDT | | results section. | + +--------+ + + + | POC GLUCOSE | Routin | 05/28/2014 | | Results for this | | | e | 4:15 PM | | procedure are in the | | | | PDT | | results section. | + +--------+ + + + | XR ABDOMEN AP | Routin | 05/28/2014 | | Results for this | | UPRIGHT KUB AND PA | e | 1:56 PM | | procedure are in the | | CHEST | | PDT | | results section. | + +--------+ + + + | NM MYOCARDIAL | Routin | 05/28/2014 | | Results for this | | PERFUSION MULT SPECT | e | 1:45 PM | | procedure are in the | | | | PDT | | results section. | + +--------+ + + + | ECG 12 LEAD | Routin | 05/28/2014 | | Results for this | | | e | 6:08 AM | | procedure are in the | | | | PDT | | results section. | + +--------+ + + + | POC GLUCOSE | Routin | 05/28/2014 | | Results for this | | | e | 5:04 AM | | procedure are in the | | | | PDT | | results section. | + +--------+ + + + | EXTERNAL LAB: CBC | Routin | 05/28/2014 | | Results for this | | | e | 4:51 AM | | procedure are in the | | | | PDT | | results section. | + +--------+ + + + | LIPID PANEL | Routin | 05/28/2014 | | Results for this | | | e | 4:51 AM | | procedure are in the | | | | PDT | | results section. | + +--------+ + + + | PHOSPHORUS | Routin | 05/28/2014 | | Results for this | | | e | 4:51 AM | | procedure are in the | | | | PDT | | results section. | + +--------+ + + + | MAGNESIUM | Routin | 05/28/2014 | | Results for this | | | e | 4:51 AM | | procedure are in the | | | | PDT | | results section. | + +--------+ + + + | MAGNESIUM | Routin | 05/28/2014 | | Results for this | | | e | 4:51 AM | | procedure are in the | | | | PDT | | results section. | + +--------+ + + + | LIPASE | Routin | 05/28/2014 | | Results for this | | | e | 4:51 AM | | procedure are in the | | | | PDT | | results section. | + +--------+ + + + | HEMOGLOBIN A1C | Routin | 05/28/2014 | | Results for this | | | e | 4:51 AM | | procedure are in the | | | | PDT | | results section. | + +--------+ + + + | COMPREHENSIVE | Routin | 05/28/2014 | | Results for this | | METABOLIC PANEL | e | 4:51 AM | | procedure are in the | | | | PDT | | results section. | + +--------+ + + + | ECG 12 LEAD | Routin | 05/27/2014 | | Results for this | | | e | 11:38 PM | | procedure are in the | | | | PDT | | results section. | + +--------+ + + + | POC GLUCOSE | Routin | 05/27/2014 | | Results for this | | | e | 8:43 PM | | procedure are in the | | | | PDT | | results section. | + +--------+ + + + | TROPONIN I | Routin | 05/27/2014 | | Results for this | | | e | 5:52 PM | | procedure are in the | | | | PDT | | results section. | + +--------+ + + + | POC GLUCOSE | Routin | 05/27/2014 | | Results for this | | | e | 4:11 PM | | procedure are in the | | | | PDT | | results section. | + +--------+ + + + | TROPONIN I | Routin | 05/27/2014 | | Results for this | | | e | 12:00 PM | | procedure are in the | | | | PDT | | results section. | + +--------+ + + + | CK-MB | Routin | 05/27/2014 | | Results for this | | | e | 12:00 PM | | procedure are in the | | | | PDT | | results section. | + +--------+ + + + | CK TOTAL | Routin | 05/27/2014 | | Results for this | | | e | 12:00 PM | | procedure are in the | | | | PDT | | results section. | + +--------+ + + + | POC GLUCOSE | Routin | 05/27/2014 | | Results for this | | | e | 11:57 AM | | procedure are in the | | | | PDT | | results section. | + +--------+ + + + | URINALYSIS, REFLEX | Routin | 05/27/2014 | | Results for this | | MICROSCOPIC AND/OR | e | 8:51 AM | | procedure are in the | | CULTURE | | PDT | | results section. | + +--------+ + + + | EXTERNAL LAB: CBC | Routin | 05/27/2014 | | Results for this | | | e | 8:50 AM | | procedure are in the | | | | PDT | | results section. | + +--------+ + + + | CK-MB | Routin | 05/27/2014 | | Results for this | | | e | 8:50 AM | | procedure are in the | | | | PDT | | results section. | + +--------+ + + + | CK TOTAL | Routin | 05/27/2014 | | Results for this | | | e | 8:50 AM | | procedure are in the | | | | PDT | | results section. | + +--------+ + + + | COMPREHENSIVE | Routin | 05/27/2014 | | Results for this | | METABOLIC PANEL | e | 8:50 AM | | procedure are in the | | | | PDT | | results section. | + +--------+ + + + | CT HEAD | Routin | 05/27/2014 | | Results for this | | MAXILLOFACIAL | e | 7:00 AM | | procedure are in the | | CERVICAL SPINE WO | | PDT | | results section. | | CONTRAST | | | | | + +--------+ + + + | ECG 12 LEAD | Routin | 05/27/2014 | | Results for this | | | e | 5:19 AM | | procedure are in the | | | | PDT | | results section. | + +--------+ + + + documented in this encounter Results XR Lumbar Spine 2 or 3 Vw (05/31/2014 5:26 PM PDT) + + | Specimen | + + | | + + + + + | Impressions | Performed At | + + + | 1. Multiple gdgj-zq-wudqofnm compression fractures throughout the | | | lower thoracic and lumbar spine, most severe at L1. Without | | | comparison, these are of unclear age. MRI may be helpful. | | | | | + + + + + + | Narrative | Performed At | + + + | [facility] LUMBAR SPINE LIMITED 2-3 VIEW 05/31/2014 5:26 PM | | | HISTORY: Back pain. TECHNIQUE: Lumbar spine 2 views | | | FINDINGS: No prior comparison. There are multiple compression | | | fractures throughout the lower thoracic and lumbar spine involving | | | nearly every segment of probable sparing of L4. The most severe | | | compression fracture is at L1 right measures approximately 60%. | | | Without comparison, the age of the compression fractures is unclear. | | | MRI may be helpful to accurately age the fractures. | | + + + + + | Procedure Note | + + | Lon, Jonnathan Conversion - 07/09/2019 12:54 PM PDT [facility] LUMBAR SPINE LIMITED | | 2-3 VIEW05/31/2014 5:26 PM HISTORY:Back pain. TECHNIQUE:Lumbar spine 2 views FINDINGS:No | | prior comparison. There are multiple compression fractures throughout the lower thoracic | | and lumbar spine involving nearly every segment of probable sparing of L4. The most | | severe compression fracture is at L1 right measures approximately 60%. Without | | comparison, the age of the compression fractures is unclear. MRI may be helpful to | | accurately age the fractures. IMPRESSION: 1. Multiple klah-pd-dejvgpwv compression | | fractures throughout the lower thoracic and lumbar spine, most severe at L1. Without | | comparison, these are of unclear age. MRI may be helpful. | |FINDINGS: | |No prior comparison. There are multiple compression fractures throughout the lower thoracic and lumbar spine involving nearly every segment of probable sparing of L4. The most severe compression fracture is at L1 | |right measures approximately 60%. Without | | comparison, the age of the compression fractures is unclear. MRI may be helpful to accurat angle age the fractures. | | | |IMPRESSION: | |1. Multiple hwfs-dh-txbpbicr compression fractures throughout the lower thoracic and lumba r spine, most severe at L1. Without comparison, these are of unclear age. MRI may be helpful . | | | | | + + POC Glucose (05/31/2014 3:36 PM PDT) + + + + + + | Component | Value | Ref Range | Performed | Pathologist | | | | | At | Signature | + + + + + + | Glucose, | 182 (H)Comment: Testing | 65 - 99 mg/dL | EXTERNAL | | | Fingerstick | performed at [facility];[address] | | LAB | | | | [address];[place] | | | | | | [address] | | | | + + + + + + + + | Specimen | + + | | + + + +---------+ + + | Performing | Address | City/State/Zipcode | Phone Number | | Organization | | | | + +---------+ + + | EXTERNAL LAB | | | | + +---------+ + + POC Glucose (05/31/2014 12:00 PM PDT) + + + + + + | Component | Value | Ref Range | Performed | Pathologist | | | | | At | Signature | + + + + + + | Glucose, | 112 (H)Comment: Testing | 65 - 99 mg/dL | EXTERNAL | | | Fingerstick | performed at [facility];[address] | | LAB | | | | [address];[place] | | | | | | [address] | | | | + + + + + + + + | Specimen | + + | | + + + +---------+ + + | Performing | Address | City/State/Zipcode | Phone Number | | Organization | | | | + +---------+ + + | EXTERNAL LAB | | | | + +---------+ + + External Lab: CBC (05/31/2014 5:44 AM PDT) + + + + + + | Component | Value | Ref Range | Performed | Pathologist | | | | | At | Signature | + + + + + + | WBC | 10.8Comment: Testing | 3.8 - 11.0 K/uL | EXTERNAL | | | | performed at [facility], [address] | | LAB | | | | [address], | | | | | | [place] [address] | | | | + + + + + + | RED CELL | 3.92Comment: Testing | 3.70 - 5.10 | EXTERNAL | | | COUNT | performed at [facility], [address] | M/uL | LAB | | | | [address], | | | | | | [place] [address] | | | | + + + + + + | Hemoglobin | 12.3Comment: Testing | 11.3 - 15.5 | EXTERNAL | | | | performed at [facility], [address] | g/dL | LAB | | | | [address], | | | | | | [place] [address] | | | | + + + + + + | Hematocrit, | 35.9Comment: Testing | 34.0 - 46.0 % | EXTERNAL | | | POC | performed at [facility], [address] | | LAB | | | | [address], | | | | | | [place] [address] | | | | + + + + + + | MCV | 91.6Comment: Testing | 80.0 - 100.0 fl | EXTERNAL | | | | performed at [facility], [address] | | LAB | | | | [address], | | | | | | [place] [address] | | | | + + + + + + | MCH | 31.3Comment: Testing | 27.0 - 34.0 pg | EXTERNAL | | | | performed at [facility], [address] | | LAB | | | | [address], | | | | | | [place] [address] | | | | + + + + + + | MCHC | 34.2Comment: Testing | 32.0 - 35.5 | EXTERNAL | | | | performed at [facility], [address] | g/dL | LAB | | | | [address], | | | | | | [place] [address] | | | | + + + + + + | RDW-CV | 39.8Comment: Testing | 37 - 53 fl | EXTERNAL | | | | performed at [facility], [address] | | LAB | | | | [address], | | | | | | [place] [address] | | | | + + + + + + | Platelet | 223Comment: Testing | 150 - 400 K/uL | EXTERNAL | | | Count | performed at [facility], [address] | | LAB | | | Plasma | [address], | | | | | | [place] [address] | | | | + + + + + + | MPV | 9.6Comment: Testing | fl | EXTERNAL | | | | performed at [facility], [address] | | LAB | | | | [address], | | | | | | [place] [address] | | | | + + + + + + | Differentia | AUTOMATEDComment: | | EXTERNAL | | | l Type | Testing performed at | | LAB | | | | [facility], [address] | | | | | | [place] | | | | | | [address] | | | | + + + + + + | % Segmented | 74.5Comment: Testing | % | EXTERNAL | | | | performed at [facility], [address] | | LAB | | | Neutrophils | [address], | | | | | | [place] [address] | | | | + + + + + + | % | 16.0Comment: Testing | % | EXTERNAL | | | Lymphocytes | performed at [facility], [address] | | LAB | | | | [address], | | | | | | [place] [address] | | | | + + + + + + | % Monocytes | 7.7Comment: Testing | % | EXTERNAL | | | | performed at [facility], [address] | | LAB | | | | [address], | | | | | | [place] [address] | | | | + + + + + + | % | 1.2Comment: Testing | % | EXTERNAL | | | Eosinophils | performed at [facility], [address] | | LAB | | | | [address], | | | | | | [place] [address] | | | | + + + + + + | % Basophils | 0.6Comment: Testing | % | EXTERNAL | | | | performed at [facility], [address] | | LAB | | | | [address], | | | | | | [place] [address] | | | | + + + + + + | Absolute | 8.1 (H)Comment: Testing | 1.9 - 7.4 K/uL | EXTERNAL | | | Segmented | performed at [facility], [address] | | LAB | | | Neutrophils | [address], | | | | | | [place] [address] | | | | + + + + + + | Absolute | 1.7Comment: Testing | 1.0 - 3.9 K/uL | EXTERNAL | | | Lymphocytes | performed at [facility], [address] | | LAB | | | | [address], | | | | | | [place] [address] | | | | + + + + + + | Absolute | 0.8Comment: Testing | 0 - 0.8 K/uL | EXTERNAL | | | Monocytes | performed at [facility], [address] | | LAB | | | | [address], | | | | | | [place] [address] | | | | + + + + + + | Absolute | 0.1Comment: Testing | 0 - 0.5 K/uL | EXTERNAL | | | Eosinophils | performed at [facility], [address] | | LAB | | | | [address], | | | | | | [place] [address] | | | | + + + + + + | Absolute | 0.1Comment: Testing | 0 - 0.1 K/uL | EXTERNAL | | | Basophils | performed at [facility], [address] | | LAB | | | | [address], | | | | | | [place] [address] | | | | + + + + + + + + | Specimen | + + | Blood specimen | | (specimen) | + + + +---------+ + + | Performing | Address | City/State/Zipcode | Phone Number | | Organization | | | | + +---------+ + + | EXTERNAL LAB | | | | + +---------+ + + Magnesium (05/31/2014 5:44 AM PDT) + + + + + + | Component | Value | Ref Range | Performed | Pathologist | | | | | At | Signature | + + + + + + | Magnesium | 1.8Comment: Testing | 1.7 - 2.4 mg/dL | EXTERNAL | | | | performed at [facility], [address] | | LAB | | | | [address], | | | | | | [place] [address] | | | | + + + + + + + + | Specimen | + + | Blood specimen | | (specimen) | + + + +---------+ + + | Performing | Address | City/State/Zipcode | Phone Number | | Organization | | | | + +---------+ + + | EXTERNAL LAB | | | | + +---------+ + + Comprehensive Metabolic Panel (05/31/2014 5:44 AM PDT) + + + + + + | Component | Value | Ref Range | Performed | Pathologist | | | | | At | Signature | + + + + + + | Na | 132 (L)Comment: Testing | 135 - 143 | EXTERNAL | | | | performed at [facility], [address] | mmol/L | LAB | | | | [address], | | | | | | [place] [address] | | | | + + + + + + | K | 3.9Comment: Testing | 3.5 - 4.9 | EXTERNAL | | | | performed at [facility], [address] | mmol/L | LAB | | | | [address], | | | | | | [place] [address] | | | | + + + + + + | Cl | 97 (L)Comment: Testing | 99 - 109 mmol/L | EXTERNAL | | | | performed at [facility], [address] | | LAB | | | | [address], | | | | | | [place] [address] | | | | + + + + + + | CO2 | 26Comment: Testing | 23 - 32 mmol/L | EXTERNAL | | | | performed at [facility], [address] | | LAB | | | | [address], | | | | | | [place] [address] | | | | + + + + + + | Anion Gap | 13Comment: Testing | 5 - 20 mmol/L | EXTERNAL | | | | performed at [facility], [address] | | LAB | | | | [address], | | | | | | [place] [address] | | | | + + + + + + | Glucose, | 112 (H)Comment: Testing | 65 - 99 mg/dL | EXTERNAL | | | Fasting | performed at [facility], [address] | | LAB | | | | [address], | | | | | | [place] [address] | | | | + + + + + + | BUN | 10Comment: Testing | 8 - 25 mg/dL | EXTERNAL | | | | performed at [facility], [address] | | LAB | | | | [address], | | | | | | [place] [address] | | | | + + + + + + | Creatinine | 0.57Comment: Testing | 0.50 - 1.00 | EXTERNAL | | | | performed at [facility], [address] | mg/dL | LAB | | | | [address], | | | | | | [place] [address] | | | | + + + + + + | BUN/Creatin | 18Comment: Testing | | EXTERNAL | | | ine Ratio | performed at [facility], [address] | | LAB | | | | [address], | | | | | | [place] [address] | | | | + + + + + + | Calcium | 8.8Comment: Testing | 8.5 - 10.2 | EXTERNAL | | | | performed at [facility], [address] | mg/dL | LAB | | | | [address], | | | | | | [place] [address] | | | | + + + + + + | Protein, | 6.7Comment: Testing | 6.3 - 8.2 g/dL | EXTERNAL | | | Total | performed at [facility], [address] | | LAB | | | | [address], | | | | | | [place] [address] | | | | + + + + + + | Albumin | 3.5Comment: Testing | 3.3 - 4.8 g/dL | EXTERNAL | | | | performed at [facility], [address] | | LAB | | | | [address], | | | | | | [place] [address] | | | | + + + + + + | Globulin | 3.2Comment: Testing | 1.3 - 4.9 g/dL | EXTERNAL | | | | performed at [facility], [address] | | LAB | | | | [address], | | | | | | [place] [address] | | | | + + + + + + | A/G Ratio | 1.1Comment: Testing | 1.0 - 2.4 | EXTERNAL | | | | performed at [facility], [address] | | LAB | | | | [address], | | | | | | [place] [address] | | | | + + + + + + | Bilirubin | 0.6Comment: Testing | 0.1 - 1.5 mg/dL | EXTERNAL | | | Total | performed at [facility], [address] | | LAB | | | | [address], | | | | | | [place] [address] | | | | + + + + + + | ALP, | 56Comment: Testing | 35 - 115 U/L | EXTERNAL | | | External | performed at [facility], [address] | | LAB | | | | [address], | | | | | | [place] [address] | | | | + + + + + + | AST | 40Comment: Testing | 10 - 45 U/L | EXTERNAL | | | | performed at [facility], [address] | | LAB | | | | [address], | | | | | | [place] [address] | | | | + + + + + + | ALT | 17Comment: Testing | 10 - 65 U/L | EXTERNAL | | | | performed at [facility], [address] | | LAB | | | | [address] [facility], | | | | | | [place] [address] | | | | + + + + + + | Estimated | >60Comment: GFR <60: | mL/min/1.73m2 | EXTERNAL | | | GFR | CHRONIC KIDNEY DISEASE, | | LAB | | | | IF FOUND OVER A 3 MONTH | | | | | | PERIOD.GFR <15: KIDNEY | | | | | | FAILURE.FOR | | | | | | AMERICANS, MULTIPLY THE | | | | | | CALCULATED GFR BY | | | | | | 1.210.Testing performed | | | | | | at [facility], [address] | | | | | | [address] [facility], | | | | | | [place] [address] | | | | + + + + + + + + | Specimen | + + | Blood specimen | | (specimen) | + + + +---------+ + + | Performing | Address | City/State/Zipcode | Phone Number | | Organization | | | | + +---------+ + + | EXTERNAL LAB | | | | + +---------+ + + POC Glucose (05/31/2014 5:00 AM PDT) + + + + + + | Component | Value | Ref Range | Performed | Pathologist | | | | | At | Signature | + + + + + + | Glucose, | 67Comment: Testing | 65 - 99 mg/dL | EXTERNAL | | | Fingerstick | performed at [facility];[address] | | LAB | | | | [address];[place] | | | | | | [address] | | | | + + + + + + + + | Specimen | + + | | + + + +---------+ + + | Performing | Address | City/State/Zipcode | Phone Number | | Organization | | | | + +---------+ + + | EXTERNAL LAB | | | | + +---------+ + + HISTORICAL MICROBIOLOGY RESULT (05/31/2014 3:18 AM PDT) + + | Specimen | + + | Stool specimen | | (specimen) | + + + + + | Narrative | Performed At | + + + | Toxigenic C Difficile NEGATIVE Testing | EXTERNAL LAB | | performed at [facility], [address] [place] [id number] | | | NAP1 BI 027 NAP1 BI PRESUMPTIVE | | | NEGATIVE Detection of 027 NAP1 BI strains of C. difficile is | | | presumptive and for epidemiological purposes and not intended to guide | | | or monitor treatment for C. difficile infections. Testing performed | | | at [facility], [address] [place] [address] | | + + + + +---------+ + + | Performing | Address | City/State/Zipcode | Phone Number | | Organization | | | | + +---------+ + + | EXTERNAL LAB | | | | + +---------+ + + POC Glucose (05/30/2014 9:20 PM PDT) + + + + + + | Component | Value | Ref Range | Performed | Pathologist | | | | | At | Signature | + + + + + + | Glucose, | 167 (H)Comment: Testing | 65 - 99 mg/dL | EXTERNAL | | | Fingerstick | performed at [facility];[address] | | LAB | | | | [address];[place] | | | | | | [address] | | | | + + + + + + + + | Specimen | + + | | + + + +---------+ + + | Performing | Address | City/State/Zipcode | Phone Number | | Organization | | | | + +---------+ + + | EXTERNAL LAB | | | | + +---------+ + + POC Glucose (05/30/2014 4:14 PM PDT) + + + + + + | Component | Value | Ref Range | Performed | Pathologist | | | | | At | Signature | + + + + + + | Glucose, | 111 (H)Comment: Testing | 65 - 99 mg/dL | EXTERNAL | | | Fingerstick | performed at [facility];[address] | | LAB | | | | [address];[place], [place] | | | | | | [address] | | | | + + + + + + + + | Specimen | + + | | + + + +---------+ + + | Performing | Address | City/State/Zipcode | Phone Number | | Organization | | | | + +---------+ + + | EXTERNAL LAB | | | | + +---------+ + + POC Glucose (05/30/2014 1:56 PM PDT) + + + + + + | Component | Value | Ref Range | Performed | Pathologist | | | | | At | Signature | + + + + + + | Glucose, | 131 (H)Comment: Testing | 65 - 99 mg/dL | EXTERNAL | | | Fingerstick | performed at [facility];[address] | | LAB | | | | [address];[place] | | | | | | [address] | | | | + + + + + + + + | Specimen | + + | | + + + +---------+ + + | Performing | Address | City/State/Zipcode | Phone Number | | Organization | | | | + +---------+ + + | EXTERNAL LAB | | | | + +---------+ + + POC Glucose (05/30/2014 5:06 AM PDT) + + + + + + | Component | Value | Ref Range | Performed | Pathologist | | | | | At | Signature | + + + + + + | Glucose, | 96Comment: Testing | 65 - 99 mg/dL | EXTERNAL | | | Fingerstick | performed at [facility];[address] | | LAB | | | | [address];[place], [place] | | | | | | [address] | | | | + + + + + + + + | Specimen | + + | | + + + +---------+ + + | Performing | Address | City/State/Zipcode | Phone Number | | Organization | | | | + +---------+ + + | EXTERNAL LAB | | | | + +---------+ + + External Lab: ABBEY (05/30/2014 5:03 AM PDT) + + + + + + | Component | Value | Ref Range | Performed | Pathologist | | | | | At | Signature | + + + + + + | WBC | 10.3Comment: Testing | 3.8 - 11.0 K/uL | EXTERNAL | | | | performed at [facility], [address] | | LAB | | | | [address], | | | | | | [place] [address] | | | | + + + + + + | RED CELL | 3.22 (L)Comment: Testing | 3.70 - 5.10 | EXTERNAL | | | COUNT | performed at [facility], [address] | [address]L | LAB | | | | [address], | | | | | | [place] [address] | | | | + + + + + + | Hemoglobin | 10.1 (L)Comment: Testing | 11.3 - 15.5 | EXTERNAL | | | | performed at [facility], [address] | g/dL | LAB | | | | [address], | | | | | | [place] [address] | | | | + + + + + + | Hematocrit, | 29.7 (L)Comment: Testing | 34.0 - 46.0 % | EXTERNAL | | | POC | performed at [facility], [address] | | LAB | | | | [address], | | | | | | [place] [address] | | | | + + + + + + | MCV | 92.0Comment: Testing | 80.0 - 100.0 fl | EXTERNAL | | | | performed at [facility], [address] | | LAB | | | | [address], | | | | | | [place] [address] | | | | + + + + + + | MCH | 31.3Comment: Testing | 27.0 - 34.0 pg | EXTERNAL | | | | performed at [facility], [address] | | LAB | | | | [address], | | | | | | [place] [address] | | | | + + + + + + | MCHC | 34.0Comment: Testing | 32.0 - 35.5 | EXTERNAL | | | | performed at [facility], [address] | g/dL | LAB | | | | [address], | | | | | | [place] [address] | | | | + + + + + + | RDW-CV | 41.6Comment: Testing | 37 - 53 fl | EXTERNAL | | | | performed at [facility], [address] | | LAB | | | | [address], | | | | | | [place] [address] | | | | + + + + + + | Platelet | 177Comment: Testing | 150 - 400 K/uL | EXTERNAL | | | Count | performed at [facility], [address] | | LAB | | | Plasma | [address], | | | | | | [place] [address] | | | | + + + + + + | MPV | 9.6Comment: Testing | fl | EXTERNAL | | | | performed at [facility], [address] | | LAB | | | [address], | | | | | | [place] [address] | | | | + + + + + + | Differentia | AUTOMATEDComment: | | EXTERNAL | | | l Type | Testing performed at | | LAB | | | | [facility], [address] | | | | | | [place] | | | | | | [address] | | | | + + + + + + | % Segmented | 70.1Comment: Testing | % | EXTERNAL | | | | performed at [facility], [address] | | LAB | | | Neutrophils | [address], | | | | | | [place] [address] | | | | + + + + + + | % | 19.4Comment: Testing | % | EXTERNAL | | | Lymphocytes | performed at [facility], [address] | | LAB | | | | [address], | | | | | | [place] [address] | | | | + + + + + + | % Monocytes | 8.3Comment: Testing | % | EXTERNAL | | | | performed at [facility], [address] | | LAB | | | | [address], | | | | | | [place], [place] [address] | | | | + + + + + + | % | 1.8Comment: Testing | % | EXTERNAL | | | Eosinophils | performed at [facility], [address] | | LAB | | | | [address], | | | | | | [place] [address] | | | | + + + + + + | % Basophils | 0.4Comment: Testing | % | EXTERNAL | | | | performed at [facility], [address] | | LAB | | | | [address], | | | | | | [place] [address] | | | | + + + + + + | Absolute | 7.2Comment: Testing | 1.9 - 7.4 K/uL | EXTERNAL | | | Segmented | performed at [facility], [address] | | LAB | | | Neutrophils | [address], | | | | | | [place] [address] | | | | + + + + + + | Absolute | 2.0Comment: Testing | 1.0 - 3.9 K/uL | EXTERNAL | | | Lymphocytes | performed at [facility], [address] | | LAB | | | | [address], | | | | | | [place] [address] | | | | + + + + + + | Absolute | 0.8Comment: Testing | 0 - 0.8 K/uL | EXTERNAL | | | Monocytes | performed at [facility], [address] | | LAB | | | | [address], | | | | | | [place] [address] | | | | + + + + + + | Absolute | 0.2Comment: Testing | 0 - 0.5 K/uL | EXTERNAL | | | Eosinophils | performed at [facility], [address] | | LAB | | | | [address], | | | | | | [place] [address] | | | | + + + + + + | Absolute | 0.0Comment: Testing | 0 - 0.1 K/uL | EXTERNAL | | | Basophils | performed at [facility], [address] | | LAB | | | | [address], | | | | | | [place] [address] | | | | + + + + + + + + | Specimen | + + | Blood specimen | | (specimen) | + + + +---------+ + + | Performing | Address | City/State/Zipcode | Phone Number | | Organization | | | | + +---------+ + + | EXTERNAL LAB | | | | + +---------+ + + Magnesium (05/30/2014 5:03 AM PDT) + + + + + + | Component | Value | Ref Range | Performed | Pathologist | | | | | At | Signature | + + + + + + | Magnesium | 1.7Comment: Testing | 1.7 - 2.4 mg/dL | EXTERNAL | | | | performed at [facility], [address] | | LAB | | | | [address], | | | | | | [place] [address] | | | | + + + + + + + + | Specimen | + + | Blood specimen | | (specimen) | + + + +---------+ + + | Performing | Address | City/State/Zipcode | Phone Number | | Organization | | | | + +---------+ + + | EXTERNAL LAB | | | | + +---------+ + + Comprehensive Metabolic Panel (05/30/2014 5:03 AM PDT) + + + + + + | Component | Value | Ref Range | Performed | Pathologist | | | | | At | Signature | + + + + + + | Na | 134 (L)Comment: Testing | 135 - 143 | EXTERNAL | | | | performed at [facility], [address] | mmol/L | LAB | | | | [address], | | | | | | [place] [address] | | | | + + + + + + | K | 3.3 (L)Comment: Testing | 3.5 - 4.9 | EXTERNAL | | | | performed at [facility], [address] | mmol/L | LAB | | | | [address], | | | | | | [place] [address] | | | | + + + + + + | Cl | 104Comment: Testing | 99 - 109 mmol/L | EXTERNAL | | | | performed at [facility], [address] | | LAB | | | | [address], | | | | | | [place] [address] | | | | + + + + + + | CO2 | 27Comment: Testing | 23 - 32 mmol/L | EXTERNAL | | | | performed at [facility], [address] | | LAB | | | | [address], | | | | | | [place] [address] | | | | + + + + + + | Anion Gap | 6Comment: Testing | 5 - 20 mmol/L | EXTERNAL | | | | performed at [facility], [address] | | LAB | | | | [address], | | | | | | [place] [address] | | | | + + + + + + | Glucose, | 83Comment: Testing | 65 - 99 mg/dL | EXTERNAL | | | Fasting | performed at [facility], [address] | | LAB | | | | [address], | | | | | | [place] [address] | | | | + + + + + + | BUN | 11Comment: Testing | 8 - 25 mg/dL | EXTERNAL | | | | performed at [facility], [address] | | LAB | | | | [address], | | | | | | [place] [address] | | | | + + + + + + | Creatinine | 0.63Comment: Testing | 0.50 - 1.00 | EXTERNAL | | | | performed at [facility], [address] | mg/dL | LAB | | | | [address], | | | | | | [place] [address] | | | | + + + + + + | BUN/Creatin | 17Comment: Testing | | EXTERNAL | | | ine Ratio | performed at [facility], [address] | | LAB | | | | [address], | | | | | | [place] [address] | | | | + + + + + + | Calcium | 8.0 (L)Comment: Testing | 8.5 - 10.2 | EXTERNAL | | | | performed at [facility], [address] | mg/dL | LAB | | | | [address], | | | | | | [place] [address] | | | | + + + + + + | Protein, | 5.6 (L)Comment: Testing | 6.3 - 8.2 g/dL | EXTERNAL | | | Total | performed at [facility], [address] | | LAB | | | | [address], | | | | | | [place] [address] | | | | + + + + + + | Albumin | 3.0 (L)Comment: Testing | 3.3 - 4.8 g/dL | EXTERNAL | | | | performed at [facility], [address] | | LAB | | | | [address], | | | | | | [place] [address] | | | | + + + + + + | Globulin | 2.6Comment: Testing | 1.3 - 4.9 g/dL | EXTERNAL | | | | performed at [facility], [address] | | LAB | | | | [address], | | | | | | [place] [address] | | | | + + + + + + | A/G Ratio | 1.2Comment: Testing | 1.0 - 2.4 | EXTERNAL | | | | performed at [facility], [address] | | LAB | | | | [address], | | | | | | [place], [place] [address] | | | | + + + + + + | Bilirubin | 0.6Comment: Testing | 0.1 - 1.5 mg/dL | EXTERNAL | | | Total | performed at [facility], [address] | | LAB | | | | [address], | | | | | | [place] [address] | | | | + + + + + + | ALP, | 46Comment: Testing | 35 - 115 U/L | EXTERNAL | | | External | performed at [facility], [address] | | LAB | | | | [address], | | | | | | [place] [address] | | | | + + + + + + | AST | 25Comment: Testing | 10 - 45 U/L | EXTERNAL | | | | performed at [facility], [address] | | LAB | | | | [address], | | | | | | [place] [address] | | | | + + + + + + | ALT | 11Comment: Testing | 10 - 65 U/L | EXTERNAL | | | | performed at [facility], [address] | | LAB | | | | ? [facility], | | | | | | [place] [address] | | | | + + + + + + | Estimated | >60Comment: GFR <60: | mL/min/1.73m2 | EXTERNAL | | | GFR | CHRONIC KIDNEY DISEASE, | | LAB | | | | IF FOUND OVER A 3 MONTH | | | | | | PERIOD.GFR <15: KIDNEY | | | | | | FAILURE.FOR | | | | | | AMERICANS, MULTIPLY THE | | | | | | CALCULATED GFR BY | | | | | | 1.210.Testing performed | | | | | | at [facility], [address] | | | | | [address], | | | | | | [place] [address] | | | | + + + + + + + + | Specimen | + + | Blood specimen | | (specimen) | + + + +---------+ + + | Performing | Address | City/State/Zipcode | Phone Number | | Organization | | | | + +---------+ + + | EXTERNAL LAB | | | | + +---------+ + + POC Glucose (05/29/2014 9:24 PM PDT) + + + + + + | Component | Value | Ref Range | Performed | Pathologist | | | | | At | Signature | + + + + + + | Glucose, | 251 (H)Comment: Testing | 65 - 99 mg/dL | EXTERNAL | | | Fingerstick | performed at [facility];[address] | | LAB | | | [address];[place] | | | | | | [address] | | | | + + + + + + + + | Specimen | + + | | + + + +---------+ + + | Performing | Address | City/State/Zipcode | Phone Number | | Organization | | | | + +---------+ + + | EXTERNAL LAB | | | | + +---------+ + + POC Glucose (05/29/2014 4:44 PM PDT) + + + + + + | Component | Value | Ref Range | Performed | Pathologist | | | | | At | Signature | + + + + + + | Glucose, | 199 (H)Comment: Testing | 65 - 99 mg/dL | EXTERNAL | | | Fingerstick | performed at [facility];[address] | | LAB | | | | [address];[place], [place] | | | | | | [address] | | | | + + + + + + + + | Specimen | + + | | + + + +---------+ + + | Performing | Address | City/State/Zipcode | Phone Number | | Organization | | | | + +---------+ + + | EXTERNAL LAB | | | | + +---------+ + + Urinalysis, Reflex Microscopic and/or Culture (05/29/2014 1:56 PM PDT) + + + + + + | Component | Value | Ref Range | Performed | Pathologist | | | | | At | Signature | + + + + + + | Color | YELLOWComment: Testing | | EXTERNAL | | | | performed at [facility], [address] | | LAB | | | | [place], | | | | | | [place] [address] | | | | + + + + + + | Clarity | CLEARComment: Testing | | EXTERNAL | | | | performed at [facility], [address] | | LAB | | | | [address], | | | | | | [place] [address] | | | | + + + + + + | Specific | 1.018Comment: Testing | 1.002 - 1.030 | EXTERNAL | | | [place] | performed at [facility], [address] | | LAB | | | | [address], | | | | | | [place] [address] | | | | + + + + + + | Leukocyte | MODERATE (A)Comment: | | EXTERNAL | | | Esterase, | Testing performed at | | LAB | | | Urine | [facility], [address] | | | | | | [place] | | | | | | [address] | | | | + + + + + + | Nitrite, | NEGATIVEComment: Testing | | EXTERNAL | | | Urine | performed at [facility], [address] | | LAB | | | | [address], | | | | | | [place] [address] | | | | + + + + + + | Urobilinoge | 1.0Comment: Testing | mg/dL | EXTERNAL | | | n, Urine | performed at [facility], [address] | | LAB | | | | [address], | | | | | | [place] [address] | | | | + + + + + + | Protein, | NEGATIVEComment: Testing | mg/dL | EXTERNAL | | | Urine | performed at [facility], [address] | | LAB | | | | [address], | | | | | | [place] [address] | | | | + + + + + + | pH, Urine | 5.5Comment: Testing | 5.0 - 8.0 | EXTERNAL | | | | performed at [facility], [address] | | LAB | | | | [address], | | | | | | [place] [address] | | | | + + + + + + | Blood, | NEGATIVEComment: Testing | | EXTERNAL | | | Urine | performed at [facility], [address] | | LAB | | | | [address], | | | | | | [place] [address] | | | | + + + + + + | Ketones | NEGATIVEComment: Testing | mg/dL | EXTERNAL | | | | performed at [facility], [address] | | LAB | | | | [address], | | | | | | [place] [address] | | | | + + + + + + | Bilirubin, | NEGATIVEComment: Testing | | EXTERNAL | | | Urine | performed at [facility], [address] | | LAB | | | | [address], | | | | | | [place] [address] | | | | + + + + + + | Glucose, | NEGATIVEComment: Testing | mg/dL | EXTERNAL | | | Urine | performed at [facility], [address] | | LAB | | | | [address], | | | | | | [place] [address] | | | | + + + + + + + + | Specimen | + + | | + + + +---------+ + + | Performing | Address | City/State/Zipcode | Phone Number | | Organization | | | | + +---------+ + + | EXTERNAL LAB | | | | + +---------+ + + Urinalysis, Microscopic Only (05/29/2014 1:56 PM PDT) + + + + + + | Component | Value | Ref Range | Performed | Pathologist | | | | | At | Signature | + + + + + + | WBC, UA | 16-25Comment: Testing | 0 - 5 /hpf | EXTERNAL | | | | performed at [facility], [address] | | LAB | | | | [address], | | | | | | [place] [address] | | | | + + + + + + | RBC, UA | 6-10Comment: Testing | 0 - 5 /hpf | EXTERNAL | | | | performed at [facility], [address] | | LAB | | | | [address], | | | | | | [place] [address] | | | | + + + + + + | Epithelial | 50-100Comment: Testing | /lpf | EXTERNAL | | | Cells | performed at [facility], [address] | | LAB | | | | [address], | | | | | | [place] [address] | | | | + + + + + + | Bacteria, | TRACE (A)Comment: | | EXTERNAL | | | UA | CULTURE TO FOLLOWTesting | | LAB | | | | performed at [facility], [address] | | [address], | | | | | | [place] [address] | | | | + + + + + + | HYALINE | 0-2Comment: Testing | | EXTERNAL | | | CASTKyle UA | performed at [facility], [address] | | LAB | | | | [address], | | | | | | [place] [address] | | | | + + + + + + + + | Specimen | + + | | + + + +---------+ + + | Performing | Address | City/State/Zipcode | Phone Number | | Organization | | | | + +---------+ + + | EXTERNAL LAB | | | | + +---------+ + + Culture, Urine (05/29/2014 1:56 PM PDT) + + | Specimen | + + | | + + + + + | Narrative | Performed At | + + + | Specimen Description URINE, COLLECTION NOT | EXTERNAL LAB | | GIVEN SPECIAL REQUESTS UAIF RELEX CULTURE | | | >100,000 CFU/ML | | | MIXED GRAM POSITIVE SALLY | | | NO FURTHER WORKUP | | | REPORT STATUS FINAL | | | 05/30/2014 | | + + + + +---------+ + + | Performing | Address | City/State/Zipcode | Phone Number | | Organization | | | | + +---------+ + + | EXTERNAL LAB | | | | + +---------+ + + POC Glucose (05/29/2014 11:23 AM PDT) + + + + + + | Component | Value | Ref Range | Performed | Pathologist | | | | | At | Signature | + + + + + + | Glucose, | 190 (H)Comment: Testing | 65 - 99 mg/dL | EXTERNAL | | | Fingerstick | performed at [facility];[address] | | LAB | | | | [address];[place] | | | | | | [address] | | | | + + + + + + + + | Specimen | + + | | + + + +---------+ + + | Performing | Address | City/State/Zipcode | Phone Number | | Organization | | | | + +---------+ + + | EXTERNAL LAB | | | | + +---------+ + + XR Chest 1 Vw (05/29/2014 9:53 AM PDT) + + | Specimen | + + | | + + + + + | Impressions | Performed At | + + + | 1. Possible right lower lobe mild bronchopneumonia. 2. | | | Probable chronic bronchitis. 3. Chronic mild cardiomegaly with | | | grade 1 pulmonary venous hypertension. 4. Healed deforming fracture | | | of the right proximal humerus. 5. Osteoporosis. | | | | | + + + + + + | Narrative | Performed At | + + + | [facility] 05/29/2014 9:53 AM History: 74 | | | years. Female. Progressive shortness of breath, leukocytosis. | | | Nausea and vomiting. Technique: AP portable upright technique was | | | performed at 0945 hours. Comparison: 05/28/14 Findings: Mild | | | cardiomegaly is again noted. The upper lobe pulmonary vasculature is | | | distended, indicating grade 1 pulmonary venous hypertension, a | | | precursor to interstitial edema. No visible pulmonary edema at | | | present, however. Mild peribronchial infiltrates are noted in both | | | lower lung decker, greater on the right than the left, similar to | | | that visualized on 05/28/14, suggesting possible mild right lower lobe | | | bronchopneumonia. Bronchial thickening is also noted on 09/07/13, | | | indicating chronic bronchitis. The pulmonary pierce and mediastinal | | | contours are normal. There is mild calcification of the thoracic | | | aorta, with mild dilatation due to atherosclerosis. Chronic deformity | | | of the proximal right humerus indicates a healed fracture. Osteopenia | | | severe. | | + + + + + | Procedure Note | + + | Oln, Rad Conversion - 07/09/2019 12:54 PM PDT [facility] CHEST 1 VIEW05/29/2014 | | 9:53 AM History: 74 years. Female. Progressive shortness of breath, leukocytosis. | | Nausea and vomiting. Technique: AP portable upright technique was performed at 0945 | | hours.Comparison: 05/28/14 Findings: Mild cardiomegaly is again noted. The upper lobe | | pulmonary vasculature is distended, indicating grade 1 pulmonary venous hypertension, a | | precursor to interstitial edema. No visible pulmonary edema at present, however. Mild | | peribronchial infiltrates are noted in both lower lung decker, greater on the right than | | the left, similar to that visualized on 05/28/14, suggesting possible mild right lower | | lobe bronchopneumonia. Bronchial thickening is also noted on 09/07/13, indicating | | chronic bronchitis. The pulmonary pierce and mediastinal contours are normal. There is | | mild calcification of the thoracic aorta, with mild dilatation due to atherosclerosis. | | Chronic deformity of the proximal right humerus indicates a healed fracture. Osteopenia | | severe. IMPRESSION: 1. Possible right lower lobe mild bronchopneumonia.2. Probable | | chronic bronchitis.3. Chronic mild cardiomegaly with grade 1 pulmonary venous | | hypertension.4. Healed deforming fracture of the right proximal humerus.5. | | Osteoporosis. | |IMPRESSION: | |1. Possible right lower lobe mild bronchopneumonia. | |2. Probable chronic bronchitis. | |3. Chronic mild cardiomegaly with grade 1 pulmonary venous hypertension. | |4. Healed deforming fracture of the right proximal humerus. | |5. Osteoporosis. | | | | | | | + + External Lab: CBC (05/29/2014 5:34 AM PDT) + + + + + + | Component | Value | Ref Range | Performed | Pathologist | | | | | At | Signature | + + + + + + | WBC | 13.1 (H)Comment: Testing | 3.8 - 11.0 K/uL | EXTERNAL | | | | performed at [facility], [address] | | LAB | | | | [address], | | | | | | [place] [address] | | | | + + + + + + | RED CELL | 3.58 (L)Comment: Testing | 3.70 - 5.10 | EXTERNAL | | | COUNT | performed at [facility], [address] | M/uL | LAB | | | | [address], | | | | | | [place] [address] | | | | + + + + + + | Hemoglobin | 11.2 (L)Comment: Testing | 11.3 - 15.5 | EXTERNAL | | | | performed at [facility], [address] | g/dL | LAB | | | | [address], | | | | | | [place] [address] | | | | + + + + + + | Hematocrit, | 33.0 (L)Comment: Testing | 34.0 - 46.0 % | EXTERNAL | | | POC | performed at [facility], [address] | | LAB | | | | [address], | | | | | | [place] [address] | | | | + + + + + + | MCV | 92.2Comment: Testing | 80.0 - 100.0 fl | EXTERNAL | | | | performed at [facility], [address] | | LAB | | | | [address], | | | | | | [place] [address] | | | | + + + + + + | MCH | 31.3Comment: Testing | 27.0 - 34.0 pg | EXTERNAL | | | | performed at [facility], [address] | | LAB | | | | [address], | | | | | | [place] [address] | | | | + + + + + + | MCHC | 33.9Comment: Testing | 32.0 - 35.5 | EXTERNAL | | | | performed at [facility], [address] | g/dL | LAB | | | | [address], | | | | | | [place] [address] | | | | + + + + + + | RDW-CV | 40.3Comment: Testing | 37 - 53 fl | EXTERNAL | | | | performed at [facility], [address] | | LAB | | | | [address], | | | | | | [place] [address] | | | | + + + + + + | Platelet | 213Comment: Testing | 150 - 400 K/uL | EXTERNAL | | | Count | performed at [facility], [address] | | LAB | | | Plasma | [address], | | | | | | [place] [address] | | | | + + + + + + | MPV | 9.6Comment: Testing | fl | EXTERNAL | | | | performed at [facility], [address] | | LAB | | | | [address], | | | | | | [place] [address] | | | | + + + + + + | Differentia | AUTOMATEDComment: | | EXTERNAL | | | l Type | Testing performed at | | LAB | | | | [facility], [address] | | | | | | [place] | | | | | | [address] | | | | + + + + + + | % Segmented | 81.0Comment: Testing | % | EXTERNAL | | | | performed at [facility], [address] | | LAB | | | Neutrophils | [address], | | | | | | [place] [address] | | | | + + + + + + | % | 10.8Comment: Testing | % | EXTERNAL | | | Lymphocytes | performed at [facility], [address] | | LAB | | | | [address], | | | | | | [place] [address] | | | | + + + + + + | % Monocytes | 6.5Comment: Testing | % | EXTERNAL | | | | performed at [facility], [address] | | LAB | | | | [address], | | | | | | [place] [address] | | | | + + + + + + | % | 1.1Comment: Testing | % | EXTERNAL | | | Eosinophils | performed at [facility], [address] | | LAB | | | | [address], | | | | | | [place] [address] | | | | + + + + + + | % Basophils | 0.6Comment: Testing | % | EXTERNAL | | | | performed at [facility], [address] | | LAB | | | | [address], | | | | | | [place] [address] | | | | + + + + + + | Absolute | 10.6 (H)Comment: Testing | 1.9 - 7.4 K/uL | EXTERNAL | | | Segmented | performed at [facility], [address] | | LAB | | | Neutrophils | [address], | | | | | | [place] [address] | | | | + + + + + + | Absolute | 1.4Comment: Testing | 1.0 - 3.9 K/uL | EXTERNAL | | | Lymphocytes | performed at [facility], [address] | | LAB | | | | [address], | | | | | | [place] [address] | | | | + + + + + + | Absolute | 0.8Comment: Testing | 0 - 0.8 K/uL | EXTERNAL | | | Monocytes | performed at [facility], [address] | | LAB | | | | [address], | | | | | | [place] [address] | | | | + + + + + + | Absolute | 0.1Comment: Testing | 0 - 0.5 K/uL | EXTERNAL | | | Eosinophils | performed at [facility], [address] | | LAB | | | | [address], | | | | | | [place] [address] | | | | + + + + + + | Absolute | 0.1Comment: Testing | 0 - 0.1 K/uL | EXTERNAL | | | Basophils | performed at [facility], [address] | | LAB | | | | [address], | | | | | | [place] [address] | | | | + + + + + + + + | Specimen | + + | Blood specimen | | (specimen) | + + + +---------+ + + | Performing | Address | City/State/Zipcode | Phone Number | | Organization | | | | + +---------+ + + | EXTERNAL LAB | | | | + +---------+ + + Magnesium (05/29/2014 5:34 AM PDT) + + + + + + | Component | Value | Ref Range | Performed | Pathologist | | | | | At | Signature | + + + + + + | Magnesium | 2.1Comment: Testing | 1.7 - 2.4 mg/dL | EXTERNAL | | | | performed at [facility], [address] | | LAB | | | | [address], | | | | | | [place] [address] | | | | + + + + + + + + | Specimen | + + | Blood specimen | | (specimen) | + + + +---------+ + + | Performing | Address | City/State/Zipcode | Phone Number | | Organization | | | | + +---------+ + + | EXTERNAL LAB | | | | + +---------+ + + Comprehensive Metabolic Panel (05/29/2014 5:34 AM PDT) + + + + + + | Component | Value | Ref Range | Performed | Pathologist | | | | | At | Signature | + + + + + + | Na | 134 (L)Comment: Testing | 135 - 143 | EXTERNAL | | | | performed at [facility], [address] | mmol/L | LAB | | | | [address], | | | | | | [place] [address] | | | | + + + + + + | K | 3.7Comment: Testing | 3.5 - 4.9 | EXTERNAL | | | | performed at [facility], [address] | mmol/L | LAB | | | | [address], | | | | | | [place] [address] | | | | + + + + + + | Cl | 105Comment: Testing | 99 - 109 mmol/L | EXTERNAL | | | | performed at [facility], [address] | | LAB | | | | [address], | | | | | | [place] [address] | | | | + + + + + + | CO2 | 25Comment: Testing | 23 - 32 mmol/L | EXTERNAL | | | | performed at [facility], [address] | | LAB | | | | [address], | | | | | | [place] [address] | | | | + + + + + + | Anion Gap | 8Comment: Testing | 5 - 20 mmol/L | EXTERNAL | | | | performed at [facility], [address] | | LAB | | | | [address], | | | | | | [place] [address] | | | | + + + + + + | Glucose, | 121 (H)Comment: Testing | 65 - 99 mg/dL | EXTERNAL | | | Fasting | performed at [facility], [address] | | LAB | | | | [address], | | | | | | [place] [address] | | | | + + + + + + | BUN | 12Comment: Testing | 8 - 25 mg/dL | EXTERNAL | | | | performed at [facility], [address] | | LAB | | | | [address], | | | | | | [place] [address] | | | | + + + + + + | Creatinine | 0.51Comment: Testing | 0.50 - 1.00 | EXTERNAL | | | | performed at [facility], [address] | mg/dL | LAB | | | | [address], | | | | | | [place] [address] | | | | + + + + + + | BUN/Creatin | 24Comment: Testing | | EXTERNAL | | | ine Ratio | performed at [facility], [address] | | LAB | | | | [address], | | | | | | [place] [address] | | | | + + + + + + | Calcium | 8.4 (L)Comment: Testing | 8.5 - 10.2 | EXTERNAL | | | | performed at [facility], [address] | mg/dL | LAB | | | | [address], | | | | | | [place] [address] | | | | + + + + + + | Protein, | 6.6Comment: Testing | 6.3 - 8.2 g/dL | EXTERNAL | | | Total | performed at [facility], [address] | | LAB | | | | [address], | | | | | | [place] [address] | | | | + + + + + + | Albumin | 3.4Comment: Testing | 3.3 - 4.8 g/dL | EXTERNAL | | | | performed at [facility], [address] | | LAB | | | | [address], | | | | | | [place] [address] | | | | + + + + + + | Globulin | 3.2Comment: Testing | 1.3 - 4.9 g/dL | EXTERNAL | | | | performed at [facility], [address] | | LAB | | | | [address], | | | | | | [place] [address] | | | | + + + + + + | A/G Ratio | 1.1Comment: Testing | 1.0 - 2.4 | EXTERNAL | | | | performed at [facility], [address] | | LAB | | | | [address], | | | | | | [place] [address] | | | | + + + + + + | Bilirubin | 0.6Comment: Testing | 0.1 - 1.5 mg/dL | EXTERNAL | | | Total | performed at [facility], [address] | | LAB | | | | [address], | | | | | | [place] [address] | | | | + + + + + + | ALP, | 52Comment: Testing | 35 - 115 U/L | EXTERNAL | | | External | performed at [facility], [address] | | LAB | | | | [address], | | | | | | [place] [address] | | | | + + + + + + | AST | 23Comment: Testing | 10 - 45 U/L | EXTERNAL | | | | performed at [facility], [address] | | LAB | | | | [address], | | | | | | [place] [address] | | | | + + + + + + | ALT | 10Comment: Testing | 10 - 65 U/L | EXTERNAL | | | | performed at [facility], [address] | | LAB | | | | [address], | | | | | | [place] [address] | | | | + + + + + + | Estimated | >60Comment: GFR <60: | mL/min/1.73m2 | EXTERNAL | | | GFR | CHRONIC KIDNEY DISEASE, | | LAB | | | | IF FOUND OVER A 3 MONTH | | | | | | PERIOD.GFR <15: KIDNEY | | | | | | FAILURE.FOR | | | | | | AMERICANS, MULTIPLY THE | | | | | | CALCULATED GFR BY | | | | | | 1.210.Testing performed | | | | | | at [facility], [address] | | | | | | [address], | | | | | | [place] [address] | | | | + + + + + + + + | Specimen | + + | Blood specimen | | (specimen) | + + + +---------+ + + | Performing | Address | City/State/Zipcode | Phone Number | | Organization | | | | + +---------+ + + | EXTERNAL LAB | | | | + +---------+ + + POC Glucose (05/29/2014 5:29 AM PDT) + + + + + + | Component | Value | Ref Range | Performed | Pathologist | | | | | At | Signature | + + + + + + | Glucose, | 124 (H)Comment: Testing | 65 - 99 mg/dL | EXTERNAL | | | Fingerstick | performed at [facility];[address] | | LAB | | | | [address];[place] | | | | | | [address] | | | | + + + + + + + + | Specimen | + + | | + + + +---------+ + + | Performing | Address | City/State/Zipcode | Phone Number | | Organization | | | | + +---------+ + + | EXTERNAL LAB | | | | + +---------+ + + POC Glucose (05/28/2014 9:03 PM PDT) + + + + + + | Component | Value | Ref Range | Performed | Pathologist | | | | | At | Signature | + + + + + + | Glucose, | 197 (H)Comment: Testing | 65 - 99 mg/dL | EXTERNAL | | | Fingerstick | performed at [facility];[address] | | LAB | | | | [address];[place] | | | | | | [address] | | | | + + + + + + + + | Specimen | + + | | + + + +---------+ + + | Performing | Address | City/State/Zipcode | Phone Number | | Organization | | | | + +---------+ + + | EXTERNAL LAB | | | | + +---------+ + + POC Glucose (05/28/2014 4:15 PM PDT) + + + + + + | Component | Value | Ref Range | Performed | Pathologist | | | | | At | Signature | + + + + + + | Glucose, | 115 (H)Comment: Testing | 65 - 99 mg/dL | EXTERNAL | | | Fingerstick | performed at [facility];[address] | | LAB | | | | [address];[place] | | | | | | [address] | | | | + + + + + + + + | Specimen | + + | | + + + +---------+ + + | Performing | Address | City/State/Zipcode | Phone Number | | Organization | | | | + +---------+ + + | EXTERNAL LAB | | | | + +---------+ + + XR Abd Supine and Upright w 1 Vw Chest (05/28/2014 1:56 PM PDT) + + | Specimen | + + | | + + + + + | Impressions | Performed At | + + + | 1. Mild cardiomegaly. 2. Diffuse osteopenia. 3. | | | Nonobstructive bowel gas pattern. 4. Minimal left basilar | | | subsegmental atelectasis. | | + + + + + + | Narrative | Performed At | + + + | [facility] XR ABDOMEN ACUTE SERIES HISTORY: 74 years. | | | Female. Abdominal swelling. TECHNIQUE: Single frontal view the | | | chest with left lateral decubitus and upright anterior views of the | | | abdomen. COMPARISON: 09/07/2013 FINDINGS: The heart is | | | mildly enlarged and stable in size the. Low volumes with mild chronic | | | reticular interstitial opacities. Surgical clips noted within the | | | right axilla. Minimal left basilar subsegmental atelectasis. No | | | pneumothorax. No free intraperitoneal air. Multilevel degenerative | | | change of the spine. Nonobstructive bowel gas pattern. Increased | | | density in the pelvis likely represents a fluid distended bladder. | | | Diffuse osteopenia. | | + + + + + | Procedure Note | + + | Lon, Rad Conversion - 07/09/2019 12:54 PM PDT [facility] ABDOMEN ACUTE SERIES | | HISTORY:74 years. Female. Abdominal swelling. TECHNIQUE:Single frontal view the chest | | with left lateral decubitus and upright anterior views of the abdomen. | | COMPARISON:09/07/2013 FINDINGS:The heart is mildly enlarged and stable in size the. Low | | volumes with mild chronic reticular interstitial opacities. Surgical clips noted within | | the right axilla. Minimal left basilar subsegmental atelectasis. No pneumothorax. No | | free intraperitoneal air. Multilevel degenerative change of the spine. Nonobstructive | | bowel gas pattern. Increased density in the pelvis likely represents a fluid distended | | bladder. Diffuse osteopenia. IMPRESSION: 1. Mild cardiomegaly.2. Diffuse osteopenia.3. | | Nonobstructive bowel gas pattern.4. Minimal left basilar subsegmental atelectasis. | | | | | |FINDINGS: | |The heart is mildly enlarged and stable in size the. Low volumes with mild chronic reticula r interstitial opacities. Surgical clips noted within the right axilla. Minimal left basilar subsegmental atelectasis. No pneumothorax. | | | |No free intraperitoneal air. Multilevel degenerative change of the spine. Nonobstructive torsten wel gas pattern. Increased density in the pelvis likely represents a fluid distended bladder . Diffuse osteopenia. | | | |IMPRESSION: | |1. Mild cardiomegaly. | |2. Diffuse osteopenia. | |3. Nonobstructive bowel gas pattern. | |4. Minimal left basilar subsegmental atelectasis. | | | | | + + NM Myocardial Perfusion Mult SPECT (05/28/2014 1:45 PM PDT) + + | Specimen | + + | | + + + + + | Impressions | Performed At | + + + | 1. Negative for ischemia or infarct. 2. Left ventricular | | | ejection fraction is calculated at 50%. | | + + + + + + | Narrative | Performed At | + + + | [facility] MYOCARDIAL PERFUSION SPECT - STRESS AND REST | | | HISTORY: 74 years. Female. Chest pain and high blood pressure. | | | TECHNIQUE: A same day protocol was used. For the resting portion of | | | the study the patient was injected intravenously with 10 mCi | | | technetium 99m Myoview. Gated SPECT imaging was performed in the | | | supine position. The patient was then pharmacologically stressed | | | using a regadenoson protocol. The patient received 0.4 mg of | | | regadenoson intravenously. The patient was intravenously | | | administered 0.4 mCi technetium 99m Myoview. Gated SPECT images were | | | acquired in the supine position only. The patient was unable to | | | tolerate prone imaging. COMPARISON: None. FINDINGS: All | | | segments of the ventricular myocardium demonstrate normal perfusion. | | | Wall motion is normal in all segments. The following | | | functional data was obtained: STRESS: End-diastolic volume: 79 mL | | | End-systolic volume: 39 mL Ejection fraction: 50% REST: | | | End-diastolic volume: 67 mL End-systolic volume: 34 mL Ejection | | | fraction: 49% | | + + + + + | Procedure Note | + + | Jonnathan Forrest Conversion - 07/09/2019 12:54 PM [facility] MYOCARDIAL PERFUSION | | SPECT - STRESS AND REST HISTORY:74 years. Female. Chest pain and high blood pressure. | | TECHNIQUE:A same day protocol was used. For the resting portion of the study the | | patient was injected intravenously with 10 mCi technetium 99m Myoview. Gated SPECT | | imaging was performed in the supine position. The patient was then pharmacologically | | stressed using a regadenoson protocol. The patient received 0.4 mg of regadenoson | | intravenously. The patient was intravenously administered 0.4 mCi technetium 99m | | Myoview. Gated SPECT images were acquired in the supine position only. The patient was | | unable to tolerate prone imaging. COMPARISON:None. FINDINGS:All segments of the | | ventricular myocardium demonstrate normal perfusion. Wall motion is normal in all | | segments. The following functional data was obtained:STRESS:End-diastolic volume: 79 | | mLEnd-systolic volume: 39 mLEjection fraction: 50%REST:End-diastolic volume: 67 | | mLEnd-systolic volume: 34 mLEjection fraction: 49% IMPRESSION: 1. Negative for | | ischemia or infarct.2. Left ventricular ejection fraction is calculated at 50%. | | | | | |FINDINGS: | |All segments of the ventricular myocardium demonstrate normal perfusion. Wall motion is normal in all segments. | | | |The following functional data was obtained: | |STRESS: | |End-diastolic volume: 79 mL | |End-systolic volume: 39 mL | |Ejection fraction: 50% | |REST: | |End-diastolic volume: 67 mL | |End-systolic volume: 34 mL | |Ejection fraction: 49% | | | | | |IMPRESSION: | |1. Negative for ischemia or infarct. | |2. Left ventricular ejection fraction is calculated at 50%. | | | | | + + ECG 12 lead (05/28/2014 6:08 AM PDT) + + + + + + | Component | Value | Ref Range | Performed | Pathologist | | | | | At | Signature | + + + + + + | DIAGNOSIS: | Normal sinus rhythmLeft | | EXTERNAL | | | | ventricular hypertrophy | | LAB | | | | with repolarization | | | | | | abnormality vs ST and/or | | | | | | T wave abnormalities | | | | | | suggesting myocardial | | | | | | ischemiaAbnormal ECGWhen | | | | | | compared with ECG of | | | | | | 27-MAY-2014 23:38,No | | | | | | significant change was | | | | | | foundConfirmed by | | | | | | AMAN BOYD ([id number]) on | | | | | | 05/28/2014 1:19:09 PM | | | | + + + + + + + + | Specimen | + + | | + + + + + | Narrative | Performed At | + + + | Historically converted procedure from [facility] Epic environment | EXTERNAL LAB | + + + + +---------+ + + | Performing | Address | City/State/Zipcode | Phone Number | | Organization | | | | + +---------+ + + | EXTERNAL LAB | | | | + +---------+ + + POC Glucose (05/28/2014 5:04 AM PDT) + + + + + + | Component | Value | Ref Range | Performed | Pathologist | | | | | At | Signature | + + + + + + | Glucose, | 133 (H)Comment: Testing | 65 - 99 mg/dL | EXTERNAL | | | Fingerstick | performed at [facility];[address] | | LAB | | | | [address];[place], [place] | | | | | | [address] | | | | + + + + + + + + | Specimen | + + | | + + + +---------+ + + | Performing | Address | City/State/Zipcode | Phone Number | | Organization | | | | + +---------+ + + | EXTERNAL LAB | | | | + +---------+ + + External Lab: CBC (05/28/2014 4:51 AM PDT) + + + + + + | Component | Value | Ref Range | Performed | Pathologist | | | | | At | Signature | + + + + + + | WBC | 10.5Comment: Testing | 3.8 - 11.0 K/uL | EXTERNAL | | | | performed at [facility], [address] | | LAB | | | | [address], | | | | | | [place] [address] | | | | + + + + + + | RED CELL | 3.51 (L)Comment: Testing | 3.70 - 5.10 | EXTERNAL | | | COUNT | performed at [facility], [address] | M/uL | LAB | | | | [address], | | | | | | [place] [address] | | | | + + + + + + | Hemoglobin | 11.1 (L)Comment: Testing | 11.3 - 15.5 | EXTERNAL | | | | performed at [facility], [address] | g/dL | LAB | | | | [address], | | | | | | [place] [address] | | | | + + + + + + | Hematocrit, | 32.2 (L)Comment: Testing | 34.0 - 46.0 % | EXTERNAL | | | POC | performed at [facility], [address] | | LAB | | | | [address], | | | | | | [place] [address] | | | | + + + + + + | MCV | 91.8Comment: Testing | 80.0 - 100.0 fl | EXTERNAL | | | | performed at [facility], [address] | | LAB | | | [address], | | | | | | [place] [address] | | | | + + + + + + | MCH | 31.7Comment: Testing | 27.0 - 34.0 pg | EXTERNAL | | | | performed at [facility], [address] | | LAB | | | | [address], | | | | | | [place] [address] | | | | + + + + + + | MCHC | 34.5Comment: Testing | 32.0 - 35.5 | EXTERNAL | | | | performed at [facility], [address] | g/dL | LAB | | | | [address], | | | | | | [place] [address] | | | | + + + + + + | RDW-CV | 39.4Comment: Testing | 37 - 53 fl | EXTERNAL | | | | performed at [facility], [address] | | LAB | | | | [address], | | | | | | [place] [address] | | | | + + + + + + | Platelet | 196Comment: Testing | 150 - 400 K/uL | EXTERNAL | | | Count | performed at [facility], [address] | | LAB | | | Plasma | [address], | | | | | | [place] [address] | | | | + + + + + + | MPV | 9.3Comment: Testing | fl | EXTERNAL | | | | performed at [facility], [address] | | LAB | | | | [address], | | | | | | [place] [address] | | | | + + + + + + | Differentia | AUTOMATEDComment: | | EXTERNAL | | | l Type | Testing performed at | | LAB | | | | [facility], [address] | | | | | | [place] | | | | | | [address] | | | | + + + + + + | % Segmented | 66.6Comment: Testing | % | EXTERNAL | | | | performed at [facility], [address] | | LAB | | | Neutrophils | [address], | | | | | | [place] [address] | | | | + + + + + + | % | 20.9Comment: Testing | % | EXTERNAL | | | Lymphocytes | performed at [facility], [address] | | LAB | | | | [address], | | | | | | [place] [address] | | | | + + + + + + | % Monocytes | 10.0Comment: Testing | % | EXTERNAL | | | | performed at [facility], [address] | | LAB | | | | [address], | | | | | | [place] [address] | | | | + + + + + + | % | 2.0Comment: Testing | % | EXTERNAL | | | Eosinophils | performed at [facility], [address] | | LAB | | | | [address], | | | | | | [place] [address] | | | | + + + + + + | % Basophils | 0.5Comment: Testing | % | EXTERNAL | | | | performed at [facility], [address] | | LAB | | | | [address], | | | | | | [place] [address] | | | | + + + + + + | Absolute | 7.0Comment: Testing | 1.9 - 7.4 K/uL | EXTERNAL | | | Segmented | performed at [facility], [address] | | LAB | | | Neutrophils | [address], | | | | | | [place] [address] | | | | + + + + + + | Absolute | 2.2Comment: Testing | 1.0 - 3.9 K/uL | EXTERNAL | | | Lymphocytes | performed at [facility], [address] | | LAB | | | | [address], | | | | | | [place] [address] | | | | + + + + + + | Absolute | 1.0 (H)Comment: Testing | 0 - 0.8 K/uL | EXTERNAL | | | Monocytes | performed at [facility], [address] | | LAB | | | | [address], | | | | | | [place] [address] | | | | + + + + + + | Absolute | 0.2Comment: Testing | 0 - 0.5 K/uL | EXTERNAL | | | Eosinophils | performed at [facility], [address] | | LAB | | | | [address], | | | | | | [place] [address] | | | | + + + + + + | Absolute | 0.1Comment: Testing | 0 - 0.1 K/uL | EXTERNAL | | | Basophils | performed at [facility], [address] | | LAB | | | | [address], | | | | | | [place] [address] | | | | + + + + + + + + | Specimen | + + | Blood specimen | | (specimen) | + + + +---------+ + + | Performing | Address | City/State/Zipcode | Phone Number | | Organization | | | | + +---------+ + + | EXTERNAL LAB | | | | + +---------+ + + Phosphorus (05/28/2014 4:51 AM PDT) + + + + + + | Component | Value | Ref Range | Performed | Pathologist | | | | | At | Signature | + + + + + + | PHOSPHORUS | 1.9 (L)Comment: Testing | 2.3 - 4.8 mg/dL | EXTERNAL | | | | performed at [facility], [address] | | LAB | | | | [address], | | | | | | [place] [address] | | | | + + + + + + + + | Specimen | + + | Blood specimen | | (specimen) | + + + +---------+ + + | Performing | Address | City/State/Zipcode | Phone Number | | Organization | | | | + +---------+ + + | EXTERNAL LAB | | | | + +---------+ + + Magnesium (05/28/2014 4:51 AM PDT) + + + + + + | Component | Value | Ref Range | Performed | Pathologist | | | | | At | Signature | + + + + + + | Magnesium | 1.6 (L)Comment: Testing | 1.7 - 2.4 mg/dL | EXTERNAL | | | | performed at [facility], [address] | | LAB | | | | [address], | | | | | | [place] [address] | | | | + + + + + + + + | Specimen | + + | Blood specimen | | (specimen) | + + + +---------+ + + | Performing | Address | City/State/Zipcode | Phone Number | | Organization | | | | + +---------+ + + | EXTERNAL LAB | | | | + +---------+ + + Magnesium (05/28/2014 4:51 AM PDT) + + + + + + | Component | Value | Ref Range | Performed | Pathologist | | | | | At | Signature | + + + + + + | Magnesium | 1.7Comment: Testing | 1.7 - 2.4 mg/dL | EXTERNAL | | | | performed at [facility], [address] | | LAB | | | | [address], | | | | | | [place] [address] | | | | + + + + + + + + | Specimen | + + | Blood specimen | | (specimen) | + + + +---------+ + + | Performing | Address | City/State/Zipcode | Phone Number | | Organization | | | | + +---------+ + + | EXTERNAL LAB | | | | + +---------+ + + Lipase (05/28/2014 4:51 AM PDT) + + + + + + | Component | Value | Ref Range | Performed | Pathologist | | | | | At | Signature | + + + + + + | Lipase | 205Comment: Testing | 73 - 393 U/L | EXTERNAL | | | | performed at [facility];[address] | | LAB | | | | [address];[place], [place] | | | | | | [address] | | | | + + + + + + + + | Specimen | + + | Blood specimen | | (specimen) | + + + +---------+ + + | Performing | Address | City/State/Zipcode | Phone Number | | Organization | | | | + +---------+ + + | EXTERNAL LAB | | | | + +---------+ + + Hemoglobin A1C (05/28/2014 4:51 AM PDT) + + + + + + | Component | Value | Ref Range | Performed | Pathologist | | | | | At | Signature | + + + + + + | Hemoglobin | 7.1 (H)Comment: The | 4.0 - 6.0 % | EXTERNAL | | | A1c | [facility] [employer] | | LAB | | | | Association considers a | | | | | | hemoglobin A1c result of | | | | | | <7.0% to be the goal of | | | | | | diabetic therapy. | | | | | | When results are | | | | | | consistently >8.0%, the | | | | | | ADA suggests | | | | | | reevaluation of the | | | | | | treatment regimen. The | | | | | | testing method used is | | | | | | certified traceable to | | | | | | the Diabetes Control and | | | | | | Complications Trial | | | | | | reference method.Testing | | | | | | performed at [facility], [address] | | | [address], | | | | | | [place] [address] | | | | + + + + + + | Glycohemogl | 157Comment: The ADA | mg/dL | EXTERNAL | | | obin | considers an eAG result | | LAB | | | (GHb),Total | of LT 154 mg/dL to be | | | | | | the goal of diabetic | | | | | | therapy. Estimated | | | | | | Average Glucose | | | | | | calculated from | | | | | | hemoglobin A1c by use of | | | | | | the ADA recommended | | | | | | formula.Testing | | | | | | performed at [facility], [address] | | | | | | [facility], | | | | | | [place] [address] | | | | + + + + + + + + | Specimen | + + | Blood specimen | | (specimen) | + + + +---------+ + + | Performing | Address | City/State/Zipcode | Phone Number | | Organization | | | | + +---------+ + + | EXTERNAL LAB | | | | + +---------+ + + Lipid Panel (05/28/2014 4:51 AM PDT) + + + + + + | Component | Value | Ref Range | Performed | Pathologist | | | | | At | Signature | + + + + + + | Cholesterol | 138Comment: Testing | mg/dL | EXTERNAL | | | | performed at [facility], [address] | | LAB | | | | [address], | | | | | | [place] [address] | | | | + + + + + + | Triglycerid | 178 (H)Comment: Testing | mg/dL | EXTERNAL | | | es | performed at [facility], [address] | | LAB | | | | [address], | | | | | | [place] [address] | | | | + + + + + + | HDL | 33 (L)Comment: Testing | mg/dL | EXTERNAL | | | | performed at [facility], [address] | | LAB | | | | [address], | | | | | | [place] [address] | | | | + + + + + + | LDL, | 69Comment: Testing | mg/dL | EXTERNAL | | | Calculated | performed at [facility], [address] | | LAB | | | | [address], | | | | | | [place] [address] | | | | + + + + + + + + | Specimen | + + | Blood specimen | | (specimen) | + + + +---------+ + + | Performing | Address | City/State/Zipcode | Phone Number | | Organization | | | | + +---------+ + + | EXTERNAL LAB | | | | + +---------+ + + Comprehensive Metabolic Panel (05/28/2014 4:51 AM PDT) + + + + + + | Component | Value | Ref Range | Performed | Pathologist | | | | | At | Signature | + + + + + + | Na | 136Comment: Testing | 135 - 143 | EXTERNAL | | | | performed at [facility], [address] | mmol/L | LAB | | | | [address], | | | | | | [place] [address] | | | | + + + + + + | K | 3.3 (L)Comment: Testing | 3.5 - 4.9 | EXTERNAL | | | | performed at [facility], [address] | mmol/L | LAB | | | | [address], | | | | | | [place] [address] | | | | + + + + + + | Cl | 106Comment: Testing | 99 - 109 mmol/L | EXTERNAL | | | | performed at [facility], [address] | | LAB | | | | [address], | | | | | | [place] [address] | | | | + + + + + + | CO2 | 26Comment: Testing | 23 - 32 mmol/L | EXTERNAL | | | | performed at [facility], [address] | | LAB | | | | [address], | | | | | | [place] [address] | | | | + + + + + + | Anion Gap | 7Comment: Testing | 5 - 20 mmol/L | EXTERNAL | | | | performed at [facility], [address] | | LAB | | | | [address], | | | | | | [place] [address] | | | | + + + + + + | Glucose, | 122 (H)Comment: Testing | 65 - 99 mg/dL | EXTERNAL | | | Fasting | performed at [facility], [address] | | LAB | | | | [address], | | | | | | [place] [address] | | | | + + + + + + | BUN | 17Comment: Testing | 8 - 25 mg/dL | EXTERNAL | | | | performed at [facility], [address] | | LAB | | | | [address], | | | | | | [place] [address] | | | | + + + + + + | Creatinine | 0.71Comment: Testing | 0.50 - 1.00 | EXTERNAL | | | | performed at [facility], [address] | mg/dL | LAB | | | | [address], | | | | | | [place] [address] | | | | + + + + + + | BUN/Creatin | 24Comment: Testing | | EXTERNAL | | | ine Ratio | performed at [facility], [address] | | LAB | | | | [address], | | | | | | [place] [address] | | | | + + + + + + | Calcium | 8.2 (L)Comment: Testing | 8.5 - 10.2 | EXTERNAL | | | | performed at [facility], [address] | mg/dL | LAB | | | | [address], | | | | | | [place] [address] | | | | + + + + + + | Protein, | 6.3Comment: Testing | 6.3 - 8.2 g/dL | EXTERNAL | | | Total | performed at [facility], [address] | | LAB | | | | [address], | | | | | | [place] [address] | | | | + + + + + + | Albumin | 3.3Comment: Testing | 3.3 - 4.8 g/dL | EXTERNAL | | | | performed at [facility], [address] | | LAB | | | | [address], | | | | | | [place] [address] | | | | + + + + + + | Globulin | 3.0Comment: Testing | 1.3 - 4.9 g/dL | EXTERNAL | | | | performed at [facility], [address] | | LAB | | | | [address], | | | | | | [place] [address] | | | | + + + + + + | A/G Ratio | 1.1Comment: Testing | 1.0 - 2.4 | EXTERNAL | | | | performed at [facility], [address] | | LAB | | | | [address], | | | | | | [place] [address] | | | | + + + + + + | Bilirubin | 0.6Comment: Testing | 0.1 - 1.5 mg/dL | EXTERNAL | | | Total | performed at [facility], [address] | | LAB | | | | [address], | | | | | | [place] [address] | | | | + + + + + + | ALP, | 42Comment: Testing | 35 - 115 U/L | EXTERNAL | | | External | performed at [facility], [address] | | LAB | | | | [address], | | | | | | [place] [address] | | | | + + + + + + | AST | 15Comment: Testing | 10 - 45 U/L | EXTERNAL | | | | performed at [facility], [address] | | LAB | | | | [address], | | | | | | [place] [address] | | | | + + + + + + | ALT | 7 (L)Comment: Testing | 10 - 65 U/L | EXTERNAL | | | | performed at [facility], [address] | | LAB | | | | [address], | | | | | | [place] [address] | | | | + + + + + + | Estimated | >60Comment: GFR <60: | mL/min/1.73m2 | EXTERNAL | | | GFR | CHRONIC KIDNEY DISEASE, | | LAB | | | | IF FOUND OVER A 3 MONTH | | | | | | PERIOD.GFR <15: KIDNEY | | | | | | FAILURE.FOR | | | | | | AMERICANS, MULTIPLY THE | | | | | | CALCULATED GFR BY | | | | | | 1.210.Testing performed | | | | | | at [facility], [address] | | | | | | [address], | | | | | | [place] [address] | | | | + + + + + + + + | Specimen | + + | Blood specimen | | (specimen) | + + + +---------+ + + | Performing | Address | City/State/Zipcode | Phone Number | | Organization | | | | + +---------+ + + | EXTERNAL LAB | | | | + +---------+ + + ECG 12 lead (05/27/2014 11:38 PM PDT) + + + + + + | Component | Value | Ref Range | Performed | Pathologist | | | | | At | Signature | + + + + + + | DIAGNOSIS: | Normal sinus | | EXTERNAL | | | | rhythmModerate voltage | | LAB | | | | criteria for LVH, may be | | | | | | normal variantST and/or | | | | | | T wave abnormalities | | | | | | suggesting myocardial | | | | | | ischemia vs LVHAbnormal | | | | | | ECGWhen compared with | | | | | | ECG of 27-MAY-2014 | | | | | | 05:19,No significant | | | | | | change was | | | | | | foundConfirmed by | | | | | | AMAN BOYD ([id number]) on | | | | | | 05/28/2014 1:16:43 PM | | | | + + + + + + + + | Specimen | + + | | + + + + + | Narrative | Performed At | + + + | Historically converted procedure from [facility] Epic environment | EXTERNAL LAB | + + + + +---------+ + + | Performing | Address | City/State/Zipcode | Phone Number | | Organization | | | | + +---------+ + + | EXTERNAL LAB | | | | + +---------+ + + POC Glucose (05/27/2014 8:43 PM PDT) + + + + + + | Component | Value | Ref Range | Performed | Pathologist | | | | | At | Signature | + + + + + + | Glucose, | 308 (H)Comment: Testing | 65 - 99 mg/dL | EXTERNAL | | | Fingerstick | performed at [facility];[address] | | LAB | | | | [address];[place], [place] | | | | | | [address] | | | | + + + + + + + + | Specimen | + + | | + + + +---------+ + + | Performing | Address | City/State/Zipcode | Phone Number | | Organization | | | | + +---------+ + + | EXTERNAL LAB | | | | + +---------+ + + Troponin I (05/27/2014 5:52 PM PDT) + + + + + + | Component | Value | Ref Range | Performed | Pathologist | | | | | At | Signature | + + + + + + | Troponin I, | 0.115 (H)Comment: 0.00 | 0.00 - 0.10 | EXTERNAL | | | Qual | to 0.10 CONSISTENT | ng/mL | LAB | | | | WITH NORMAL | | | | | | POPULATION0.11 to 0.60 | | | | | | CONSISTENT WITH | | | | | | INCREASED RISK FOR | | | | | | ADVERSE OUTCOMES> 0.60 | | | | | | CONSISTENT | | | | | | WITH WHO CRITERIA FOR | | | | | | ACUTE [place] Testing | | | | | | performed at [facility] | | | | | | [address];[place], [place] | | | | | | [address] | | | | + + + + + + + + | Specimen | + + | Blood specimen | | (specimen) | + + + +---------+ + + | Performing | Address | City/State/Zipcode | Phone Number | | Organization | | | | + +---------+ + + | EXTERNAL LAB | | | | + +---------+ + + POC Glucose (05/27/2014 4:11 PM PDT) + + + + + + | Component | Value | Ref Range | Performed | Pathologist | | | | | At | Signature | + + + + + + | Glucose, | 143 (H)Comment: Testing | 65 - 99 mg/dL | EXTERNAL | | | Fingerstick | performed at [facility];[address] | | LAB | | | | [address];[place] | | | | | | [address] | | | | + + + + + + + + | Specimen | + + | | + + + +---------+ + + | Performing | Address | City/State/Zipcode | Phone Number | | Organization | | | | + +---------+ + + | EXTERNAL LAB | | | | + +---------+ + + CK-MB (05/27/2014 12:00 PM PDT) + + + + + -+ | Component | Value | Ref Range | Performed | Pathologist | | | | | At | Signature | + + + + + -+ | CK-MB | 2.9Comment: Testing | 0.5 - 3.6 ng/mL | EXTERNAL | | | | performed at [facility];[address] | | LAB | | | | [address];[place] | | | | | | [address] | | | | + + + + + -+ | CK-MB Index | 4.4Comment: CK INDEX | | EXTERNAL | | | | INTERPRETATION: | | LAB | | | | MMB ng/mL | | | | | | | | | | | |CK INDEX INTERPRETATION: | | | | | | MMB ng/mL | | | | | | | | | | + + + + + -+ + + | Specimen | + + | | + + + +---------+ + + | Performing | Address | City/State/Zipcode | Phone Number | | Organization | | | | + +---------+ + + | EXTERNAL LAB | | | | + +---------+ + + Troponin I (05/27/2014 12:00 PM PDT) + + + + + + | Component | Value | Ref Range | Performed | Pathologist | | | | | At | Signature | + + + + + + | Troponin I, | 0.093Comment: 0.00 to | 0.00 - 0.10 | EXTERNAL | | | Qual | 0.10 CONSISTENT WITH | ng/mL | LAB | | | | NORMAL POPULATION0.11 to | | | | | | 0.60 CONSISTENT WITH | | | | | | INCREASED RISK FOR | | | | | | ADVERSE OUTCOMES> 0.60 | | | | | | CONSISTENT | | | | | | WITH WHO CRITERIA FOR | | | | | | ACUTE [place] Testing | | | | | | performed at [facility];[address] | | | | | | [address];[place], [place] | | | | | | [address] | | | | + + + + + + + + | Specimen | + + | Blood specimen | | (specimen) | + + + +---------+ + + | Performing | Address | City/State/Zipcode | Phone Number | | Organization | | | | + +---------+ + + | EXTERNAL LAB | | | | + +---------+ + + CK Total (05/27/2014 12:00 PM PDT) + + + + + + | Component | Value | Ref Range | Performed | Pathologist | | | | | At | Signature | + + + + + + | CK, Total | 66Comment: Testing | 30 - 240 U/L | EXTERNAL | | | | performed at [facility];[address] | | LAB | | | | [address];[place], [place] | | | | | | [address] | | | | + + + + + + + + | Specimen | + + | Blood specimen | | (specimen) | + + + +---------+ + + | Performing | Address | City/State/Zipcode | Phone Number | | Organization | | | | + +---------+ + + | EXTERNAL LAB | | | | + +---------+ + + POC Glucose (05/27/2014 11:57 AM PDT) + + + + + + | Component | Value | Ref Range | Performed | Pathologist | | | | | At | Signature | + + + + + + | Glucose, | 191 (H)Comment: Testing | 65 - 99 mg/dL | EXTERNAL | | | Fingerstick | performed at [facility];[address] | | LAB | | | | [address];[place] | | | | | | [address] | | | | + + + + + + + + | Specimen | + + | | + + + +---------+ + + | Performing | Address | City/State/Zipcode | Phone Number | | Organization | | | | + +---------+ + + | EXTERNAL LAB | | | | + +---------+ + + Urinalysis, Reflex Microscopic and/or Culture (05/27/2014 8:51 AM PDT) + + + + + + | Component | Value | Ref Range | Performed | Pathologist | | | | | At | Signature | + + + + + + | Color | YELLOWComment: Testing | | EXTERNAL | | | | performed at [facility], [address] | | LAB | | | | [address], | | | | | | [place], [place] [address] | | | | + + + + + + | Clarity | CLEARComment: Testing | | EXTERNAL | | | | performed at [facility], [address] | | LAB | | | | [address], | | | | | | [place] [address] | | | | + + + + + + | Specific | 1.030Comment: Testing | 1.002 - 1.030 | EXTERNAL | | | [place] | performed at [facility], [address] | | LAB | | | | [address], | | | | | | [place] [address] | | | | + + + + + + | Leukocyte | NEGATIVEComment: Testing | | EXTERNAL | | | Esterase, | performed at [facility], [address] | | LAB | | | [address] | [address], | | | | | | [place] [address] | | | | + + + + + + | Nitrite, | NEGATIVEComment: Testing | | EXTERNAL | | | Urine | performed at [facility], [address] | | LAB | | | | [address], | | | | | | [place] [address] | | | | + + + + + + | Urobilinoge | 0.2Comment: Testing | mg/dL | EXTERNAL | | | n, Urine | performed at [facility], [address] | | LAB | | | | [address], | | | | | | [place] [address] | | | | + + + + + + | Protein, | NEGATIVEComment: Testing | mg/dL | EXTERNAL | | | Urine | performed at [facility], [address] | | LAB | | | | [address], | | | | | | [place] [address] | | | | + + + + + + | pH, Urine | 5.5Comment: Testing | 5.0 - 8.0 | EXTERNAL | | | | performed at [facility], [address] | | LAB | | | | [address], | | | | | | [place] [address] | | | | + + + + + + | Blood, | NEGATIVEComment: Testing | | EXTERNAL | | | Urine | performed at [facility], [address] | | LAB | | | | [address], | | | | | | [place] [address] | | | | + + + + + + | Ketones | 15 (A)Comment: Testing | mg/dL | EXTERNAL | | | | performed at [facility], [address] | | LAB | | | | [address], | | | | | | [place] [address] | | | | + + + + + + | Bilirubin, | NEGATIVEComment: Testing | | EXTERNAL | | | Urine | performed at [facility], [address] | | LAB | | | | [address], | | | | | | [place] [address] | | | | + + + + + + | Glucose, | NEGATIVEComment: Testing | mg/dL | EXTERNAL | | | Urine | performed at [facility] | | LAB | | | | [address], | | | | | | [place] [address] | | | | + + + + + + + + | Specimen | + + | Urine specimen | | (specimen) | + + + +---------+ + + | Performing | Address | City/State/Zipcode | Phone Number | | Organization | | | | + +---------+ + + | EXTERNAL LAB | | | | + +---------+ + + CK-MB (05/27/2014 8:50 AM PDT) + + + + + -+ | Component | Value | Ref Range | Performed | Pathologist | | | | | At | Signature | + + + + + -+ | CK-MB | 3.0Comment: Testing | 0.5 - 3.6 ng/mL | EXTERNAL | | | | performed at [facility];[address] | | LAB | | | | [address];[place], [place] | | | | | | [address] | | | | + + + + + -+ | CK-MB Index | 4.7Comment: CK INDEX | | EXTERNAL | | | | INTERPRETATION: | | LAB | | | | MMB ng/mL | | | | | | | | | | | |CK INDEX INTERPRETATION: | | | | | | MMB ng/mL | | | | | | | | | | + + + + + -+ + + | Specimen | + + | | + + + +---------+ + + | Performing | Address | City/State/Zipcode | Phone Number | | Organization | | | | + +---------+ + + | EXTERNAL LAB | | | | + +---------+ + + External Lab: ABBEY (05/27/2014 8:50 AM PDT) + + + + + + | Component | Value | Ref Range | Performed | Pathologist | | | | | At | Signature | + + + + + + | WBC | 10.8Comment: Testing | 3.8 - 11.0 K/uL | EXTERNAL | | | | performed at [facility], [address] | | LAB | | | | [address], | | | | | | [place] [address] | | | | + + + + + + | RED CELL | 3.93Comment: Testing | 3.70 - 5.10 | EXTERNAL | | | COUNT | performed at [facility], [address] | M/uL | LAB | | | | [address], | | | | | | [place] [address] | | | | + + + + + + | Hemoglobin | 12.3Comment: Testing | 11.3 - 15.5 | EXTERNAL | | | | performed at [facility], [address] | g/dL | LAB | | | | [address], | | | | | | [place] [address] | | | | + + + + + + | Hematocrit, | 35.5Comment: Testing | 34.0 - 46.0 % | EXTERNAL | | | POC | performed at [facility], [address] | | LAB | | | | [address], | | | | | | [place] [address] | | | | + + + + + + | MCV | 90.4Comment: Testing | 80.0 - 100.0 fl | EXTERNAL | | | | performed at [facility], [address] | | LAB | | | | [address], | | | | | | [place] [address] | | | | + + + + + + | MCH | 31.4Comment: Testing | 27.0 - 34.0 pg | EXTERNAL | | | | performed at [facility], [address] | | LAB | | | | [address], | | | | | | [place] [address] | | | | + + + + + + | MCHC | 34.7Comment: Testing | 32.0 - 35.5 | EXTERNAL | | | | performed at [facility], [address] | g/dL | LAB | | | | [address], | | | | | | [place] [address] | | | | + + + + + + | RDW-CV | 39.8Comment: Testing | 37 - 53 fl | EXTERNAL | | | | performed at [facility], [address] | | LAB | | | | [address], | | | | | | [place] [address] | | | | + + + + + + | Platelet | 212Comment: Testing | 150 - 400 K/uL | EXTERNAL | | | Count | performed at [facility], [address] | | LAB | | | Plasma | [address], | | | | | | [place] [address] | | | | + + + + + + | MPV | 9.5Comment: Testing | fl | EXTERNAL | | | | performed at [facility], [address] | | LAB | | | | [address], | | | | | | [place] [address] | | | | + + + + + + | Differentia | AUTOMATEDComment: | | EXTERNAL | | | l Type | Testing performed at | | LAB | | | | [facility], [address] | | | | | | [place] | | | | | | [address] | | | | + + + + + + | % Segmented | 79.6Comment: Testing | % | EXTERNAL | | | | performed at [facility], [address] | | LAB | | | Neutrophils | [address], | | | | | | [place] [address] | | | | + + + + + + | % | 13.3Comment: Testing | % | EXTERNAL | | | Lymphocytes | performed at [facility], [address] | | LAB | | | | [address], | | | | | | [place] [address] | | | | + + + + + + | % Monocytes | 6.2Comment: Testing | % | EXTERNAL | | | | performed at [facility], [address] | | LAB | | | | [address], | | | | | | [place] [address] | | | | + + + + + + | % | 0.3Comment: Testing | % | EXTERNAL | | | Eosinophils | performed at [facility], [address] | | LAB | | | | [address], | | | | | | [place] [address] | | | | + + + + + + | % Basophils | 0.6Comment: Testing | % | EXTERNAL | | | | performed at [facility], [address] | | LAB | | | | [address], | | | | | | [place] [address] | | | | + + + + + + | Absolute | 8.6 (H)Comment: Testing | 1.9 - 7.4 K/uL | EXTERNAL | | | Segmented | performed at [facility], [address] | | LAB | | | Neutrophils | [address], | | | | | | [place] [address] | | | | + + + + + + | Absolute | 1.4Comment: Testing | 1.0 - 3.9 K/uL | EXTERNAL | | | Lymphocytes | performed at [facility], [address] | | LAB | | | | [address], | | | | | | [place] [address] | | | | + + + + + + | Absolute | 0.7Comment: Testing | 0 - 0.8 K/uL | EXTERNAL | | | Monocytes | performed at [facility], [address] | | LAB | | | | [address], | | | | | | [place] [address] | | | | + + + + + + | Absolute | 0.0Comment: Testing | 0 - 0.5 K/uL | EXTERNAL | | | Eosinophils | performed at [facility], [address] | | LAB | | | | [address], | | | | | | [place] [address] | | | | + + + + + + | Absolute | 0.1Comment: Testing | 0 - 0.1 K/uL | EXTERNAL | | | Basophils | performed at [facility], [address] | | LAB | | | | [address], | | | | | | [place] [address] | | | | + + + + + + + + | Specimen | + + | Blood specimen | | (specimen) | + + + +---------+ + + | Performing | Address | City/State/Zipcode | Phone Number | | Organization | | | | + +---------+ + + | EXTERNAL LAB | | | | + +---------+ + + CK Total (05/27/2014 8:50 AM PDT) + + + + + + | Component | Value | Ref Range | Performed | Pathologist | | | | | At | Signature | + + + + + + | CK, Total | 64Comment: Testing | 30 - 240 U/L | EXTERNAL | | | | performed at [facility];8 | | LAB | | | | [facility];[place], [place] | | | | | | [address] | | | | + + + + + + + + | Specimen | + + | Blood specimen | | (specimen) | + + + +---------+ + + | Performing | Address | City/State/Zipcode | Phone Number | | Organization | | | | + +---------+ + + | EXTERNAL LAB | | | | + +---------+ + + Comprehensive Metabolic Panel (05/27/2014 8:50 AM PDT) + + + + + + | Component | Value | Ref Range | Performed | Pathologist | | | | | At | Signature | + + + + + + | Na | 132 (L)Comment: Testing | 135 - 143 | EXTERNAL | | | | performed at [facility] [address] | mmol/L | LAB | | | | [address], | | | | | | [place] [address] | | | | + + + + + + | K | 2.9 (L)Comment: Testing | 3.5 - 4.9 | EXTERNAL | | | | performed at [facility], [address] | mmol/L | LAB | | | | [address], | | | | | | [place] [address] | | | | + + + + + + | Cl | 97 (L)Comment: Testing | 99 - 109 mmol/L | EXTERNAL | | | | performed at [facility], [address] | | LAB | | | | [address], | | | | | | [place] [address] | | | | + + + + + + | CO2 | 25Comment: Testing | 23 - 32 mmol/L | EXTERNAL | | | | performed at [facility], [address] | | LAB | | | | [address], | | | | | | [place] [address] | | | | + + + + + + | Anion Gap | 13Comment: Testing | 5 - 20 mmol/L | EXTERNAL | | | | performed at [facility], [address] | | LAB | | | | [address], | | | | | | [place] [address] | | | | + + + + + + | Glucose, | 197 (H)Comment: Testing | 65 - 99 mg/dL | EXTERNAL | | | Fasting | performed at [facility] [address] | | LAB | | | | [address], | | | | | | [place] [address] | | | | + + + + + + | BUN | 20Comment: Testing | 8 - 25 mg/dL | EXTERNAL | | | | performed at [facility] [address] | | LAB | | | | [address], | | | | | | [place] [address] | | | | + + + + + + | Creatinine | 0.70Comment: Testing | 0.50 - 1.00 | EXTERNAL | | | | performed at [facility] [address] | mg/dL | LAB | | | | [address], | | | | | | [place] [address] | | | | + + + + + + | BUN/Creatin | 29Comment: Testing | | EXTERNAL | | | ine Ratio | performed at [facility], [address] | | LAB | | | | [address], | | | | | | [place] [address] | | | | + + + + + + | Calcium | 9.0Comment: Testing | 8.5 - 10.2 | EXTERNAL | | | | performed at [facility], [address] | mg/dL | LAB | | | | [address], | | | | | | [place] [address] | | | | + + + + + + | Protein, | 7.6Comment: Testing | 6.3 - 8.2 g/dL | EXTERNAL | | | Total | performed at [facility] [address] | | LAB | | | | [address], | | | | | | [place] [address] | | | | + + + + + + | Albumin | 4.0Comment: Testing | 3.3 - 4.8 g/dL | EXTERNAL | | | | performed at [facility] [address] | | LAB | | | | [address], | | | | | | [place] [address] | | | | + + + + + + | Globulin | 3.6Comment: Testing | 1.3 - 4.9 g/dL | EXTERNAL | | | | performed at [facility], [address] | | LAB | | | | [address], | | | | | | [place] [address] | | | | + + + + + + | A/G Ratio | 1.1Comment: Testing | 1.0 - 2.4 | EXTERNAL | | | | performed at [facility], [address] | | LAB | | | | [address], | | | | | | [place] [address] | | | | + + + + + + | Bilirubin | 0.7Comment: Testing | 0.1 - 1.5 mg/dL | EXTERNAL | | | Total | performed at [facility], [address] | | LAB | | | | [address], | | | | | | [place] [address] | | | | + + + + + + | ALP, | 51Comment: Testing | 35 - 115 U/L | EXTERNAL | | | External | performed at [facility], [address] | | LAB | | | | [address], | | | | | | [place] [address] | | | | + + + + + + | AST | 17Comment: Testing | 10 - 45 U/L | EXTERNAL | | | | performed at [facility] [address] | | LAB | | | | [address], | | | | | | [place] [address] | | | | + + + + + + | ALT | 9 (L)Comment: Testing | 10 - 65 U/L | EXTERNAL | | | | performed at [facility] [address] | | LAB | | | | [address], | | | | | | [place] [address] | | | | + + + + + + | Estimated | >60Comment: GFR <60: | mL/min/1.73m2 | EXTERNAL | | | GFR | CHRONIC KIDNEY DISEASE, | | LAB | | | | IF FOUND OVER A 3 MONTH | | | | | | PERIOD.GFR <15: KIDNEY | | | | | | FAILURE.FOR | | | | | | AMERICANS, MULTIPLY THE | | | | | | CALCULATED GFR BY | | | | | | 1.210.Testing performed | | | | | | at [facility], [address] | | | | | | [place] [address], | | | | | | [place] [address] | | | | + + + + + + + + | Specimen | + + | Blood specimen | | (specimen) | + + + +---------+ + + | Performing | Address | City/State/Zipcode | Phone Number | | Organization | | | | + +---------+ + + | EXTERNAL LAB | | | | + +---------+ + + CT Head Maxillofacial C-Spine wo Con (05/27/2014 7:00 AM PDT) + + | Specimen | + + | | + + + + + | Impressions | Performed At | + + + | Head CT: 1. Atrophy and small vessel disease. 2. Old lacunar | | | infarct is again seen on the left. Maxillofacial CT: 1. No acute | | | fracture or dislocation seen in the face. Cervical spine CT: 1. Mild | | | wedge deformity at C7 and T1, likely chronic. No definite acute | | | fracture or dislocation. 2. Osteopenia. 3. Relatively mild | | | multilevel degenerative disk disease and degenerative joint disease | | | for the patient's age. RADIA Electronically signed by Sukhjinder | | | MD Doreen on May 27 2014 7:27AM Referring Provider Line: | | | [phone] ID: [id number] | | + + + + + + | Narrative | Performed At | + + + | EXAM: CT HEAD, MAXILLOFACIAL, CERVICAL SPINE EXAM DATE: | | | 05/27/2014 07:01 AM. CLINICAL HISTORY: Pain after injury. | | | COMPARISON: MRI brain, 09/07/2013. TECHNIQUE: Noncontrast axial | | | sections through the head, face, and cervical spine with multiplanar | | | reconstructions through the face and cervical spine. FINDINGS: | | | HEAD CT: There is atrophy and small vessel disease. Old lacunar | | | infarct is seen in the left basal ganglia extending to the | | | periventricular white matter. No mass, mass effect, or midline shift | | | is seen. No intracranial hemorrhage or extra-axial fluid collections | | | are noted. Bone windows do not demonstrate a depressed skull | | | fracture. MAXILLOFACIAL CT: No fracture or dislocation is seen. | | | No fluid levels are seen in the paranasal sinuses. No acute osseous | | | abnormality is identified. CERVICAL SPINE CT: Alignment: Normal. | | | No scoliosis or spondylolisthesis. Bones: Osteopenia is noted. | | | Mild wedge deformity is seen at C7 and T1. These deformities are | | | probably although not definitively chronic. Interspace | | | Levels/Facets: There is relatively mild multilevel degenerative disk | | | disease and degenerative joint disease for the patient's age. | | | Broad-based disk bulge or protrusion is seen at C4-C5 contacting the | | | ventral aspect of the cord. Mild posterior disk-osteophyte complex | | | is seen at C5-C6 possibly contacting the ventral aspect of the cord. | | | No definite foraminal stenosis is seen in the cervical spine. | | | Other: The paravertebral and prevertebral soft tissues are normal. The | | | lung apices are clear. Bilateral carotid artery calcifications are | | | seen. | | + + + + + | Procedure Note | + + | Lon, Rad Conversion - 07/09/2019 12:54 PM PDT EXAM:CT HEAD, MAXILLOFACIAL, CERVICAL | | SPINE EXAM DATE: 05/27/2014 07:01 AM. CLINICAL HISTORY: Pain after injury. COMPARISON: MRI | | brain, 09/07/2013. TECHNIQUE: Noncontrast axial sections through the head, face, and | | cervical spine with multiplanar reconstructions through the face and cervical spine. | | FINDINGS:HEAD CT:There is atrophy and small vessel disease. Old lacunar infarct is seen | | in the left basal ganglia extending to the periventricular white matter. No mass, mass | | effect, or midline shift is seen. No intracranial hemorrhage or extra-axial fluid | | collections are noted. Bone windows do not demonstrate a depressed skull fracture. | | MAXILLOFACIAL CT:No fracture or dislocation is seen. No fluid levels are seen in the | | paranasal sinuses. No acute osseous abnormality is identified. CERVICAL SPINE | | CT:Alignment: Normal. No scoliosis or spondylolisthesis. Bones: Osteopenia is noted. | | Mild wedge deformity is seen at C7 and T1. These deformities are probably although not | | definitively chronic. Interspace Levels/Facets: There is relatively mild multilevel | | degenerative disk disease and degenerative joint disease for the patient's age. | | Broad-based disk bulge or protrusion is seen at C4-C5 contacting the ventral aspect of | | the cord. Mild posterior disk-osteophyte complex is seen at C5-C6 possibly contacting | | the ventral aspect of the cord. No definite foraminal stenosis is seen in the cervical | | spine. Other: The paravertebral and prevertebral soft tissues are normal. The lung | | apices are clear. Bilateral carotid artery calcifications are seen. IMPRESSION: Head | | CT:1. Atrophy and small vessel disease.2. Old lacunar infarct is again seen on the | | left.Maxillofacial CT:1. No acute fracture or dislocation seen in the face.Cervical | | spine CT:1. Mild wedge deformity at C7 and T1, likely chronic. No definite acute | | fracture or dislocation.2. Osteopenia.3. Relatively mild multilevel degenerative disk | | disease and degenerative joint disease for the patient's age. RADIA Electronically | | signed by Sukhjinder Logan MD on May 27 2014 7:27AM Referring Provider Line: | | [phone] ID: [id number] | |disk-osteophyte complex is seen at C5-C6 possibly contacting the ventral aspect of the cord . No definite foraminal stenosis is seen in the cervical spine. | | | |Other: The paravertebral and prevertebral soft tissues are normal. The lung apices are thi r. Bilateral carotid artery calcifications are seen. | | | |IMPRESSION: | | | |Head CT: | |1. Atrophy and small vessel disease. | |2. Old lacunar infarct is again seen on the left. | |Maxillofacial CT: | |1. No acute fracture or dislocation seen in the face. | |Cervical spine CT: | |1. Mild wedge deformity at C7 and T1, likely chronic. No definite acute fracture or disloca tion. | |2. Osteopenia. | |3. Relatively mild multilevel degenerative disk disease and degenerative joint disease for the patient's age. | | | |RADIA | | | | Electronically signed by Sukhjinder Logan MD on May 27 2014 7:27AM Referring Provider Line: [phone] ID: [id number] | + + ECG 12 lead (05/27/2014 5:19 AM PDT) + + + + + + | Component | Value | Ref Range | Performed | Pathologist | | | | | At | Signature | + + + + + + | DIAGNOSIS: | Normal sinus | | EXTERNAL | | | | rhythmPossible Left | | LAB | | | | atrial enlargementLeft | | | | | | ventricular hypertrophy | | | | | | with repolarization | | | | | | abnormalityAbnormal | | | | | | ECGWhen compared with | | | | | | ECG of 07-SEP-2013 | | | | | | 21:20,Inverted T waves | | | | | | have replaced | | | | | | nonspecific T wave | | | | | | abnormality in Inferior | | | | | | leadsThis ECG contains | | | | | | Unconfirmed | | | | | | Interpretation | | | | | | Statements. See ED | | | | | | Record for Physician | | | | | | Interpretation. | | | | | | Confirmed by MUSE READ | | | | | | ONLY, -COMPUTER ([id number]), | | | | | | loan expeditor MADELIN MEEKS ([id number]) | | | | | | on 05/30/2014 5:42:08 AM | | | | + + + + + + + + | Specimen | + + | | + + + + + | Narrative | Performed At | + + + | Historically converted procedure from [facility] Epic environment | EXTERNAL LAB | + + + + +---------+ + + | Performing | Address | City/State/Zipcode | Phone Number | | Organization | | | | + +---------+ + + | EXTERNAL LAB | | | | + +---------+ + + documented in this encounter Visit Diagnoses + + | Diagnosis | + + | Acute chest pain Chest pain, unspecified | + + | Head ache Headache | + + | Nausea with vomiting | + + | NSTEMI (non-ST elevated myocardial infarction) ([facility]) Acute myocardial infarction, | | subendocardial infarction, episode of care unspecified | + + | CAD (coronary artery disease) Coronary atherosclerosis of unspecified type of vessel, | | [place] or graft | + + | HTN (hypertension) Unspecified essential hypertension | + + | DM type 2 (diabetes mellitus, type 2) ([facility]) Type II or unspecified type diabetes | | mellitus without mention of complication, not stated as uncontrolled | + + | Elevated d-dimer Abnormal coagulation profile | + + | Accelerated hypertension Essential hypertension, malignant | + + | At high risk for falls Personal history of fall | + + | Chronic low back pain Lumbago | + + | Gait disturbance, post-stroke Ataxia, late effect of cerebrovascular disease | + + documented in this encounter
--- OUTSIDE RECORDS SUMMARY | ~2020-02-24 | XMS | Encounter Summary ---
Demographics + + + | Address | [address] | | | [place] [address] | + + + | Home Phone | | + + + | Preferred Language | Unknown | + + + | Marital Status | | + + + | Quaker Affiliation | Unknown | + + + | Race | Unknown | + + + | Ethnic Group | Unknown | + + + Author + + + | Author | [facility] | | | and [place] | + + + | Organization | [facility] | | | [...] Team Providers + +------+ + | Care Social Welfare Research Worker Name | Role | Phone | + +------+ + PCP | Unavailable | + +------+ + Encounter Details +--------+ + + + + | Date | Type | Department | Care Team | Description | +--------+ + + + + | 02/26/ | Hospital | [place] | | | | 2006 - | Encounter | MED CTR OP REHAB | | | | | | [address] [place] | | | | 03/23/ | | [place] [address] | | | | 2006 | | [phone] | | | +--------+ + + + [...]
--- OUTSIDE RECORDS SUMMARY | ~2020-02-24 | XMS | Encounter Summary ---
Demographics + + + | Address | [address] | | | [place] [address] | + + + | Home Phone | | + + + | Preferred Language | Unknown | + + + | Marital Status | | + + + | Episcopal Affiliation | Unknown | + + + | Race | Unknown | + + + | Ethnic Group | Unknown | + + + Author + + + | Author | [facility] | | | and [place] | + + + | Organization | [facility] | | | [...] Team Providers + +------+ + | Care Privacy Director Name | Role | Phone | + +------+ + PCP | Unavailable | + +------+ + Encounter Details +--------+ + + + + | Date | Type | Department | Care Team | Description | +--------+ + + + + | 06/16/ | [facility] | [facility] | Wilber Giron | | | 2007 | Encounter | MED CTR XRAY [address] | [address] [facility] | | | | | [place] | [place] | | | | | [place] [address] | [id number] | | | | | [phone] | | | +--------+ + + + [...]
--- OUTSIDE RECORDS SUMMARY | ~2020-02-24 | XMS | Encounter Summary ---
Demographics + + + | Address | [address] | | | [place] [address] | + + + | Home Phone | | + + + | Preferred Language | Unknown | + + + | Marital Status | | + + + | Druze Affiliation | Unknown | + + + | Race | Unknown | + + + | Ethnic Group | Unknown | + + + Author + + + | Author | [facility] | | | and [place] | + + + | Organization | [facility] | | | and [...] Team Providers + +------+ + | Care Wildlife Biology Internship Name | Role | Phone | + +------+ + PCP | Unavailable | + +------+ + Encounter Details +--------+ + + + + | Date | Type | Department | Care Team | Description | +--------+ + + + + | 11/27/ | Hospital | [facility] | | | | 2006 - | Encounter | MED CTR CANCER | | | | | | [place] Megan [place]oya | | | | 12/24/ | | [place] | | | | 2006 | | [address] | | | | | | [phone] | | | +--------+ + + + [...]
--- OUTSIDE RECORDS SUMMARY | ~2020-02-24 | XMS | Encounter Summary ---
Demographics + + + | Address | [address] | | | [place] [address] | + + + | Home Phone | | + + + | Preferred Language | Unknown | + + + | Marital Status | | + + + | Episcopalian Affiliation | Unknown | + + + | Race | Unknown | + + + | Ethnic Group | Unknown | + + + Author + + + | Author | [facility] | | | and [place] | + + + | Organization | [facility] | | | and [...] Team Providers + +------+ + | Care Automatic Coin Machine Mechanic Name | Role | Phone | + +------+ + PCP | Unavailable | + +------+ + Encounter Details +--------+ + + + + | Date | Type | Department | Care Team | Description | +--------+ + + + + | 04/08/ | Hospital | [facility] | | | | 2008 - | Encounter | MED CTR CANCER | | | | | | [place] Megan Moya | | | | 04/23/ | | [place] | | | | 2008 | | [address] | | | | | | [phone] | | | +--------+ + + + [...]
--- OUTSIDE RECORDS SUMMARY | ~2020-02-24 | XMS | Encounter Summary ---
Demographics + + + | Address | [address] | | | [place] [address] | + + + | Home Phone | | + + + | Preferred Language | Unknown | + + + | Marital Status | | + + + | Quaker Affiliation | Unknown | + + + | Race | Unknown | + + + | Ethnic Group | Unknown | + + + Author + + + | Author | [facility] | | | and [place] | + + + | Organization | [facility] | | | and [...] Team Providers + +------+ + | Care Critical Care Technician Name | Role | Phone | + +------+ + PCP | Unavailable | + +------+ + Encounter Details +--------+ + + + + | Date | Type | Department | Care Team | Description | +--------+ + + + + | 01/19/ | Hospital | [facility] | Jung Navarrete, | | | 2005 - | Encounter | HEART MED CTR | [address] | | | | | CARDIAC TRANSPLANT | [address] [facility] | | | 01/22/ | | [address] | [place] | | | 2005 | | [place] | [address] | | | | | [address] | [phone] | | | | | [phone] | | | +--------+ + + + [...]
--- OUTSIDE RECORDS SUMMARY | ~2020-02-24 | XMS | Encounter Summary ---
Demographics + + + | Address | [address] | | | [place] [address] | + + + | Home Phone | | + + + | Preferred Language | Unknown | + + + | Marital Status | | + + + | Roman Catholic Affiliation | Unknown | + + + | Race | Unknown | + + + | Ethnic Group | Unknown | + + + Author + + + | Author | [facility] | | | and [place] | + + + | Organization | [facility] | | [...] Team Providers + +------+ + | Care Environmental Epidemiologist Name | Role | Phone | + +------+ + PCP | Unavailable | + +------+ + Encounter Details +--------+ + + + + | Date | Type | Department | Care Team | Description | +--------+ + + + + | 01/30/ | Hospital | [facility] | | | | 2009 - | Encounter | MED CTR CANCER | | | | | | [place] Megan Moya | | | | 02/21/ | | [place] | | | | 2009 | | [address] | | | | | | [phone] | | | +--------+ + + + [...]
--- OUTSIDE RECORDS SUMMARY | ~2020-02-24 | XMS | Encounter Summary ---
Demographics + + + | Address | [address] | | | [place] [address] | + + + | Home Phone | | + + + | Preferred Language | Unknown | + + + | Marital Status | | + + + | Sabianist Affiliation | Unknown | + + + | Race | Unknown | + + + | Ethnic Group | Unknown | + + + Author + + + | Author | [facility] | | | and [place] | + + + | Organization | [facility] | | | and [...] Team Providers + +------+ + | Care Ornamental Iron Worker Name | Role | Phone | + +------+ + PCP | Unavailable | + +------+ + Encounter Details +--------+ + + + + | Date | Type | Department | Care Team | Description | +--------+ + + + + | 01/01/ | Hospital | [facility] | | | | 2006 - | Encounter | MED CTR CANCER | | | | | | [place] Megan Moya | | | | 01/21/ | | [place] | | | | 2006 | | [address] | | | | | | [phone] | | | +--------+ + + + [...]
--- OUTSIDE RECORDS SUMMARY | ~2020-02-24 | XMS | Encounter Summary ---
Demographics + + + | Address | [address] | | | [place] [address] | + + + | Home Phone | | + + + | Preferred Language | Unknown | + + + | Marital Status | | + + + | Confucianism Affiliation | Unknown | + + + | Race | Unknown | + + + | Ethnic Group | Unknown | + + + Author + + + | Author | [facility] | | | and [place] | + + + | Organization | [facility] | | [...] Team Providers + +------+ + | Care Custodian Athletic Equipment Name | Role | Phone | + +------+ + PCP | Unavailable | + +------+ + Encounter Details +--------+ + + + + | Date | Type | Department | Care Team | Description | +--------+ + + + + | 03/18/ | [facility] | [facility] | Beto Yoder, | | | 2010 | Encounter | MED CTR EMERGENCY | [address] | | | | | CENTER [address] | [place] | | | | | [place] | [id number] | | | | | [address] | | | | | | [phone] | | | +--------+ + + + [...] | XR LUMBAR SPINE 2 OR | | 03/18/2011 | | Results for this | | 3 VW | | 11:52 AM | | procedure are in the | | | | PDT | | results section. | + +--------+ + + + documented in this encounter Results XR Lumbar Spine 2 or 3 Vw (03/18/2011 11:52 AM PDT) + + | Specimen | + + | | + + + + + | Narrative | Performed At | + + + | [facility] Diagnostic Imaging Department | MD PIETER | | [address] [facility] | [facility] | | LUMBAR SPINE SERIES @ 1330 HOURS, | DIAG IMG | | 03/18/2011 CLINICAL HISTORY: LOW BACK PAIN. | | | FINDINGS: There is compression deformity of the L5 vertebral body | | | with loss of approximately one-third of mid vertebral body height. | | | This is probably a benign insufficiency fracture which may be | | | acute or chronic. There are multiple other endplate deformities | | | involving L1, L2, and L3, with "fish mouth" deformities of the | | | endplates likely related to the diffuse osteoporosis. The alignment | | | is unremarkable. IMPRESSION: 1. OSTEOPENIA WITH | | | MULTILEVEL ENDPLATE DEFORMITIES AND VERTEBRAL BODY COMPRESSIONS, | | | WHICH MAY BE ACUTE OR CHRONIC. RECOMMENDATION: LUMBAR MR FOR | | | FURTHER ASSESSMENT. Dictated Date/Time: 03/18/2011 16:14 | | | Transcribed Date/Time: 03/18/2011 21:45 Filler Shaker: | | | <Electronically Signed by Freddy Solorzano MD> 03/19/11 1017 | | + + + + + | Procedure Note | + + | Lon, Jonnathan Conversion - 12/31/2013 2:47 PM [facility] | | Diagnostic Imaging Department [address] [address] [facility] [place] MD | | LUMBAR SPINE SERIES @ 1330 HOURS, 03/18/2011 CLINICAL | | HISTORY: LOW BACK PAIN. FINDINGS: There is compression deformity of the L5 | | vertebral body with loss of approximately one-third of mid vertebral body height. This | | is probably a benign insufficiency fracture which may be acute or chronic. There are | | multiple other endplate deformities involving L1, L2, and L3, with "fish mouth" | | deformities of the endplates likely related to the diffuse osteoporosis. The alignment | | is unremarkable. IMPRESSION: 1. OSTEOPENIA WITH MULTILEVEL ENDPLATE DEFORMITIES AND | | VERTEBRAL BODY COMPRESSIONS, WHICH MAY BE ACUTE OR CHRONIC. RECOMMENDATION: LUMBAR | | MR FOR FURTHER ASSESSMENT. Dictated Date/Time: 03/18/2011 16:14 Transcribed | | Date/Time: 03/18/2011 21:45 Filler Shaker: <Electronically Signed by Freddy Cisse | | MD Jeanine> 03/19/11 1017 | |"fish mouth" deformities of the endplates likely related to the diffuse osteoporosis. The alignment | |is | |unremarkable. | | | |IMPRESSION: | |1. OSTEOPENIA WITH MULTILEVEL ENDPLATE DEFORMITIES AND VERTEBRAL | |BODY COMPRESSIONS, WHICH MAY BE ACUTE OR CHRONIC. | | | |RECOMMENDATION: LUMBAR MR FOR FURTHER ASSESSMENT. | | | |Dictated Date/Time: 03/18/2011 16:14 | |Transcribed Date/Time: 03/18/2011 21:45 | |Filler Shaker: | |<Electronically Signed by Freddy Solorzano MD> 03/19/11 1017 | + + + +---------+ + + | Performing | Address | City/State/Zipcode | Phone Number | | Organization | | | | + +---------+ + + | [place] | | | | | [facility] | | | | + +---------+ + + documented in this encounter Visit Diagnoses Not on filedocumented in this encounter
--- OUTSIDE RECORDS SUMMARY | ~2020-02-24 | XMS | Encounter Summary ---
Demographics + + + | Address | [address] | | | [place] [address] | + + + | Home Phone | | + + + | Preferred Language | Unknown | + + + | Marital Status | | + + + | Moravian Affiliation | Unknown | + + + | Race | Unknown | + + + | Ethnic Group | Unknown | + + + Author + + + | Author | [facility] | | | and [place] | + + + | Organization | [facility] | | | [...] Team Providers + +------+ + | Care Seal Skinner Name | Role | Phone | + +------+ + PCP | Unavailable | + +------+ + Encounter Details +--------+ + + + + | Date | Type | Department | Care Team | Description | +--------+ + + + + | 10/31/ | [facility] | [facility] | Sharif Prieto, | | | 2004 | Encounter | [facility] | [address] | | | | | [address] | [place] | | | | | [place] | [address] | | | | | [address] | | | | | | [phone] | | | +--------+ + + + [...]
--- OUTSIDE RECORDS SUMMARY | ~2020-02-24 | XMS | Encounter Summary ---
Demographics + + + | Address | [address] | | | [place] [address] | + + + | Home Phone | | + + + | Preferred Language | Unknown | + + + | Marital Status | | + + + | Moravian Affiliation | Unknown | + + + | Race | Unknown | + + + | Ethnic Group | Unknown | + + + Author + + + | Author | [facility] | | | and [place] | + + + | Organization | [facility] | | [...] Team Providers + +------+ + | Care [employer] Wafer [employer]aker Name | Role | Phone | + [...] | Thoracic | [place], | [address] | | | | | back pain | Juan C Calvo MD | [place], | | | | | History of | [address] | [place] | | | | | compression | [place] | [address] | | | | | fracture of | [place], [place] | Phone: | | | | | spine | [address] | [phone] | | | | | Osteoporosis | Phone: | Fax: | | | | | Procedures | [phone] | [phone] | | | | | MRI | Fax: | | | | | | Thoracic | [phone] | | | | | | Spine wo | | | | | | | Contrast | | | | | | | MRI | | | +--------+--------+ + + + + Reason for Visit + + + | Reason | Comments | + + + | Back Pain | Upper back pain below the shoulder blades | + + + Evaluate & Treat (Routine) +--------+--------+ + + + + | Status | Reason | Specialty | Diagnoses / | Referred By | Referred To | | | | | Procedures | Contact | Contact | +--------+--------+ + + + + | Closed | | Physical | Diagnoses | [place], | [place], | | | | Medicine and | Pain in | MD Ani | Juan C Calvo MD | | | | Rehabilitatio | thoracic | [address] | [address] | | | | n | spine | [address] [place] | [place] | | | | | Cervical | [place], [place] | [place] | | | | | pain | [address] | [address] Phone: | | | | | | Phone: | [phone] | | | | | | [phone] | Fax: | | | | | | Fax: | [phone] | | | | | | [phone] | | +--------+--------+ + + + + Encounter Details +--------+---------+ + + + | Date | Type | Department | Care Team | Description | +--------+---------+ + + + | 08/31/ | Office | [facility] | Juan C Young | Thoracic back pain | | 2013 | Visit | PHYSIATRY [address], [address] | (Primary Dx); | | | | [address] | [place], [place] | History of | | | | [place], [place] | [address] | compression fracture | | | | [address] | | of spine; | | | | [phone] | | Osteoporosis | +--------+---------+ + + + Social History + +-------+ [...] + | Blood Pressure | 149/95 | 08/31/2014 11:17 AM | | | | | PDT | | + + + + + | Pulse | 97 | 08/31/2014 11:17 AM | | | | | PDT | | + + + + + [...] Weight | 47.6 kg (105 lb) | 08/31/2014 11:17 AM | | | | | PDT | | + + + + + | Height | 154.9 cm (5' 1") | 08/31/2014 11:17 AM | | | | | PDT | | + + + + + | Body Mass Index | 19.84 | 08/31/2014 11:17 AM | | | | | PDT | | + + + + + documented in this encounter Progress Notes Juan C Young MD - 08/31/2014 11:47 AM PDT CHIEF COMPLAINT: Chief Complaint Patient presents with Back Pain Upper back pain below the shoulder blades HISTORY OF PRESENT ILLNESS: The patient is a 74 y.o. female being seen today at the [facility] of Dr. Ani Yanes for complaints of upper back pain that began six weeks ago. She has a history of chronic back pain but the current symptoms began after a fall six weeks ago. Her symptoms worsen with changing position, standing, sitting, kneeling, bending and twisti ng. Her symptoms improve with rest, changing position and sitting. Since the symptoms began, she has noticed that the symptoms have been constant but graduall y improving. She describes the pain as an aching feeling. She rates the pain as severe. She denies any radicular leg symptoms. The patient does describe numbness of the arms and hands at times. She denies numbness in the legs. She does not report weakness of the legs or arms. She does not have bowel and b ladder dysfunction. She does not have saddle anesthesia. Treatments for these complaints have included PT, anti-inflammatories and a back brace. Patient's medications, allergies, past medical, surgical, social and family histories were reviewed and updated as appropriate. PAST MEDICAL HISTORY: Past Medical History Diagnosis Date Vertigo Hypertension Diabetes mellitus (HCC) Stroke (HCC) Hemiparesis (HCC) left Hearing loss Osteoporosis Osteoarthritis Coronary artery disease Peptic ulcer disease Hyperlipidemia Hyperthyroidism Neurogenic bladder Cardiac murmur History of breast cancer Gout Retinal hemorrhage, right eye Dermatophytosis of nail Macular degeneration Dyspnea Cancer (HCC) breast PAST SURGICAL HISTORY: Past Surgical History Procedure Date Right breast lumpectomy 2004 External: sigmoidoscopy 09/09/1997 Colonoscopy 04/14/2004 Cataract removal x2 Upper gastrointestinal endoscopy 07/25/2009 Lesion remove colonoscopy x3 Colonoscopy and biopsy 01/24/2011 Cystoscopy 02/19/2011 Irrigation of bladder 02/19/2011 CURRENT MEDICATIONS: Current Outpatient Prescriptions Medication Sig Dispense Refill aspirin 81 MG tablet Take 81 mg by mouth Daily. Take 2 tablets 2 times daily CALCIUM CARBONATE TABS one by mouth daily Cholecalciferol (VITAMIN D3) 11353 UNITS CAPS Take 50,000 Units by mouth Daily. clopidogrel (PLAVIX) 75 mg tablet Take 75 mg by mouth Daily. ferrous sulfate 325 mg tablet One tablet by mouth once daily hydrochlorothiazide 25 mg tablet Take 25 mg by mouth Daily. ibuprofen (ADVIL,MOTRIN) 600 MG tablet Take 600 mg by mouth 3 times daily. insulin glargine (LANTUS) 100 units/mL injection Inject 15 Units under the skin nightly . isosorbide dinitrate (ISORDIL) 30 MG tablet Take 30 mg by mouth 2 times daily. levothyroxine (SYNTHROID, LEVOTHROID) 125 mcg tablet Take 125 mcg by mouth Daily. metoprolol (TOPROL-XL) 100 MG 24 hr tablet Take 100 mg by mouth 2 times daily. multiple vitamins w/minerals (OCUVITE) TABS one by mouth daily multivitamin (THERAGRAN) per tablet One tablet by mouth once daily nitroglycerin (NITROSTAT) 0.[address] 0.4 mg under the tongue every 5 minute s as needed. simvastatin (ZOCOR) 20 mg tablet Take 20 mg by mouth nightly. sitagliptan (JANUVIA) 50 MG tablet Take 50 mg by mouth Daily. telmisartan (MICARDIS) 20 MG tablet Take 40 mg by mouth Daily. ALLERGIES: Allergies Allergen Reactions Bee Venom Codeine Hydrocodone Morphine Penicillins Promethazine SOCIAL HISTORY: The patient reports that she has never smoked. She does not have any smokeless tobacco his tory on file. She reports that she drinks alcohol. She reports that she does not use illicit drugs. FAMILY HISTORY: Family History Problem Relation Age of Onset Colon cancer Brother Cervical cancer Sister Other (See Comment) Mother CVA Stroke Mother Alcohol abuse Mother Arthritis Mother Clotting disorder Mother Cancer Mother Diabetes Mother Heart disease Mother Kidney disease Mother Lung cancer Mother Alcohol abuse Father Arthritis Father Clotting disorder Father Cancer Father Diabetes Father Heart disease Father Kidney disease Father Lung cancer Father Stroke Father REVIEW OF SYSTEMS: GENERALLY: No fever, chills, no night sweats, no weight gain, no weight loss, no anemia, + fatigue. EYES: + eye problems, no impaired sight, + eye glasses/contacts, no eye injury, no double vision, no transient blindness. EARS, NOSE, THROAT and MOUTH: No change in sense taste/smell, + hearing difficulty, no rin ging in ears, no drainage from ears, no ear injury, + dizziness, no voice change, no difficu lty swallowing, + snoring, no sleep apnea/CPAP, no sinus trouble, no dental work. NEUROMUSCULAR: + numbness/pain of arms, no numbness/pain of legs, no awake with numbness/p ain, no weakness, + muscle aching, + coordination difficulty, no change in walk, no head inj ury, no neck injury, + back injury, no pain in neck, + pain in back, + stroke, no fainting s pells, no loss of consciousness, no tremor/shaking, no seizures, + headaches, no migraines, no memory loss, no speech difficulty, no confusion, + numbness of face. PSYCHIATRIC: No depression, no difficulty sleeping, + anxiety, no bipolar disorder. CARDIOVASCULAR/PULMONARY: No heart attack, + heart murmur, no fluttering heart, no shortne ss of breath, no cough, no Tuberculosis, + chest pain, + swelling ankles, no bloody coughing , no asthma, no COPD/emphysema. GASTROINTESTINAL: No bowel disease, + nausea/vomiting, no rectal bleeding/hemorroids, no c onstipation, no fecal/stool incontinence, no liver/gallbladder disease, no abdominal pain. GENITOURINARY: No frequent urination, no painful/difficult urination, no urinary incontinen ce, no bladder problems. ENDOCRINE: + diabetes, + thyroid disease, + osteoporosis/osteopenia, no drainage from breas ts. INTEGUMENTARY/SKIN: No lump in breasts, no skin disease or skin changes, no rash/itch. HEMATOLOGIC: No enlarged lymph nodes, no easy or unusual bleeding, + cancer. RHEUMATOLOGIC: + joint pain/arthritis, no rheumatoid arthritis PHYSICAL EXAMINATION: Blood pressure 149/95, pulse 97, height 1.549 m (5' 1"), weight 47.628 kg (105 lb). Body ma ss index is 19.85 kg/(m^2). GENERAL: The patient is well developed and well nourished. She does not appear uncomfortab le when seated. HEENT: HEAD/FACE: EYES: Normocephalic and atraumatic. There are no areas of recent trauma. Normal sclerae without icterus. SKIN Limited skin exam shows no significant rashes or lesions. There are not scars in the lumbar region. CHEST: The patient is in no acute respiratory distress with unlabored respirations. HEART: There is not lower extremity edema. ABDOMEN: Soft, non-tender, non-distended, and without palpable masses. The patient is not obese. NEUROLOGIC: The patient is awake, alert, and oriented to time, place, person. She follows simple and complex commands. Her speech is fluent. She comprehends speech well. 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 She has appropriate fund of knowledge Cranial nerves 2-12 appear grossly intact. Sensory exam does not show diminished sensation to light touch in the upper and lower extr emities. REFLEX: RIGHT LEFT PATELLAR 1+ 0 ACHILLES 0 0 PLANTAR Downgoing Downgoing MUSCULOSKELETAL There is no major palpable deformity of the spine. Straight leg raise and slump-sit are negative. Cedric's maneuver and impingement testing were negative for any groin pain. There was no tenderness to palpation over the greater tr ochanters or sacral sulci. The patient localized the majority of the pain to the mid thorac ic region. Lumbar facet loading was negative. Strength testing showed 5/5 strength through out the lower extremities. The patient was able to heel and toe walk without difficulty. T here was no redness, effusion, warmth or joint line tenderness in the knees or ankles. She d oes have an exaggerated thoracic kyphosis. RADIOGRAPHIC REVIEW: The patient's available imaging included only lumbar spine x-rays from 2010. There were al so x-ray reports from [facility] including a chest x-ray and lumbar spine x-rays. The available data was reviewed in detail with the patient today during the visit. The images show evide nce of multiple compression fractures. ASSESSMENT: 1. Thoracic back pain 2. History of compression fracture of spine 3. Osteoporosis PLAN: 1. The patient had a CT chest at [facility], L-Spine X-rays as well at [facility] we did request these images. 2. Currently the majority of her pain appears to be coming from the mid thoracic region, azra gipson from an acute compression fracture. MRI thoracic spine was ordered today for further ev aluation. If there is an acute compression fracture she may be a candidate for intervention . 3. The patient needs to discuss treatment for osteoporosis with her PCP or an endocrinolog ist. 4. I did not make any medication changes today but I would be happy to work with the patie nt on medication management for her pain. ELECTRONICALLY EDITED AND SIGNED BY: Juan C Young MD, 08/31/2014 Scribed by: Amelia Winkler MA for Dr. Juan C Young on 08/31/2014 documented in this encounter Plan of Treatment Not on filedocumented as of this encounter Results MRI Thoracic Spine wo [...] at T5, mild at T6, mild from [id number] T9, moderate from T10 through L2, and [...] + + | Performing | Address | [facility] | Phone Number | | Organization | | | | + +---------+ + + | [facility] | | | [phone] | + +---------+ + + | [facility] | | | [phone] | + +---------+ + + documented in this encounter Visit Diagnoses + + | Diagnosis | + + | Thoracic back pain - Primary Pain in thoracic spine | + + | History of compression fracture of spine Personal history of traumatic fracture | + + | Osteoporosis Osteoporosis, unspecified | + + documented in this encounter
--- OUTSIDE RECORDS SUMMARY | ~2020-02-24 | XMS | Encounter Summary ---
Demographics + + + | Address | [address] | | | [place] [address] | + + + | Home Phone | | + + + | Preferred Language | Unknown | + + + | Marital Status | | + + + | Buddhist Affiliation | Unknown | + + + [...] Team Providers + +------+ + | Care Athletic Coach Name | Role | Phone | + +------+ + PCP | Unavailable | + +------+ + Encounter Details +--------+ + + + + | Date | Type | Department | Care Team | Description | +--------+ + + + + | 09/07/ | Hospital | [facility] | Pradeep Wing | Lacunar stroke, | | 2012 - | Encounter | [facility] [address] | MD [address] | acute (HCC); Muscle | | | | [address] | [address] | weakness of left | | 09/09/ | | [place], [place] | [place] [address] | arm; Dehydration; DM | | 2012 | | [id number] | [phone] | type 2 (diabetes | | | | [phone] | | mellitus, type 2) | | | | | | (HCC); HTN | | | | | | (hypertension) | +--------+ + + + + Social [...] documented as of this encounter Discharge Summaries Anselmo Crews MD - 09/09/2013 10:24 AM PDT Discharge Summaries by Anselmo Bishop MD at 09/09/13 1024 Author: Anselmo Bishop MD Service: (none) Author Type: Physician Filed: 09/10/13 0934 Date of Service: 09/09/13 1024 Status: Signed Automation And Controls Instructor: Anselmo Bishop MD (Physician) Related Notes: Original Note by Anselmo Bishop MD (Physician) filed at 09/09/13 1031 [facility]: Hospitalist Physician Discharge Summary Patient ID: Helen Kearney 1940 73 y.o. Admit date: 09/07/2013 Discharge date: 09/09/2013 Admitting Physician: Pradeep Wing MD Discharge Physician: Anselmo Bishop MD Consultants: Treatment Team: Consulting Physician: Wing Mago Chamorro MD Admitting Provider: Pradeep Wing MD Primary Discharge Diagnoses: Dehydration [276.51] HTN (hypertension) [401.9] DM type 2 (diabetes mellitus, type 2) [250.00] Muscle weakness of left arm [728.87] Lacunar stroke, acute [434.91] HPI and Hospital Course: The patient was admitted to [facility] on September 07, 2013, with a diagnosis of lacunar infarct. An MRI of the brain and MRA of the brain revealed a 4 mm acute infarct involving the posteri or right side of the meryl. The patient was treated according to stroke protocol. She was mon itored on telemetry. Telemetry showed normal sinus rhythm. The 2-dimensional echocardiogram results are noted below. The patient had no significant carotid artery disease with mild jesus ateral plaques. The patient did well from her initial left-sided weakness. She recovered sergey ost full strength in her left upper and left lower extremities. She was evaluated by Dr. Audrey aguillon and was found to be a suitable candidate for inpatient rehabilitation. A tentative date fo r transfer to inpatient rehabilitation was September 09, 2013. Please note that the patient has been treated with aspirin prior to hospitalization. In fac t she failed stroke prophylaxis on aspirin therapy. For this reason she will be transitioned to the daily Plavix at the time of her discharge from the hospital. The patient's blood pressure prior to discharge from the hospital ranged from systolic of 1 50 to 137. Her antihypertensive medications initially have been held on presentation. We are currently passing 48 hours post event and then re-initiation of the patient's antihypertens kt medication regimen can be contemplated. For now we are going to decrease her amlodipine to 2.5 mg p.o. daily with hold parameters for systolic blood pressure less than 120. We are also going to try to reinitiate the patient isosorbide mononitrate at 30 mg p.o. daily with again noted hold parameters for systolic blood pressure less than 120. Her amlodipine can be adjusted further if systolic blood pressure continues to be an issue. For now her goal bloo d pressure will be between 120 and 140. From diabetes standpoint, the patient was only on Lantus insulin prior to admission. For th e purpose of more diabetic coverage during her rehabilitation stay, she will be placed on lo w-dose aspart corrective sliding scale for q.a.c. and nightly Accu-Chek tests. Past Medical History: Past Medical History Diagnosis Date Diabetes mellitus type II Cancer Past Surgical History Procedure Date Tumor removal right breast Discharged Condition: Stable for discharge as stated above. Significant Diagnostic Studies: Xr Chest Pa And Lateral 09/08/2013 HELEN ROZ XR CHEST 2 VIEW FRONTAL AND LATERAL 09/07/2013 9:47 PM HISTORY : 73 years. Female. Chest pain. TECHNIQUE: 2 views obtained. COMPARISON: None. FINDINGS : Surgical clips are seen in along the lateral margin of the right chest wall which may be i n the axillary region. The heart is mildly enlarged. The lungs are normally expanded. The pulmonary vascular pattern is normal. No acute airspace disease, parenchymal nodule, mass, pleural effusion or pneumothorax is noted. No hilar adenopathy is seen. Osteopenia 09/08/2013 1. Mild cardiomegaly. 2. Osteopenia. 3. No cause for acute chest pain noted. Ct Head Non-con 09/07/[address] [facility] [address] HEAD WO CONTRAST 09/07/2013 9:33 PM HISTORY: 73 years. Fem iesha. Headache. TECHNIQUE: 5-mm axial images were acquired from the foramen magnum to the c ranial vertex without contrast. COMPARISON: None. FINDINGS: The brain parenchyma does not demonstrate acute intraaxial hemorrhage, midline shift, mass effect, or cerebral edema. An old infarct is noted extending from the left putamen into the left internal capsule and ant erior left frontal lobe white matter in the centrum semiovale. Moderate diffuse rugal atrop hy is noted. Bilateral cataract surgery is seen. The orbits and their contents are otherwi se normal. Normal stallworth-white matter differentiation is preserved. No extraaxial fluid co llections are noted. The paranasal sinuses are well aerated. No mucosal thickening or air- fluid levels are noted. The mastoid air cells show normal pneumatization bilaterally. No m astoid fluid noted. The osseous structures of the calvaria do not demonstrate fracture. No lytic or blastic lesions are noted. 09/07/2013 1. No acute intracranial findings. 2. Moderate diffuse cerebral atrophy. 3. Old infarct in left basal ganglia extending up to the anterior left centrum semiovale. Elec tronically signed by Isaac Gonzales DO on 09/07/2013 10:29 PM Ultrasound Carotid Bilateral 09/08/2013 HISTORY: Vertigo, dizziness. COMPARISON: MRI brain 09/07/13. TECHNIQUE: Sonog raphic imaging was performed with a linear array transducer. Stallworth scale, color flow, and sp ectral Doppler techniques were utilized. FINDINGS: Right side: Mild mixed plaque in the lef t carotid bulb and origins of the internal and external carotid arteries, without flow limit ation. CCA-PROX PSV(cm/s)79 EDV (cm/s)18 Grade (1-6)1 CCA-DIST PSV(cm/s)5 3 EDV (cm/s)14 Grade (1-6)1 ICA-PROX PSV(cm/s)57 EDV (cm/s)21 Grade (1- 6)1 ICA-MID PSV(cm/s)75 EDV (cm/s)30 Grade (1-6)1 ICA-DIST PSV(cm/s)8 9 EDV (cm/s)33 Grade (1-6)1 ECA-PROX PSV(cm/s)101 EDV (cm/s)13 Grade (1- 6)1 Vertebral antegrade. Left side: Mild mixed plaques in the left carotid bulb and origin of the internal and external carotid arteries. No flow limitation. CCA-PROX PSV(cm/s)47 EDV (cm/s)15 Grade (1-6)1 CCA-DIST PSV(cm/s)64 EDV (cm/s)18 Grade (1- 6)1 ICA-PROX PSV(cm/s)49 EDV (cm/s)16 Grade (1-6)1 ICA-MID PSV(cm/s)90 EDV (cm/s)41 Grade (1-6)1 ICA-DIST PSV(cm/s)97 EDV (cm/s)42 Grade (1- 6)1 ECA-PROX PSV(cm/s)56 EDV (cm/s)6 Grade (1-6)1 Vertebral antegrade Grades: 1 Stenosis =01-50% PSV <125 cm/sec EDV (cm/s)<40 cm/sec (mild plaque) 2 Sten osis =01-50% PSV <125 cm/sec EDV (cm/s)<40 cm/sec (moderate plaque) 3 Stenosis =50-69% PSV >125 cm/sec EDV (cm/s)>40 cm/sec 4 Stenosis =70-95% PSV >230 cm/sec EDV (cm/s)>100 cm/sec 5 Stenosis =90-95% PSV <125 cm/sec EDV (cm/s)<40 cm/sec 6 Stenosis Occluded 09/08/2013 1. Mild bilateral plaques, without evidence of significant flow limitation. E lectronically signed by Jose Gamez MD on 09/08/2013 8:18 AM Echo Cardiac Adult Complete 09/08/2013 Patient Name: HELEN KEARNEY Date of : 1940 1 Performing Physician: Rober Nunez MD INDICATIONS htn, diabetes, weakness CONCLUSIONS 1. L eft ventricular systolic function is hyperdynamic with an estimated EF of >70%. 2. There is moderate concentric left ventricular hypertrophy. 3. The diastolic filling pattern indicates impaired relaxation consistent with mild dysfunction (Grade I), which is normal for the pat ient's age. 4. There is moderate pulmonary hypertension. FINDINGS -------- ECG rhythm: Sinu s rhythm. Study: A 2-dimensional transthoracic echocardiogram with m-mode, spectral and colo r flow Doppler was perfomed. Study: This was a technically difficult study with suboptimal views. Left Ventricle: Left ventricular systolic function is hyperdynamic with an estimated EF of >70%. Left Ventricle: The left ventricle cavity size is normal. Left Ventricle: Ther e is moderate concentric left ventricular hypertrophy. Left Ventricle: The diastolic fillin g pattern indicates impaired relaxation consistent with mild dysfunction (Grade I), which is normal for the patient's age. Right Ventricle: The right ventricle is normal in size. Righ t Ventricle: The right ventricular systolic function is normal. Left Atrium: The left atrial size is normal Left Atrium: , and the LA measures 4.1cm. Right Atrium: The right atrial siz e is normal Right Atrium: , and the RA measures 4.3cm. Aortic Valve: Aortic valve is trileaf let and is mildly thickened. Aortic Valve: There is mild aortic valve sclerosis without maricruz nosis. Aortic Valve: There is no evidence of aortic regurgitation. Aortic Valve: There is no evidence of aortic stenosis. Mitral Valve: Mitral valve is thickened with nodular degener ation. Mitral Valve: Mild mitral regurgitation is present. Mitral Valve: Mild mitral annul ar calcification present. Tricuspid Valve: The tricuspid valve appears structurally normal. Tricuspid Valve: Mild tricuspid regurgitation present. Tricuspid Valve: There is moderate pulmonary hypertension. Tricuspid Valve: The right ventricular systolic pressure (pulmonary artery systolic pressure), as measured by Doppler, is . Pulmonic Valve: The pulmonic valve is normal. Pulmonic Valve: Trace pulmonic regurgitation. Pericardium: There is no pericard ial effusion. IVC/Hepatic Veins: The IVC is normal size (1.5-2.5cm) and collapses <50% with sniff, consistent with central venous pressures of 10-15mmHg. Mass: No mass visualized Throm bus: No clot visualized MEASUREMENTS Ao asc: 3.55 cm IVC: 1.71 cm LA Jenise r: 4.87 cm EDV(Teich): 48.45 ml IVSd: 1.56 cm LVIDd: 3.43 cm LVPWd: 1.35 cm LVOT D sonali: 1.77 cm %FS: 32.07 % EF(Teich): 61.36 % ESV(Teich): 18.72 ml IVSs: 1.96 cm LV IDs: 2.33 cm LVPWs: 1.85 cm SV(Teich): 29.73 ml RA Major: 4.28 cm RVIDd: 2.93 cm L VEF MOD A4C: 85.31 % SV MOD A4C: 39.20 ml LVEDV MOD A4C: 45.95 ml LVLd A4C: 6.93 cm LVESV MOD A4C: 6.74 ml LVLs A4C: 1.96 cm LAESV(A-L): 57.25 ml LAESV Index (A-L): 40. 03 ml/m2 LAAs A2C: 19.43 cm2 LAESV A-L A2C: 56.66 ml LALs A2C: 5.65 cm LAAs A4C: 17. 65 cm2 LAESV A-L A4C: 51.99 ml LALs A4C: 5.08 cm Ao Diam: 2.71 cm AV Cusp: 1.32 cm L A Diam: 4.09 cm LA/Ao: 1.50 %FS: 31.34 % EDV(Teich): 53.12 ml EF(Teich): 60.17 % ESV(Teich): 21.15 ml IVSd: 1.75 cm IVSs: 2.07 cm LVIDd: 3.56 cm LVIDs: 2.44 cm LVP Wd: 1.70 cm SV(Teich): 31.97 ml D-E Excursion: 0.85 cm E-F Divide: 0.03 m/s EPSS: 0 .63 cm HR: 72.49 BPM AV maxP.68 mmHg AV meanP.73 mmHg AV Vmax: 1.70 m/s AV Vmean: 1.23 m/s AV VTI: 31.15 cm CAMPOS Vmax: 1.44 cm2 CAMPOS (VTI): 1.66 cm2 LVCI Dopp: 2.63 l/minm2 LVCO Dopp: 3.76 l/min HR: 72.52 BPM LVOT maxP.02 mmHg LVOT meanP.31 mmHg LVSI Dopp: 36.33 ml/m2 LVSV Dopp: 51.96 ml LVOT Vmax: 1.00 m/s LVOT Vmean: 0.73 m/s LVOT VTI: 21.06 cm MCO: 469.50 ms MV A Jamar: 0.84 m/s MV DecT: 240.06 ms M V E Jamar: 0.71 m/s MV E/A Ratio: 0.84 MV A Dur: 107.20 ms MV maxP.43 mmHg MV viki nP.25 mmHg MV Vmax: 0.92 m/s MV Vmean: 0.52 m/s MV VTI: 21.60 cm MVA (VTI): 2. 40 cm2 Septal e': 0.03 m/s Septal E/e': 21.78 Lateral e': 0.05 m/s Lateral E/e': 12 .71 P Vein A: 0.22 m/s P Vein A Dur: 103.51 ms P Vein D: 0.39 m/s P Vein S/D Ratio: 1.41 P Vein S: 0.55 m/s PRend P.56 mmHg PRend Vmax: 0.94 m/s HR: 72.13 BPM PV maxP.03 mmHg PV meanP.60 mmHg PV Vmax: 0.50 m/s PV Vmean: 0.37 m/s PV VTI: 9.95 cm TR maxP.11 mmHg TR Vmax: 3.32 m/s Medical Office Technician: AB Authenticated by: Isamar Nunez MD Report Date/Time: 09-08-2013 17:24:05 09/08/2013 1. Left ventricular systolic function is hyperdynamic with an estimated EF of > 70%. 2. There is moderate concentric left ventricular hypertrophy. 3. The diastolic filling pattern indicates impaired relaxation consistent with mild dysfunction (Grade I), which is n ormal for the patient's age. 4. There is moderate pulmonary hypertension. Mri Brain Wo Contrast And Mra Head 09/07/2013 [facility] MRI BRAIN WO AND MRA HEAD 09/07/2013 11:03 PM HISTORY: 73 year s. Female. Left-sided weakness. TECHNIQUE: Imaging was performed on a 1.5 [place] MRI syste m. Multiplanar sequences were acquired according to a standard department protocol without contrast. A 3D noncontrast [id number] MRA sequence was acquired through the head. Mul tiplanar angiographic MIP reconstructions from the MRA dataset were performed. COMPARISON: CT head 09/07/2013 at 2127 hrs. FINDINGS: The DWI sequence shows minimal restricted diffusi on in the posterior right side of the meryl with associated low ADC values consistent with a 4 mm acute infarct. No other areas of restricted diffusion to suggest acute ischemia or inf arct are noted within the brain parenchyma. An old infarct is noted extending from the left putamen up into the anterior left centrum semiovale adjacent to the lateral margin of the a nterior horn of left lateral ventricle. The T2* GRE sequence does not show low signal mater ial to suggest microhemorrhage or calcification within the brain parenchyma. The FLAIR and T2 sequences show mild diffusely increased signal intensity in the central meryl. This is of ten associated with hypertension or diabetes and has been termed central pontine rarefaction . The CSF spaces including the ventricles, cisterns and sulci are moderately enlarged. Thi s suggests diffuse cerebral atrophy. While this is a nonspecific finding, if there is clini sly suspicion of a neurodegenerative disease, clinical evaluation is suggested. The midline structures including the corpus callosum, meryl, cerebellar vermis, pineal gland and pituita ry are normal. No masses are seen in the region of the cerebellopontine angles or internal auditory canals. Bilateral cataract surgery is noted. The orbits and their contents are ot herwise normal. The paranasal sinuses are well aerated. No air-fluid levels or mucosal thi ckening is noted. No fluid seen in the mastoids. The osseous structures of the calvaria an d upper cervical spine demonstrate normal bone marrow signal intensity. The soft tissues of the oropharynx and upper neck appear normal on the sagittal sequences. The intracranial ar teries demonstrate normal flow voids on the T2 sequence. No large aneurysm is noted. The d ural venous sinuses also demonstrate normal flow-voids. MRA Distal Internal Carotids: Right Internal carotid: Moderate narrowing of the cavernous segment, 50-75%. Left Internal caroti d: Moderate narrowing of the cavernous segment, 50-75%. Posterior Circulation: Vertebral Do minance: Codominant. Right vertebral artery: Normal. Left vertebral artery: Normal. Posterio r inferior cerebellar arteries: Normal. Anterior inferior cerebellar arteries: Normal. Basil ar artery: Normal. Superior cerebellar arteries: Normal. Right posterior cerebral artery: Fo sly P1 segment narrowing. Left posterior cerebral artery: Normal. [place]: Anterio r communicating artery: Normal. Right posterior communicating artery: Not visualized. It ma y be too small to resolve or is congenitally absent. Left posterior communicating artery: No t visualized. It may be too small to resolve or is congenitally absent. Anterior Circulatio n: Right Anterior cerebral artery: A1 segment: Normal. A2 segment: Normal. Right MCA: M1 se gment: Normal. Post bifurcation M1 segment: Normal. M2 segments: Normal. M3 segments: Normal . M4 segments: Normal. Left Anterior cerebral artery: A1 segment: Normal. A2 segment: Brianne l. Left MCA: M1 segment: Normal. Post bifurcation M1 segment: Focal narrowing noted. M2 seg ments: Normal. M3 segments: Normal. M4 segments: Normal. 09/07/2013 1. 4 mm acute infarct involving the posterior right side of the meryl. 2. Consulting Nurse zaria FLAIR hyperintensity in the central meryl suggesting central pontine reformation. This i s commonly associated with hypertension and diabetes. 3. Moderate diffuse cerebral atrophy. 4. Old infarct extending from the left basal ganglia into the left anterior centrum semiov iesha. 5. MRA shows focal areas of atherosclerotic narrowing in the P1 segment of the right p osterior cerebral artery, the cavernous segments of both the right and left internal carotid arteries and in the post bifurcation M1 segment of the left middle cerebral artery. Electr onically signed by Isaac Gonzales DO on 09/07/2013 11:49 PM Discharge Vitals: Filed Vitals: 09/08/13 1910 09/08/13 2315 09/09/13 0217 09/09/13 0735 BP: 150/70 143/66 137/65 148/67 Pulse: 77 83 75 75 Temp: 98.1 F (36.7 C) 98.6 F (37 C) 98.5 F (36.9 C) 98.1 F (36.7 C) TempSrc: Oral Oral Oral Oral Resp: 16 16 16 16 Height: Weight: 50.44 kg (111 lb 3.2 oz) SpO2: 96% 95% 96% 98% Discharge Exam: General: Well nourished. Psych: Alert and oriented x 3. Calm, cooperative. Cardiovascular: Regular rate and rhythm, no murmurs, no thrills. Normal PMI. Respiratory: Clear to auscultation, no wheezing or crackles, breathing non labored. Gastrointestinal: Soft, non-tender, non-distended, positive bowel sounds. No HSM. Musculoskeletal: No edema in bilateral lower extremities. No joint swelling. Skin: Warm and dry, no rashes. Neck: No JVD, Trachea midline. Neurological: Non focal. Motor grossly intact. LABS: Lab 09/09/1331909/08/1342409/07/132124 WBC 7.6 8.3 7.8 HGB 11.3 11.7 12.5 HCT 33.4* 34.5 36.3 PLT 171 182 200 NEUTOPHILPCT 57.1 61.6 61.6 MONOPCT 12.4 10.2 8.0 Lab 09/09/1331909/08/1342409/07/132124 NA 136 136 140 K 4.1 4.2 4.2 CL 101 102 103 CO2 30 27 28 BUN 25 19 16 CREATININE 0.78 0.72 0.58 CALCIUM -- -- -- PROT 6.4 7.0 7.7 BILITOT 0.5 0.8 0.6 ALKPHOS -- -- -- ALT 12 15 22 AST 16 20 25 GLUCOSE -- -- -- Phosphorus: Lab 09/09/13319 PHOS 3.8 Lab 09/09/1331909/08/13424 MG 1.9 1.9 Lab 09/07/132124 APTT 25 INR 1.0 PTT -- Lab 09/07/132124 CKTOTAL 64 TROPONINI -- TROPONINT -- CKMBINDEX 4.1 Disposition: discharged to Inpatient Rehab under Dr. Chamorro. Follow up: Ani Yanes MD [facility] [address] [address] [facility] [place] [address] In 3 weeks Current Discharge Medication List START taking these medications Details acetaminophen 650 MG TABS Take 650 mg by mouth every 6 (six) hours as needed for Pain or F ever (for pain scale 1 - 3, or fever). Qty: 30 tablet, Refills: 1 aluminum-magnesium hydroxide-simethicone (MAALOX) 200-200-20 MG/5ML SUSP Take 30 mLs by mo ut every 6 (six) hours as needed (GERD ). Qty: 1120 mL, Refills: 1 atorvastatin (LIPITOR) 80 MG tablet Take 0.5 tablets by mouth nightly. Qty: 15 tablet, Refills: 11 clopidogrel (PLAVIX) 75 MG tablet Take 1 tablet by mouth daily. Qty: 30 tablet, Refills: 3 !! insulin aspart (NOVOLOG) 100 UNIT/ML injection Blood Glucose Low Dose <70 Initiate HYPOGLYCEMIA protocol 70-119 0 units 120-149 0 units 150-199 1 units 200-249 2 units 250-299 3 units 300-349 4 units 350-399 5 units >400 6 units (verify by lab draw) Qty: 10 mL, Refills: 12 !! insulin aspart (NOVOLOG) 100 UNIT/ML injection Blood Glucose HS Dose <70 Initiate HYPOGLYCEMIA protocol 70-119 0 units 120-149 0 units 150-199 0 units 200-249 1 unit 250-299 1 unit 300-349 2 units 350-399 2 units >400 3 units (verify by lab draw) Qty: 10 mL, Refills: 12 pneumococcal 23-valent vaccine (PNEUMOVAX-23) 25 MCG/0.5ML injection Inject 0.5 mLs into t he muscle Once for Immunization. Qty: 2.5 mL, Refills: 0 polyethylene glycol (GLYCOLAX) packet Take 17 g by mouth daily as needed. Qty: 14 each !! - Potential duplicate medications found. Please discuss with provider. CONTINUE these medications which have CHANGED Details amLODIPine (NORVASC) 5 MG tablet Take 0.5 tablets by mouth daily. Qty: 30 tablet, Refills: 3 Comments: Hold for SBP <120 mmHg and notify MD if he wishes to continue this medication insulin glargine (LANTUS) 100 UNIT/ML injection Inject 10 Units into the skin nightly. Qty: 10 mL, Refills: 3 isosorbide mononitrate (IMDUR) 30 MG 24 hr tablet Take 1 tablet by mouth daily. Comments: Hold for SBP <120 mmHg. CONTINUE these medications which have NOT CHANGED Details calcium-vitamin D (OSCAL-500) 500-200 MG-UNIT per tablet Take 1 tablet by mouth daily. STOP taking these medications aspirin 325 MG EC tablet Comments: Reason for Stopping: Anselmo Bishop MD 09/09/2013 10:24 AM Discharge took more than 35 minutes, to include final examination, discussion of admission, and preparation of prescriptions, instructions for ongoing care, follow up and dictation of summary. documented in thi s encounter Medications at Time of Discharge + [...] + +---------+ + + | telmisartan | 1/2 tablet by mouth | | 0 | 01/10/20 | | | (MICARDIS) 20 MG | twice daily | | | 12 | 3 | | tablet | | | | | | + + + +---------+ + + documented as of this encounter Progress Notes Conversion Transaction, Provider Unknown - 09/09/2013 3:20 PM PDTFormatting of this note m ight be different from the original. Progress Notes by Tram Tabares RN at 09/09/13 1520 Author: Tram Tabares RN Service: (none) Author Type: Registered Nurse Filed: 09/09/13 1844 Date of Service: 09/09/131519 Status: Signed Automation And Controls Instructor: Tram Tabares RN (Registered Nurse) Patient discharged to [facility] [place]. Report given to Merly FARRIS Luis Maharaj Chaplain - 09/09/2013 11:32 AM PDT Progress Notes by Luis Davila at 09/09/13 113 Author: Luis Davila Service: (none) Author Type: Filed: 09/09/13 1136 Date of Service: 09/09/131131 Status: Signed Automation And Controls Instructor: Luis Davila () I visited with Pt she was alert and talkative. Pt requested prayer she said that prayer wor ks and her belief is a comfort to her along with prayer. Chaplain Marleni Gyro Compass Tester onversion Espinoza saction, Provider Unknown - 09/09/2013 11:28 AM PDTFormatting of this note might be differen t from the original. Progress Notes by Ny Mansfield PT at 09/09/13 1128 Author: Ny Mansfield PT Service: (none) Author Type: Physical Therapist Filed: 09/09/131127 Date of Service: 09/09/131127 Status: Signed Automation And Controls Instructor: Ny Mansfield PT (Physical Therapist) 09/09/13 1055 PT Last Visit PT Received On 09/09/13 Reason for Treatment Stroke Requires PT Follow Up Yes Follow up PT Only? No Assistance Required 1 person Oven Press Tender Needed No Other Comments Comments Pt supine in bed upon arrival, agreeable to therapy, bed mobility supervision w/HO B at 20degrees, sit-stand supervision, pt amb 326ft in hallway w/FWW, pt appears safe during amb w/FWW, pt states her legs feel stronger today then they were when she was admitted, pt sitting in chair @ end of session. Cognition Overall Cognitive Status WFL Orientation Level Oriented Bed Mobility Supine to Sit Supervision Scooting Supervision Transfers Sit to/from Stand Supervision Mobility Weight Bearing Status WBAT RLE;WBAT LLE Ambulation Assistance Supervision Maximal Ambulation Distance (feet) 323ft Total Ambulation Distance (feet) 323ft Distance limited by? Patient's ability Pattern Alternating Assistive Device Walker front wheeled Seated Seated-Exercise Type Ankle pumps;Seated marching;Long arc quads (Pt given ther ex handout ) Modalities Modalities Other therapy Other Therapy Ed on mobility techniques Activity Tolerance Activity Tolerance Patient tolerated treatment without report of fatigue Nurse Made Aware RN aware of pt up in chair Plan Treatment/Interventions Continue per Primary PT POC Progress Progressing toward goals Recommendation Recommendations Continue acute care therapy;Return to prior living situation Equipment Recommended None Anselmo Joseph MD - 09/08/2013 5:04 PM PDTFormatting of this note might be different from viktoria dumont original. Progress Notes by Anselmo Bishop MD at 09/08/13 7409 Author: Anselmo Bishop MD Service: (none) Author Type: Physician Filed: 09/08/13 6148 Date of Service: 09/08/131703 Status: Signed Automation And Controls Instructor: Anselmo Bishop MD (Physician) [facility] Service: Hospitalist Progress Note Pt: Helen Kearney AGE/SEX: 73 y.o. female : 1940 ROOM: [address] [place] [address] TODAY'S DATE: 09/08/2013 As per admitting MD : " HISTORY OF PRESENT ILLNESS: Patient is a transfer from [facility] in [place] for concern that she has a stroke and their CAT scan is down. Initially jennifer dumont had symptoms that started around 6 in the morning with left-sided arm and leg weakness. At one point she had very minimal amount of chest pain. She denied a couple of times, but afte r I reviewed the labs with her, she remembered that she had a small amount of chest pain. Initial CAT scan showed no acute infarction but MRI of the brain revealed acute pontine str lena. Patient currently has minimal weakness on the left side of the arm and leg but, accordi ng to the ER report, she has markedly improved from that perspective. Patient denied any tingling or numbness. She is currently chest pain free. She is very hard of hearing. She looks dehydrated. She had high blood pressure initially but now her blood p ressure is normal, without intervention. The patient denied any nausea or vomiting, no diarrhea or constipation, no change in bowel movement, and no other significant complaint. " Hospital Day: LOS: 1 day SUBJECTIVE: Continues to c/o dizziness when changing positions. Decreased hearing acuity makes communication with the patient slightly more challenging. She is AA0x2 . Otherwise she has no complaints at the present time. Review of Systems: Review of Systems Constitutional: Negative for fever, chills, weight loss, malaise/fatigue and diaphoresis. HENT: Positive for hearing loss. Negative for ear pain, nosebleeds, congestion, sore throat , neck pain, tinnitus and ear discharge. Eyes: Negative for blurred vision, double vision, photophobia, pain, discharge and redness. Respiratory: Negative for cough, hemoptysis, sputum production, shortness of breath and str idor. Cardiovascular: Negative for chest pain, palpitations, orthopnea and claudication. Gastrointestinal: Negative for heartburn, nausea, vomiting, abdominal pain and diarrhea. Genitourinary: Negative for dysuria, urgency, frequency and hematuria. Musculoskeletal: Negative for myalgias, back pain, joint pain and falls. Skin: Negative for itching and rash. Neurological: Positive for focal weakness. Negative for dizziness, tingling, tremors, senso ry change, speech change, seizures, loss of consciousness and headaches. Endo/Heme/Allergies: Negative for environmental allergies. Does not bruise/bleed easily. Psychiatric/Behavioral: Negative for depression and suicidal ideas. Scheduled Medications aspirin 324 mg Oral Once aspirin 325 mg Oral Daily with breakfast aspirin 325 mg Oral Daily with breakfast Or aspirin 300 mg Rectal Daily with breakfast atorvastatin 80 mg Oral Nightly calcium-vitamin D 2 tablet Oral Daily enoxaparin 40 mg Subcutaneous Q24H influenza trivalent-split vaccine 0.5 mL Intramuscular Once Immunization insulin aspart 0-3 Units Subcutaneous Nightly insulin aspart 0-6 Units Subcutaneous TID AC insulin glargine 10 Units Subcutaneous Nightly LORazepam 1 mg Intravenous Once pneumococcal 23-valent vaccine 0.5 mL Intramuscular Once Immunization sodium chloride 10 mL Intravenous Q8H Continuous Infusions dextrose sodium chloride 125 mL/hr at 09/08/13 0335 PRN Medications acetaminophen, acetaminophen, aluminum-magnesium hydroxide-simethicone, dextrose, dextrose, dextrose, fentaNYL, fentaNYL, glucagon, glucagon, LORazepam, LORazepam, ondansetron, ondans etron, ondansetron, ondansetron, polyethylene glycol, zolpidem Allergy: Allergies Allergen Reactions Morphine Itching Penicillins Itching Promethazine Hallucinations Codeine Nausea and Vomiting Vicodin (Hydrocodone-Acetaminophen) Nausea and Vomiting OBJECTIVE Vitals: Patient Vitals for the past 24 hrs: BP Temp Temp src Pulse Resp SpO2 Height Weight 09/08/13 1547 157/74 mmHg 97.6 F (36.4 C) Axillary 69 16 98 % - - 09/08/13 1107 162/81 mmHg 98.4 F (36.9 C) Oral 73 16 98 % - - 09/08/13 0911 153/72 mmHg 97.9 F (36.6 C) Oral 75 16 99 % - - 09/08/13 0335 - - - - - - 1.524 m (5') 48.58 kg (107 lb 1.6 oz) 09/08/13 0328 141/62 mmHg 98 F (36.7 C) Oral 89 16 - - - 09/08/13 0227 126/63 mmHg - - 66 15 99 % - - 09/08/13 0135 127/62 mmHg - - 67 16 99 % - - 09/08/13 0120 115/58 mmHg 98.3 F (36.8 C) Oral 70 16 97 % - - 09/07/13 2334 152/71 mmHg - - 73 16 99 % - - 09/07/132111 152/78 mmHg 98 F (36.7 C) Oral 73 16 95 % 1.524 m (5') 48.081 kg (106 l b) I&O Detailed Table: Intake/Output Summary (Last 24 hours) at 09/08/13 1705 Last data filed at 09/08/13 0420 Gross per 24 hour Intake 0 ml Output 450 ml Net -450 ml Patient Vitals for the past 96 hrs: Weight 09/08/13 0335 48.58 kg (107 lb 1.6 oz) 09/07/132111 48.081 kg (106 lb) Hemodynamics Last 24hrs: Examination: Physical Exam Constitutional: She is oriented to person, place, and time. She appears well-developed and well-nourished. No distress. HENT: Head: Normocephalic and atraumatic. Mouth/Throat: Oropharynx is clear and moist. No oropharyngeal exudate. Eyes: EOM are normal. Pupils are equal, round, and reactive to light. Neck: Normal range of motion. Neck supple. No tracheal deviation present. No thyromegaly pr esent. Cardiovascular: Normal rate and regular rhythm. Exam reveals no gallop and no friction rub . No murmur heard. Pulmonary/Chest: Effort normal and breath sounds normal. No respiratory distress. She has n o wheezes. She has no rales. She exhibits no tenderness. Abdominal: Soft. Bowel sounds are normal. She exhibits no distension. There is no tendernes s. There is no rebound and no guarding. Musculoskeletal: Normal range of motion. She exhibits no edema and no tenderness. Neurological: She is alert and oriented to person, place, and time. No cranial nerve defici t. Slightly inaccurate finger to nose. No pronator drift. Muscle strength 4/5 and BL equal. Babinski reflex was equivocal. Gait was not tested. Decreased hearing acuity. Skin: Skin is warm and dry. No rash noted. She is not diaphoretic. No erythema. There is pa llor. Psychiatric: She has a normal mood and affect. Thought content normal. LABS: Lab 09/08/1342409/07/132124 WBC 8.3 7.8 HGB 11.7 12.5 HCT 34.5 36.3 PLT 182 200 NEUTOPHILPCT 61.6 61.6 MONOPCT 10.2 8.0 Lab 09/08/1342409/07/132124 NA 136 140 K 4.2 4.2 CL 102 103 CO2 27 28 BUN 19 16 CREATININE 0.72 0.58 CALCIUM -- -- PROT 7.0 7.7 BILITOT 0.8 0.6 ALKPHOS -- -- ALT 15 22 AST 20 25 GLUCOSE -- -- Phosphorus: Lab 09/08/13424 PHOS 3.8 Lab 09/08/13424 MG 1.9 No results found for this basename: AMYLASE:3 in the last 168 hours No results found for this basename: LIPASE:3 in the last 168 hours No results found for this basename: PHART:3,PO2ART:3,IQX1CUZ:3,X6LRHWGY:3,BEART:[address] 168 hours Lab 09/07/132124 APTT 25 INR 1.0 PTT -- No results found for this basename: TSH:3,T3FREE:3,FREET4:3 in the last 168 hours Lab 09/07/132124 CKTOTAL 64 TROPONINI -- TROPONINT -- CKMBINDEX 4.1 Diagnostic: Xr Chest Pa And Lateral 09/08/2013 HELEN KEARNEY XR CHEST 2 VIEW FRONTAL AND LATERAL 09/07/2013 9:47 PM HISTORY : 73 years. Female. Chest pain. TECHNIQUE: 2 views obtained. COMPARISON: None. FINDINGS : Surgical clips are seen in along the lateral margin of the right chest wall which may be i n the axillary region. The heart is mildly enlarged. The lungs are normally expanded. The pulmonary vascular pattern is normal. No acute airspace disease, parenchymal nodule, mass, pleural effusion or pneumothorax is noted. No hilar adenopathy is seen. Osteopenia 09/08/2013 1. Mild cardiomegaly. 2. Osteopenia. 3. No cause for acute chest pain noted. Ct Head Non-con 09/07/[address] HEAD WO CONTRAST 09/07/2013 9:33 PM HISTORY: 73 years. Fem iesha. Headache. TECHNIQUE: 5-mm axial images were acquired from the foramen magnum to the c ranial vertex without contrast. COMPARISON: None. FINDINGS: The brain parenchyma does not demonstrate acute intraaxial hemorrhage, midline shift, mass effect, or cerebral edema. An old infarct is noted extending from the left putamen into the left internal capsule and ant erior left frontal lobe white matter in the centrum semiovale. Moderate diffuse rugal atrop hy is noted. Bilateral cataract surgery is seen. The orbits and their contents are otherwi se normal. Normal stallworth-white matter differentiation is preserved. No extraaxial fluid co llections are noted. The paranasal sinuses are well aerated. No mucosal thickening or air- fluid levels are noted. The mastoid air cells show normal pneumatization bilaterally. No m astoid fluid noted. The osseous structures of the calvaria do not demonstrate fracture. No lytic or blastic lesions are noted. 09/07/2013 1. No acute intracranial findings. 2. Moderate diffuse cerebral atrophy. 3. Old infarct in left basal ganglia extending up to the anterior left centrum semiovale. Elec tronically signed by Isaac Gonzales DO on 09/07/2013 10:29 PM Ultrasound Carotid Bilateral 09/08/2013 HISTORY: Vertigo, dizziness. COMPARISON: MRI brain 09/07/13. TECHNIQUE: Sonog raphic imaging was performed with a linear array transducer. Stallworth scale, color flow, and sp ectral Doppler techniques were utilized. FINDINGS: Right side: Mild mixed plaque in the lef t carotid bulb and origins of the internal and external carotid arteries, without flow limit ation. CCA-PROX PSV(cm/s)79 EDV (cm/s)18 Grade (1-6)1 CCA-DIST PSV(cm/s)5 3 EDV (cm/s)14 Grade (1-6)1 ICA-PROX PSV(cm/s)57 EDV (cm/s)21 Grade (1- 6)1 ICA-MID PSV(cm/s)75 EDV (cm/s)30 Grade (1-6)1 ICA-DIST PSV(cm/s)8 9 EDV (cm/s)33 Grade (1-6)1 ECA-PROX PSV(cm/s)101 EDV (cm/s)13 Grade (1- 6)1 Vertebral antegrade. Left side: Mild mixed plaques in the left carotid bulb and origin of the internal and external carotid arteries. No flow limitation. CCA-PROX PSV(cm/s)47 EDV (cm/s)15 Grade (1-6)1 CCA-DIST PSV(cm/s)64 EDV (cm/s)18 Grade (1- 6)1 ICA-PROX PSV(cm/s)49 EDV (cm/s)16 Grade (1-6)1 ICA-MID PSV(cm/s)90 EDV (cm/s)41 Grade (1-6)1 ICA-DIST PSV(cm/s)97 EDV (cm/s)42 Grade (1- 6)1 ECA-PROX PSV(cm/s)56 EDV (cm/s)6 Grade (1-6)1 Vertebral antegrade Grades: 1 Stenosis =01-50% PSV <125 cm/sec EDV (cm/s)<40 cm/sec (mild plaque) 2 Sten osis =01-50% PSV <125 cm/sec EDV (cm/s)<40 cm/sec (moderate plaque) 3 Stenosis =50-69% PSV >125 cm/sec EDV (cm/s)>40 cm/sec 4 Stenosis =70-95% PSV >230 cm/sec EDV (cm/s)>100 cm/sec 5 Stenosis =90-95% PSV <125 cm/sec EDV (cm/s)<40 cm/sec 6 Stenosis Occluded 09/08/2013 1. Mild bilateral plaques, without evidence of significant flow limitation. E lectronically signed by Jose Gamez MD on 09/08/2013 8:18 AM Mri Brain Wo Contrast And Mra Head 09/07/2013 HELEN KEARNEY MRI BRAIN WO AND MRA HEAD 09/07/2013 11:03 PM HISTORY: 73 year s. Female. Left-sided weakness. TECHNIQUE: Imaging was performed on a 1.[address] [place] [address] [facility]. Multiplanar sequences were acquired according to a standard department protocol without contrast. A 3D noncontrast [id number] MRA sequence was acquired through the head. Mul tiplanar angiographic MIP reconstructions from the MRA dataset were performed. COMPARISON: CT head 09/07/2013 at 2127 hrs. FINDINGS: The DWI sequence shows minimal restricted diffusi on in the posterior right side of the meryl with associated low ADC values consistent with a 4 mm acute infarct. No other areas of restricted diffusion to suggest acute ischemia or inf arct are noted within the brain parenchyma. An old infarct is noted extending from the left putamen up into the anterior left centrum semiovale adjacent to the lateral margin of the a nterior horn of left lateral ventricle. The T2* GRE sequence does not show low signal mater ial to suggest microhemorrhage or calcification within the brain parenchyma. The FLAIR and T2 sequences show mild diffusely increased signal intensity in the central meryl. This is of ten associated with hypertension or diabetes and has been termed central pontine rarefaction . The CSF spaces including the ventricles, cisterns and sulci are moderately enlarged. Thi s suggests diffuse cerebral atrophy. While this is a nonspecific finding, if there is clini sly suspicion of a neurodegenerative disease, clinical evaluation is suggested. The midline structures including the corpus callosum, meryl, cerebellar vermis, pineal gland and pituita ry are normal. No masses are seen in the region of the cerebellopontine angles or internal auditory canals. Bilateral cataract surgery is noted. The orbits and their contents are ot herwise normal. The paranasal sinuses are well aerated. No air-fluid levels or mucosal thi ckening is noted. No fluid seen in the mastoids. The osseous structures of the calvaria an d upper cervical spine demonstrate normal bone marrow signal intensity. The soft tissues of the oropharynx and upper neck appear normal on the sagittal sequences. The intracranial ar teries demonstrate normal flow voids on the T2 sequence. No large aneurysm is noted. The d ural venous sinuses also demonstrate normal flow-voids. MRA Distal Internal Carotids: Right Internal carotid: Moderate narrowing of the cavernous segment, 50-75%. Left Internal caroti d: Moderate narrowing of the cavernous segment, 50-75%. Posterior Circulation: Vertebral Do minance: Codominant. Right vertebral artery: Normal. Left vertebral artery: Normal. Posterio r inferior cerebellar arteries: Normal. Anterior inferior cerebellar arteries: Normal. Basil ar artery: Normal. Superior cerebellar arteries: Normal. Right posterior cerebral artery: Fo sly P1 segment narrowing. Left posterior cerebral artery: Normal. [place]: Anterio r communicating artery: Normal. Right posterior communicating artery: Not visualized. It ma y be too small to resolve or is congenitally absent. Left posterior communicating artery: No t visualized. It may be too small to resolve or is congenitally absent. Anterior Circulatio n: Right Anterior cerebral artery: A1 segment: Normal. A2 segment: Normal. Right MCA: M1 se gment: Normal. Post bifurcation M1 segment: Normal. M2 segments: Normal. M3 segments: Normal . M4 segments: Normal. Left Anterior cerebral artery: A1 segment: Normal. A2 segment: Brianne l. Left MCA: M1 segment: Normal. Post bifurcation M1 segment: Focal narrowing noted. M2 seg ments: Normal. M3 segments: Normal. M4 segments: Normal. 09/07/2013 1. 4 mm acute infarct involving the posterior right side of the meryl. 2. Consulting Nurse zaria FLAIR hyperintensity in the central meryl suggesting central pontine reformation. This i s commonly associated with hypertension and diabetes. 3. Moderate diffuse cerebral atrophy. 4. Old infarct extending from the left basal ganglia into the left anterior centrum semiov iesha. 5. MRA shows focal areas of atherosclerotic narrowing in the P1 segment of the right p osterior cerebral artery, the cavernous segments of both the right and left internal carotid arteries and in the post bifurcation M1 segment of the left middle cerebral artery. Electr onically signed by Isaac Gonzales DO on 09/07/2013 11:49 PM Past Medical History Diagnosis Date Diabetes mellitus type II Cancer Past Surgical History Procedure Date Tumor removal right breast PROBLEM LIST Principal Problem: *Lacunar stroke, acute Active Problems: HTN (hypertension) DM type 2 (diabetes mellitus, type 2) Dehydration Other chest pain ASSESSMENT & PLAN 73 y female with the followin. S/p acute R pontine stroke. Continue ASA, high dose statin, start eventual BP control i n 24-48 hrs. PT/OT/evaluation. Likely candidate for IPR. 2. DM 2: continue basal insulin coverage with Lantus and aspart corrective SS. Check A1c. 3. Improved dehydration on IVFs. Will decrease rate to 75 cc/hr. 4. DVT prophylaxis: SCDs/ sq LMWH. 5. Dyslipidemia with hypertriglyceridemia. May consider starting tricor. Anselmo Bishop MD 09/08/2013 5:05 PM onversion Transa ction, Provider Unknown - 09/08/2013 3:22 PM PDT Progress Notes by Ny Mansfield PT at 09/08/13 1522 Author: Ny Mansfield PT Service: (none) Author Type: Physical Therapist Filed: 09/08/131521 Date of Service: 09/08/131521 Status: Signed Automation And Controls Instructor: Ny Mansfield PT (Physical Therapist) 09/08/13 1420 PT Last Visit PT Received On 09/08/13 Reason for Treatment Stroke Requires PT Follow Up Yes Follow up PT Only? No PT Eval/Reassessment Date 09/08/13 Assistance Required 1 person Oven Press Tender Needed No Plan Treatment/Interventions Balance training;Bed mobility training;Gait training;Monitor vital signs;Stair training;Therapeutic exercise;Transfer training PT Frequency 5-7x/wk;Once per day;Twice a day Care Duration (# of days) 7 # of days Home Environment Type of Home Home manufactured double wide Home Exterior Layout Ramp Home Interior Layout Lives on main level with bedroom/bathroom Bathroom Shower/Tub Tub/shower unit;Shower unit with threshold Bathroom Toilet Raised Bathroom Equipment Grab bars in shower/bath;Grab bars outside of shower/bath;Hand-held show er head;Shower chair Home Equipment Walker 4 wheeled Recommendation Recommendations Continue acute care therapy;Return to prior living situation Equipment Recommended (Pt has 4WW) Prior Function Level of [place] Modified independent with functional mobility;Independent with IADLs; Independent with ADLs;Driving in community Lives With Other (Comment) (granddaughter ) Receives Help From Family ADL Assistance Independent Employment Retired for age RUE Assessment RUE Assessment WFL LUE Assessment LUE Assessment WFL RLE Assessment RLE Assessment WFL LLE Assessment LLE Assessment WFL Cognition Overall Cognitive Status WFL Orientation Level Oriented Comments Pt agreeable Sensation Light Touch No apparent deficits 09/08/13 1420 PT Last Visit PT Received On 09/08/13 Reason for Treatment Stroke Requires PT Follow Up Yes Follow up PT Only? No PT Eval/Reassessment Date 09/08/13 Assistance Required 1 person Oven Press Tender Needed No Other Comments Comments Eval/chart review performed in room, pt s/p stroke w/Lt sided weakness, pt supine in bed upon arrival, overall Lt side strength 4-/5, overall strenght Rt side 5/5, coordinati on appears intact after RAH and heel up linton tests, pt amb 80ft in hallway SBA w/FWW, pt c/o feeling dizzy after 80ft, pts BP after activity 158/81, pt supine in bed @ end of session. Cognition Overall Cognitive Status WFL Orientation Level Oriented Comments Pt agreeable Bed Mobility Supine to Sit Standby assist Sit to Supine Standby assist Scooting Standby assist Transfers Sit to/from Stand Standby assist Mobility Weight Bearing Status WBAT RLE;WBAT LLE Ambulation Assistance Standby assist Maximal Ambulation Distance (feet) 80ft Total Ambulation Distance (feet) 80ft Distance limited by? Patient's ability Pattern Alternating Assistive Device Walker front wheeled Balance Balance Yes Static Sitting Balance Static Sitting-Balance Support No upper extremity support;Feet supported Static Sitting-Level of Assistance Supervision Static Sitting-Comment/Duration Sitting EOB x 5min Dynamic Standing Balance Dynamic Standing-Balance Activities Other (comment) (Standing during bathroom tasks) Dynamic Standing-Balance Support No upper extremity support Standing Dynamic Level of Assist Standby assist Dynamic Standing-Comments/Duration Standing while performing bathroom tasks Modalities Modalities Other therapy Other Therapy Ed on mobility techniques Activity Tolerance Activity Tolerance Patient limited by fatigue Nurse Made Aware RN aware Plan Treatment/Interventions Balance training;Bed mobility training;Gait training;Monitor vital signs;Stair training;Therapeutic exercise;Transfer training PT Frequency 5-7x/wk;Once per day;Twice a day Care Duration (# of days) 7 # of days Recommendation Recommendations Continue acute care therapy;Return to prior living situation Equipment Recommended (Pt has 4WW) onver ramsey Ramirez, Provider Unknown - 09/08/2013 12:56 PM PDT Progress Notes by HANNAH Noble/Ale at 09/08/13 5553 Author: CORI Noble Service: (none) Author Type: Occupational Therapist Filed: 09/08/13 1257 Date of Service: 09/08/13 1256 Status: Signed Automation And Controls Instructor: CORI Noble (Occupational Therapist) 09/08/13 1215 Precautions Other Precautions fall risk Home Environment Type of Home Home manufactured double wide Home Exterior Layout Ramp;Rail bilateral Home Interior Layout Lives on main level with bedroom/bathroom Bathroom Shower/Tub Tub/shower unit;Walk-in shower (uses tub shower) Bathroom Toilet Raised Bathroom Equipment Shower chair;Hand-held shower head;Grab bars at toilet;Grab bars in show er/bath Home Equipment Walker 4 wheeled;Shower head hand held Prior Function Level of [place] Modified independent with functional mobility;Independent with ADLs; Independent with IADLs;Driving in community Lives With (grand daughter) Receives Help From Family ADL Assistance Independent Home ADL's Need assistance (Pt. assists as able.) Employment Retired for age Leisure Hobbies-yes (Comment) (reading) ADL Eating Assistance Modified independent Eating Deficit SOB;Increased time to complete Grooming Assistance Standby assist;Supervision (sitting supine) Grooming impacted by Endurance Bathing Assistance MISAEL Toileting Assistance with Device Standby assist Toileting impacted by Endurance;Safety concerns Functional Assistance Minimal assist Toileting transfer impacted by Endurance;Safety concerns Vision-Basic Assessment Current Vision Reading glasses Cognition Overall Cognitive Status WFL Orientation Level Oriented Comments Pt. is very pleasant and cooperative. Sensation Light Touch No apparent deficits Additional Comments Pt. reports L hand tingling has resolved; fingetips are still numb. Fac ial tingling/numbness has resolved. Proprioception Proprioception No apparent deficit (mild deficit L LE.) Perception Inattention/Neglect Appears intact Initiation Appears intact Motor Planning Appears intact Perseveration Not present RUE Assessment RUE Assessment WFL (mildly decreased R shoulder flexion.) LUE Assessment LUE Assessment WFL Hand Function Gross Grasp Functional (equal but weak grasp B.) Functional Gross Grasp Able to grasp objects without difficulty Coordination Slowed (L UE.) Assessment Assessment Decreased ADL status;Decreased UE strength;Decreased endurance;Decreased sensati on;Decreased fine motor control;Decreased self-care trans;Decreased high-level ADLs Prognosis Good ADL Goals Pt Will Perform Grooming Standing at sink;With supervision Pt Will Perform LE Dressing Supervision;With adaptive equipment Functional Transfer Goals Pt Will Perform All Functional Transfers With supervision Arm Goals Pt Will Complete Theraputty Exer Resistance putty mixture (y/g);B UE;With handout for visua l cueing Pt. Would benefit from short term IPR stay to improve activity/standing tolerance, I with ADLs, functional transfers/mobility, and L UE/LE function due to high PLOF. Pt. Educated in theraputty exercises and provided handout. ovarr Martha gay MA, CCC-SERVICE UNIT OPERATOR - 09/08/2013 10:14 AM PDTFormatting of this note might be differ ent from the original. Progress Notes by Martha Maloney MA CCC-SERVICE UNIT OPERATOR at 09/08/13 1014 Author: Martha Maloney MA CCC-SERVICE UNIT OPERATOR Service: (none) Author Type: Speech and Language Pathologist Filed: 09/08/13 1014 Date of Service: 09/08/13 1014 Status: Signed Automation And Controls Instructor: Martha Maloney MA CCC-SERVICE UNIT OPERATOR (Speech and Language Pathologist) 09/08/13 0955 Swallowing Assessment Eval Swallowing Evaluation Yes Initial Swallow Assessment Temperature Spikes Noted No Respiratory Status Room air Behavior/Cognition Cooperative;Alert Dentition Adequate Vision Wears glasses Patient Positioning Upright in bed Baseline Vocal Quality Weak Oral Motor Exam Labial ROM WFL Labial Symmetry WFL Labial Strength WFL Lingual Symmetry WFL Lingual Strength WFL Facial Symmetry WFL Vocal Quality Weak Mandible WFL Consistencies Consistencies Assessed Yes Ice Chips Presentation Spoon Oral Phase WFL Pharyngeal Phase No overt signs or symptoms of aspirations Thin Presentation Straw Oral Phase Thin WFL Pharyngeal Phase No overt signs or symptoms of aspiration;Delayed swallow initiated Puree Presentation Spoon Oral Phase WFL Pharyngeal Delayed Swallow;No overt signs or symptoms of aspiration Dysphagia Mechanically Altered Presentation Spoon Oral Phase WFL Pharyngeal Phase No overt signs or symptoms of aspiration;Delayed Swallow Regular Presentation (cracker) Oral Phase Prolonged mastication Pharyngeal Phase Delayed Swallow;No overt signs or symptoms of aspiration Recommendations Liquids Consistency Recommendations Thin Diet Consistency Recommendation Regular Recommendations Check on patients frequently throught out meals;Set up with meals Risk for Aspiration Mild Compensatory Swallowing Strategies Upright as possible for all oral intake;Remain upright f or 30 minutes after meals;Swallow 2 times per bite/sip;Small bites/sips;Eat/feed slowly Recommended Form of Meds Meds with recommended liquid;With puree Summary Pt w/no overt s/sx of asp with trials. Pt w/limited trials of each consistency ther efore recommend ST to follow up 1x to ensure diet tolerance. Pt ed re: swallowing evaluation , asp, and diet rec's. Pt stated to understand in agreement. Staff Notified RN Plan of Care Treatment Plan Follow up x1 to ensure tolerance Follow up treatments Patient/Family education;Diet tolerance monitoring Martha Maloney MA CCC-SERVICE UNIT OPERATOR onver ramsey Ramirez, Provider Unknown - 09/08/2013 3:27 AM PDT Progress Notes by Waylon White RPH at 09/08/13326 Author: Waylon White RPH Service: (none) Author Type: Pharmacist Filed: 09/08/13327 Date of Service: 09/08/13326 Status: Signed Automation And Controls Instructor: Waylon White RPH (Pharmacist) Note ccl 63ml/min meds reviewed pharmacy will follow c 0327 docume nted in this encounter Plan of Treatment Not on filedocumented as of this encounter Procedures + +--------+ + + + | Procedure Name | Priori | Date/Time | Associated Diagnosis | Comments | | | ty | | | | + +--------+ + + + | VAS CAROTID DUPLEX | Routin | 09/08/2013 | | Results for this | | BILATERAL | e | 8:14 AM | | procedure are in the | | | | PDT | | results section. | + +--------+ + + + | ECHO COMPLETE | Routin | 09/08/2013 | | Results for this | | | e | 7:12 AM | | procedure are in the | | | | PDT | | results section. | + +--------+ + + + | MRI BRAIN WO | Routin | 09/07/2013 | | Results for this | | CONTRAST ANGIOGRAM | e | 11:03 PM | | procedure are in the | | HEAD WO CONTRAST | | PDT | | results section. | + +--------+ + + + | XR CHEST 2 VIEWS | Routin | 09/07/2013 | | Results for this | | | e | 9:47 PM | | procedure are in the | | | | PDT | | results section. | + +--------+ + + + | CT HEAD WO CONTRAST | Routin | 09/07/2013 | | Results for this | | | e | 9:33 PM | | procedure are in the | | | | PDT | | results section. | + +--------+ + + + | ECG 12 LEAD | Routin | 09/07/2013 | | Results for this | | | e | 9:20 PM | | procedure are in the | | | | PDT | | results section. | + +--------+ + + + documented in this encounter Results VAS Carotid Duplex Bilateral (09/08/2013 8:14 AM PDT) + + | Specimen | + + | | + + + + + | Impressions | Performed At | + + + | 1. Mild bilateral plaques, without evidence of significant flow | | | limitation. Electronically signed by Jose Gamez MD on | | | 09/08/2013 8:18 AM | | + + + + + + | Narrative | Performed At | + + + | HISTORY: Vertigo, dizziness. COMPARISON: MRI brain 09/07/13. | | | TECHNIQUE: Sonographic imaging was performed with a linear array | | | transducer. Stallworth scale, color flow, and spectral Doppler techniques | | | were utilized. FINDINGS: Right side: Mild mixed plaque in the | | | left carotid bulb and origins of the internal and external carotid | | | arteries, without flow limitation. CCA-PROX PSV(cm/s)79 | | | EDV (cm/s)18 Grade (1-6)1 CCA-DIST PSV(cm/s)53 | | | EDV (cm/s)14 Grade (1-6)1 ICA-PROX PSV(cm/s)57 | | | EDV (cm/s)21 Grade (1-6)1 ICA-MID PSV(cm/s)75 | | | EDV (cm/s)30 Grade (1-6)1 ICA-DIST PSV(cm/s)89 | | | EDV (cm/s)33 Grade (1-6)1 ECA-PROX PSV(cm/s)101 | | | EDV (cm/s)13 Grade (1-6)1 Vertebral antegrade. Left side: | | | Mild mixed plaques in the left carotid bulb and origin of the | | | internal and external carotid arteries. No flow limitation. | | | CCA-PROX PSV(cm/s)47 EDV (cm/s)15 Grade (1-6)1 | | | CCA-DIST PSV(cm/s)64 EDV (cm/s)18 Grade (1-6)1 | | | ICA-PROX PSV(cm/s)49 EDV (cm/s)16 Grade (1-6)1 | | | ICA-MID PSV(cm/s)90 EDV (cm/s)41 Grade (1-6)1 | | | ICA-DIST PSV(cm/s)97 EDV (cm/s)42 Grade (1-6)1 | | | ECA-PROX PSV(cm/s)56 EDV (cm/s)6 Grade (1-6)1 | | | Vertebral antegrade Grades: 1 Stenosis =01-50% PSV | | | <125 cm/sec EDV (cm/s)<40 cm/sec (mild plaque) 2 | | | Stenosis =01-50% PSV <125 cm/sec EDV (cm/s)<40 cm/sec | | | (moderate plaque) 3 Stenosis =50-69% PSV >125 cm/sec | | | EDV (cm/s)>40 cm/sec 4 Stenosis =70-95% PSV >230 | | | cm/sec EDV (cm/s)>100 cm/sec 5 Stenosis =90-95% PSV | | | <125 cm/sec EDV (cm/s)<40 cm/sec 6 Stenosis Occluded | | | | | + + + + + | Procedure Note | + + | Lon, Rad Conversion - 07/16/2019 7:48 PM PDT HISTORY:Vertigo, dizziness. | | COMPARISON:MRI brain 09/07/13. TECHNIQUE:Sonographic imaging was performed with a linear | | array transducer. Stallworth scale, color flow, and spectral Doppler techniques were | | utilized. FINDINGS:Right side:Mild mixed plaque in the left carotid bulb and origins of | | the internal and external carotid arteries, without flow limitation. CCA-PROX | | PSV(cm/s)79 EDV (cm/s)18 Grade (1-6)1CCA-DIST PSV(cm/s)53 EDV (cm/s)14 | | Grade (1-6)1ICA-PROX PSV(cm/s)57 EDV (cm/s)21 Grade (1-6)1ICA-MID | | PSV(cm/s)75 EDV (cm/s)30 Grade (1-6)1ICA-DIST PSV(cm/s)89 EDV | | (cm/s)33 Grade (1-6)1ECA-PROX PSV(cm/s)101 EDV (cm/s)13 Grade | | (1-6)1Vertebral antegrade. Left side:Mild mixed plaques in the left carotid bulb and | | origin of the internal and external carotid arteries. No flow limitation. CCA-PROX | | PSV(cm/s)47 EDV (cm/s)15 Grade (1-6)1CCA-DIST PSV(cm/s)64 EDV (cm/s)18 | | Grade (1-6)1ICA-PROX PSV(cm/s)49 EDV (cm/s)16 Grade (1-6)1ICA-MID | | PSV(cm/s)90 EDV (cm/s)41 Grade (1-6)1ICA-DIST PSV(cm/s)97 EDV | | (cm/s)42 Grade (1-6)1ECA-PROX PSV(cm/s)56 EDV (cm/s)6 Grade | | (1-6)1Vertebral antegrade Grades:1 Stenosis =01-50% PSV <125 cm/sec EDV | | (cm/s)<40 cm/sec (mild plaque)2 Stenosis =01-50% PSV <125 cm/sec EDV | | (cm/s)<40 cm/sec (moderate plaque)3 Stenosis =50-69% PSV >125 cm/sec EDV | | (cm/s)>40 cm/sec4 Stenosis =70-95% PSV >230 cm/sec EDV (cm/s)>100 cm/sec5 | | Stenosis =90-95% PSV <125 cm/sec EDV (cm/s)<40 cm/sec6 Stenosis | | Occluded IMPRESSION: 1. Mild bilateral plaques, without evidence of significant flow | | limitation. | |Mild mixed plaques in the left carotid bulb and origin of the internal and external carotid arteries. No flow limitation. | | | |CCA-PROX PSV(cm/s)47 EDV (cm/s)15 Grade (1-6)1 | |CCA-DIST PSV(cm/s)64 EDV (cm/s)18 Grade (1-6)1 | |ICA-PROX PSV(cm/s)49 EDV (cm/s)16 Grade (1-6)1 | |ICA-MID PSV(cm/s)90 EDV (cm/s)41 Grade (1-6)1 | |ICA-DIST PSV(cm/s)97 EDV (cm/s)42 Grade (1-6)1 | |ECA-PROX PSV(cm/s)56 EDV (cm/s)6 Grade (1-6)1 | |Vertebral antegrade | | | |Grades: | |1 Stenosis =01-50% PSV <125 cm/sec EDV (cm/s)<40 cm/sec (mild plaque) | |2 Stenosis =01-50% PSV <125 cm/sec EDV (cm/s)<40 cm/sec (moderate plaque) | |3 Stenosis =50-69% PSV >125 cm/sec EDV (cm/s)>40 cm/sec | |4 Stenosis =70-95% PSV >230 cm/sec EDV (cm/s)>100 cm/sec | |5 Stenosis =90-95% PSV <125 cm/sec EDV (cm/s)<40 cm/sec | |6 Stenosis Occluded | | | |IMPRESSION: | |1. Mild bilateral plaques, without evidence of significant flow limitation. | | | | | + + ECHO Complete (09/08/2013 7:12 AM PDT) + + | Specimen | + + | | + + + + + | Impressions | Performed At | + + + | 1. Left ventricular systolic function is hyperdynamic with an | | | estimated EF of >70%. 2. There is moderate concentric left | | | ventricular hypertrophy. 3. The diastolic filling pattern indicates | | | impaired relaxation consistent with mild dysfunction (Grade I), which | | | is normal for the patient's age. 4. There is moderate pulmonary | | | hypertension. | | + + + + + + | Narrative | Performed At | + + + | Patient Name: HELEN KEARNEY Date of : 1940 | | | Performing Physician: Rober Nunez MD | | | | | | INDICATIONS htn, diabetes, weakness CONCLUSIONS | | | 1. Left ventricular systolic function is hyperdynamic | | | with an estimated EF of >70%. 2. There is moderate concentric left | | | ventricular hypertrophy. 3. The diastolic filling pattern indicates | | | impaired relaxation consistent with mild dysfunction (Grade I), which | | | is normal for the patient's age. 4. There is moderate pulmonary | | | hypertension. FINDINGS -------- ECG rhythm: Sinus rhythm. | | | Study: A 2-dimensional transthoracic echocardiogram with m-mode, | | | spectral and color flow Doppler was perfomed. Study: This was a | | | technically difficult study with suboptimal views. Left Ventricle: | | | Left ventricular systolic function is hyperdynamic with an estimated | | | EF of >70%. Left Ventricle: The left ventricle cavity size is normal. | | | Left Ventricle: There is moderate concentric left ventricular | | | hypertrophy. Left Ventricle: The diastolic filling pattern indicates | | | impaired relaxation consistent with mild dysfunction (Grade I), which | | | is normal for the patient's age. Right Ventricle: The right ventricle | | | is normal in size. Right Ventricle: The right ventricular systolic | | | function is normal. Left Atrium: The left atrial size is normal Left | | | Atrium: , and the LA measures 4.1cm. Right Atrium: The right atrial | | | size is normal Right Atrium: , and the RA measures 4.3cm. Aortic | | | Valve: Aortic valve is trileaflet and is mildly thickened. Aortic | | | Valve: There is mild aortic valve sclerosis without stenosis. Aortic | | | Valve: There is no evidence of aortic regurgitation. Aortic Valve: | | | There is no evidence of aortic stenosis. 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 Mitral Valve: Mild mitral | | | regurgitation is present. Mitral Valve: Mild mitral annular | | | calcification present. Tricuspid Valve: The tricuspid valve appears | | | structurally normal. Tricuspid Valve: Mild tricuspid regurgitation | | | present. Tricuspid Valve: There is moderate pulmonary hypertension. | | | Tricuspid Valve: The right ventricular systolic pressure (pulmonary | | | artery systolic pressure), as measured by Doppler, is {RVSP}. | | | Pulmonic Valve: The pulmonic valve is normal. Pulmonic Valve: Trace | | | pulmonic regurgitation. Pericardium: There is no pericardial | | | effusion. IVC/Hepatic Veins: The IVC is normal size (1.5-2.5cm) and | | | collapses <50% with sniff, consistent with central venous pressures of | | | 10-15mmHg. Mass: No mass visualized Thrombus: No clot visualized | | | MEASUREMENTS Ao asc: 3.55 cm IVC: 1.71 cm LA | | | Major: 4.87 cm EDV(Teich): 48.45 ml IVSd: 1.56 cm LVIDd: | | | 3.43 cm LVPWd: 1.35 cm LVOT Diam: 1.77 cm %FS: 32.07 % | | | EF(Teich): 61.36 % ESV(Teich): 18.72 ml IVSs: 1.96 cm | | | LVIDs: 2.33 cm LVPWs: 1.85 cm SV(Teich): 29.73 ml RA | | | Major: 4.28 cm RVIDd: 2.93 cm LVEF MOD A4C: 85.31 % SV MOD | | | A4C: 39.20 ml LVEDV MOD A4C: 45.95 ml LVLd A4C: 6.93 cm | | | LVESV MOD A4C: 6.74 ml LVLs A4C: 1.96 cm LAESV(A-L): 57.25 | | | ml LAESV Index (A-L): 40.03 ml/m2 LAAs A2C: 19.43 cm2 LAESV | | | A-L A2C: 56.66 ml LALs A2C: 5.65 cm LAAs A4C: 17.65 cm2 | | | LAESV A-L A4C: 51.99 ml LALs A4C: 5.08 cm Ao Diam: 2.71 cm | | | AV Cusp: 1.32 cm LA Diam: 4.09 cm LA/Ao: 1.50 %FS: | | | 31.34 % EDV(Teich): 53.12 ml EF(Teich): 60.17 % ESV(Teich): | | | 21.15 ml IVSd: 1.75 cm IVSs: 2.07 cm LVIDd: 3.56 cm | | | LVIDs: 2.44 cm LVPWd: 1.70 cm SV(Teich): 31.97 ml D-E | | | Excursion: 0.85 cm E-F Divide: 0.03 m/s EPSS: 0.63 cm HR: | | | 72.49 BPM AV maxP.68 mmHg AV meanP.73 mmHg AV | | | Vmax: 1.70 m/s AV Vmean: 1.23 m/s AV VTI: 31.15 cm CAMPOS | | | Vmax: 1.44 cm2 CAMPOS (VTI): 1.66 cm2 LVCI Dopp: 2.63 l/minm2 | | | LVCO Dopp: 3.76 l/min HR: 72.52 BPM LVOT maxP.02 mmHg | | | LVOT meanP.31 mmHg LVSI Dopp: 36.33 ml/m2 LVSV Dopp: | | | 51.96 ml LVOT Vmax: 1.00 m/s LVOT Vmean: 0.73 m/s LVOT VTI: | | | 21.06 cm MCO: 469.50 ms MV A Jamar: 0.84 m/s MV DecT: | | | 240.06 ms MV E Jamar: 0.71 m/s MV E/A Ratio: 0.84 MV A Dur: | | | 107.20 ms MV maxP.43 mmHg MV meanP.25 mmHg MV Vmax: | | | 0.92 m/s MV Vmean: 0.52 m/s MV VTI: 21.60 cm MVA (VTI): | | | 2.40 cm2 Septal e': 0.03 m/s Septal E/e': 21.78 Lateral e': | | | 0.05 m/s Lateral E/e': 12.71 P Vein A: 0.22 m/s P Vein A | | | Dur: 103.51 ms P Vein D: 0.39 m/s P Vein S/D Ratio: 1.41 P | | | Vein S: 0.55 m/s PRend P.56 mmHg PRend Vmax: 0.94 m/s | | | HR: 72.13 BPM PV maxP.03 mmHg PV meanP.60 mmHg PV | | | Vmax: 0.50 m/s PV Vmean: 0.37 m/s PV VTI: 9.95 cm TR | | | maxP.11 mmHg TR Vmax: 3.32 m/s Medical Office Technician: AB | | | Authenticated by: Rober Nunez MD Report Date/Time: 09-08-2013 | | | 17:24:05 | | + + + + + | Procedure Note | + + | Jonnathan Forrest Conversion - 07/16/2019 7:48 PM PDT Patient Name: Clover KEARNEY of | | : 1940 Performing Physician: Rober Nunez | | MD INDICATIONS h | | tn, diabetes, weakness CONCLUSIONS 1. Left ventricular systolic function is | | hyperdynamic with an estimated EF of >70%.2. There is moderate concentric left | | ventricular hypertrophy.3. The diastolic filling pattern indicates impaired relaxation | | consistent with mild dysfunction (Grade I), which is normal for the patient's age.4. | | There is moderate pulmonary hypertension. FINDINGS--------ECG rhythm: Sinus | | rhythm.Study: A 2-dimensional transthoracic echocardiogram with m-mode, spectral and | | color flow Doppler was perfomed.Study: This was a technically difficult study with | | suboptimal views.Left Ventricle: Left ventricular systolic function is hyperdynamic with | | an estimated EF of >70%.Left Ventricle: The left ventricle cavity size is normal.Left | | Ventricle: There is moderate concentric left ventricular hypertrophy.Left Ventricle: The | | diastolic filling pattern indicates impaired relaxation consistent with mild | | dysfunction (Grade I), which is normal for the patient's age.Right Ventricle: The right | | ventricle is normal in size.Right Ventricle: The right ventricular systolic function is | | normal.Left Atrium: The left atrial size is normalLeft Atrium: , and the LA measures | | 4.1cm.Right Atrium: The right atrial size is normalRight Atrium: , and the RA measures | | 4.3cm.Aortic Valve: Aortic valve is trileaflet and is mildly thickened.Aortic Valve: | | There is mild aortic valve sclerosis without stenosis.Aortic Valve: There is no evidence | | of aortic regurgitation.Aortic Valve: There is no evidence of aortic stenosis.Mitral | | Valve: 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.Mitral Valve: Mild mitral | | regurgitation is present.Mitral Valve: Mild mitral annular calcification | | present.Tricuspid Valve: The tricuspid valve appears structurally normal.Tricuspid | | Valve: Mild tricuspid regurgitation present.Tricuspid Valve: There is moderate pulmonary | | hypertension.Tricuspid Valve: The right ventricular systolic pressure (pulmonary artery | | systolic pressure), as measured by Doppler, is {RVSP}.Pulmonic Valve: The pulmonic | | valve is normal.Pulmonic Valve: Trace pulmonic regurgitation.Pericardium: There is no | | pericardial effusion.IVC/Hepatic Veins: The IVC is normal size (1.5-2.5cm) and collapses | | <50% with sniff, consistent with central venous pressures of 10-15mmHg.Mass: No mass | | visualizedThrombus: No clot visualized MEASUREMENTS Ao asc: 3.55 cmIVC: | | 1.71 cmLA Major: 4.87 cmEDV(Teich): 48.45 mlIVSd: 1.56 cmLVIDd: 3.43 cmLVPWd: | | 1.35 cmLVOT Diam: 1.77 cm%FS: 32.07 %EF(Teich): 61.36 %ESV(Teich): 18.72 mlIVSs: | | 1.96 cmLVIDs: 2.33 cmLVPWs: 1.85 cmSV(Teich): 29.73 mlRA Major: 4.28 cmRVIDd: | | 2.93 cmLVEF MOD A4C: 85.31 %SV MOD A4C: 39.20 mlLVEDV MOD A4C: 45.95 mlLVLd | | A4C: 6.93 cmLVESV MOD A4C: 6.74 mlLVLs A4C: 1.96 cmLAESV(A-L): 57.25 mlLAESV | | Index (A-L): 40.03 ml/m2LAAs A2C: 19.43 [id number] A-L A2C: 56.66 mlLALs A2C: 5.65 | | cmLAAs A4C: 17.65 [id number] A-L A4C: 51.99 mlLALs A4C: 5.08 cmAo Diam: 2.71 cmAV | | Cusp: 1.32 cmLA Diam: 4.09 cmLA/Ao: 1.50%FS: 31.34 %EDV(Teich): 53.12 | | mlEF(Teich): 60.17 %ESV(Teich): 21.15 mlIVSd: 1.75 cmIVSs: 2.07 cmLVIDd: 3.56 | | cmLVIDs: 2.44 cmLVPWd: 1.70 cmSV(Teich): 31.97 mlD-E Excursion: 0.85 cmE-F | | Divide: 0.03 m/sEPSS: 0.63 cmHR: 72.49 BPMAV maxP.68 mmHgAV meanP.73 | | mmHgAV Vmax: 1.70 m/Philip Vmean: 1.23 m/Philip VTI: 31.15 cmAVA Vmax: 1.44 cm2AVA | | (VTI): 1.66 [id number] Dopp: 2.63 l/[id number] Dopp: 3.76 l/minHR: 72.52 BPMLVOT | | maxP.02 mmHgLVOT meanP.31 mmHgLVSI Dopp: 36.33 ml/m2LVSV Dopp: 51.96 | | mlLVOT Vmax: 1.00 m/sLVOT Vmean: 0.73 m/sLVOT VTI: 21.06 cmMCO: 469.50 msMV A | | Jamar: 0.84 m/sMV DecT: 240.06 msMV E Jamar: 0.71 m/sMV E/A Ratio: 0.84MV A Dur: | | 107.20 msMV maxP.43 mmHgMV meanP.25 mmHgMV Vmax: 0.92 m/sMV Vmean: 0.52 | | m/sMV VTI: 21.60 cmMVA (VTI): 2.40 kd6Hsszsw e': 0.03 m/sSeptal E/e': | | 21.78Lateral e': 0.05 m/sLateral E/e': 12.71P Vein A: 0.22 m/sP Vein A Dur: | | 103.51 msP Vein D: 0.39 m/sP Vein S/D Ratio: 1.41P Vein S: 0.55 m/sPRend PG: | | 3.56 mmHgPRend Vmax: 0.94 m/sHR: 72.13 BPMPV maxP.03 mmHgPV meanP.60 | | mmHgPV Vmax: 0.50 m/sPV Vmean: 0.37 m/sPV VTI: 9.95 cmTR maxP.11 mmHgTR | | Vmax: 3.32 m/s Medical Office Technician: ABAuthenticated by: Rober RENAEeport Date/Time: | | 09-08-2013 17:24:05 IMPRESSION: 1. Left ventricular systolic function is hyperdynamic | | with an estimated EF of >70%.2. There is moderate concentric left ventricular | | hypertrophy.3. The diastolic filling pattern indicates impaired relaxation consistent | | with mild dysfunction (Grade I), which is normal for the patient's age.4. There is | | moderate pulmonary hypertension. | |LVIDd: 3.43 cm | |LVPWd: 1.35 cm | |LVOT Diam: 1.77 cm | |%FS: 32.07 % | |EF(Teich): 61.36 % | |ESV(Teich): 18.72 ml | |IVSs: 1.96 cm | |LVIDs: 2.33 cm | |LVPWs: 1.85 cm | |SV(Teich): 29.73 ml | |RA Major: 4.28 cm | |RVIDd: 2.93 cm | |LVEF MOD A4C: 85.31 % | |SV MOD A4C: 39.20 ml | |LVEDV MOD A4C: 45.95 ml | |LVLd A4C: 6.93 cm | |LVESV MOD A4C: 6.74 ml | |LVLs A4C: 1.96 cm | |LAESV(A-L): 57.25 ml | |LAESV Index (A-L): 40.03 ml/m2 | |LAAs A2C: 19.43 cm2 | |LAESV A-L A2C: 56.66 ml | |LALs A2C: 5.65 cm | |LAAs A4C: 17.65 cm2 | |LAESV A-L A4C: 51.99 ml | |LALs A4C: 5.08 cm | |Ao Diam: 2.71 cm | |AV Cusp: 1.32 cm | |LA Diam: 4.09 cm | |LA/Ao: 1.50 | |%FS: 31.34 % | |EDV(Teich): 53.12 ml | |EF(Teich): 60.17 % | |ESV(Teich): 21.15 ml | |IVSd: 1.75 cm | |IVSs: 2.07 cm | |LVIDd: 3.56 cm | |LVIDs: 2.44 cm | |LVPWd: 1.70 cm | |SV(Teich): 31.97 ml | |D-E Excursion: 0.85 cm | |E-F Divide: 0.03 m/s | |EPSS: 0.63 cm | |HR: 72.49 BPM | |AV maxP.68 mmHg | |AV meanP.73 mmHg | |AV Vmax: 1.70 m/s | |AV Vmean: 1.23 m/s | |AV VTI: 31.15 cm | |CAMPOS Vmax: 1.44 cm2 | |CAMPOS (VTI): 1.66 cm2 | |LVCI Dopp: 2.63 l/minm2 | |LVCO Dopp: 3.76 l/min | |HR: 72.52 BPM | |LVOT maxP.02 mmHg | |LVOT meanP.31 mmHg | |LVSI Dopp: 36.33 ml/m2 | |LVSV Dopp: 51.96 ml | |LVOT Vmax: 1.00 m/s | |LVOT Vmean: 0.73 m/s | |LVOT VTI: 21.06 cm | |MCO: 469.50 ms | |MV A Jamar: 0.84 m/s | |MV DecT: 240.06 ms | |MV E Jamar: 0.71 m/s | |MV E/A Ratio: 0.84 | |MV A Dur: 107.20 ms | |MV maxP.43 mmHg | |MV meanP.25 mmHg | |MV Vmax: 0.92 m/s | |MV Vmean: 0.52 m/s | |MV VTI: 21.60 cm | |MVA (VTI): 2.40 cm2 | |Septal e': 0.03 m/s | |Septal E/e': 21.78 | |Lateral e': 0.05 m/s | |Lateral E/e': 12.71 | |P Vein A: 0.22 m/s | |P Vein A Dur: 103.51 ms | |P Vein D: 0.39 m/s | |P Vein S/D Ratio: 1.41 | |P Vein S: 0.55 m/s | |PRend P.56 mmHg | |PRend Vmax: 0.94 m/s | |HR: 72.13 BPM | |PV maxP.03 mmHg | |PV meanP.60 mmHg | |PV Vmax: 0.50 m/s | |PV Vmean: 0.37 m/s | |PV VTI: 9.95 cm | |TR maxP.11 mmHg | |TR Vmax: 3.32 m/s | | | |Medical Office Technician: | |Authenticated by: Rober Nunez MD | |Report Date/Time: 09-08-2013 17:24:05 | | | |IMPRESSION: | |1. Left ventricular systolic function is hyperdynamic with an estimated EF of >70%. | |2. There is moderate concentric left ventricular hypertrophy. | |3. The diastolic filling pattern indicates impaired relaxation consistent with mild dysfunc tion (Grade I), which is normal for the patient's age. | |4. There is moderate pulmonary hypertension. | + + MRI Brain Wo MRA Head Wo (09/07/2013 11:03 PM PDT) + + | Specimen | + + | | + + + + + | Impressions | Performed At | + + + | 1. 4 mm acute infarct involving the posterior right side of the | | | meryl. 2. 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 This is commonly associated | | | with hypertension and diabetes. 3. Moderate diffuse cerebral | | | atrophy. 4. 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 5. MRA shows focal areas of | | | atherosclerotic narrowing in the P1 segment of the right posterior | | | cerebral artery, the cavernous segments of both the right and left | | | internal carotid arteries and in the post bifurcation M1 segment of | | | the left middle cerebral artery. | | + + + + + + | Narrative | Performed At | + + + | [facility] MRI BRAIN WO AND MRA HEAD 09/07/2013 11:03 PM | | | HISTORY: 73 years. Female. Left-sided weakness. TECHNIQUE: | | | Imaging was performed on a 1.5 [place] MRI system. Multiplanar | | | sequences were acquired according to a standard department protocol | | | without contrast. A 3D noncontrast [id number] MRA sequence was | | | acquired through the head. Multiplanar angiographic MIP | | | reconstructions from the MRA dataset were performed. COMPARISON: | | | CT head 09/07/2013 at 2127 hrs. FINDINGS: The DWI sequence shows | | | minimal restricted diffusion in the posterior right side of the meryl | | | with associated low ADC values consistent with a 4 mm acute infarct. | | | No other areas of restricted diffusion to suggest acute ischemia or | | | infarct are noted within the brain parenchyma. An old infarct is | | | noted extending from the left putamen up into the anterior left | | | centrum semiovale adjacent to the lateral margin of the anterior horn | | | of left lateral ventricle. The T2* GRE sequence does not show low | | | signal material to suggest microhemorrhage or calcification within | | | the brain parenchyma. The FLAIR and T2 sequences show mild diffusely | | | increased signal intensity in the central meryl. 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 The CSF spaces including the ventricles, | | | cisterns and sulci are moderately enlarged. This suggests diffuse | | | cerebral atrophy. While this is a nonspecific finding, if there is | | | clinical suspicion of a neurodegenerative disease, clinical evaluation | | | is suggested. The midline structures including the corpus | | | callosum, meryl, cerebellar vermis, pineal gland and pituitary are | | | normal. No masses are seen in the region of the cerebellopontine | | | angles or internal auditory canals. Bilateral cataract surgery is | | | noted. The orbits and their contents are otherwise normal. The | | | paranasal sinuses are well aerated. No air-fluid levels or mucosal | | | thickening is noted. No fluid seen in the mastoids. The osseous | | | structures of the calvaria and upper cervical spine demonstrate normal | | | bone marrow signal intensity. The soft tissues of the oropharynx | | | and upper neck appear normal on the sagittal sequences. The | | | intracranial arteries demonstrate normal flow voids on the T2 | | | sequence. No large aneurysm is noted. The dural venous sinuses | | | also demonstrate normal flow-voids. MRA Distal Internal Carotids: | | | Right Internal carotid: Moderate narrowing of the cavernous segment, | | | 50-75%. Left Internal carotid: Moderate narrowing of the cavernous | | | segment, 50-75%. Posterior Circulation: Vertebral Dominance: | | | Codominant. Right vertebral artery: Normal. Left vertebral artery: | | | Normal. Posterior inferior cerebellar arteries: Normal. Anterior | | | inferior cerebellar arteries: Normal. Basilar artery: Normal. | | | Superior cerebellar arteries: Normal. Right posterior cerebral | | | artery: Focal P1 segment narrowing. Left posterior cerebral artery: | | | Normal. [place]: Anterior communicating artery: Normal. | | | Right posterior communicating artery: Not visualized. It may be too | | | small to resolve or is congenitally absent. Left posterior | | | communicating artery: Not visualized. It may be too small to resolve | | | or is congenitally absent. Anterior Circulation: Right Anterior | | | cerebral artery: A1 segment: Normal. A2 segment: Normal. Right | | | MCA: M1 segment: Normal. Post bifurcation M1 segment: Normal. M2 | | | segments: Normal. M3 segments: Normal. M4 segments: Normal. Left | | | Anterior cerebral artery: A1 segment: Normal. A2 segment: Normal. | | | Left MCA: M1 segment: Normal. Post bifurcation M1 segment: Focal | | | narrowing noted. M2 segments: Normal. M3 segments: Normal. M4 | | | segments: Normal. | | + + + + + | Procedure Note | + + | Jonnathan Forrest Conversion - 07/16/2019 7:48 PM [facility] BRAIN WO AND MRA | | HEAD09/07/2013 11:03 PM HISTORY:73 years. Female. Left-sided weakness. | | TECHNIQUE:Imaging was performed on a 1.5 [place] MRI system. Multiplanar sequences were | | acquired according to a standard department protocol without contrast. A 3D | | noncontrast [id number] MRA sequence was acquired through the head. Multiplanar | | angiographic MIP reconstructions from the MRA dataset were performed. COMPARISON:CT head | | 09/07/2013 at 2127 hrs. FINDINGS:The DWI sequence shows minimal restricted diffusion in | | the posterior right side of the meryl with associated low ADC values consistent with a 4 | | mm acute infarct. No other areas of restricted diffusion to suggest acute ischemia or | | infarct are noted within the brain parenchyma. An old infarct is noted extending from | | the left putamen up into the anterior left centrum semiovale adjacent to the lateral | | margin of the anterior horn of left lateral ventricle. The T2* GRE sequence does not | | show low signal material to suggest microhemorrhage or calcification within the brain | | parenchyma. The FLAIR and T2 sequences show mild diffusely increased signal intensity | | in the central meryl. This is often associated with hypertension or diabetes and has | | been termed central pontine rarefaction. The CSF spaces including the ventricles, | | cisterns and sulci are moderately enlarged. This suggests diffuse cerebral atrophy. | | While this is a nonspecific finding, if there is clinical suspicion of a | | neurodegenerative disease, clinical evaluation is suggested. The midline structures | | including the corpus callosum, meryl, cerebellar vermis, pineal gland and pituitary are | | normal. No masses are seen in the region of the cerebellopontine angles or internal | | auditory canals. Bilateral cataract surgery is noted. The orbits and their contents | | are otherwise normal. The paranasal sinuses are well aerated. No air-fluid levels or | | mucosal thickening is noted. No fluid seen in the mastoids. The osseous structures of | | the calvaria and upper cervical spine demonstrate normal bone marrow signal intensity. | | The soft tissues of the oropharynx and upper neck appear normal on the sagittal | | sequences. The intracranial arteries demonstrate normal flow voids on the T2 sequence. | | No large aneurysm is noted. The dural venous sinuses also demonstrate normal | | flow-voids. MRADistal Internal Carotids:Right Internal carotid: Moderate narrowing of | | the cavernous segment, 50-75%.Left Internal carotid: Moderate narrowing of the cavernous | | segment, 50-75%. Posterior Circulation:Vertebral Dominance: Codominant.Right vertebral | | artery: Normal.Left vertebral artery: Normal.Posterior inferior cerebellar arteries: | | Normal.Anterior inferior cerebellar arteries: Normal.Basilar artery: Normal.Superior | | cerebellar arteries: Normal.Right posterior cerebral artery: Focal P1 segment | | narrowing.Left posterior cerebral artery: Normal. [place]:Anterior | | communicating artery: Normal.Right posterior communicating artery: Not visualized. It | | may be too small to resolve or is congenitally absent.Left posterior communicating | | artery: Not visualized. It may be too small to resolve or is congenitally absent. | | Anterior Circulation:Right Anterior cerebral artery:A1 segment: Normal.A2 segment: | | Normal. Right MCA:M1 segment: Normal.Post bifurcation M1 segment: Normal.M2 segments: | | Normal.M3 segments: Normal.M4 segments: Normal. Left Anterior cerebral artery:A1 | | segment: Normal.A2 segment: Normal. Left MCA:M1 segment: Normal.Post bifurcation M1 | | segment: Focal narrowing noted.M2 segments: Normal.M3 segments: Normal.M4 segments: | | Normal. IMPRESSION: 1. 4 mm acute infarct involving the posterior right side of the | | meryl.2. 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 This is commonly associated with hypertension and diabetes.3. Moderate | | diffuse cerebral atrophy.4. Old infarct extending from the left basal ganglia into the | | left anterior centrum semiovale.5. MRA shows focal areas of atherosclerotic narrowing | | in the P1 segment of the right posterior cerebral artery, the cavernous segments of both | | the right and left internal carotid arteries and in the post bifurcation M1 segment of | | the left middle cerebral artery. Electronically signed by Isaac Gonzales DO on | | 09/07/2013 11:49 PM | |A1 segment: Normal. | |A2 segment: Normal. | | | |Right MCA: | |M1 segment: Normal. | |Post bifurcation M1 segment: Normal. | |M2 segments: Normal. | |M3 segments: Normal. | |M4 segments: Normal. | | | |Left Anterior cerebral artery: | |A1 segment: Normal. | |A2 segment: Normal. | | | |Left MCA: | |M1 segment: Normal. | |Post bifurcation M1 segment: Focal narrowing noted. | |M2 segments: Normal. | |M3 segments: Normal. | |M4 segments: Normal. | | | |IMPRESSION: | |1. 4 mm acute infarct involving the posterior right side of the meryl. | |2. 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 This is commonly associated with hypertension and diabetes. | |3. Moderate diffuse cerebral atrophy. | |4. Old infarct extending from the left basal ganglia into the left anterior centrum semiov iesha. | |5. MRA shows focal areas of atherosclerotic narrowing in the P1 segment of the right poste rior cerebral artery, the cavernous segments of both the right and left internal carotid art eries and in the post bifurcation M1 segment of the left middle | |cerebral artery. | | | | | + + XR Chest 2 Vws (09/07/2013 9:47 PM PDT) + + | Specimen | + + | | + + + + + | Impressions | Performed At | + + + | 1. Mild cardiomegaly. 2. Osteopenia. 3. No cause for acute | | | chest pain noted. Electronically signed by Isaac Gonzales DO on | | | 09/08/2013 1:56 AM | | + + + + + + | Narrative | Performed At | + + + | [facility] CHEST 2 VIEW FRONTAL AND LATERAL 09/07/2013 | | | 9:47 PM HISTORY: 73 years. Female. Chest pain. TECHNIQUE: | | | 2 views obtained. COMPARISON: None. FINDINGS: Surgical | | | clips are seen in along the lateral margin of the right chest wall | | | which may be in the axillary region. The heart is mildly enlarged. | | | The lungs are normally expanded. The pulmonary vascular pattern is | | | normal. No acute airspace disease, parenchymal nodule, mass, | | | pleural effusion or pneumothorax is noted. No hilar adenopathy is | | | seen. Osteopenia | | + + + + + | Procedure Note | + + | Jonnathan Forrest Conversion - 07/16/2019 7:48 PM PDT [facility] CHEST 2 VIEW FRONTAL | | AND [id number]/07/2013 9:47 PM HISTORY:73 years. Female. Chest pain. TECHNIQUE:2 views | | obtained. COMPARISON:None. FINDINGS:Surgical clips are seen in along the lateral margin | | of the right chest wall which may be in the axillary region.The heart is mildly | | enlarged. The lungs are normally expanded. The pulmonary vascular pattern is normal. | | No acute airspace disease, parenchymal nodule, mass, pleural effusion or pneumothorax is | | noted. No hilar adenopathy is seen. Osteopenia IMPRESSION: 1. Mild cardiomegaly.2. | | Osteopenia.3. No cause for acute chest pain noted. | | | |COMPARISON: | |None. | | | |FINDINGS: | |Surgical clips are seen in along the lateral margin of the right chest wall which may be in the axillary region. | |The heart is mildly enlarged. The lungs are normally expanded. The pulmonary vascular pat tern is normal. No acute airspace disease, parenchymal nodule, mass, pleural effusion or pn eumothorax is noted. No hilar adenopathy is seen. Osteopenia | | | |IMPRESSION: | |1. Mild cardiomegaly. | |2. Osteopenia. | |3. No cause for acute chest pain noted. | | | | | + + CT Head wo Contrast (09/07/2013 9:33 PM PDT) + + | Specimen | + + | | + + + + + | Impressions | Performed At | + + + | 1. No acute intracranial findings. 2. Moderate diffuse cerebral | | | atrophy. 3. Old infarct in left basal ganglia extending up to the | | | anterior left centrum semiovale. | | + + + + + + | Narrative | Performed At | + + + | [facility] CT HEAD WO CONTRAST 09/07/2013 9:33 PM | | | HISTORY: 73 years. Female. Headache. TECHNIQUE: 5-mm axial | | | images were acquired from the foramen magnum to the cranial vertex | | | without contrast. COMPARISON: None. FINDINGS: The brain | | | parenchyma does not demonstrate acute intraaxial hemorrhage, midline | | | shift, mass effect, or cerebral edema. An old infarct is noted | | | extending from the left putamen into the left internal capsule and | | | anterior left frontal lobe white matter in the centrum semiovale. | | | Moderate diffuse rugal atrophy is noted. Bilateral cataract | | | surgery is seen. The orbits and their contents are otherwise normal. | | | Normal stallworth-white matter differentiation is preserved. No | | | extraaxial fluid collections are noted. The paranasal sinuses are | | | well aerated. No mucosal thickening or air-fluid levels are noted. | | | The mastoid air cells show normal pneumatization bilaterally. No | | | mastoid fluid noted. The osseous structures of the calvaria do not | | | demonstrate fracture. No lytic or blastic lesions are noted. | | + + + + + | Procedure Note | + + | Lon, Rad Conversion - 07/16/2019 7:48 PM PDT [facility] HEAD WO | | [id number]/15/2013 9:33 PM HISTORY:73 years. Female. Headache. TECHNIQUE:5-mm axial | | images were acquired from the foramen magnum to the cranial vertex without contrast. | | COMPARISON:None. FINDINGS:The brain parenchyma does not demonstrate acute intraaxial | | hemorrhage, midline shift, mass effect, or cerebral edema. An old infarct is noted | | extending from the left putamen into the left internal capsule and anterior left frontal | | lobe white matter in the centrum semiovale. Moderate diffuse rugal atrophy is noted. | | Bilateral cataract surgery is seen. The orbits and their contents are otherwise normal. | | Normal stallworth-white matter differentiation is preserved. No extraaxial fluid | | collections are noted. The paranasal sinuses are well aerated. No mucosal thickening | | or air-fluid levels are noted. The mastoid air cells show normal pneumatization | | bilaterally. No mastoid fluid noted. The osseous structures of the calvaria do not | | demonstrate fracture. No lytic or blastic lesions are noted. IMPRESSION: 1. No acute | | intracranial findings.2. Moderate diffuse cerebral atrophy.3. Old infarct in left | | basal ganglia extending up to the anterior left centrum semiovale. | |the centrum semiovale. Moderate diffuse rugal atrophy is noted. Bilateral cataract surger y is seen. The orbits and their contents are otherwise normal. Normal stallworth-white matter d ifferentiation is preserved. No extraaxial fluid collections are | |noted. The paranasal sinuses are well aerated. No mucosal thickening or air-fluid levels are noted. The mastoid air cells show normal pneumatization bilaterally. No mastoid fluid noted. The osseous structures of the calvaria do not demonstrate | |fracture. No lytic or blastic lesions are noted. | | | |IMPRESSION: | |1. No acute intracranial findings. | |2. Moderate diffuse cerebral atrophy. | |3. Old infarct in left basal ganglia extending up to the anterior left centrum semiovale. | | | | | + + ECG 12 lead (09/07/2013 9:20 PM PDT) + + + + [...] abnormalityAbnormal | | | | | | ECGNo previous ECGs | | | | | | availableThis ECG | | | | | | contains Unconfirmed | | | | | | Interpretation | | | | | | Statements. See ED | | | | | | Record for Physician | | | | | | Interpretation. | | | | | | Confirmed by MUSE READ | | | | | | ONLY, -COMPUTER ([id number]), | | | | | | research editor FER JONES (2) | | | | | | on 09/08/2013 5:26:46 | | | | | | AM | | | | + + + + + + + + | Specimen | + + | | + + + + + | Narrative | Performed At | + + + | Historically converted procedure from [facility] Epic environment | EXTERNAL LAB | + + + + +---------+ + + | Performing | Address | City/State/Zipcode | Phone Number | | Organization | | | | + +---------+ + + | EXTERNAL LAB | | | | + +---------+ + + documented in this encounter Visit Diagnoses + + | Diagnosis | + + | Lacunar stroke, acute (HCC) Unspecified cerebral artery occlusion with cerebral | | infarction | + + | Muscle weakness of left arm Muscle weakness (generalized) | + + | Dehydration | + + | DM type 2 (diabetes mellitus, type 2) (HCC) Type II or unspecified type diabetes | | mellitus without mention of complication, not stated as uncontrolled | + + | HTN (hypertension) Unspecified essential hypertension | + + documented in this encounter
--- OUTSIDE RECORDS SUMMARY | ~2020-02-24 | XMS | Encounter Summary ---
Demographics + + + | Address | [address] | | | [place] [address] | + + + | Home Phone [...] Team Providers + +------+ + | Care Insurance Agency Owner Name | Role | Phone | + +------+ + PCP | Unavailable | + +------+ + Encounter Details +--------+ + + + + | Date | Type | Department | Care Team | Description | +--------+ + + + + | 01/26/ | Hospital | [facility] | | | | 2007 - | Encounter | MED CTR CANCER | | | | | | [place] Megan Moya | | | | 02/[birth year]/ | | [place] | | | | 2007 | | [address] | | | | | | [phone] | | | +--------+ + + + [...]
--- OUTSIDE RECORDS SUMMARY | ~2020-02-24 | XMS | Clinical Summary ---
Demographics + + + | Address | [address] | | | [place] [address] | + + + | Home Phone | | + + + | Preferred Language | Unknown | + + + | Marital Status | | + + + | Mosque Affiliation | Unknown | + + + | Race | Unknown | + + + | Ethnic Group | Unknown | + + + Author + + + | Author | [facility] | | | and [place] | + + + | Organization | [facility] | | | [...] Team Providers + +------+ + | Care Presser And Blocker Knitted Goods Name | Role | Phone | + +------+ + | Caron Junior | PCP | | + +------+ + Allergies + + + + + + | Active Allergy | Reactions | Severity | Noted | Comments | | | | | Date | | + + + + + + | Bee Venom | | | | | + + + + + + | Codeine | | | 11/14/20 | | | [...] + + | Hydrocodone | | | 11/14/20 | | | [...] | | | daily | | | 20 | | e | | | | | | 12 | | | + + + +---------+------+------+-------+ | multiple vitamins | one by mouth daily | | 0 | 02/1 | | Activ | | w/minerals (OCUVITE) | | | | 20 | | e | | TABS | | | | 12 | | | + + + +---------+------+------+-------+ | ferrous sulfate | One tablet by mouth | | 0 | 02/1 | | Activ | | 325 mg tablet | once daily | | | 7/20 | | e | | | | | | 12 | | | + + + +---------+------+------+-------+ | | Take 25 mg by mouth | | 0 | 02/1 | | Activ | | hydrochlorothiazide | Daily. | | | 7/20 | | e | | 25 mg tablet | | | | 12 | | | + + + +---------+------+------+-------+ | ibuprofen | Take 600 mg by mouth | | 0 | 02/1 | | Activ | | (ADVIL,MOTRIN) 600 | 3 times daily. | | | 7/20 | | e | | MG tablet | | | | 12 | | | + + + +---------+------+------+-------+ | levothyroxine | Take 125 mcg by | | 0 | 02/1 | | Activ | | (SYNTHROID, | mouth Daily. | | | 7/20 | | e | | LEVOTHROID) 125 mcg | | | | 12 | | | | tablet | | | | | | | + + + +---------+------+------+-------+ | metoprolol | Take 100 mg by mouth | | 0 | 02/1 | | Activ | | (TOPROL-XL) 100 MG | 2 times daily. | | | 06/12 | | e | | 24 hr tablet | | | | 12 | | | + + + +---------+------+------+-------+ | multivitamin | One tablet by mouth | | 0 | 02/1 | | Activ | | (THERAGRAN) per | once daily | | | 06/12 | | e | | tablet | [...] | | Activ | | (VITAMIN D3) 33670 | mouth Daily. | | | | [...] MURMUR | 01/10/2012 | + + + Immunizations + + + + | Name | Administration Dates | Next Due | + + + + | TDAP, (ADOL/ADULT) | 10/16/2019 (Deferred: - pt medicated with | | | | TDAP last year) | | + + + + Family History + + [...] | | + + + + + Plan of Treatment + + + + + | Health Maintenance | Due Date | Last Done | Comments | + + + + + | Diabetic Eye Exam | | | | | | 9 | | | + + + + + | Diabetic Foot Exam | | | | | | 9 | | | + + + + + | Vaccine: Zoster (1 | | | | | of 2) | 1 | | | + + + + + | Breast Cancer | | | | | Screening | 6 | | | + + + + + | Vaccine: | | | | | Pneumococcal 65+ (1 | 6 | | | | of 2 - PCV13) | | | | + + + + + | Hemoglobin A1c | | 05/28/2014 | | | Screening | 4 | | | + + + + + | Vaccine: | | 03/08/2009, 10/14/1996 | | | Dtap/Tdap/Td (2 - | 9 | | | | Td) | | | | + + + + + | Adult Annual | | | | | Wellness Visit | 9 | | | + + + + + | Vaccine: Influenza | Completed | 09/24/2019, 08/19/2018, | | | | | 08/19/2017, Additional history | | | | | exists | | + + + + + [...] + +--------+ +--------+ +---------+--------+ | MEDICARE | DAVIDRO | [id number] | 03/24/20 | [phone] | | Medica | | | AD | | 06-Pre | 5 | | re | | | MEDICA | | sent | | | | | | RE | | | | | | + +--------+ +--------+ +---------+--------+ | MEDICARE | RAILRO | [id number] | | [phone] | | Medica | | | AD | | 006-Pr | 5 | | re | | | MEDICA | | esent | | | | | | RE | | | | | | + +--------+ +--------+ +---------+--------+ | [facility] | [facility] | [id number] | 10/15/ | | | Indemn | | SERVICE | YELLOW | | 2019-P | | | ity | | | HAWK | | resent | | | | + +--------+ +--------+ +---------+--------+ | [facility] | [facility] | [id number] | | | | Indemn | | [...] Person | Self [birth year] | [address] | | | al/Fam | | 1940 | [phone] | [place] | | | gianni | | | 2 (Home) | [phone] | + +--------+ +--------+ + + | Tammie Kearney | Person | Self | [birth year] | [address] | | | al/Fam | | 1940 | [phone] | [place] | | | gianni | | | 2 (Home) | [phone] | + +--------+ +--------+ + + Advance Directives + + + + + | Type | Date Recorded | Patient | Explanation | | | | Punch Box Tender | | + + + + + | Power of | | | | | Print Traffic Manager | | | | + + + + + | Advance | | | | | Directive | | | | + + + + +
--- OUTSIDE RECORDS SUMMARY | ~2020-02-24 | XMS | Encounter Summary ---
Demographics + + + | Address | [address] | | | [place] [address] | + + + | Home Phone | | + + + | Preferred Language | Unknown | + + + | Marital Status | | + + + | Alevism Affiliation | Unknown | + + + [...] Team Providers + +------+ + | Care Boat Canvas Maker Installer Name | Role | Phone | + +------+ + PCP | Unavailable | + +------+ + Encounter Details +--------+ + + + + | Date | Type | Department | Care Team | Description | +--------+ + + + + | 10/05/ | Hospital | [facility] | | | | 2007 - | Encounter | MED CTR CANCER | | | | | | [place] Megan Moya | | | | 10/23/ | | [place] | | | | 2007 | | [address] | | | | | | [phone] | | | +--------+ + + + [...]
--- OUTSIDE RECORDS SUMMARY | ~2020-02-24 | XMS | Encounter Summary ---
Demographics + + + | Address | [address] | | | [place] [address] | + + + | Home Phone | | + + + | Preferred Language | Unknown | + + + | Marital Status | | + + + | Hoahaoism Affiliation | Unknown | + + + | Race | Unknown | + + + | Ethnic Group | Unknown | + + + Author + + + | Author | [facility] | | | and [place] | + + + | Organization | [facility] | [...] Team Providers + +------+ + | Care Topper Press Operator Name | Role | Phone | + +------+ + PCP | Unavailable | + +------+ + Encounter Details +--------+ + + + + | Date | Type | Department | Care Team | Description | +--------+ + + + + | 05/26/ | [facility] | [facility] | Wilber Giron | | | 2007 | Encounter | MED CTR XRAY [address] | [address] [facility] | | | | | [place] | [place] | | | | | [place] [address] | [id number] | | | | | [phone] | | | +--------+ + + + [...]
--- OUTSIDE RECORDS SUMMARY | ~2020-02-24 | XMS | Encounter Summary ---
Demographics + + + | Address | [address] | | | [place] [address] | + + + | Home Phone | | + + + | Preferred Language | Unknown | + + + | Marital Status | | + + + | Jew Affiliation | Unknown | + + + | Race | Unknown | + + + | Ethnic Group | Unknown | + + + Author + + + | Author | [facility] | | | and [place] | + + + | Organization | [facility] | | [...] Team Providers + +------+ + | Care Interventional Tech Name | Role | Phone | + +------+ + PCP | Unavailable | + +------+ + Encounter Details +--------+ + + + + | Date | Type | Department | Care Team | Description | +--------+ + + + + | 03/27/ | Hospital | [facility] | | | | 2006 - | Encounter | MED CTR CANCER | | | | | | [place] Megan Moya | | | | 04/23/ | | [place] | | | | 2006 | | [address] | | | | | | [phone] | | | +--------+ + + + [...]
--- OUTSIDE RECORDS SUMMARY | ~2020-02-24 | XMS | Encounter Summary ---
Demographics + + + | Address | [address] | | | [place] [address] | + + + | Home Phone | | + + + | Preferred Language | Unknown | + + + | Marital Status | | + + + | Yazdanism Affiliation | Unknown | + + + | Race | Unknown | + + + | Ethnic Group | Unknown | + + + Author + + + | Author | [facility] | | | and [place] | + + + | Organization | [facility] | | | [...] Team Providers + +------+ + | Care Cane Feeder Name | Role | Phone | + +------+ + | Ani Yanes MD | PCP | | + +------+ + Reason for Visit + + + | Reason | Comments | + + + | Appointment | Need to move appointment. | + + + Encounter Details +--------+ + + + + | Date | Type | Department | Care Team | Description | +--------+ + + + + | 10/12/ | Telephone | [facility] | Bradley Reyes | Appointment (Need to | | 2012 | | SURGERY [address] | MD Jacki, FACS [address] | move appointment.) | | | | [place], [place] | [address] [facility] | | | | | [address] | [place] [address] | | | | | [phone] | [phone] | | | | | | | [...]
--- OUTSIDE RECORDS SUMMARY | ~2020-02-24 | XMS | Encounter Summary ---
Demographics + + + | Address | [address] | | | [place] [address] | + + + | Home Phone [...] Team Providers + +------+ + | Care Tacker Off Name | Role | Phone | + +------+ + PCP | Unavailable | + +------+ + Encounter Details +--------+ + + + + | Date | Type | Department | Care Team | Description | +--------+ + + + + | 07/28/ | Hospital | [facility] | | | | 2007 - | Encounter | MED CTR CANCER | | | | | | [place] Megan Moya | | | | 08/23/ | | [place] | | | | 2007 | | [address] | | | | | | [phone] | | | +--------+ + + + [...]
--- OUTSIDE RECORDS SUMMARY | ~2020-02-24 | XMS | Encounter Summary ---
Demographics + + + | Address | [address] | | | [place] [address] | + + + | Home Phone | | + + + | Preferred Language | Unknown | + + + | Marital Status | | + + + | Orthodoxy Affiliation | Unknown | + + + [...] Team Providers + +------+ + | Care Pancake Professional Name | Role | Phone | + +------+ + PCP | Unavailable | + +------+ + Encounter Details +--------+ + + + + | Date | Type | Department | Care Team | Description | +--------+ + + + + | 04/02/ | Hospital | [facility] | | | | 2007 - | Encounter | MED CTR CANCER | | | | | | [place] Megan Moya | | | | 04/23/ | | [place] | | | | 2007 | | [address] | | | | | | [phone] | | | +--------+ + + + [...]
--- OUTSIDE RECORDS SUMMARY | ~2020-02-24 | XMS | Encounter Summary ---
Demographics + + + | Address | [address] | | | [place] [address] | + + + | Home Phone | | + + + | Preferred Language | Unknown | + + + | Marital Status | | + + + | Temple Affiliation | Unknown | + + + [...] Team Providers + +------+ + | Care Custodial Maintenance Worker Name | Role | Phone | + +------+ + PCP | Unavailable | + +------+ + Encounter Details +--------+ + + + + | Date | Type | Department | Care Team | Description | +--------+ + + + + | 11/19/ | Hospital | [facility] | | | | 2006 - | Encounter | MED CTR CANCER | | | | | | [place] Megan Moya | | | | 11/23/ | | [place] | | | | 2006 | | [address] | | | | | | [phone] | | | +--------+ + + + [...]
--- OUTSIDE RECORDS SUMMARY | ~2020-02-24 | XMS | Encounter Summary ---
Demographics + + + | Address | [address] | | | [place] [address] | + + + | Home Phone | | + + + | Preferred Language | Unknown | + + + | Marital Status | | + + + | Confucianism Affiliation | Unknown | + + + | Race | Unknown | + + + | Ethnic Group | Unknown | + + + Author + + + | Author | [facility] | | | and [place] | + + + | Organization | [facility] | | | and [...] Team Providers + +------+ + | Care Controls Design Engineer Name | Role | Phone | + +------+ + PCP | Unavailable | + +------+ + Encounter Details +--------+ + + + + | Date | Type | Department | Care Team | Description | +--------+ + + + + | 05/01/ | Hospital | [facility] | | | | 2005 - | Encounter | MED CTR CANCER | | | | | | [place] Megan Moya | | | | 07/30/ | | [place] | | | | 2005 | | [address] | | | | | | [phone] | | | +--------+ + + + [...]
--- OUTSIDE RECORDS SUMMARY | ~2020-02-24 | XMS | Encounter Summary ---
Demographics + + + | Address | [address] | | | [place] [address] | + + + | Home Phone [...] Team Providers + +------+ + | Care Lens Blank Gauger Name | Role | Phone | + +------+ + PCP | Unavailable | + +------+ + Encounter Details +--------+ + + + + | Date | Type | Department | Care Team | Description | +--------+ + + + + | 08/18/ | [facility] | [facility]HEA | Yousuf Willams | | | 2002 | Encounter | [facility] | MD | | | | | GENERIC CONV DEPT | | | | | | [address] | | | | | | [place] | | | | | | [address] | | | | | | [phone] | | | +--------+ + + + [...]
--- OUTSIDE RECORDS SUMMARY | ~2020-02-24 | XMS | Encounter Summary ---
Demographics + + + | Address | [address] | | | [place] [address] | + + + | Home Phone | | + + + | Preferred Language | Unknown | + + + | Marital Status | | + + + | Hindu Affiliation | Unknown | + + + | Race | Unknown | + + + | Ethnic Group | Unknown | + + + Author + + + | Author | [facility] | | | and [place] | + + + | Organization | [facility] | | | [...] Team Providers + +------+ + | Care Avionics Test Technician Name | Role | Phone | + +------+ + PCP | Unavailable | + +------+ + Encounter Details +--------+ + + + + | Date | Type | Department | Care Team | Description | +--------+ + + + + | 01/22/ | Hospital | [facility] | | | | 2006 - | Encounter | MED CTR CANCER | | | | | | [place] Megan Moya | | | | 02/21/ | | [place] | | | | 2006 | | [address] | | | | | | [phone] | | | +--------+ + + + [...]
--- OUTSIDE RECORDS SUMMARY | ~2020-02-24 | XMS | Encounter Summary ---
Demographics + + + | Address | [address] | | | [place] [address] | + + + | Home Phone | | + + + | Preferred Language | Unknown | + + + | Marital Status | | + + + | Confucianism Affiliation | Unknown | + + + | Race | Unknown | + + + | Ethnic Group | Unknown | + + + Author + + + | Author | [facility] | | | and [place] | + + + | Organization | [facility] | | | and [...] Team Providers + +------+ + | Care Cafeteria Food Server Name | Role | Phone | + +------+ + PCP | Unavailable | + +------+ + Encounter Details +--------+ + + + + | Date | Type | Department | Care Team | Description | +--------+ + + + + | 06/10/ | Hospital | [facility] | | | | 2006 - | Encounter | MED CTR CANCER | | | | | | [place] Megan Moya | | | | 06/23/ | | [place] | | | | 2006 | | [address] | | | | | | [phone] | | | +--------+ + + + [...]
--- OUTSIDE RECORDS SUMMARY | ~2020-02-24 | XMS | Encounter Summary ---
Demographics + + + | Address | [address] | | | [place] [address] | + + + | Home Phone | | + + + | Preferred Language | Unknown | + + + | Marital Status | | + + + | Orthodox Affiliation | Unknown | + + + | Race | Unknown | + + + | Ethnic Group | Unknown | + + + Author + + + | Author | [facility] | | | and [place] | + + + | Organization | [facility] | | | [...] Team Providers + +------+ + | Care Electrical Inspector Name | Role | Phone | + +------+ + PCP | Unavailable | + +------+ + Encounter Details +--------+ + + + + | Date | Type | Department | Care Team | Description | +--------+ + + + + | 09/06/ | Hospital | [facility] | | | | 2008 - | Encounter | MED CTR CANCER | | | | | | [place] Megan Moya | | | | 09/23/ | | [place] | | | | 2008 | | [address] | | | | | | [phone] | | | +--------+ + + + [...]
--- OUTSIDE RECORDS SUMMARY | ~2020-02-24 | XMS | Encounter Summary ---
Demographics + + + | Address | [address] | | | [place] [address] | + + + | Home Phone | | + + + | Preferred Language | Unknown | + + + | Marital Status | | + + + | Baptism Affiliation | Unknown | + + + | Race | Unknown | + + + | Ethnic Group | Unknown | + + + Author + + + | Author | [facility] | | | and [place] | + + + | Organization | [facility] | | [...] Team Providers + +------+ + | Care Cupola Charger Name | Role | Phone | + +------+ + PCP | Unavailable | + +------+ + Encounter Details +--------+ + + + + | Date | Type | Department | Care Team | Description | +--------+ + + + + | 07/31/ | Hospital | [facility] | | | | 2005 - | Encounter | MED CTR CANCER | | | | | | [place] Megan Moya | | | | 10/29/ | | [place] | | | | 2005 | | [address] | | | | | | [phone] | | | +--------+ + + + [...]
--- OUTSIDE RECORDS SUMMARY | ~2020-02-24 | XMS | Encounter Summary ---
Demographics + + + | Address | [address] | | | [place] [address] | + + + | Home Phone | | + + + | Preferred Language | Unknown | + + + | Marital Status | | + + + | Orthodoxy Affiliation | Unknown | + + + | Race | Unknown | + + + | Ethnic Group | Unknown | + + + Author + + + | Author | [facility] | | | and [place] | + + + | Organization | [facility] | | [...] Team Providers + +------+ + | Care Stake Driver Name | Role | Phone | + +------+ + PCP | Unavailable | + +------+ + Reason for Visit +--------+ + | Reason | Comments | +--------+ + | Other | No follow up | +--------+ + Encounter Details +--------+ + + + + | Date | Type | Department | Care Team | Description | +--------+ + + + + | 06/10/ | Telephone | [facility] | Woody Puga | Other (No follow up) | | 2012 | | [place] [address] | MD Alcides [address] | | | | | [place], | [address] [place] | | | | | [place] [address] | [place] [address] | | | | | [phone] | | | | | | | [...]
--- OUTSIDE RECORDS SUMMARY | ~2020-02-24 | XMS | Encounter Summary ---
Demographics + + + | Address | [address] | | | [place] [address] | + + + | Home Phone | | + + + | Preferred Language | Unknown | + + + | Marital Status | | + + + | Yarsanism Affiliation | Unknown | + + + [...] Team Providers + +------+ + | Care Map Editor Name | Role | Phone | + +------+ + PCP | Unavailable | + +------+ + Encounter Details +--------+ + + + + | Date | Type | Department | Care Team | Description | +--------+ + + + + | 04/08/ | Hospital | [facility] | | | | 2006 - | Encounter | MED CTR OP REHAB | | | | | | [address] [place] | | | | 04/23/ | | [place] [address] | | | | 2006 | | [phone] | | | +--------+ + + + [...]
--- OUTSIDE RECORDS SUMMARY | ~2020-02-24 | XMS | Encounter Summary ---
Demographics + + + | Address | [address] | | | [place] [address] | + + + | Home Phone | | + + + | Preferred Language | Unknown | + + + | Marital Status | | + + + | Yarsani Affiliation | Unknown | + + + | Race | Unknown | + + + | Ethnic Group | Unknown | + + + Author + + + | Author | [facility] | | | and [place] | + + + | Organization | [facility] | | [...] Team Providers + +------+ + | Care Edger Machine Operator Name | Role | Phone | + +------+ + | Ani aYnes MD | PCP | | + +------+ + Reason for Visit + + + | Reason | Comments | + + + | New Patient | carotid stensois | + + + Evaluate (Routine) +--------+--------+ + + + + | Status | Reason | Specialty | Diagnoses / | Referred By | Referred To | | | | | Procedures | Contact | Contact | +--------+--------+ + + + + | Closed | | Surgery / | Diagnoses | [place], | Field, | | | | General | PRESS OPERATOR AUTOMATIC carotid | MD Ani | Bradley Echeverria, | | | | Surgery | stenosis/Ehl | [address] | , [address] | | | | [address] | [address] [place] | [address] | | | | | Procedures | [place], [place] | [place], | | | | | consult | [address] | [place] [address] | | | | | | Phone: | Phone: | | | | | | [phone] | [phone] | | | | | | Fax: | Fax: | | | | | | [phone] | [phone] | +--------+--------+ + + + + Encounter Details +--------+---------+ + + + | Date | Type | Department | Care Team | Description | +--------+---------+ + + + | 10/12/ | Office | [facility] | Bradley Reyes | Diabetes mellitus, | | 2012 | Visit | SURGERY [address] | MD Jacki, FACS [address] | type II (HCC) | | | | [place], [place] | [address] [place] | (Primary Dx); | | | | [address] | [place] [address] | Carotid artery | | | | [phone] | [phone] | stenosis, | | | | | | symptomatic; | | | | | | Hypertension | +--------+---------+ + + + Social History [...] + + + | Blood Pressure | 140/74 | 10/12/2013 2:43 PM | | | | | PST | | + + + + + | Pulse | 76 | 10/12/2013 2:43 PM | | | | | PST | | + + + + + | Temperature | 36.2 C (97.1 F) | 10/12/2013 2:43 PM | | | | | PST | | + + + + + | Respiratory Rate | 16 | 10/12/2013 2:43 PM | | | | | PST | | + + + + + | Oxygen Saturation | 94% | 10/12/2013 2:43 PM | | | | | PST | | + + + + + | Inhaled Oxygen | - | - | | | Concentration | | | | + + + + + | Weight | 52.5 kg (115 lb 12.8 | 10/12/2013 2:43 PM | | | | oz) | PST | | + + + + + | Height | 152.4 cm (5') | 10/12/2013 2:43 PM | | | | | PST | | + + + + + | Body Mass Index | 22.62 | 10/12/2013 2:43 PM | | | | | PST | | + + + + + documented in this encounter Progress Notes Bradley Reyes MD - 10/12/2013 2:08 PM PST Vascular Surgery Consult Note HPI Tammie Kearney is a 73 y.o. female patient of Ani Yanes MD here today. Is here wit h her granddaughter Physician notes: Had a stroke a couple of weeks ago. Spent time at [facility], now doing exercises at home. During stroke felt dizzy and left side tingling And called [facility] and nurse came out a nd thought she was having a heart attack. Was starting a stroke and went to ER in [place] . Went to [facility]. There they said she was having a mini-stroke. Still tingling on left s vinny. The left leg feels numb from knee down. Couldn't move little toe. Has used a walker for Quite a while, Had cancer in right breast, but after treatments was weak and used the walker, so she doesn't fall. Per the records,, " The pateint was admitted to [facility] on September 07, 2013, with a diagnosis of lacumar infarct. An MRI of the brain and MRA of the brain revealed a 4 mm acute infarct involving the posterior right side of the Meryl. . . . The pateint had no significant carot id artery disease with mild bilateral plaques. Notes she can't read books anymore. To read anything has to really concentrate. This happen ed after the mini-stroke. RECENT TEST RESULTS and IMAGING: MRI brain on 09/07/2013 at [facility] IMPRESSION: Mild bilateral plaques, without evidence of significant flow limitation MRI BRAIN WO CONTRAST AND MRA HEAD DONE ON 09/07/2013 IMPRESSION: 1. 4 mm acute infarct involving the posterior right side of the meryl. 2. Chronic FLAIR hyperintensity in the central meryl suggesting central pontine reformation. This is commonly associated with hypertension and diabetes. 3. Moderate diffuse cerebral atrophy. 4. Old infarct extending from the left basal ganglia into the left anterior centrum semiova le. 5. MRA shows focal area of atherosclerotic narrowing the the P1 segment of the fright poste rior cerebral artery, the cavemous segments of both the right and left internal carotid jonas justyn and the post bifurcation M1 segment of the left middle cerebral artery. XR CHEST 2 VIEWS FRONTAL AND LATERAL DONE ON 09/07/2013 AT [facility] IMPRESSION: 1. Mild cardiomegaly. 2. Osteopenia. 3. No cause for acute chest pain noted. CT HEAD WO CONTRAST DONE ON 09/07/2013 AT [facility] IMPRESSION: 1. No acute intracranial findings. 2. Moderate diffuse cerebral atrophy. 3. Old infarct in left basal ganglia extending up to the anterior left centrum semiovale. RENAL: BUN 16/Cr 0.70 Done on 09/28/2013 [facility] OSP Score: 4/8 (Obstructive Sleep Apnea (Stop-Bang Scoring Model) Anesthesiology 2008; 108(5): 812-21. ) Ani Yanes MD's notes were reviewed in clinic today. PAST MEDICAL HISTORY Past Medical History Diagnosis Date Vertigo Hypertension Diabetes mellitus Stroke Hemiparesis left Hearing loss Osteoporosis Osteoarthritis Coronary artery disease Peptic ulcer disease Hyperlipidemia Hyperthyroidism Neurogenic bladder Cardiac murmur History of breast cancer Gout Retinal hemorrhage, right eye Dermatophytosis of nail Macular degeneration Dyspnea Past Surgical History Procedure Date Right breast lumpectomy 2005 External: sigmoidoscopy 09/09/1997 Colonoscopy 04/14/2004 Cataract removal x2 Upper gastrointestinal endoscopy 07/25/2009 Lesion remove colonoscopy x3 Colonoscopy and biopsy 01/24/2011 Cystoscopy 02/19/2011 Irrigation of bladder 02/19/2011 Allergies Allergen Reactions Bee Venom Codeine Hydrocodone Morphine Penicillins Promethazine Medications: Outpatient Encounter Prescriptions as of 10/12/2013 Medication Sig Dispense Refill Alcohol Swabs 70 % PADS by Does not apply route. amLODIPine (NORVASC) 2.5 mg tablet Take 2.5 mg by mouth Daily. [DISCONTINUED] aspirin 325 mg tablet Take 325 mg by mouth Daily. aspirin 81 MG tablet Take 81 mg by mouth Daily. Take 2 tablets 2 times daily CALCIUM CARBONATE TABS one by mouth daily Cholecalciferol (VITAMIN D3) 25373 UNITS CAPS Take 50,000 Units by mouth [...] tablet Take 40 mg by mouth Daily. Family History Problem Relation Age of Onset Colon cancer Brother Cervical cancer Sister Other (See Comment) Mother CVA Stroke Mother Social History: She reports that she has quit smoking. She does not have any smokeless tobacco history on . She reports that she does not drink alcohol or use illicit drugs. REVIEW OF SYSTEMS General: []Weight loss/gain (over 10 lbs) []Fever/chills []Night sweats Hematologic: []Bleeding/brusing tendencies []Blood transfusion []Anemia Heent: [x]Hearing loss [x]Vision loss []Sinus problems/nosebleeds []Hoarseness Respiratory: []Wheezing []Shortness of breat []Cough []Spitting up blood []On oxygen Cardiac: [x]Chest pain [x]Palpitations/heart racing [x]Swelling of ankles/hands [x]Unusual shortnes s of breath []Difficulty sleeping flat Gastrointestinal: []Nausea/vomiting []Difficulty swallowing []Heartburn []Loss of appetite []Abdominal pain []Stomach Ulcers []Diarrhea []Constipation []Blood in stool Vascular: [x]Dietz/TIAs []Fainting []Difficulty with speech []Leg cramps []Pain in feet/legs at rest []Foot ulcers/sores []Varicose veins [x]Phlebitis/blood clots Musculoskeletal: []Joint stiffness/swelling []Join pain [x]Back pain []Arthritis []Gout Urologic: []Blood in urine []Frequent urination at night []Burning/painful urination []Kidney stones []Difficulty urination []Sexual difficulties Neuro/Psychiatric: [x]Headaches []Seizures []Depression []Pain/anxiety attacks []Memory loss or confusion PHYSICAL EXAM BP 140/74 | Pulse 76 | Temp 36.2 C (97.1 F) (Temporal) | Resp 16 | Ht 1.524 m (5') | Wt 52.527 kg (115 lb 12.8 oz) | BMI 22.62 kg/m2 | SpO2 94% General Appearance: Alert, cooperative, no distress, appears stated age Head: Normocephalic, without obvious abnormality Eyes: PERRL, conjunctiva/corneas clear, EOM's intact, vision adequate bilateral Ears: Hearing aids bilateral Nose: No visible lesions Throat: Lips, mucosa, and tongue normal; teeth and gums normal Neck: Supple, symmetrical, no adenopathy,no neck bruits Lungs: Breath sounds are clear to auscultation bilaterally, no wheezes or crackles. Chest Wall: No tenderness or deformity, no pacemaker Heart: Regular rate and rhythm, S1, S2 normal, no murmur. Abdomen: Soft, non-tender, flat, no hernia in supine position. Scar on lower abdomen Extremities: Extremities normal, atraumatic,cyanosis, clubbing, 3+ pitting edema bilateral Palpable Pulses*: Femoral Popliteal Dorsalis pedis Post tibial LEFT 2+ RIGHT 2+ Neurologic: Cranial nerves II-XII grossly intact, face symmetric, tongue protrudes midline Equal manager float and plantar flexion, no pronator drift, Gait normal Deep tendon reflexes--quadriceps 1/5 and symmetric. Assessment /Plan Tammie was seen today for new patient. Diagnoses and associated orders for this visit: Diabetes mellitus, type ii Carotid artery stenosis, symptomatic Hypertension Other Orders - aspirin 81 MG tablet; Take 81 mg by mouth Daily. Take 2 tablets 2 times daily Internal carotid artery stenosis in the carotid siphon--bilateral. This is best treated me dically with aspirin and simvastatin. Patient is currently taking these medications. If jennifer dumont has further symptoms than she should start Plavix. Surgery nor angioplasty is indicated f or these lesions. I will see her back on an as-needed basis. Bradley Reyes MD, FACS Vascular and General Surgery CC: Ani Yanes MD documented in this encounter Plan of Treatment Not on filedocumented as of this encounter Visit Diagnoses + + | Diagnosis | + + | Diabetes mellitus, type II (HCC) - Primary Type II or unspecified type diabetes | | mellitus without mention of complication, not stated as uncontrolled | + + | Carotid artery stenosis, symptomatic Occlusion and stenosis of carotid artery without | | mention of cerebral infarction | + + | Hypertension Unspecified essential hypertension | + + documented in this encounter
--- OUTSIDE RECORDS SUMMARY | ~2020-02-24 | XMS | Encounter Summary ---
Demographics + + + | Address | [address] | | | [place] [address] | + + + | Home Phone | | + + + | Preferred Language | Unknown | + + + | Marital Status | | + + + | Presybeterian Affiliation | Unknown | + + + | Race | Unknown | + + + | Ethnic Group | Unknown | + + + Author + + + | Author | [facility] | | | and [place] | + + + | Organization | [facility] | | [...] Team Providers + +------+ + | Care Chemical Laboratory Assistant Name | Role | Phone | + +------+ + PCP | Unavailable | + +------+ + Encounter Details +--------+ + + + + | Date | Type | Department | Care Team | Description | +--------+ + + + + | 06/13/ | [facility] | [facility] | [place], | | | 2007 | Encounter | MED CTR EMERGENCY | Yash Aldridge MD [address] | | | | | CENTER [address] | [address] | | | | | [place] | [place] [address] | | | | | [address] | [phone] | | | | | [phone] | | | +--------+ + + + [...]
--- OUTSIDE RECORDS SUMMARY | ~2020-02-24 | XMS | Encounter Summary ---
Demographics + + + | Address | [address] | | | [place] [address] | + + + | Home Phone [...] Team Providers + +------+ + | Care Auto Glass Technician Name | Role | Phone | + +------+ + PCP | Unavailable | + +------+ + Reason for Referral Diagnostic/Screening (Routine) +--------+--------+ + + + + | Status | Reason | Specialty | Diagnoses / | Referred By | Referred To | | | | | Procedures | Contact | Contact | +--------+--------+ + + + + | Closed | | Radiology | Diagnoses | [place], | [facility] | | | | | Ascending | Woody | [address] | | | | | aorta | MD Alcides | [place], | | | | | dilation | [address] | [place] | | | | | ([facility]) | St [place] | [address] | | | | | Procedures | [place], [place] | Phone: | | | | | ECHO | [address] | [phone] | | | | | Complete | Phone: | Fax: | | | | | | [phone] | [phone] | | | | | | Fax: | | | | | | | [phone] | | +--------+--------+ + + + + Encounter Details +--------+ + + + + | Date | Type | Department | Care Team | Description | +--------+ + + + + | 06/04/ | Orders Only | [facility] [place] | Woody Puga | Ascending aorta | | 2012 | | CARDIOLOGY [address] | MD Alcides [address] | dilation ([facility]) | | | | [address] [place], | [address] [place] | (Primary Dx) | | | | [place] [address] | [place] [address] | | | | | [phone] | [phone] | | | | | | | [...] as of this encounter Plan of Treatment + + +--------+ + + | Name | Type | Priori | Associated Diagnoses | Order Schedule | | | | ty | | | + + +--------+ + + | ECHO Complete | Echocardiog | Routin | Ascending aorta | Expected: | | | mason | e | dilation (HCC) | 06/04/2013, Expires: | | | | | | 06/04/2014 | + + +--------+ + + documented as of this encounter Visit Diagnoses + + | Diagnosis | + + | 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
--- OUTSIDE RECORDS SUMMARY | ~2020-02-24 | XMS | Encounter Summary ---
Demographics + + + | Address | [address] | | | [place] [address] | + + + | Home Phone | | + + + | Preferred Language | Unknown | + + + | Marital Status | | + + + | Confucianist Affiliation | Unknown | + + + | Race | Unknown | + + + | Ethnic Group | Unknown | + + + Author + + + | Author | [facility] | | | and [place] | + + + | Organization | [facility] | | | [...] Team Providers + +------+ + | Care Gang Head Saw Operator Name | Role | Phone | + +------+ + PCP | Unavailable | + +------+ + Encounter Details +--------+ + + + + | Date | Type | Department | Care Team | Description | +--------+ + + + + | 09/09/ | Hospital | [facility] | Wing Mago Nguyen MD | | | 2012 - | Encounter | [facility] | [address] | | | | | INPATIENT | [place], [place] | | | 09/16/ | | REHABILITATION [address] | [id number] | | | 2012 | | [facility]JANDRA LUCIO | [phone] | | | | | [place] | | | | | | [address] | | | | | | [phone] | | | +--------+ + + + [...] documented as of this encounter Discharge Summaries Wing Mago Nguyen MD - 09/18/2013 9:54 AM PDTFormatting of this note might be different from viktoria cabezas. Discharge Summaries by Wing Mago Nguyen MD at 09/18/13953 Author: Wing Mago Nguyen MD Service: (none) Author Type: Physician Filed: 09/18/13 0957 Date of Service: 09/18/13953 Status: Signed Emergency Medical Technician Basic: Wing Mago Nguyen MD (Physician) [facility] Service: Physical Medicine & Rehab Discharge Summary Date of Admission: 09/09/2013 Date of Discharge: 09/16/2013 Discharge Provider: WING Mago NGUYEN MD Treatment Team: Admitting Provider: Wing Mago Nguyen MD Discharge Diagnoses: Principal Problem: *Lacunar stroke, acute Active Problems: HTN (hypertension) DM type 2 (diabetes mellitus, type 2) Gait disturbance, post-stroke Resolved Problems: * No resolved hospital problems. * Final Diagnoses: Pontine CVA Procedures: * No surgery found * Significant Diagnostic Studies: BRIEF HISTORY OF PRESENTATION: The patient is a 73 y.o. female with significant past medical history for diabetes. Tammie Kearney presents for evaluation of left sided weakness that began at 0600. The patient note s that she had weakness all day and finally went to the ER in [facility]. The patient was found to have an abnormal EKG and was diagnosed with a NSTEMI despite the fact that she has had NO chest pain/pressure?anginal symptoms all day. She is very clear in this regard. What she is worried about is that the left side of her body is persistently week. She was evaluat ed at the outside ER but the CT scanner was down. Therefore, sent here for other testing and further imaging. The patient stridently denies any chest pain or pressure. Has no associate d vomiting. Just left arm and leg weakness and they don't feel "right" and she has tingling in the left arm. The symptom onset was abrupt, and has had a constant course. This is rated as moderate. There is no radiation. This is made worse by nothing and is relieved by nothing . The patient also complains of the following additional symptoms: fatigue. Care prior to ar rival consisted of rest with no relief. The patient was admitted. MRI study showed patient w ith pontine CVA. She is starting to participating with therapy. Consultation is was janet fraire and she was felt to benefit with IPR care. With stabilization and no acute changes, the andrei bustamante will be admitted today. HOSPITAL COURSE: The patient has been afebrile, vital signs have been stable. She is continent of bryn l and bladder. Patient is eating well and sleeping adequately. She denied pain. The patient had done well with IPR care. By discharge, her functional status is as follow s: Occupational Therapy The patient is able to feed herself with supervision. She has improved with grooming from s upervised to modified independent. She is able to complete bathing with minimal assistance. She completes both upper and lower body dressing with supervision. She completes functional transfers with supervision to modified independence. She completed the Tomy Cognitive As sessment (MoCA) and scored a 21/30 indicating cognitive impairments. She completed a simple cooking task with minimal verbal cues needed for walker safety. Mood scale score: 5/15 indicating s/s of depression Physical Therapy Fall Risk:Moderate fall risk (35/56 Amos, 16/24 Dynamic Gait Index) The patient has demonstrated the following mobility gains since admit: bed mobility progres sed from supervision-modified independent assist, transfers progressed from standby to modif ied independent assist, ambulation progressed from 200-500ft transitioning from a front whee l walker to a seated walker, & stairs have not been tested as the patient has a ramp entranc e, the patient has demonstrated that she can safely ambulate up/down a ramp with a seated wa lker with modified independence. With completion of goals, the patient will be discharged home with family. Past Medical History Diagnosis Date Diabetes mellitus type II Cancer Past Surgical History Procedure Date Tumor removal right breast Allergies Allergen Reactions Morphine Itching Penicillins Itching Promethazine Hallucinations Codeine Nausea and Vomiting Vicodin (Hydrocodone-Acetaminophen) Nausea and Vomiting No prescriptions prior to admission DISCHARGE EXAM Vital Signs: BP 152/88 | Pulse 90 | Temp 96.5 F (35.8 C) (Oral) | Resp 14 | Ht 1.524 m (5') | Wt 50. 3 kg (110 lb 14.3 oz) | BMI 21.66 kg/m2 | SpO2 99% | ? No Physical Exam HEENT: NC/AT; EOMI; face is symmetrical Neck: supple Lung: clear Cardiac; regular Abdo: soft and nontender : Female Rectal: deferred MS: Moving all extremities Neuro; alert and oriented. Very hard of hearing. CN II-XII grossly intact. She has at least 4/5 throughout with tab more weakness of the left side, especially of the UE. DATA PLAN the patient has done well. she will be discharged home with family. Disposition: Home Condition: Good Code Status: Prior No discharge procedures on file. Follow up: Ani Yanes MD [facility] [address] [employer] [facility] [employer] [facility] [place] [address] [facility] [address] [place] [address] Discharge Medication List as of 09/17/2013 12:05 PM START taking these medications Details nitroGLYCERIN (NITROSTAT) 0.[address] 1 tablet under the tongue every 5 (five) minutes as needed for Chest pain., Starting 09/16/2013, Until Fri09/16/14, Print CONTINUE these medications which have CHANGED Details amLODIPine (NORVASC) 2.5 MG tablet Take 1 tablet by mouth daily., Starting 09/16/2013, Unt il Fri09/16/14, Print clopidogrel (PLAVIX) 75 MG tablet Take 1 tablet by mouth daily., Starting 09/16/2013, Unti l Fri09/16/14, Print sitaGLIPtin (JANUVIA) 50 MG tablet Take 1 tablet by mouth daily., Starting 09/16/2013, Unt il Discontinued, Print CONTINUE these medications which have NOT CHANGED Details hydrochlorothiazide (HYDRODIURIL) 25 MG tablet Take 25 mg by mouth daily., Until Discontin ued, Historical Med insulin glargine (LANTUS) 100 UNIT/ML injection Inject 10 Units into the skin nightly., St arting 09/09/2013, Until Discontinued, No Print isosorbide mononitrate (IMDUR) 30 MG 24 hr tablet Take 1 tablet by mouth daily., Starting 09/10/2013, Until Discontinued, No Print levothyroxine (SYNTHROID, LEVOTHROID) 125 MCG tablet Take 125 mcg by mouth every morning b efore breakfast., Until Discontinued, Historical Med metoprolol (LOPRESSOR) 100 MG tablet Take 100 mg by mouth 2 (two) times daily., Until Disc ontinued, Historical Med simvastatin (ZOCOR) 20 MG tablet Take 20 mg by mouth nightly., Until Discontinued, Histori sly Med telmisartan (MICARDIS) 40 MG tablet Take 40 mg by mouth daily., Until Discontinued, Histor ical Med STOP taking these medications pneumococcal 23-valent vaccine (PNEUMOVAX-23) 25 MCG/0.5ML injection Comments: Reason for Stopping: polyethylene glycol (GLYCOLAX) packet Comments: Reason for Stopping: acetaminophen 650 MG TABS Comments: Reason for Stopping: aluminum-magnesium hydroxide-simethicone (MAALOX) 200-200-20 MG/5ML SUSP Comments: Reason for Stopping: aspirin 325 MG EC tablet Comments: Reason for Stopping: atorvastatin (LIPITOR) 80 MG tablet Comments: Reason for Stopping: calcium carbonate 1250 MG/5ML Comments: Reason for Stopping: calcium-vitamin D (OSCAL-500) 500-200 MG-UNIT per tablet Comments: Reason for Stopping: fish oil-omega-3 fatty acids 1000 MG capsule Comments: Reason for Stopping: insulin aspart (NOVOLOG) 100 UNIT/ML injection Comments: Reason for Stopping: insulin aspart (NOVOLOG) 100 UNIT/ML injection Comments: Reason for Stopping: Discharge took 50 minutes, to include final examination, discussion of admission, and prepa ration of prescriptions, instructions for on-going care, follow-up and documentation of disc harge summary. WING Mago NGUYEN MD 09/18/2013 documented in this encou nter Medications at Time of Discharge + + [...] Progress Notes Conversion Transaction, Provider Unknown - 09/15/2013 2:15 PM PDTFormatting of this note m ight be different from the original. Progress Notes by Sylvia Ayala PT at 09/15/131414 Author: Sylvia Ayala PT Service: (none) Author Type: Physical Therapist Filed: 09/15/13 6305 Date of Service: 09/15/131414 Status: Signed Emergency Medical Technician Basic: Sylvia Ayala PT (Physical Therapist) 09/15/13 1412 PT Last Visit PT Received On 09/15/13 Reason for Treatment Stroke Requires PT Follow Up No Assistance Required 1 person Precautions Other Precautions Fall precautions Other Comments Comments Pt in chair in room upon arrival, sts Xfer w/ Doris, pt verb needed to use bathroom before session, performed toilet Xfer w/ Doris. Pt amb 800+ft, 500ft+, 300ft+ using 4WW and Doris. Pt negotiated 6 stairs w/ BL railings and CGA. PT edu pt and dtr regarding OT driving eval results and importance of pt not driving for at least one month before getting follow u p eval w/ DMV. Pt Xfer back into bed w/ Doris and left w/ call light available and family in room. Cognition Overall Cognitive Status WFL Orientation Level Oriented Bed Mobility Rolling Modified independent Sit to Sidelying Modified independent Scooting Modified independent Transfers Sit to/from Stand Modified independent Bed to/from Chair Modified independent Mobility Weight Bearing Status WBAT LLE Ambulation Assistance Modified independent Maximal Ambulation Distance (feet) 300ft, 500ft, 800ft+ Total Ambulation Distance (feet) 1600ft+ Distance limited by? Patient's ability Pattern Alternating;Swing through;Decreased janeth Assistive Device Walker 4 wheeled Stairs Assistance Minimal assist Number of Stairs 6 Number of stairs limited by? Patient's ability Stair Management Technique Step-to;Rails bilateral Activity Tolerance Activity Tolerance Patient limited by fatigue Plan Treatment/Interventions (Home health PT upon scheduled DC tomorrow) Progress Progressing toward goals Recommendation Recommendations (Home health PT upon scheduled DC tomorrow) ovarr Martha gay MA, CCC-RN SURGICAL PCU - 09/15/2013 1:48 PM PDTFormatting of this note might be differ ent from the original. Progress Notes by Martha Maloney MA CCC-RN SURGICAL PCU at 09/15/13 9720 Author: Martha Maloney MA CCC-RN SURGICAL PCU Service: (none) Author Type: Speech and Language Pathologist Filed: 09/15/13 8903 Date of Service: 09/15/13 1346 Status: Signed Emergency Medical Technician Basic: Martha Maloney MA CCC-RN SURGICAL PCU (Speech and Language Pathologist) 09/15/13 1300 Adult Standardized Tests Adult Standardized Tests Silverio (cont'd testing today, testing not completed d/t time ) Silverio Information Processing Assessment 2 Spatial orientation raw score 45 Spatial orientation standard score 12 Spatial orientation percentile rank >99 Spatial orientation severity WNL Recall of general information raw score 47 Recall of general information standard score 10 Recall of general information percentile rank 34 Recall of general information severity WNL Continued testing today. Test not completed due to time constraints. appin juanion, Ela Aldridge OTR - 09/15/2013 1:02 PM PDT Progress Notes by JENNIFER Fisher at 09/15/13 1302 Author: JENNIFER Fisher Service: (none) Author Type: Occupational Therapist Filed: 09/15/13 1303 Date of Service: 09/15/13 130 Status: Signed Emergency Medical Technician Basic: JENNIFER Fisher (Occupational Therapist) 09/15/13 1022 OT Last Visit OT Received On 09/15/13 Reason for Treatment Stroke Steel Plate Printer Needed No Family/Caregiver Present No Cognition Comments An assessment of skills that may be required when driving to enhance pt's safety w as completed. Driving not recommended due to diminished brain function and decreased visual scanning and reaction time. Pt states she will not drive at this time. Alternative option s for community access is encouraged. See treatment note for details of this assessment. onversion Espinoza saction, Provider Unknown - 09/15/2013 12:07 PM PDTFormatting of this note might be differen t from the original. Case Management by NIURKA Harrison at 09/15/13 1200 Author: NIURKA Harrison Service: (none) Author Type: Building Carpenter Helper Filed: 09/15/13 8996 Date of Service: 09/15/131206 Status: Signed Emergency Medical Technician Basic: NIURKA Harrison (Building Carpenter Helper) Disposition: DC home with granddaughter and daughter providing support Transportation: Daughter to transport All orders, signed AVS, and prescriptions have been faxed All DC paperwork completed Patient and family in agreement with discharge plan: Yes Medicare important message signed and copy in chart: Yes NIURKA HARRISON onver ramsey Transaction, Provider Unknown - 09/15/2013 10:40 AM PDT Case Management by NIURKA Harrison at 09/15/13 1040 Author: NIURKA Harrison Service: (none) Author Type: Building Carpenter Helper Filed: 09/15/13 1045 Date of Service: 09/15/13 1040 Status: Signed Emergency Medical Technician Basic: NIURKA Harrison (Building Carpenter Helper) Met with pt and daughter to discuss dc recommendations for PT/OT/RN SURGICAL PCU. Pt was agreeable to services but said she did not think she really needed it but said she would try their services and see if it is helpful. provider for where pt lives is [facility] . Refer ral faxed. Explained that we recommend a TTB, pt declined stating she feels her current pan wer system works fine for her. Daughter stated she will transport pt home when she is dc'd . Pt stated she feels comfortable with dc and would like to go home sooner if possible as s he feels she is doing very well. onver ramsey Transaction, Provider Unknown - 09/15/2013 10:16 AM PDT Progress Notes by Aide Mandel PTA at 09/15/13 1016 Author: Aide Mandel PTA Service: (none) Author Type: Production Line Technician Filed: 09/15/13 1016 Date of Service: 09/15/13 1016 Status: Signed Emergency Medical Technician Basic: Aide Mandel PTA (Production Line Technician) 09/15/13 0910 PT Last Visit PT Received On 09/15/13 Reason for Treatment Stroke Requires PT Follow Up Yes Follow up PT Only? No Assistance Required 1 person Precautions Other Precautions fall precautions Other Comments Comments Pt stated she uses [facility] at [facility] when she goes to grocery store to get from car to [place] cart. Pt has trouble getting walker into car. Pt is embarrassed of having to use AD. Pt states he is getting more feeling in L side of body and less numbness. Cognition Overall Cognitive Status WFL Orientation Level Oriented Comments [place] Transfers Sit to/from Stand Modified independent;Standby assist Stand Pivot Transfers Modified independent;Standby assist Mobility Weight Bearing Status WBAT LLE Ambulation Assistance Modified independent;Standby assist;Minimal assist (Min assist with STC only indoors. Could use work STC outside) Maximal Ambulation Distance (feet) 300 (4WW amb outside) Total Ambulation Distance (feet) 800 Distance limited by? Therapist/staff discretion Pattern Alternating Assistive Device Walker 4 wheeled;Cane single point Stairs Assistance Minimal assist Number of Stairs 6 Number of stairs limited by? Therapist/staff discretion Stair Management Technique Step-to;Rail on right ascending Activity Tolerance Activity Tolerance Patient tolerated treatment without report of fatigue Safety Devices Safety Devices in Place Not applicable Plan Treatment/Interventions Continue per Primary PT POC Progress Progressing toward goals Recommendation Recommendations (IPR) Requires PT Follow Up Yes Recommendation Comments ([facility] PT to work on bal end with gt and stair train) onver ramsey Ramirez, Provider Unknown - 09/15/2013 9:48 AM PDT Progress Notes by Aide Mandel PTA at 09/15/13947 Author: Aide Mandel PTA Service: (none) Author Type: Production Line Technician Filed: 09/15/13947 Date of Service: 09/15/13947 Status: Signed Emergency Medical Technician Basic: Aide Mandel PTA (Production Line Technician) 09/15/13909 PT Last Visit PT Received On 09/15/13 Reason for Treatment Stroke Requires PT Follow Up Yes Follow up PT Only? No Assistance Required 1 person Precautions Other Precautions fall precautions Other Comments Comments Pt stated she uses STC at [facility] when she goes to grocery store to get from car to [place] cart. Pt has trouble getting walker into car. Pt is embarrassed of having to use AD. Cognition Overall Cognitive Status WFL Orientation Level Oriented Comments [place] Transfers Sit to/from Stand Modified independent;Standby assist Stand Pivot Transfers Modified independent;Standby assist Mobility Weight Bearing Status WBAT LLE Ambulation Assistance Modified independent;Standby assist;Minimal assist (Min assist with STC only indoors. Could use work STC outside) Maximal Ambulation Distance (feet) 300 (4WW amb outside) Total Ambulation Distance (feet) 800 Distance limited by? Therapist/staff discretion Pattern Alternating Assistive Device Walker 4 wheeled;Cane single point Stairs Assistance Minimal assist Number of Stairs 6 Number of stairs limited by? Therapist/staff discretion Stair Management Technique Step-to;Rail on right ascending Activity Tolerance Activity Tolerance Patient tolerated treatment without report of fatigue Safety Devices Safety Devices in Place Not applicable Plan Treatment/Interventions Continue per Primary PT POC Progress Progressing toward goals Recommendation Recommendations (IPR) Requires PT Follow Up Yes Recommendation Comments ([facility] PT to work on bal end with gt and stair train) Wing Mago Gonzalez MD - 09/15/2013 8:06 AM PDTFormatting of this note might be different from the origi nal. Progress Notes by Wing Mago Nguyen MD at 09/15/13 08 Author: Wing Mago Nguyen MD Service: (none) Author Type: Physician Filed: 09/15/13806 Date of Service: 09/15/13805 Status: Signed Emergency Medical Technician Basic: Wing Mago Nguyen MD (Physician) Patient seen face-face. Patient is making progress Pt amb 200ft x2 using 4WW and Doris. Pt able to pathfind down to IPR gym with cueing for dir ection x3. Pt negotiated 6 steps using BL railings and Lakisha for contact gaurd and v.i. on te chnique BP 143/69 | Pulse 91 | Temp 98.6 F (37 C) (Oral) | Resp 18 | Ht 1.524 m (5') | Wt 50.3 kg (110 lb 14.3 oz) | BMI 21.66 kg/m2 | SpO2 98% | ? No Lung: Clear Cardiac: Regular Abdo: Soft A/p pontine CVA Cont tx plan Wing Ck Nguyen MD 8:07 AM onversion Transaction, Provider Unknown - 09/14/2013 3:07 PM PDTFormatting of this note might be different from th e original. Progress Notes by Yari Dodd MS CCC-RN SURGICAL PCU at 09/14/13 8344 Author: Yari Dodd MS CCC-RN SURGICAL PCU Service: (none) Author Type: Speech and Language P athologist Filed: 09/14/13 1508 Date of Service: 09/14/13 1507 Status: Signed Emergency Medical Technician Basic: Yari Dodd MS CCC-RN SURGICAL PCU (Speech and Language Pathologist) 09/14/13 1315 Adult Standardized Tests Adult Standardized Tests LIANNE;Silverio (RIPA-) Cognitive Linguistic Quick Test Attention cognitive domain score 181 Attention severity score WNL Memory cognitive domain score 154 Memory severity rating WNL Executive cognitive domain score 19 Executive severity rating WNL Language cognitive domain score 31 Language severity rating WNL Visuospatial skills cognitive domain score 73 Visuospatial skills severity rating WNL Severity rating total 20 (WNL) Composite severity rating WNL Composite severity rating range 4.0-3.5 Clock drawing severity rating WNL Silverio Information Processing Assessment 2 Immediate memory raw score 22 Immediate memory standard score 6 Immediate memory precentile rank 9 Immediate memory severity Mild Temporal orientation (recent memory) raw score 35 Temporal orientation (recent memory) standard score 9 (Scaled Score) Temporal orientation (recent memory) percentile rank 21 (Percentile) Temporal orientation (recent memory) severity Mild Overall cognitive skills are To be completed in another session. onver ramsey Transaction, Provider Unknown - 09/14/2013 2:00 PM PDT Progress Notes by Sylvia Ayala PT at 09/14/13 1400 Author: Sylvia Ayala PT Service: (none) Author Type: Physical Therapist Filed: 09/14/13 1446 Date of Service: 09/14/13 1400 Status: Signed Emergency Medical Technician Basic: Sylvia Ayala PT (Physical Therapist) 09/14/13 1400 PT Last Visit PT Received On 09/14/13 Reason for Treatment Stroke Requires PT Follow Up Yes Follow up PT Only? No Assistance Required 1 person Precautions Other Precautions Fall precautions Other Comments Comments Pt in bed upon arrival, reported being very fatigued from previous RN SURGICAL PCU session. Pt also reported being in pain, RN dispensed Rx. Pt agreeable to practicing bed exercises incl uding quad sets, ankle pumps, heel slides, SLR, SAQ, and bridges in supine; in seated knee e xtension and marching. Pt remained in bed after session to sleep due to fatigue, call light available and family in room at end of session. Cognition Overall Cognitive Status WFL Orientation Level Oriented Comments [place] Bed Mobility Rolling Modified independent Sidelying to Sit Modified independent Sit to Sidelying Modified independent Scooting Modified independent Transfers Sit to/from Stand Modified independent Supine Supine-Exercise Type Ankle pumps;Quad sets;Short arc quads;Bridging without bolster;SLR;ABD /ADD;Heel slides Supine-Exercise Comments BL x10ea Seated Seated-Exercise Type Long arc quads;Seated marching Seated-Exercise Comments x10ea BL Activity Tolerance Activity Tolerance Patient limited by fatigue;Patient limited by pain Plan Treatment/Interventions Continue per Primary PT POC Progress Progressing toward goals Recommendation Recommendations (Continue IPR therapy) Requires PT Follow Up Yes onver ramsey [place]royo[place], Provider Unknown - 09/14/2013 12:58 PM PDT Progress Notes by FILOMENA Steward at 09/14/13 3517 Author: FILOMENA Steward Service: (none) Author Type: Occupational Therapy Ashanti dalton Filed: 09/14/13 8432 Date of Service: 09/14/131257 Status: Signed Emergency Medical Technician Basic: FILOMENA Steward (Financial Reporting Consultant) 09/14/13 0915 Bathing Which bathing tasks were completed during this session? Arm right;Arm left;Chest;Abdomen;Pe rineal area front;Buttocks;Leg upper right;Leg upper left;Leg lower left and foot;Leg lower right and foot Number of tasks completed? 10 Which bathing task(s) did the patient complete WITHOUT ASSIST? Arm right;Arm left;Chest;Abd omen;Perineal area front;Buttocks;Leg upper right;Leg upper left;Leg lower right and foot;Le g lower left and foot Number of tasks completed w/o assist? 10 Patient completed % of overall bathing task 100 Percent 5 - Patient completes 100% of task and requires helper FOR? verbal instruction (during retrieval, cues to lock 4ww brakes) Bathing impacted by Endurance;Safety concerns Where bathing completed Tub/shower unit Bathing Final Score 5 Dressing: Upper Body Did patient dress in attire appropriate for community setting? Yes-continue scoring Clothing Items Worn This Session overlock elastic attacher shirt Pullover Shirt Dressing Tasks Completed This Session Thread/unthread right sleeve;Thread/un thread left sleeve;Pull head through neck;Pull shirt over trunk Pullover Shirt # Completed Dressing Tasks 4 Pullover Shirt Dressing Tasks Completed Without Assistance? Thread/unthread right sleeve;Th read/unthread left sleeve;Pull head through neck;Pull shirt over trunk Pullover shirt # Tasks Completed Without Assistance 4 # Dressing Tasks Completed 4 # Dressing Tasks Completed By Patient 4 % Dressing Tasks Completed 100 % 5 - Pt completes 100% of task and requires helper FOR? verbal instruction/cueing (vc's during retrieval) UE dressing impacted by Endurance;Safety concerns Where upper body dressing completed Other (comment) (tf bench) Upper Body Dressing Final Score 5 Dressing: Lower Body Did patient dress in attire appropriate for community setting? Yes-continue scoring Clothing Items Worn This Session Underwear;Pants;Socks;Shoes Underwear-Dressing Tasks Completed This Session Thread/unthread right leg;Thread/unthread l eft leg;Pull underwear up/down Underwear # Completed Dressing Tasks 3 Underwear Dressing Tasks Completed Without Assistance? Thread/unthread right leg;Thread/unt hread left leg;Pull underwear up/down Underwear # Dressing Tasks Completed Without Assistance 3 Pant-Dressing Tasks Completed This Session? Thread right pant leg;Thread left pant leg;Pull pants up Pants- # Completed Dressing Tasks 3 Pants-Dressing Tasks Completed Without Assistance? Thread/unthread right pants leg;Thread/u nthread left pant leg;Pull pants up and down Pants - # Dressing Tasks Completed Without Assistance 3 Socks Dressing Tasks Completed This Session Don/doff right sock;Don/doff left sock Socks Completed Dressing Tasks 2 Socks Dressing Tasks Completed This Session Without Assistance Don/doff right sock;Don/doff left sock Socks Completed Dressing Tasks Without Assistance 2 Shoes Dressing Tasks Completed This Session Don/doff right shoe;Don/doff left shoe Shoes Completed Dressing Tasks 2 Shoes Dressing Tasks Completed Without Assistance? Don/doff right shoe;Don/doff left shoe Shoes Tasks Completed Without Assistance 2 # Dressing Tasks Completed 10 # Dressing Tasks Completed By Patient 10 % Dressing Tasks Completed 100 % 5 - Patient completes 100% of task and requires helper FOR? verbal instruction/cueing (vc's during retrieval) Lower body dressing impacted by Endurance;Safety concerns Where lower body dressing completed Dynamic sitting/standing at bedside Lower Body Dressing Final Score 5 Transfers: Bed, Chair, Wheelchair 6 - Patient completes 100% of task safely, without help, AND? with walker/cane/crutches Bed/chair/wheelchair transfers impacted by Endurance Where transfers completed Supine/sitting up in bed Transfers: Bed, Chair, Wheelchair Final Score 6 Transfers: Tub, Shower 5 - Patient completes 100% of task and requires helper FOR? supervision;verbal instruction/ cueing (vc's to set 4ww brakes) Type of Transfer Tub Transfers: Tub, Shower Final Score 5 Comprehension (in [place] language) 6 - Patient understands complex/abstract information WITH? hearing aid;glasses Comprehension Final Score 6 - Modified independence Expression (in [place] language) 7- Patient expresses complex/abstract informantion w/o help. Patient expresses complex/abst ract informantion w/o help. Expression Final Score 7 Social Interaction 7- Patient interacts appropriately without mood medication Patient interacts appropriately without mood medication Social Interaction Final Score 7 Problem Solving 5 - Patient requires supervision for basic problem solving DUE TO? cueing/instruction only in unfamiliar environments Problem Solving Final Score 5 Memory 4 - Patient requires minimal assistance for memory DUE TO? recognizing/remembering/executin g tasks 75-90% of time Memory Final Score 4 Pt. Is interested in leaving before Friday if able to do the things she needs to earlier . onver ramsey Transaction, Provider Unknown - 09/14/2013 12:54 PM PDT Progress Notes by FILOMENA Steward at 09/14/13 2000 Author: FILOMENA Steward Service: (none) Author Type: Occupational Therapy Ashanti dalton Filed: 09/14/13 1517 Date of Service: 09/14/131253 Status: Signed Emergency Medical Technician Basic: FILOMENA Steward (Financial Reporting Consultant) 09/14/13 0915 OT Last Visit OT Received On 09/14/13 Requires OT Follow Up Yes Assistance Required 1 person Family/Caregiver Present No Other Comments Comments pt completed the home safety assessment. Pt. scored with some cuing. Pt. mckenzie courtney [place] town, fairly isolated from neighbors. Pt states she and dtr and look ing into getting a lifeline alert system. Pt. completed the SLU[facility] cognitive assessment, sco ring which may be indicitive of dementia. Discussed scores with pt. Pt. had difficult y wit recalling items, focussing on 4 digits to give them back backwards. discussed strateg ies for memory such as calenders, writing things down. Pinch and Maintenance Man - Strength Maintenance Man - Strength Pt. has 27# silk screen processor in R hand, 29 in L hand. onver ramsey Transaction, Provider Unknown - 09/14/2013 11:30 AM PDT Progress Notes by Sylvia Ayala PT at 09/14/13 1130 Author: Sylvia Ayala PT Service: (none) Author Type: Physical Therapist Filed: 09/14/13 6013 Date of Service: 09/14/13 1130 Status: Signed Emergency Medical Technician Basic: Sylvia Ayala PT (Physical Therapist) 09/14/13 1130 PT Last Visit PT Received On 09/14/13 Reason for Treatment Stroke Requires PT Follow Up Yes Follow up PT Only? No Assistance Required 1 person Precautions Other Precautions Fall precautions Other Comments Comments Pt sitting in chair in room speaking with daughter upon arrival. PT gave edu to yobani mcdonald regarding importance of driving evaluation, home health therapy, and proper walker samreen gement. Pt amb 200ft x2 using 4WW and Doris. Pt able to [facility] down to [facility] gym with cueing for direction x3. Pt negotiated 6 steps using BL railings and Lakisha for contact wallace and v.i . on technique. Pt Xfer to chair in livingroom w/ Doris to eat lunch, left with jake turner to call RN prn. Cognition Overall Cognitive Status WFL Orientation Level Oriented Comments [place]. Pt eager to return home Transfers Sit to/from Stand Modified independent Mobility Ambulation Assistance Modified independent Maximal Ambulation Distance (feet) 200ft x 2 Total Ambulation Distance (feet) 400ft Distance limited by? Therapist/staff discretion Pattern Alternating;Decreased janeth;Swing through Assistive Device Walker 4 wheeled Stairs Assistance Minimal assist Number of Stairs 6 Number of stairs limited by? Therapist/staff discretion Stair Management Technique Step-to;Rails bilateral Activity Tolerance Activity Tolerance Patient tolerated treatment without report of fatigue Plan Treatment/Interventions Continue per Primary PT POC Progress Progressing toward goals Recommendation Recommendations (Continue IPR therapy) Equipment Recommended (Pt owns 4WW) Requires PT Follow Up Yes onver ramsey Ramirez, Provider Unknown - 09/13/2013 4:45 PM PDT Progress Notes by CORI Mojica at 09/13/13 8244 Author: CORI Mojica Service: (none) Author Type: Occupational Therapist Filed: 09/13/131645 Date of Service: 09/13/131644 Status: Signed Emergency Medical Technician Basic: CORI Mojica (Occupational Therapist) 09/13/13 2044 Grooming Which grooming tasks completed during this session? Wash/rinse/dry hands Number of tasks completed 1 Which grooming task(s) did the patient complete WITHOUT ASSIST? Wash/rinse/dry hands Number of tasks completed w/o assist 1 Patient completed % of overall grooming tasks 100 Percent 6 - Patient completes 100% of task safely, without help, AND? requires 3x normal amount of time to complete (with walker ) Grooming impacted by Endurance Where grooming completed Standing at sink Grooming Final Score 6 Toileting Is this a continent episode? Yes-continue scoring Which toileting tasks were completed during this session? Adjust clothing prior;Perineal Ca re;Adjust clothing after Number of tasks completed 3 Which toileting task(s) did the patient complete WITHOUT ASSIST? Adjust clothing prior;Ruthie shanique care;Adjust clothing after Number of tasks completed w/o assist 3 Patient completed % of overall toileting task 100 Percent 6 - Patient completes 100% of task safely, without help, AND? with walker/cane/crutches;wit h grab bar Transfers: Bed, Chair, Wheelchair 6 - Patient completes 100% of task safely, without help, AND? with walker/cane/crutches Bed/chair/wheelchair transfers impacted by Endurance Where transfers completed Chair Transfers: Bed, Chair, Wheelchair Final Score 6 Transfers: Toilet 6 - Patient completes 100% of task safely, without help, AND? with walker;with grab bars Toileting transfer impacted by Endurance Where toileting transfer completed Bathroom in room Transfers: Toilet Final Score 6 Comprehension (in [place] language) 5 - Patient understands basic information WITH? repetition;cues/instruction Comprehension Final Score 5 - Supervision/set-up Expression (in [place] language) 6 - Patient expresses complex/abstract information WITH? extra time (3 times normal) Expression Final Score 6 Social Interaction 5 - Patient requires supervision for interaction DUE TO? encouragement to interact Social Interaction Final Score 5 Problem Solving 5 - Patient requires supervision for basic problem solving DUE TO? needing assist less than 10% of the time Problem Solving Final Score 5 Memory 5 - Patient requires supervision for memory DUE TO? cueing/instruction only in unfamiliar e nvironments Memory Final Score 5 Social/Cognitive Score Impacted By: The 5 social/cognitive scores impacted by Hearing;Problem-solving Functional Task Comments Pt participated in med management task. Needed verbal cues to doub le check for correct placement. Pt educated on having grand daughter supervise pt with med m anagement. Pt stated understanding. Complex Cooking Activities: With retrieval;Instruction/cueing;Attention to personal safety. Pt completed making soup using 4WW. Pt needed verbal cues for safety with walker-locking br akes and not carrying objects while pushing walker Pt observed to have delayed response during conversations. Unsure if due to hearing or cogn itive delay. onver ramsey Transaction, Provider Unknown - 09/13/2013 4:41 PM PDT Progress Notes by CORI Mojica at 09/13/13 1641 Author: CORI Mojica Service: (none) Author Type: Occupational Therapist Filed: 09/13/13 1641 Date of Service: 09/13/13 164 Status: Signed Emergency Medical Technician Basic: CORI Mojica (Occupational Therapist) 09/13/13 2448 ADL Goals Pt Will Perform Grooming Standing at sink;With supervision;Goal met (LTG: Mod I-Goal Met; Continue goal ) Pt Will Perform Bathing In shower/tub unit;With min assist;Goal met (LTG: supervised -Continue Goal ) Pt Will Perform UE Dressing In chair;At edge of bed;With supervision;Goal met (LTG: Mod I- Continue Goal ) Pt Will Perform LE Dressing At edge of bed;In chair;With min assist;With adaptive equipment ;Goal met;Revised (comment);Supervision (LTG: Mod I- New Goal; Continue goal ) LE Dressing Adaptive Equipment Sock aid;Property Specialist;[place] long-handled Functional Transfer Goals Pt Will Perform All Functional Transfers Stand pivot;With supervision;With assistive device ;Goal met (LTG: Mod I-Goal Met ) Assistive Devices Functional Transfer Walker front wheeled Arm Goals Pt Will Complete Theraband Exer B UE;1 set;10 reps;Level 2 Theraband (LT sets supervised-Continue Goal ) Pt Will Complete Theraputty Exer Resistance putty mixture (y/g);B UE;With handout for visua l cueing Plan Treatment Interventions (Per OT POC ) Progress Progressing toward goals OT Frequency BID;5x/wk;QD Requires OT Follow Up Yes onver ramsey Ramirez, Provider Unknown - 09/13/2013 11:00 AM PDT Progress Notes by Sylvia Ayala PT at 09/13/13 1100 Author: Sylvia Ayala PT Service: (none) Author Type: Physical Therapist Filed: 09/13/13 0227 Date of Service: 09/13/13 1100 Status: Signed Emergency Medical Technician Basic: Sylvia Ayala PT (Physical Therapist) 09/13/13 1100 PT Goals Goal Formulation With patient Pt Will Go Supine To Sit With modified independence;Met Pt Will Go Sit To Supine With modified independence;Met Pt Will Transfer Sit to Stand With modified independence;Met Pt Will Ambulate greater than 200 feet;Met Ambulate Level Assist With modified independence;Met Ambulate with Assistive Device Walker 4 wheeled;Met Pt Will Demo Standing Balance Stands for greater than 5 minutes while performing UE tasks;M et (as assessed during PT treatment) Family Training Demonstrate understanding of proper use of equipment;Be aware of which acti vities require supervision or assistance;State understanding of home safety guidelines;Not m et (Family training has not occured yet) Patient Education Patient will be educated regarding precautions specific to diagnosis;Lisa ent will cite precautions specific to diagnosis;Patient will demonstrate adherence to precau tions with verbal instruction;Met Other Goal Asc/desc ramp Doris not met Greer Kamara COTA - 09/13/2013 9:45 AM PDT Progress Notes by FILOMENA Yee at 09/13/13944 Author: FILOMENA Yee Service: (none) Author Type: Occupational Therapy Assistan t Filed: 09/13/13 1342 Date of Service: 09/13/13944 Status: Signed Emergency Medical Technician Basic: FILOMENA Yee (Financial Reporting Consultant) 09/13/13944 THERAPUTTY EXERCISE Theraputty exercises Small objects within putty NUSTEP EXERCISE NuStep Support Hand support used RESTORATOR EXERCISE Restorator support Hand support used Functional Exercises ROM ARC Repetitions Fine Motor Pegs Wooden pegs square;Wooden pegs square with dots Wing Mago Gonzalez MD - 09/13/2013 9:13 AM PDT Progress Notes by Wing Mago Nguyen MD at 09/13/13912 Author: Wing Mago Nguyen MD Service: (none) Author Type: Physician Filed: 09/13/13913 Date of Service: 09/13/13912 Status: Signed Emergency Medical Technician Basic: Wing Mago Nguyen MD (Physician) Patient seen face-face. Patient is doing better with Imdur No complaints over weekend otherwise Up with PT BP 170/90 | Pulse 96 | Temp 97.4 F (36.3 C) (Oral) | Resp 20 | Ht 1.524 m (5') | Wt 50. 4 kg (111 lb 1.8 oz) | BMI 21.70 kg/m2 | SpO2 97% | ? No Lung: Clear Cardiac: Regular Abdo: Soft A/P pontine CVA Cont tx plan Wing Ck Nguyen MD 9:13 AM Wing Mago Gonzalez MD - 2012 9:21 AM PDT Progress Notes by Wing Mago Nguyen MD at 09/12/13920 Author: Wing Mago Nguyen MD Service: (none) Author Type: Physician Filed: 09/12/13922 Date of Service: 09/12/13920 Status: Signed Emergency Medical Technician Basic: Wing Mago Nguyen MD (Physician) Patient seen face-face. Patient had episode of chest pain last night Did well after NTG Added back on Imdur CBG have been high Increased Lantus to 15 units at bedtime BP 105/57 | Pulse 90 | Temp 97.8 F (36.6 C) (Oral) | Resp 20 | Ht 1.524 m (5') | Wt 50. 4 kg (111 lb 1.8 oz) | BMI 21.70 kg/m2 | SpO2 96% | ? No Lung: Clear Cardiac: Regular Abdo: Soft A/p pontine CVA Cont tx plan Wing Ck Nguyen MD 9:23 AM onversion Transaction, Provider Unknown - 09/11/2013 10:59 PM PDTFormatting of this note might be different from e original. Progress Notes by Alfreda Henry RN at 09/11/132258 Author: Alfreda Henry RN Service: (none) Author Type: Registered Nurse Filed: 09/11/132303 Date of Service: 09/11/132258 Status: Signed Emergency Medical Technician Basic: Alfreda Henry RN (Registered Nurse) 2000 Pt c/o of tightness in chest, that also went up R neck, no sob, or nausea. Skin warm and dry. BP 188/108 99 20 96% on RA. Nitro sl given with good results. Bp down to 134/75 97 18. Started on o2 for comfort. Bp back up to 173/[address] shaffer, Started on Is osorbide. 0 sleeping. Alisha Light, OTR/L - 09/11/2013 2:00 PM PDTFormatting of this note might be different from th e original. Progress Notes by CORI Randall at 09/11/13 1400 Author: CORI Randall Service: (none) Author Type: Occupational Therapist Filed: 09/11/13 1442 Date of Service: 09/11/13 1400 Status: Signed Emergency Medical Technician Basic: CORI Randall (Occupational Therapist) 09/11/13 1400 OT Last Visit OT Received On 09/11/13 Reason for Treatment Stroke Requires OT Follow Up Yes Assistance Required 1 person Steel Plate Printer Needed No Family/Caregiver Present No Precautions Other Precautions falls Light Housekeeping Light Housekeeping Level Walker Light Housekeeping Level of Assistance Distant supervision;Minimal verbal cues Light Housekeeping Pt completed simulated laundry activity with sba, verbal instruct for wa lker safety, safe positioning of self for optimum performance, pt able to problem solve how to safely transport laundry using 4ww. Pt able to fold 10 towels standing with no rest break s. Functional mobility to/from kitchen/room using 4ww sba, verbal instruct to lock 4ww brake s prior to sitting/standing. Pt stated understanding. ing Mago Nguyen MD - 09/11/2013 12:55 PM PDT Progress Notes by Wing Mago Nguyen MD at 09/11/13 1256 Author: Wing Mago Nguyen MD Service: (none) Author Type: Physician Filed: 09/11/13 1255 Date of Service: 09/11/13 1255 Status: Signed Emergency Medical Technician Basic: Wing Mago Nguyen MD (Physician) Patient seen face-face. Patient is doing fairly well Labs are good Bed Mobility Supine to Sit (pt sitting in chair upon arrival.) Transfers Sit to/from Stand Standby assist Mobility Weight Bearing Status WBAT RLE;WBAT LLE Ambulation Assistance Supervision Maximal Ambulation 200' BP 144/78 | Pulse 87 | Temp 97.6 F (36.4 C) (Oral) | Resp 18 | Ht 1.524 m (5') | Wt 50. 4 kg (111 lb 1.8 oz) | BMI 21.70 kg/m2 | SpO2 97% | ? No Lung: Clear Cardiac: Regular Abdo: Soft A/p pontine CvA Cont tx plan Wing Ck Nguyen MD 12:56 PM onversion Transaction, Provider Unknown - 09/11/2013 12:45 PM PDTFormatting of this note might be different from th e original. Progress Notes by Kel Pagan PT at 09/11/13 1245 Author: Kel Pagan PT Service: (none) Author Type: Physical Therapist Filed: 09/11/13 1322 Date of Service: 09/11/13 1245 Status: Signed Emergency Medical Technician Basic: Kel Pagan PT (Physical Therapist) 09/11/13 1245 PT Last Visit PT Received On 09/11/13 Requires PT Follow Up Yes Other Comments Comments Pt demonstrated good endurance and safety ambulating community dtistance on varied community surfaces. Pt reports she feels her mobility is similar now to before her stroke. Pt was reminded to always use her AD when standing/walking. Cognition Overall Cognitive Status WFL Orientation Level Oriented Comments [place] Transfers Sit to/from Stand Modified independent Mobility Ambulation Assistance Modified independent Maximal Ambulation Distance (feet) 500 Total Ambulation Distance (feet) 1000 Distance limited by? Therapist/staff discretion Pattern Decreased janeth;Forward flexed Assistive Device Walker 4 wheeled Activity Tolerance Activity Tolerance Patient tolerated treatment without report of fatigue Safety Devices Safety Devices in Place (call light) Restraints Initially in Place No Plan Treatment/Interventions Continue per Primary PT POC Progress Progressing toward goals Recommendation Recommendations Return to prior living situation Alisha Light OTR/Mckenzie - 09/11/2013 10:30 AM PDTFormatting of this note might be different from th e original. Progress Notes by CORI Randall at 09/11/13 1030 Author: CORI Randall Service: (none) Author Type: Occupational Therapist Filed: 09/11/13 1438 Date of Service: 09/11/13 1030 Status: Signed Emergency Medical Technician Basic: CORI Randall (Occupational Therapist) 09/11/13 1030 OT Last Visit OT Received On 09/11/13 Reason for Treatment Stroke Requires OT Follow Up Yes Assistance Required 1 person Steel Plate Printer Needed No Family/Caregiver Present No Precautions Other Precautions falls Other Comments Comments Pt participated in cognitive testing to assess cognitive status. Pt scored 21/30 o n MoCA indicating cognitive impairment. Pt had difficulties with visual spatial task/copying cube, attention-repeating digits backward, serial subtraction by 7, repeating sentence-lang uage, abstraction, and delayed recall. Exercise Tools Exercise Tools Yes Theraband Pt completed other 2/4 ex on HEP ie elbow flex, elbow ext 10 reps x 1 set to inc overall strength/endurance to inc indep/act tolerance with adls. Alisha Light OTR/L - 09/11/2013 10:30 AM PDT Progress Notes by CORI Randall at 09/11/13 1030 Author: CORI Randall Service: (none) Author Type: Occupational Therapist Filed: 09/11/13 9306 Date of Service: 09/11/13 1030 Status: Signed Emergency Medical Technician Basic: CORI Randall (Occupational Therapist) 09/11/13 1030 Dressing: Upper Body Did patient dress in attire appropriate for community setting? Yes-continue scoring Clothing Items Worn This Session overlock elastic attacher shirt Pullover Shirt Dressing Tasks Completed This Session Thread/unthread right sleeve;Thread/un thread left sleeve;Pull shirt over trunk;Pull head through neck Pullover Shirt # Completed Dressing Tasks 4 Pullover Shirt Dressing Tasks Completed Without Assistance? Thread/unthread right sleeve;Th read/unthread left sleeve;Pull head through neck;Pull shirt over trunk Pullover shirt # Tasks Completed Without Assistance 4 # Dressing Tasks Completed 4 # Dressing Tasks Completed By Patient 4 % Dressing Tasks Completed 100 % 5 - Pt completes 100% of task and requires helper FOR? supervision;obtaining clothing UE dressing impacted by Endurance Where upper body dressing completed Sitting at bedside Upper Body Dressing Final Score 5 Dressing: Lower Body Did patient dress in attire appropriate for community setting? Yes-continue scoring Clothing Items Worn This Session Pants;Underwear Underwear-Dressing Tasks Completed This Session Thread/unthread right leg;Thread/unthread l eft leg;Pull underwear up/down Underwear # Completed Dressing Tasks 3 Underwear Dressing Tasks Completed Without Assistance? Thread/unthread right leg;Thread/unt hread left leg;Pull underwear up/down Underwear # Dressing Tasks Completed Without Assistance 3 Pant-Dressing Tasks Completed This Session? Thread right pant leg;Thread left pant leg;Pull pants up Pants- # Completed Dressing Tasks 3 Pants-Dressing Tasks Completed Without Assistance? Thread/unthread right pants leg;Thread/u nthread left pant leg;Pull pants up and down Pants - # Dressing Tasks Completed Without Assistance 3 # Dressing Tasks Completed 6 # Dressing Tasks Completed By Patient 6 % Dressing Tasks Completed 100 % 5 - Patient completes 100% of task and requires helper FOR? supervision;obtaining clothing Lower body dressing impacted by Endurance Where lower body dressing completed Dynamic sitting/standing at bedside Lower Body Dressing Final Score 5 Transfers: Bed, Chair, Wheelchair 6 - Patient completes 100% of task safely, without help, AND? with walker/cane/crutches Where transfers completed Chair Transfers: Bed, Chair, Wheelchair Final Score 6 Locomotion: Walk Expected Mode on Discharge Walk 5 - Patient ambulates >/= TO? 150 feet and helper for supervision and/or verbal instruction /cueing (cues for walker safety ie locking brakes) Distance limited by? Therapist/staff discretion Locomotion: Walk impacted by? Endurance Locomotion: Walk Final Score 5 onversion Transa ction, Provider Unknown - 09/11/2013 8:15 AM PDT Progress Notes by Kel Pagan PT at 09/11/13 08 Author: Kel Pagan PT Service: (none) Author Type: Physical Therapist Filed: 09/11/13908 Date of Service: 09/11/13814 Status: Signed Emergency Medical Technician Basic: Kel Pagan PT (Physical Therapist) 09/11/13 08 PT Last Visit PT Received On 09/11/13 Requires PT Follow Up Awaiting tx order Follow up PT Only? No PT Eval/Reassessment Date 09/10/13 Assistance Required 1 person Precautions Other Precautions fall risk Other Comments Comments 4WW was trialed and pt demonstrated safe, supervised community distance ambulation . Pt's balance was tested using Mini-BESTest. Pt scored 13/28 without an AD which is below t he falls cut-off. This indicates that the pt requires use of an AD for safe upright mobility . Pt was educated regarding the finding s of the test and agreed to always use her 4WW when standing. Cognition Overall Cognitive Status WFL Orientation Level Oriented Comments [place] Transfers Sit to/from Stand Supervision Mobility Ambulation Assistance Supervision Maximal Ambulation Distance (feet) 200 Total Ambulation Distance (feet) 400 Distance limited by? Therapist/staff discretion Pattern Alternating;Forward flexed Assistive Device Walker 4 wheeled Activity Tolerance Activity Tolerance (Pt reported nausea during testing. Nausea decreased w/ rest.) Safety Devices Safety Devices in Place (call light) Restraints Initially in Place No Plan Treatment/Interventions Continue per Primary PT POC Progress Progressing toward goals Recommendation Recommendations Return to prior living situation Equipment Recommended (Pt has needed equipment) onver ramsey Ramirez Provider Unknown - 09/11/2013 8:15 AM PDT Progress Notes by Kel Pagan PT at 09/11/13814 Author: Kel Pagan PT Service: (none) Author Type: Physical Therapist Filed: 01/14/14916 Date of Service: 09/11/13814 Status: Signed Emergency Medical Technician Basic: Kel Pagan PT (Physical Therapist) Mini-BESTest: Balance Evaluation Systems Test 1. SIT TO STAND Instruction: Cross arms across your chest. Try not to use your hands unless you must. Do not let your legs lean against the back of the chair when you stand. Please stand up now. (2) Normal: Comes to stand without use of hands and stabilizes independently. (1) Moderate: Comes to stand WITH use of hands on first attempt. (0) Severe: Impossible to stand up from chair without assistance, OR several attempts with use of hands. 2. RISE TO TOES Instruction: Place your feet shoulder width apart. Place your hands on your hips. Try to rise as high as you can onto your toes. I will count out loud to 3 seconds. Try to hold thi s pose for at least 3 seconds. Look straight ahead. Rise now. (2) Normal: Stable for 3 s with maximum height. (1) Moderate: Heels up, but not full range (smaller than when holding hands), OR noticeable instability for 3 s. (0) Severe: < 3 s. 3. STAND ON ONE LEG Instruction: Look straight ahead. Keep your hands on your hips. Bend one leg behind you. Do not touch your raised leg on your other leg. Stay standing on one leg as long as you can . Lift now. Left: Time in Seconds Trial 1:__2___Trial 2:__2___ (2) Normal: 20 s. (1) Moderate: < 20 s. (0) Severe: Unable. Right: Time in Seconds Trial 1:__1___Trial 2:_3____ (2) Normal: 20 s (1) Moderate: < 20 s. (0) Severe: Unable To calculate the score, use the side [left or right] with the lowest numerical score. [ie, the worse side] 4. COMPENSATORY STEPPING CORRECTION- FORWARD Instruction: Stand with your feet shoulder width apart, arms at your sides. Lean forward against my hands beyond your forward limits. When I let go, do whatever is necessary, inclu ding taking a step, to avoid a fall. (2) Normal: Recovers independently a single, large step (second realignment step is allowed ) (1) Moderate: More than one step used to recover equilibrium. (0) Severe: No step, OR would fall if not caught, OR falls spontaneously. 5. COMPENSATORY STEPPING CORRECTION- BACKWARD Instruction: Stand with your feet shoulder width apart, arms at your sides. Lean backwar d against my hands beyond your backward limits. When I let go, do whatever is necessary, inc luding taking a step, to avoid a fall. (2) Normal: Recovers independently a single, large step. (1) Moderate: More than one step used to recover equilibrium. (0) Severe: No step, OR would fall if not caught, OR falls spontaneously. 6. COMPENSATORY STEPPING CORRECTION- LATERAL Instruction: Stand with your feet together, arms down at your sides. Lean into my hand b eyond your sideways limit. When I let go, please step to avoid a fall. Left (2) Normal: Recovers independently with 1 step (crossover or lateral OK). (1) Moderate: Several steps to recover equilibrium. (0) Severe: Falls, or cannot step. Right (2) Normal: Recovers independently with 1 step (crossover or lateral OK). (1) Moderate: Several steps to recover equilibrium. (0) Severe: Falls, or cannot step. Use the side with the lowest score. 7. STANCE (FEET TOGETHER); EYES OPEN, FIRM SURFACE Instruction: Place your hands on your hips. Place your feet together until almost touchi ng. Look straight ahead. Stay asstable as possible until I say stop. Time in seconds: (2) Normal: 30 s. (1) Moderate: < 30 s. (0) Severe: Unable. 8. STANCE (FEET TOGETHER); EYES CLOSED, FOAM SURFACE Instruction: Step onto the foam. Place your hands on your hips. Place your feet together until almost touching. Stay as stable as possible until I say stop. I will start timing whe n you close your eyes. Time in seconds:___2 (2) Normal: 30 s. (1) Moderate: < 30 s. (0) Severe: Unable. 9. INCLINE- EYES CLOSED Instruction: Please stand on the incline ramp with your toes toward the top. Place your feet shoulder width apart and your arms on your hips. I will start timing when you close you r eyes. Time in seconds: (2) Normal: Stands independently 30 s and aligns with gravity. (1) Moderate: Stands independently <30 s OR aligns with surface. (0) Severe: Unable to stand. 10. CHANGE IN GAIT SPEED Instruction: Begin walking at your normal speed, when I tell you fast walk as fast as you can. When I say slow , walk very slowly. (2) Normal: Significantly changes walking speed without imbalance. (1) Moderate: Unable to change walking speed or imbalance. (0) Severe: Unable to achieve significant change in speed AND signs of imbalance. 11. WALK WITH HEAD TURNS HORIZONTAL Instruction: Begin walking at your normal speed, when I say right , turn your head and look to the right. When I say left turn your head and look to the left. Try to tiffany p yourself walking in a straight line. (2) Normal: performs head turns with no change in gait speed and good balance. (1) Moderate: performs head turns with reduction in gait speed. (0) Severe: performs head turns with imbalance. 12. WALK WITH PIVOT TURNS Instruction: Begin walking at your normal speed. When I tell you to turn and stop , turn as quickly as you can to face the opposite direction and stop. After the turn, your fe et should be close together. (2) Normal: Turns with feet close, FAST (< 3 steps) with good balance. (1) Moderate: Turns with feet close SLOW (>4 steps) with good balance. (0) Severe: Cannot turn with feet close at any speed without imbalance. 13. STEP OVER OBSTACLES Instruction: Begin walking at your normal speed. When you come to the shoe box, step ove r them, not around them and keep walking. (2) Normal: Able to step over box with minimal change of speed and with good balance. (1) Moderate: Steps over box but touches box OR displays cautious behavior by slowing gait. (0) Severe: cannot step over box OR steps around box. 14. TIMED UP & GO WITH DUAL TASK Instruction TUG: When I say Go , stand up from chair, walk at your normal speed acr oss the tape on the floor, turn around, and come back to sit in the chair. Instruction TU G with Dual Task: Count backwards by threes starting at 100. When I say Go , stand u p from chair, walk at your normal speed across the tape on the floor, turn around, and come back to sit in the chair. Continue counting backwards the entire time. TUG: ___21 seconds; Dual Task TUG: __49 seconds (2) Normal: No noticeable change between sitting and standing in backward counting and no c hange in gait speed compared with Dual Task TUG. (1) Moderate: Dual task affects either counting OR walking (>10%) when compared to TUG with out Dual Task. (0) Severe: Stops counting while walking OR stops walking while counting. When scoring item 14, if subject s gait slows more than 10% between the TUG without and w ith a dual task the score should be decreased by a point. TOTAL SCORE: onver ramsey Transaction, Provider Unknown - 09/10/2013 7:17 PM PDT Progress Notes by Rachana Gonzales RN at 09/10/131916 Author: Rachana Gonzales RN Service: (none) Author Type: Registered Nurse Filed: 09/10/131916 Date of Service: 09/10/131916 Status: Signed Emergency Medical Technician Basic: Rachana Gonzales RN (Registered Nurse) Requested prior to admission medication list from family today. I have not received list at this time. Alisha Light OTR/Mckenzie - 09/10/2013 2:15 PM PDTFormatting of this note might be different from th e original. Progress Notes by CORI Randall at 09/10/13 141 Author: CORI Randall Service: (none) Author Type: Occupational Therapist Filed: 09/10/13 1549 Date of Service: 09/10/131414 Status: Signed Emergency Medical Technician Basic: CORI Randall (Occupational Therapist) 09/10/13 141 Grooming Which grooming tasks completed during this session? Oral care;[place] hair;Wash/rinse/dry leonardo ds;Wash/rinse/dry face Number of tasks completed 4 Which grooming task(s) did the patient complete WITHOUT ASSIST? Oral care;[place] hair;Wash/r inse/dry hands;Wash/rinse/dry face Number of tasks completed w/o assist 4 Patient completed % of overall grooming tasks 100 Percent 5 - Patient completes 100% of task and requires helper FOR? supervision;preparing water;obt aining grooming items Grooming impacted by Endurance Where grooming completed Standing at sink;Other (comment) (sitting in shower) Grooming Final Score 5 Bathing Which bathing tasks were completed during this session? Arm right;Arm left;Chest;Abdomen;Pe rineal area front;Buttocks;Leg upper right;Leg upper left;Leg lower left and foot;Leg lower right and foot Number of tasks completed? 10 Which bathing task(s) did the patient complete WITHOUT ASSIST? Arm right;Arm left;Chest;Abd omen;Perineal area front;Buttocks;Leg upper right;Leg upper left Number of tasks completed w/o assist? 8 Patient completed % of overall bathing task 80 Percent 4 - Patient completes 75-100% of task Patient completes 75-100% of task Bathing impacted by Endurance Where bathing completed Tub/shower unit Bathing Final Score 4 Dressing: Upper Body Did patient dress in attire appropriate for community setting? Yes-continue scoring Clothing Items Worn This Session overlock elastic attacher shirt Pullover Shirt Dressing Tasks Completed This Session Thread/unthread right sleeve;Thread/un thread left sleeve;Pull head through neck;Pull shirt over trunk Pullover Shirt # Completed Dressing Tasks 4 Pullover Shirt Dressing Tasks Completed Without Assistance? Thread/unthread right sleeve;Th read/unthread left sleeve;Pull head through neck;Pull shirt over trunk Pullover shirt # Tasks Completed Without Assistance 4 # Dressing Tasks Completed 4 # Dressing Tasks Completed By Patient 4 % Dressing Tasks Completed 100 % 5 - Pt completes 100% of task and requires helper FOR? obtaining clothing;supervision UE dressing impacted by Endurance Where upper body dressing completed Bathroom Upper Body Dressing Final Score 5 Dressing: Lower Body Did patient dress in attire appropriate for community setting? Yes-continue scoring Clothing Items Worn This Session Underwear;Pants;Socks Underwear-Dressing Tasks Completed This Session Thread/unthread right leg;Thread/unthread l eft leg;Pull underwear up/down Underwear # Completed Dressing Tasks 3 Underwear Dressing Tasks Completed Without Assistance? Thread/unthread right leg;Thread/unt hread left leg;Pull underwear up/down Underwear # Dressing Tasks Completed Without Assistance 3 Pant-Dressing Tasks Completed This Session? Thread right pant leg;Thread left pant leg;Pull pants up Pants- # Completed Dressing Tasks 3 Pants-Dressing Tasks Completed Without Assistance? Thread/unthread right pants leg;Thread/u nthread left pant leg;Pull pants up and down Pants - # Dressing Tasks Completed Without Assistance 3 Socks Dressing Tasks Completed This Session Don/doff right sock;Don/doff left sock Socks Completed Dressing Tasks 2 Socks Dressing Tasks Completed This Session Without Assistance Don/doff right sock;Don/doff left sock Socks Completed Dressing Tasks Without Assistance 2 # Dressing Tasks Completed 8 # Dressing Tasks Completed By Patient 8 % Dressing Tasks Completed 100 % 4 - Patient completes 75-100% of task Patient requires steadying assist Lower body dressing impacted by Endurance Where lower body dressing completed Bathroom Lower Body Dressing Final Score 4 Transfers: Bed, Chair, Wheelchair 5 - Patient completes 100% of task and requires helper FOR? supervision Bed/chair/wheelchair transfers impacted by Endurance Where transfers completed Chair Transfers: Bed, Chair, Wheelchair Final Score 5 Transfers: Tub, Shower 5 - Patient completes 100% of task and requires helper FOR? supervision;verbal instruction/ cueing Type of Transfer Tub Transfers: Tub, Shower Final Score 5 Locomotion: Walk Expected Mode on Discharge Walk 5 - Patient ambulates >/= TO? 150 feet and helper for supervision and/or verbal instruction /cueing Distance limited by? Therapist/staff discretion Locomotion: Walk impacted by? Endurance Locomotion: Walk Final Score 5 Comprehension (in [place] language) 6 - Patient understands complex/abstract information WITH? hearing aid Comprehension Final Score 6 - Modified independence Expression (in [place] language) 7- Patient expresses complex/abstract informantion w/o help. Patient expresses complex/abst ract informantion w/o help. Expression Final Score 7 Social Interaction 7- Patient interacts appropriately without mood medication Patient interacts appropriately without mood medication Social Interaction Final Score 7 Problem Solving 6 - Patient solves complex problems WITH? extra time Problem Solving Final Score 6 Memory 6 - Patient is modified independent with memory DUE TO? mild difficulty recognizing/remembe ring/executing tasks Memory Final Score 6 Alisha Light OTR/L - 09/10/2013 2:15 PM PDT Progress Notes by CORI Randall at 09/10/13 1415 Author: CORI Randall Service: (none) Author Type: Occupational Therapist Filed: 09/10/13 9966 Date of Service: 09/10/13 1415 Status: Signed Emergency Medical Technician Basic: CORI Randall (Occupational Therapist) 09/10/13 1415 OT Last Visit OT Received On 09/10/13 Reason for Treatment Stroke Requires OT Follow Up Yes Assistance Required 1 person Steel Plate Printer Needed No Family/Caregiver Present Yes (dtr Tram) Precautions Other Precautions falls Other Comments Comments Pt reports having a fear of falling. Dtr present for entire session and assisted p t as needed during shower. Exercise Tools Exercise Tools Yes Theraband initiated HEP 2/4 ex completed 10 reps of shldr flex, shldr horiz abd/add. Pt rep orted fatigue, unable to continue. Pt has tputty in room. Wing Mago Gonzalez MD - 09/10/2013 2:09 PM PDT Progress Notes by Wing Mago Nguyen MD at 09/10/13 2193 Author: Wing Mago Nguyen MD Service: (none) Author Type: Physician Filed: 09/10/13 140 Date of Service: 09/10/131408 Status: Signed Emergency Medical Technician Basic: Wing Mago Nguyen MD (Physician) Patient seen face-face. Patient quiet night She is speaking well Has some dementia CBGs are adequate Pending CBC and BMP BP 161/86 | Pulse 90 | Temp 98.3 F (36.8 C) (Oral) | Resp 18 | Ht 1.524 m (5') | Wt 50. 4 kg (111 lb 1.8 oz) | BMI 21.70 kg/m2 | SpO2 96% | ? No Lung: Clear Cardiac: Regular Abdo: Soft A/P pontine CVA Cont tx plan Wing Ck Nguyen MD 2:09 PM onversion Transaction, Provider Unknown - 09/10/2013 12:45 PM PDTFormatting of this note might be different from th e original. Progress Notes by Wanda Medina PT at 09/10/13 5021 Author: Wanda Medina PT Service: (none) Author Type: Physical Therapist Filed: 09/10/13 5609 Date of Service: 09/10/139 Status: Signed Emergency Medical Technician Basic: Wanda Medina PT (Physical Therapist) 09/10/13 1249 PT Last Visit PT Received On 09/10/13 Reason for Treatment Stroke (pontine) Requires PT Follow Up Awaiting tx order Assistance Required 1 person Precautions Other Precautions fall precautions Other Comments Comments Pt agreeable to PT; PT unable to find available 4WW for pt to trial during gait; r ecommend gait using 4WW at next session if available; treatment performed in room secondary to enteric precautions; high level balance activities performed; pt use stepping strategy to prevent LOB during braiding activity; pt asked about "home call" system- pt educated on Lif e Alert and pt expressed interest. Cognition Overall Cognitive Status WFL Orientation Level Oriented Bed Mobility Supine to Sit (pt sitting in chair upon arrival.) Transfers Sit to/from Stand Standby assist Mobility Weight Bearing Status WBAT RLE;WBAT LLE Ambulation Assistance Supervision Maximal Ambulation Distance (feet) 200 Total Ambulation Distance (feet) 200 Distance limited by? Therapist/staff discretion Pattern Alternating;Forward flexed Assistive Device Walker front wheeled (PT unable to find available 4WW for use) Balance Balance Yes High Level Balance Side Stepping Hand hold assist;Right;Left (4x20 ft) Backwards Walking Hand hold assist (2x20 ft) Tandem Walking Hand hold assist (4x20 ft) Braiding Hand hold assist;Right;Left (4x20 ft) Standing Standing-Exercise Type (sit<>stds with minimal use of hands) Standing-Exercise Comments 2x5 Activity Tolerance Activity Tolerance Patient tolerated treatment without report of fatigue Plan Treatment/Interventions Continue per Primary PT POC Progress Progressing toward goals Recommendation Recommendations (continue IPR therapy) Equipment Recommended (pt has 4WW) onver ramsey Ramirez Provider Unknown - 09/10/2013 12:27 PM PDT Case Management by NIURKA Harrison at 09/10/13 6276 Author: NIURKA Harrison Service: (none) Author Type: Building Carpenter Helper Filed: 09/10/13 9598 Date of Service: 09/10/13 0247 Status: Addendum Emergency Medical Technician Basic: NIURKA Harrison (Building Carpenter Helper) Related Notes: Original Note by NIURKA Harrison (Building Carpenter Helper) filed at 09/10/13 7063 Met with patient to complete initial assessment and discussed discharge plans. Pt is a 73 y.o., female who lives in [place], [place] with her granddaughter Nathalia. Pt reports her granddaughter works during the day so her goal is t o be independent with all ADLs and mobility as she states all her family members work and ar e busy. Pt has a disabled parking permit. She drove prior to admit. She is coping well. Patient's PCP is: ANI YANES Patient's insurance: Medicare Coverage concerns: No Medication coverage/concerns: Community resources utilized / needed: Assistance in transportation: Family to transport Identification of any specific education / training: Barriers to Discharge / Alternative housing needed: Anticipated DCP: Home with some family support MANPREET KEY, LICENSED INSURANCE AGENT 09/10/13 1225 Discharge Planning Evaluation Readmission No Living Arrangements Other (Comment);Family members (Pt lives with her granddaughter Nathalia) Support Systems Children;Family members Type of Residence Private residence Independent with ADL's Yes Independent with Mobility Yes Mental Status Oriented Prior functional status Pt was independent with all ADLs prior to admit. Anticipated Disposition Facility Type (Home) Alisha Light OTR/L - 09/10/2013 11:29 AM PDTFormatting of this note might be different from viktoria cabezas. Progress Notes by CORI Randall at 09/10/13 1129 Author: CORI Randall Service: (none) Author Type: Occupational Therapist Filed: 09/10/13 1133 Date of Service: 09/10/13 1129 Status: Signed Emergency Medical Technician Basic: CORI Randall (Occupational Therapist) Geriatric Depression Scale 1. Are you basically satisfied with your life? Y 2. Have you dropped many of your activities and interests? N 3. Do you feel that your life is empty? N 4. Do you often get bored? N 5. Are you in good spirits most of the time? Y 6. Are you afraid that something bad is going to happen to you? N 7. Do you feel happy most of the time? Y 8. Do you often feel helpless? N 9. Do you prefer to stay at home rather than going out and doing things? Y 10. Do you feel that you have more problems with memory than most? Y 11. Do you think it is wonderful to be alive now? N 12. Do you feel worthless the way you are now? Y 13. Do you feel full of energy? N 14. Do you feel that your situation is hopeless? N 15. Do you think that most people are better off than you are? N Score one point for each answer below. A score of >/=5 suggests depression. Points 1. No 2. Yes 3. Yes 4. Yes 5. No 6. Yes 7. No 8. Yes 9. Yes 10. Yes 11. No 12. Yes 13. No 14. Yes 15. Yes Final score: 5/15 indicating s/s of depression Alisha Light OTR/L - 09/10/2013 11:15 AM PDT Progress Notes by CORI Randall at 09/10/13 1115 Author: CORI Randall Service: (none) Author Type: Occupational Therapist Filed: 09/10/13 7993 Date of Service: 09/10/13 1115 Status: Signed Emergency Medical Technician Basic: CORI Randall (Occupational Therapist) 09/10/13 1115 Precautions Other Precautions falls Home Environment Type of Home Home manufactured double wide Home Exterior Layout Ramp Home Interior Layout Lives on main level with bedroom/bathroom Bathroom Shower/Tub Tub/shower unit Bathroom Toilet Raised Bathroom Equipment Hand-held shower head;Grab bars in shower/bath;Grab bars at toilet;Showe r chair Bathroom Accessibility Accessible via walker Home Equipment Walker 4 wheeled Additional Comments Pt reports no history of falls, used 4ww prior to admit, reports no his tory of supplemental O2 needs at home, reports checking her blood sugar twice daily, managin g it with diet, [facility]. Pt reports having increased di fficulty managing iadls at home ie cleaning house. Prior Function Level of [place] Modified independent with functional mobility;Modified independent wi th ADLs;Modified independent with IADLs;Assist with IADLs Lives With (dtr, who works during the day) Receives Help From Family ADL Assistance Independent Home ADL's Independent;Need assistance Employment Retired for age Comments Pt reports doing iadls as she can when grddtr at work. ADL Additional Comments Bed mobility supine to sit and sit to supine sba, sit to stand sba, pt wobbly in standing, requiring cga for safety. Pain Screening Currently in Pain No/denies Pain Assessment 0-10 Pain Score Zero Vision-Basic Assessment Current Vision Reading glasses Tracking Able to track stimulus in all quads without difficulty (decreased convergence/divergence) Visual Gaitan (peripheral vision intact B sides) Acuity Able to read clock/calendar on wall without difficulty Cognition Overall Cognitive Status WFL Orientation Level Disoriented (oriented except for day, date) Comments Pt very sleepy upon OT entering room Sensation Light Touch No apparent deficits (in UEs) Proprioception Proprioception (L LE deficit) Perception Inattention/Neglect Appears intact Initiation Appears intact Motor Planning Appears intact Perseveration Not present RUE Assessment RUE Assessment WFL (mildly dec shldr flex, no report of shldr problems) LUE Assessment LUE Assessment WFL (generalized wkness-4/5 B UE, 4-/5 L shldr) Hand Function Gross Grasp Functional (R handed, mildly weaker in L hand) Functional Gross Grasp Able to grasp objects without difficulty Coordination Functional;Slowed (L hand) Assessment Assessment Decreased ADL status;Decreased UE strength;Decreased endurance;Decreased self-ca re trans;Decreased high-level ADLs Prognosis Good;With family Goal Formulation Patient ADL Goals Pt Will Perform Grooming Standing at sink;With supervision (LTG mod I) Pt Will Perform Bathing In shower/tub unit;With min assist (LTG supervised) Pt Will Perform UE Dressing In chair;At edge of bed;With supervision (LTG mod I) Pt Will Perform LE Dressing At edge of bed;In chair;With min assist;With adaptive equipment (LTG supervised) LE Dressing Adaptive Equipment Sock aid;Property Specialist;[place] long-handled Functional Transfer Goals Pt Will Perform All Functional Transfers Stand pivot;With supervision;With assistive device (LTG mod I) Assistive Devices Functional Transfer Walker four wheeled Arm Goals Pt Will Complete Theraband Exer B UE;1 set;10 reps;Level 2 Theraband (LTG 2 sets supervised) Pt Will Complete Theraputty Exer Resistance putty mixture (y/g);B UE;With handout for visua l cueing onversion Transa ctneelam, Provider Unknown - 09/10/2013 8:45 AM PDT Progress Notes by Wanda Medina PT at 09/10/13 0860 Author: Wanda Medina PT Service: (none) Author Type: Physical Therapist Filed: 09/10/13 1604 Date of Service: 09/10/13 0845 Status: Addendum Emergency Medical Technician Basic: Wanda Medina PT (Physical Therapist) Related Notes: Original Note by Wanda Medina PT (Physical Therapist) filed at 3 1158 09/10/13 0845 PT Last Visit PT Received On 09/10/13 Reason for Treatment Stroke Requires PT Follow Up Awaiting tx order Follow up PT Only? Yes Assistance Required 1 person Precautions Other Precautions fall precautions Plan Treatment/Interventions Balance training;Transfer training;Therapeutic exercise;Gait traini ng;Family training PT Frequency 5-7x/wk;Twice a day;Once per day Care Duration (# of days) 5 # of days Home Environment Type of Home Home manufactured double wide Home Exterior Layout Ramp Home Interior Layout Lives on main level with bedroom/bathroom Bathroom Shower/Tub Tub/shower unit Bathroom Toilet Raised Bathroom Equipment Hand-held shower head;Shower chair;Grab bars in shower/bath;Grab bars at toilet Bathroom Accessibility Accessible via walker Home Equipment Walker 4 wheeled Additional Comments Pt denies any recent falls. Pt reports she was wanting help for housek eeping prior to stroke. Recommendation Recommendations (continue IPR therapy) Equipment Recommended (pt owns 4WW) Prior Function Level of [place] Modified independent with functional mobility;Modified independent wi th ADLs;Modified independent with IADLs;Assist with IADLs (granddaughter makes meals ) Lives With (granddaughter Nathalia) Receives Help From Family ADL Assistance Independent Home ADL's Need assistance Employment Retired for age RUE Assessment RUE Assessment WFL LUE Assessment LUE Assessment WFL RLE Assessment RLE Assessment WFL (hip flex 4/5; knee ext 4/5) LLE Assessment LLE Assessment WFL (hip flex 4-/5; knee ext 4/5) Cognition Overall Cognitive Status WFL Orientation Level Oriented Sensation Light Touch Deficit apparent (L distal digit numbness 2-5; LLE from knee distal "numbness") Additional Comments mildly decreased LLE coordination Perception Inattention/Neglect Appears intact Initiation Appears intact Motor Planning Appears intact Perseveration Not present Proprioception Proprioception Other (comment) (mild LLE deficit) Vision-Basic Assessment Current Vision Reading glasses 09/10/13 0845 PT Last Visit PT Received On 09/10/13 Reason for Treatment Stroke Requires PT Follow Up Awaiting tx order Follow up PT Only? Yes Assistance Required 1 person Precautions Other Precautions fall precautions Other Comments Comments Chart reviewed, eval and all mobility completed in room due to enteric precautions . Pt admitted for pontine CVA; PMH of DMII and cancer. Pt presents with decreased sensation from knee distally in LLE and mild strength deficits in L versus R. Pt requires spv for bed mobility, SBA for transfers using FWW, SBA for amb 180 ft using FWW. Pt scored 35/56 on Amos Balance Scale indicating a moderate fall risk. Pt was mod I prior using 4WW; plan to trial amb with 4WW at next visit. Pt left in supine, call light in reach. Pt verbalized understand ing of use of call light. Cognition Overall Cognitive Status WFL Orientation Level Oriented Bed Mobility Supine to Sit Supervision Sit to Supine Supervision Scooting Supervision (sitting EOB) Transfers Sit to/from Stand Standby assist;Supervision Bed to/from Chair Standby assist;Supervision Mobility Weight Bearing Status WBAT RLE;WBAT LLE Ambulation Assistance Standby assist;Supervision Maximal Ambulation Distance (feet) 180 Total Ambulation Distance (feet) 180 Distance limited by? Therapist/staff discretion Pattern Alternating;Forward flexed Assistive Device Walker front wheeled Balance Balance Yes Static Standing Balance Static Standing-Balance Support Right upper extremity support;Left upper extremity support Static Standing-Level of Assistance Standby assist Static Standing-Comment/Duration steady when using BUEs for support Modalities Modalities Other therapy Other Therapy Ed on POC, use of call light, stroke, safe mobility techniques. Activity Tolerance Activity Tolerance Patient limited by fatigue Plan Treatment/Interventions Balance training;Transfer training;Therapeutic exercise;Gait traini ng;Family training PT Frequency 5-7x/wk;Twice a day;Once per day Care Duration (# of days) 5 # of days Recommendation Recommendations (continue IPR therapy) Equipment Recommended (pt owns 4WW) onver ramsey Transaction, Provider Unknown - 09/10/2013 5:41 AM PDT Progress Notes by Robby Renee RN at 09/10/13540 Author: Robby Renee RN Service: (none) Author Type: Registered Nurse Filed: 09/10/13541 Date of Service: 09/10/13540 Status: Signed Emergency Medical Technician Basic: Robby Renee RN (Registered Nurse) Patient ambulates to bathroom with standby assist and front wheel walker, steady. Bed alarm on. Awaiting stool sample to send to lab to rule out C. Diff. onver ramsey Transaction, Provider Unknown - 09/09/2013 8:27 PM PDT Progress Notes by Becca Goldstein RN at 09/09/132026 Author: Becca Goldstein RN Service: (none) Author Type: Registered Nurse Filed: 09/09/132029 Date of Service: 09/09/132026 Status: Signed Emergency Medical Technician Basic: Becca Goldstein RN (Registered Nurse) Per report pt has been having multiple loose BMs. And had incontinent episode on bathroom f ghazala. Pt moved to individual room per protocol to rule out C diff. onver ramsey Transaction, Provider Unknown - 09/09/2013 4:53 PM PDT Progress Notes by Adrienne Kim RPH at 09/09/131652 Author: Adrienne Kim RPH Service: (none) Author Type: Pharmacist Filed: 09/09/131652 Date of Service: 09/09/131652 Status: Signed Emergency Medical Technician Basic: Adrienne Kim RPH (Pharmacist) Renal Dosing Monitoring: Tammie Kearney 73 y.o. female Pharmacy dosing for renal function per Dr. Nguyen No current SCr Plan per protocol: No renally adjusted medications currently ordered. Pharmacy will continue monitoring patient for appropriate dosing per renal function. 09/09/2013 4:52 PM Pharmacist: Adrienne Kim docume nted in this encounter Plan of Treatment Not on filedocumented as of this encounter Procedures + +--------+ + + + | Procedure Name | Priori | Date/Time | Associated Diagnosis | Comments | | | ty | | | | + +--------+ + + + | HISTORICAL | Timed | 09/10/2013 | | Results for this | | MICROBIOLOGY RESULT | | 3:20 PM | | procedure are in the | | | | PDT | | results section. | + +--------+ + + + documented in this encounter Results HISTORICAL MICROBIOLOGY RESULT (09/10/2013 3:20 PM PDT) + + | Specimen | + + | Stool specimen | | (specimen) | + + + + + | Narrative | Performed At | + + + | Toxigenic C Difficile NEGATIVE Testing | EXTERNAL LAB | | performed at [facility];[address] [place] [address];[place] [address] 027 NAP1 BI | | | 027 NAP1 BI PRESUMPTIVE NEGATIVE | | | Detection of 027 NAP1 BI strains of C. difficile is presumptive and | | | for epidemiological purposes and not intended to guide or monitor | | | treatment for C. difficile infections. Testing performed at [facility];[address] | | [facility];[place] [address] | | + + + + +---------+ + + | Performing | Address | City/State/Zipcode | Phone Number | | Organization | | | | + +---------+ + + | EXTERNAL LAB | | | | + +---------+ + + documented in this encounter Visit Diagnoses Not on filedocumented in this encounter
[~2020-02-24 20:27] MED LIST changes: +CARVEDILOL3.125 MG PO; +ROSUVASTATIN CA10 MG PO
[2020-02-24] MEDS ORDERED: LEVOTHYROXINE88 MCG PO (22:03)
--- NOTE | 2020-02-25 12:05 | EKG ---
[facility] [address] [facility] [place] [address] Signed Normal sinus rhythm ST \T\ T wave abnormality, consider lateral ischemia Abnormal ECG When compared with ECG of 23-APR-2019 18:18, No significant change was found Confirmed by ROXANNE THURMAN DO ([id number]) on 02/25/2020 12:04:52 PM Electronically Signed By: ROXANNE THURMAN DO 02/25/20 1205 PATIENT NAME: ROZHELEN MICHAEL Electrocardiogram DATE OF : 42 PHYSICIAN: ROXANNE THURMAN DO REPORT #: [id number] REPORT IS CONFIDENTIAL AND NOT TO BE RELEASED WITHOUT AUTHORIZATION
--- NOTE | 2020-02-26 08:34 | OR ---
[facility] [address] [place], [place] [address] Signed DATE OF OPERATION: 02/25/2020 SURGEON: Betty Burk MD PREOPERATIVE DIAGNOSIS: Left intertrochanteric hip fracture. POSTOPERATIVE DIAGNOSIS: Left intertrochanteric hip fracture. PROCEDURE PERFORMED: None. EDGE KITTER: None. ANESTHESIA: None. BLOOD LOSS: None. SHORT NOTE: Helen is a 80-year-old female, who suffered a ground level fall fracturing her hip yesterday. She was cleared by the Medicine Service and after risks and benefits were discussed with her and her daughter, she was taken to the operating room this morning. She was given 25 mg of ketamine in the holding area for the spinal. She was then wheeled from the holding area to the OR. Upon arrival in the OR, she had become cool, nonresponsive, and diaphoretic. The monitors were put on and her blood pressure was obtained. Her heart rate was 31 and her blood pressure was approximately 56/30. She was immediately given 0.5 of atropine and her heart rate went to 120. She was given 20 of esmolol to control the heart rate. Her blood pressure did rebound quite nicely. Her urine output remained good throughout the episode. EKG was obtained in the operating room, which showed new changes in the lateral and inferior leads. This was particularly flipped T-waves in V3, V4, and perhaps V5. The patient was then taken to the ICU for stabilization. We did draw cardiac labs prior to leaving the operating room. She was never taken actually off her hospital bed and no procedure was performed. I did contact her daughter after this was done and the patient is a DNR/DNI. Electronically Signed By: BETTY BURK MD 02/26/20 0834 PATIENT NAME: HELEN COURTNEY OPERATIVE REPORT DATE OF : 42 REPORT #: [id number] PHYSICIAN: BETTY BURK MD PCP: ALEXIA HUSSEIN REPORT IS CONFIDENTIAL AND NOT TO BE RELEASED WITHOUT AUTHORIZATION [address] [place] [address] Signed Betty Burk MD BA/MODL /[id number] Copies: ~ Electronically Signed By: BETTY BURK MD 02/26/20 0834 PATIENT NAME: HELEN COURTNEY OPERATIVE REPORT DATE OF : 42 REPORT #: [id number] PHYSICIAN: BETTY BURK MD PCP: ALEXIA HUSSEIN REPORT IS CONFIDENTIAL AND NOT TO BE RELEASED WITHOUT AUTHORIZATION
--- NOTE | 2020-02-28 06:58 | OR ---
[facility] [address] [place], [place] [address] Signed DATE OF OPERATION: 02/27/2020 SURGEON: Betty Burk MD PREOPERATIVE DIAGNOSIS: Left intertrochanteric hip fracture. POSTOPERATIVE DIAGNOSIS: Left intertrochanteric hip fracture. PROCEDURE PERFORMED: Open reduction and internal fixation, left hip. APPEALS SPECIALIST: Jyotsna Gonzalez PA-C ANESTHESIA: General. ESTIMATED BLOOD LOSS: 200 mL. IMPLANTS: Synthes 170 mm TFN with 100 mm lag screw and 34 mm distal locking screw. BRIEF HISTORY: Helen is a 80-year-old female, who suffered a ground level fall after getting out of the shower several days ago. She was initially admitted to the hospital and cleared by the hospitalist overnight. On the way to the operating room the first time, she went into a significant symptomatic bradycardia and was kept in the ICU and watched overnight. She did have continuing problems with urine output and hydration was performed, which caused relative anemia. She was transfused 2 units of PRBCs yesterday, however, platelets continued to be low and she was given 1 unit of platelets this morning prior to surgery. She was felt to be stable to proceed with that after that. Risks, benefits, and alternatives were discussed with her and her family and they elected to proceed. DESCRIPTION OF PROCEDURE: Once consent was obtained, she was taken to the operating room. After adequate anesthesia, she was placed in a fracture table. The right leg was flexed, abducted, and Electronically Signed By: BETTY BURK MD 02/28/20 0658 PATIENT NAME: HELEN COURTNEY OPERATIVE REPORT DATE OF : 42 REPORT #: [id number] PHYSICIAN: BETTY BURK MD PCP: ALEXIA HUSSEIN REPORT IS CONFIDENTIAL AND NOT TO BE RELEASED WITHOUT AUTHORIZATION [facility] [address] [place], [place] [address] Signed external tip rotated in well-padded leg sweeney. The left was placed in foot traction. Leadbetter's maneuver was performed. The C-arm was brought in. The fracture was found to be quite well, reduced at that point. The hip was then prepped and draped in a standard sterile fashion. A 4-inch incision was made proximal to the greater trochanter and carried through skin and subcutaneous tissue. The IT band was divided longitudinally. All bleeders were cauterized as we went. There was significant hematoma in the trochanteric bursa and subfascial space, this was evacuated. The trochanter was noted to be split longitudinally and a Verbrugge clamp was placed around this. The first guidewire was introduced from the tip of the trochanter and advanced into the shaft of the femur. Using the curved awl because of the softness of her bone, we were able to open up the trochanter and then sequentially reamed up to 13 with minimal bone shatter. The 12 TFN was then advanced from the tip of the trochanter into the shaft of the femur and advanced until it was well-seated. The slot was then aligned with the femoral neck in the low posterior position, again because of the softness of the bone. The insertion guide for the spiral blade was then placed up against the lateral thigh and a separate stab incision was made. This was carried through the IT band and advanced until it was splashed with the lateral femur. The guidepin was then advanced from the lateral femur across the neck into a low center position of the femoral head. The guidepin was then measured and 100 TFN was selected. The guidepin was overdrilled and the TFN was advanced until it was well seated. There was good bone in the femoral head at the last cm or so. The insertion guide was then removed. The locking bolt was then brought down from the top of the TFN locking onto the spiral blade. The distal locking screw was then placed percutaneously through the guide and a 34 screw was inserted there. The guide was then removed. The final radiograph showed excellent position of the blade and TFN with complete reduction of the fracture. The wounds were then copiously irrigated with antibiotic solution, closed in layers with #1 Stratafix, and acryn for the skin. She was dressed with a HAYLEY wound VAC dressing, taken out of traction and taken to the recovery room in satisfactory condition. All sponge, needle, and instrument counts were correct. Betty Burk MD BA/MODL /[id number] Electronically Signed By: BETTY BURK MD 02/28/20 0658 PATIENT NAME: HELEN COURTNEY OPERATIVE REPORT DATE OF : 42 REPORT #: [id number] PHYSICIAN: BETTY BURK MD PCP: ALEXIA HUSSEIN REPORT IS CONFIDENTIAL AND NOT TO BE RELEASED WITHOUT AUTHORIZATION [address] [address] Signed Copies: ~ Electronically Signed By: BETTY BURK MD 02/28/20 0658 PATIENT NAME: HELEN COURTNEY MICHAEL OPERATIVE REPORT DATE OF : 42 REPORT #: [id number] PHYSICIAN: BETTY BURK MD PCP: ALEXIA HUSSEIN REPORT IS CONFIDENTIAL AND NOT TO BE RELEASED WITHOUT AUTHORIZATION
--- NOTE | 2020-03-22 14:41 | EX ---
[facility] [address] [place], [place] [address] Signed ADMISSION DATE: 02/24/2020 DISCHARGE DATE: 03/03/2020 DATE OF : 03/03/2020. ADMISSION DIAGNOSIS: Left intertrochanteric hip fracture. DISCHARGE DIAGNOSIS: Left intertrochanteric hip fracture. PROCEDURES PERFORMED DURING THIS HOSPITALIZATION: 1. Open reduction and internal fixation, left hip. 2. Transfusion of 4 units packed red blood cells. 3. Transthoracic echocardiogram. BRIEF HISTORY: Helen was a 80-year-old female, fairly frail, in her usual state of health at home when she slipped getting out of the shower. She was transported to the Emergency Department, radiographs revealed a moderately displaced intertrochanteric hip fracture. She was admitted to my service and cleared by the Medicine Service to proceed with surgery. Her EKG was relatively normal. She did have problems with low urine output throughout her hospitalization, however, she had no troubles with change in her kidney function. Her creatinine stayed normal throughout. She was taken to the OR the next morning for open reduction and internal fixation. She was given 25 of ketamine in the holding area and by the time she got to the operating room, her heart rate dropped into the 30s, her blood pressure into the 50s and she was no longer responsive. She was medically resuscitated and taken back to the floor. Post incident EKG showed no significant changes. Her troponins remained pretty much level throughout. She ultimately was fluid resuscitated and given some blood products. On the , she was taken back to the operating room. No ketamine was give, and she underwent the procedure with minimal blood loss and no significant problems. Over the next four days, she continued this sort of go up and down. Her clinical course was complicated by low urine output, decreased LOC. She really would not take anything orally in terms of food or water intake. Her urine output continued to fluctuate, but was never really great. She continued to get fluid boluses. She did get another 2 units of packed red blood cells. Her chest x-ray remained clear throughout. She had no evidence of any kind of infection. On the morning of the , she continued to be in a declining state of health. I went into see her and her son was present. At that time, the hospital was allowing only surgeries for critical patients one at a time secondary to COVID outbreak. At that point, he and I had a long discussion about her quality of life and he elected to move her to comfort care. At that time, her daughter came in, so both her son and Electronically Signed By: BETTY BURK MD 03/22/20 1441 PATIENT NAME: HELEN COURTNEY SUMMARY DATE OF : 42 REPORT #: [id number] PHYSICIAN: BETTY BURK MD PCP: ALEXIA HUSSEIN REPORT IS CONFIDENTIAL AND NOT TO BE RELEASED WITHOUT AUTHORIZATION [address] [address] Signed daughter were present. I went out to the nursing station to write orders for comfort care, I came back again and the patient had at that point. She had no pulse and no respirations. Family was present for her passing. The body was then prepared for home. Betty Burk MD BA/MODL /[id number] Copies: ~ Electronically Signed By: BETTY BURK MD 03/22/20 1441 PATIENT NAME: HELEN COURTNEY MICHAEL SUMMARY DATE OF : 42 REPORT #: [id number] PHYSICIAN: BETTY BURK MD PCP: ALEXIA HUSSEIN REPORT IS CONFIDENTIAL AND NOT TO BE RELEASED WITHOUT AUTHORIZATION
== END 2020-03-03 09:45 | DRG 482 ==
LOC: ED 20:27 → CCU 21:51 → MS 21:51 → CCU 02-25 10:00 → MS 02-26 18:30
PROVIDERS: ADMIT Specialist
PROC: 30233N1 Transfusion of Nonautologous Red Blood Cells into Peripheral Vein, Percutaneous Approach (ICD-10-PCS; 2020-02-26)
PROC: 3E0T3BZ Introduction of Anesthetic Agent into Peripheral Nerves and Plexi, Percutaneous Approach (ICD-10-PCS; 2020-02-27)
PROC: 30233R1 Transfusion of Nonautologous Platelets into Peripheral Vein, Percutaneous Approach (ICD-10-PCS; 2020-02-27)
PROC: 0QS704Z Reposition Left Upper Femur with Internal Fixation Device, Open Approach (ICD-10-PCS; principal; 2020-02-27 11:40)
DX: S72.142A Displaced intertrochanteric fracture of left femur, initial encounter for closed fracture (principal); I25.10 Atherosclerotic heart disease of native coronary artery without angina pectoris; I10 Essential (primary) hypertension; E78.5 Hyperlipidemia, unspecified; E03.9 Hypothyroidism, unspecified; E11.9 Type 2 diabetes mellitus without complications; R34 Anuria and oliguria; E86.0 Dehydration; D64.9 Anemia, unspecified; D69.6 Thrombocytopenia, unspecified; G89.18 Other acute postprocedural pain; R00.1 Bradycardia, unspecified; I95.9 Hypotension, unspecified; W18.2XXA Fall in (into) shower or empty bathtub, initial encounter; Z51.5 Encounter for palliative care; Z88.5 Allergy status to narcotic agent; Z66 Do not resuscitate; Z88.8 Allergy status to other drugs, medicaments and biological substances; Z88.0 Allergy status to penicillin; Z79.84 Long term (current) use of oral hypoglycemic drugs; Z79.82 Long term (current) use of aspirin; Z79.899 Other long term (current) drug therapy; Z53.8 Procedure and treatment not carried out for other reasons
CPT/HCPCS: 01230; 36415; 36430; 51702; 64450; 71045; 71046; 73502; 74018; 76942; 80048; 80053; 80076; 81001; 82550; 82553; 82977; 83540; 83615; 83735; 83874; 83880; 84466; 84484; 85025; 85610; 85730; 86850; 86900; 86901; 86920; 87040; 93005; 93010; 93306; 94760; 94762; 97110; 97140; 97162; 97165; 97530; 97535; 99285-25; C1713; C1769; J0461; J0690; J0780; J1100; J1170; J1200; J1815; J1885; J1940; J2001; J2370; J2405; J2704; J2795; J3010; J3475; J3480; J7030; J7040; J7060; J7121; P9016; P9035